=== PATIENT | male | born 1970 | race Two or more races ===

== ENCOUNTER 2025-07-01 06:12 | Emergency (ER) | payer MEDICAID, SELFPAY ==
[2025-07-01 06:20] VITALS: PULSE 68; O2SAT 100; BMI 22.4
[2025-07-01 06:21] VITALS: BP 195/119; PULSE 101; RESP 18; TEMP 36.8; O2SAT 93
--- NOTE | 2025-07-01 06:23 | XR_ITS ---
Examination: AP chest single view TECHNIQUE: AP portable supine chest single view Date and time: July 01, 2025, 0723 hours INDICATIONS: Hypoxia and respiratory failure today, postintubation, extensive cerebral hemorrhage on CT brain scan this morning FINDINGS: Normal heart size Mild elevation left hemidiaphragm. Right ventriculoperitoneal shunt tube Endotracheal tube tip 5.4 cm above Adam No aspiration pneumonia Mild prominence pulmonary vasculature IMPRESSION: Endotracheal tube tip 5.4 cm above adam No aspiration pneumonia
--- NOTE | 2025-07-01 06:23 | XR_ITS ---
Examination: CT brain head without contrast. 2-D sagittal coronal reconstructions Date and time of exam:July 01, 2025, 0632 hours INDICATIONS: Seizure today, history meningitis CTDI: vol (mGy):49.8 DLP: (mGycm):[place] 33 Technique: Multiple CT axial sections of the brain have been obtained, 5 mm slice thickness. Contrast has not been administered. 2-D sagittal, coronal reconstructions have been obtained Low dose protocols were performed. One or more of the following dose reduction techniques were used; automated exposure control, adjustment of the mA and/or KV according to patient size, use of iterative reconstruction technique. Findings: Extensive intraventricular hemorrhage with mild to moderate enlargement of ventricles, asymmetric, more pronounced enlargement left lateral ventricle with shift of the frontal horns to the right at least 5 mm 16 mm left basal ganglia hemorrhage Hemorrhage is also in the third ventricle aqueduct and fourth ventricle Generalized cerebral edema Right frontal ventriculostomy catheter tip at the level of the right lateral ventricle IMPRESSION: Extensive intraventricular ventricular hemorrhage with mild to moderate enlargement of ventricles asymmetric, more pronounced and larger left lateral ventricle with shift of the frontal horns to the right at least 5 mm 16 mm left basal ganglia hemorrhage Generalized cerebral edema No tonsillar herniation
--- NOTE | 2025-07-01 06:26 | PD.EDSEIZ ---
ED Seizures RME/HPI General Chief Complaint: Seizure Stated Complaint: seizure Time Seen by Provider: 07/01/25 06:13 Arrival date/time: 07/01/25 06:12 Mode of arrival: EMS Limitations: altered mental status RME / HPI RME / HPI Narrative: Patient is a 54-year-old male is in the emergency room brought in by EMS after having had a witnessed seizure lasting approximately 20 minutes prior to EMS arrival. Per EMS patient's family states that the patient was having a tonic-clonic seizure, has a history of meningitis diagnosed in October, no history of seizures. Also has a history of diabetes. On scene patient was initially shaking and then became postictal. No medications were provided on scene. Patient blood sugar was 200, blood pressure systolic was greater than 190. Patient confused, had urinary incontinence. Patient was afebrile 06:45h - provides additional history. 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 complaint: seizure Related Data Allergies Allergy/AdvReac Type Severity Reaction Status Date / Time No Known Allergies Allergy Unverified 07/01/25 06:19 Review of Systems Review of Systems ROS Unobtainable: unobtainable due to mental status Past Medical History Past Medical History CARDIAC: Negative Congestive Heart Failure RESPIRATORY: Negative Chronic Obstructive Pulmonary Disease (COPD) GENITOURINARY: Negative Renal Disease ENDOCRINE: Positive Diabetes Mellitus Type 2; Negative Diabetes Mellitus Type 1 Social History SMOKING STATUS: Unknown if ever smoked ED Exam General Limitations: Present altered mental status General appearance: Present in distress Head Head exam: Present atraumatic and other (Patient with medical record consultant at the right occiput) Eye Eye exam: Present other (Minimal conjunctival injection, patient spontaneously opening his eyes, pupils equal round and reactive to light approximately 3 mm, right eye is deviated to the right mildly) ENT ENT exam: Present mucous membranes moist Neck Neck exam: Present normal inspection and trachea midline Chest Chest inspection: Present symmetric chest wall rise; Absent rash Respiratory Respiratory exam: Present normal lung sounds bilaterally; Absent respiratory distress, wheezes, stridor or accessory muscle use Cardiovascular Cardiovascular exam: Present normal rhythm and tachycardia Abdominal Exam Abdominal exam: Present soft; Absent distention, tenderness, guarding or rebound Extremities Exam Extremities exam: Present normal inspection Back Exam Back exam: Present normal inspection Neurological Exam Neurological exam: Present alert and other (Confused, responding to noxious stimuli with sternal rub, tracks, no nystagmus, minimal movement of all 4 extremities) Skin Skin exam: Present warm and dry Course Quality Measures none Orders Category Date Time Status 24 HR Medical Restraints Q2HR Care 07/01/25 07:55 Active Bedside COVID-19 Antigen Test NOW Care 07/01/25 06:23 Active Bedside COVID-19 Antigen Test NOW Care 07/01/25 06:27 Active Bedside Influenza A&B Antigen Test NOW Care 07/01/25 06:23 Completed Bedside Influenza A&B Antigen Test NOW Care 07/01/25 06:27 Completed EKG (ED ONLY) *Do not use* NOW Care 07/01/25 07:06 Completed Emergency Titration Protocol Stat Care 07/01/25 08:07 Ordered Intubation NOW Care 07/01/25 07:35 Completed Intubation NOW Care 07/01/25 07:39 Completed Miscellaneous Nursing Order NOW Care 07/01/25 07:00 Active Miscellaneous Nursing Order NOW Care 07/01/25 07:21 Active Miscellaneous Nursing Order NOW Care 07/01/25 08:04 Active Referral - Sports Leadership Instructor Stat Cons 07/01/25 08:[address] head/brain wo con Stat Exams 07/01/25 06:23 Completed CXR [XR chest 1V post procedure] Stat Exams 07/01/25 07:41 Completed EKG (ED Only) Stat Exams 07/01/25 07:06 Draft XR chest 1V post procedure Stat Exams 07/01/25 06:23 Completed Acetaminophen Stat Lab 07/01/25 06:30 Completed Ammonia Stat Lab 07/01/25 06:30 Completed CBC Stat Lab 07/01/25 06:30 Completed CMP [Comprehensive Metabolic Panel] Stat Lab 07/01/25 06:30 Completed Drug Screen,Urine Stat Lab 07/01/25 07:11 Completed INR [Prothrombin Time with INR] Stat Lab 07/01/25 06:30 Completed Procalcitonin Stat Lab 07/01/25 06:30 Completed Salicylate Stat Lab 07/01/25 06:30 Completed Sputum Culture and Gram Stain Stat Lab 07/01/25 07:36 Ordered T4 (Thyroxine) Stat Lab 07/01/25 06:30 Completed Thyroid Stimulating Hormone Stat Lab 07/01/25 06:30 Completed Troponin I Stat Lab 07/01/25 06:30 Completed UA, C/S IF [Urinalysis, C/S if Indicated] Stat Lab 07/01/25 07:11 Received VBG [Venous Blood Gas] Stat Lab 07/01/25 06:30 Completed Etomidate Inj [Amidate Inj] Med 07/01/25 07:07 Discontinued 30 mg IVP X1 ONE Etomidate Inj [Amidate Inj] Med 07/01/25 07:00 Discontinued 40 mg .ROUTE .STK-MED ONE Labetalol IV [Trandate IV] Med 07/01/25 06:25 Discontinued 10 mg IVP X1 ONE Magnesium Sulfate 1 gm Ivpb [Magnesium Sulfate Ivpb] Med 07/01/25 07:09 Discontinued 1 gm in 100 ml IV X1 Magnesium Sulfate 1 gm Ivpb [Magnesium Sulfate Ivpb] Med 07/01/25 07:09 Discontinued 100 ml IV .STK-MED Mannitol Inj 20% IVPB 500 ml Med 07/01/25 07:45 Discontinued Pre-Mixed [Pre-mixed Bag] 1 bag IV NOW Nicardipine/Ns 20Mg Ivpb [Cardene Ivpb] Med 07/01/25 06:37 Active 20 mg in 200 ml IV 5 mg/hr Ondansetron Inj [Zofran Inj] Med 07/01/25 07:06 Discontinued 4 mg IVP X1 ONE Ondansetron Inj [Zofran Inj] Med 07/01/25 07:14 Discontinued 4 mg IVP X1 ONE POTASSIUM CHL 10 mEq IVPB [Kcl Ivpb] Med 07/01/25 07:41 Active 10 meq in 100 ml IV Q1H Potassium Chloride [K-Dur] Med 07/01/25 07:40 Discontinued 40 meq PO X1 ONE Propofol 1,000 mg Ivpb [Diprivan Ivpb] Med 07/01/25 07:18 Discontinued 1,000 mg in 100 ml IV .STK-MED Propofol 1,000 mg Ivpb [Diprivan Ivpb] Med 07/01/25 07:23 Active 1,000 mg in 100 ml IV 5 mcg/kg/min Rocuronium Inj [Zemuron Inj] Med 07/01/25 07:01 Discontinued 100 mg .ROUTE .STK-MED ONE Rocuronium Inj [Zemuron Inj] Med 07/01/25 07:05 Discontinued 50 mg IVP X1 ONE Sodium Chloride 0.9% 1000 ml [Ns] 1,000 ml Med 07/01/25 07:04 Discontinued IV 999 mls/hr levETIRAcetam INJ [Keppra Inj] Med 07/01/25 06:17 Discontinued 1,000 mg .ROUTE .STK-MED ONE levETIRAcetam INJ [Keppra Inj] Med 07/01/25 06:16 Discontinued 1,000 mg IVP X1 ONE Volume Ventilator Routine RT 07/01/25 07:35 Active Vital Signs Vital signs: Vital Signs Temperature 98.3 F 07/01/25 06:21 Pulse Rate 101 H 07/01/25 06:21 Respiratory Rate 18 07/01/25 06:21 Blood Pressure 195/119 H 07/01/25 06:21 Pulse Oximetry (%) 93 L 07/01/25 06:21 Oxygen Delivery Method Room Air 07/01/25 06:21 Pulse ox is 93% on room air which is adequate. PROCEDURES: Intubation Time out performed: Yes sedative: Etomidate Mg Given: 30 paralytic: Rocuronium Mg Given: 50 Laryngoscope: fiber optic video scope Assist Device Used: fiber optic device ET Tube Size: 7.5 ET Tube Uncuffed: No Tube Secured Depth (cm): 22 Tube Secured Location: lips Tube Placement Confirmation: visualized tube passing through cords, equal breath sounds bilaterally, no breath sounds over epigastrium and confirmation by capnometry Patient Tolerated Procedure: well and no complications Intubation Complications: none Seizure MDM Narrative MDM Narrative:: Patient is a 54-year-old male is in the emergency department after having had seizure-like activity at home. Vital signs and exam as listed. Patient was immediately placed in resuscitation room, IV access obtained. Patient is responding to noxious stimuli, is still confused appears postictal. Blood pressure systolic greater than 190 concern for hypertensive emergency. Ordered medication for blood pressure relief as well as further prophylaxis. Patient is afebrile no rashes, less likely meningitis at this time. Concern for intracranial hemorrhage, metabolic disturbance, viral syndrome urinary tract infection among others. Ordered CT and labs. Patient was stabilized and immediately taken to CT given concern for hemorrhage. CT brain shows intracranial hemorrhage within bilateral lateral ventricles third ventricle as well as fourth ventricle. No evidence of herniation of my read. Will place patient on a Cardene drip, and transfer for higher level of care for neurosurgery. 6:50a patient's partner arrived at bedside, Gale, states that the patient is not on any blood thinners or antiplatelet agents. Had a history of valley fever in 2022, complicated by meningitis in 2023, had a cholecystectomy earlier this year. 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 7a patient has intermittent episodes of shaking, concern the patient is having seizures. Will provide antiepileptic medication, and intubate for airway protection and for better management of seizures. Spoke with patient's partner Gale as well as his adult son Isma Peter Jr., both confirm that the patient is full code. Provide consent for intubation understand the patient is critically ill. [facility] recommended that we start the patient on mannitol given concern that he will likely herniate. Patient intubated without any difficulties, hyperventilated given intracranial hemorrhage. Sedated on propofol. Requested nurses to titrate propofol drip emergently given patient appears to be reacting to event, and some shaking. Patient was given a propofol bolus, resulting in appropriate sedation and no longer having any myoclonic activity. Patient with hypokalemia, pH normal, glucose 200. Will replete in the emergency department. Unable to place NG nor OG tube in the emergency department. Repleted IV. 7:45a troponin not elevated, EKG, heart rate 120, normal intervals, has ST depressions in lead to 3 aVF V1 V2 V3 V4 V5 V6 also has ST elevation in aVR. Not a STEMI. Discussed case with Dr. Baum given ST depression and elevations in aVR send the patient has left main disease. Patient not a candidate for anticoagulation at this point. Agrees with transfer for higher level of care for the brain bleed, will try to see the patient before he gets transferred. No other recommendations at this time. 8:26a patient is comfortable, no myoclonic activity, not overbreathing the vent, blood pressure is now at goal. EMS. Here to picking tech patient for transport. EMS team was thoroughly briefed on patient history and plan Patient data External records reviewed:: EMS form and None (No previous visits for review ) Clinical information provided by:: EMS Social determinants that could affect healthcare access:: none Patient has the following chronic illnesses:: Meningitis, diabetes How is presenting disease/condition affected by chronic disease/condition?: exacerbated by Evaluation data The following diagnostics were reviewed and interpreted by me:: lab results and radiology exam(s) Lab and/or radiology exams considered but not ordered:: None Interpretation Summary: Ordering Physician: Lara Charles MD Date of Service: 07/01/25 Procedure(s): CT head/brain wo con Accession Number(s): [id number] cc: Richie Simms MD; Lara Charles MD~ Examination: CT brain head without contrast. 2-D sagittal coronal reconstructions Date and time of exam:July 01, 2025, 0632 hours INDICATIONS: Seizure today, history meningitis CTDI: vol (mGy):49.8 DLP: (mGycm):[place] 33 Technique: Multiple CT axial sections of the brain have been obtained, 5 mm slice thickness. Contrast has not been administered. 2-D sagittal, coronal reconstructions have been obtained Low dose protocols were performed. One or more of the following dose reduction techniques were used; automated exposure control, adjustment of the mA and/or KV according to patient size, use of iterative reconstruction technique. Findings: Extensive intraventricular hemorrhage with mild to moderate enlargement of ventricles, asymmetric, more pronounced enlargement left lateral ventricle with shift of the frontal horns to the right at least 5 mm 16 mm left basal ganglia hemorrhage Hemorrhage is also in the third ventricle aqueduct and fourth ventricle Generalized cerebral edema Right frontal ventriculostomy catheter tip at the level of the right lateral ventricle IMPRESSION: Extensive intraventricular ventricular hemorrhage with mild to moderate enlargement of ventricles asymmetric, more pronounced and larger left lateral ventricle with shift of the frontal horns to the right at least 5 mm 16 mm left basal ganglia hemorrhage Generalized cerebral edema No tonsillar herniation Dictated By: Richie Simms MD Signed By: <Electronically signed by Richie Simms MD in OV> 07/01/25 0714 Medications / Prescriptions Medications or Prescriptions considered but not ordered:: None Medication administrations:: Medication Administration History Nicardipine/Sodium Chloride (Cardene Ivpb) 20 mg in 200 mls @ 50 mls/hr IV .Q4H PRN; Protocol PRN Reason: PER PROTOCOL Stop: 07/31/25 06:36 Last Titration: 07/01/25 08:05 Dose: 0 mg/hr, 0 mls/hr Documented By: Titration: 07/01/25 07:26 Dose: 7.5 mg/hr, 75 mls/hr Documented By: Titration: 07/01/25 07:16 Dose: 0 mg/hr, 0 mls/hr Documented By: Titration: 07/01/25 06:54 Dose: 7.5 mg/hr, 75 mls/hr Documented By: Admin: 07/01/25 06:47 Dose: 5 mg/hr, 50 mls/hr Documented By: TONIA Propofol (Diprivan Ivpb) 1,000 mg in 100 mls @ 2.064 mls/hr IV .Q24H PRN; Protocol PRN Reason: PER PROTOCOL Stop: 07/31/25 07:22 Last Titration: 07/01/25 08:09 Dose: 20 mcg/kg/min, 8.257 mls/hr Documented By: Titration: 07/01/25 08:03 Dose: 10 mcg/kg/min, 4.129 mls/hr Documented By: Admin: 07/01/25 07:34 Dose: 5 mcg/kg/min, 2.064 mls/hr Documented By: SINDHU Co-signed By: TRUNG Potassium Chloride (Kcl Ivpb) 10 meq in 100 mls @ 100 mls/hr IV Q1H DERRICK Stop: 07/01/25 09:40 Last Admin: 07/01/25 07:53 Dose: 100 mls/hr Documented By: TRUNG Discontinued Medications Etomidate (Etomidate Inj 2 Mg/Ml Vial 10 Ml) Confirm Administered Dose 40 mg .ROUTE .STK-MED ONE Stop: 07/01/25 07:01 Last Admin: 07/01/25 07:22 Dose: Not Given Documented By: SINDHU Non-Admin Reason: Duplicate Medication on eMAR Etomidate (Etomidate Inj 2 Mg/Ml Vial 10 Ml) 30 mg IVP X1 ONE Stop: 07/01/25 07:08 Last Admin: 07/01/25 07:19 Dose: 30 mg Documented By: SINDHU Sodium Chloride (Ns) 1,000 mls @ 999 mls/hr IV .Q1H1M ONE Stop: 07/01/25 08:04 Last Infusion: 07/01/25 08:25 Dose: Infused Documented By: Admin: 07/01/25 07:15 Dose: 999 mls/hr Documented By: SINDHU Magnesium Sulfate/Dextrose (Magnesium Sulfate Ivpb) 1 gm in 100 mls @ 100 mls/hr IV X1 ONE Stop: 07/01/25 08:08 Last Infusion: 07/01/25 08:24 Dose: Infused Documented By: Admin: 07/01/25 07:12 Dose: 100 mls/hr Documented By: SINDHU Magnesium Sulfate/Dextrose (Magnesium Sulfate Ivpb) Confirm Administered Dose 100 mls @ ud IV .STK-MED ONE Stop: 07/01/25 07:10 Last Admin: 07/01/25 07:18 Dose: Not Given Documented By: SINDHU Non-Admin Reason: Duplicate Medication on eMAR Propofol (Diprivan Ivpb) Confirm Administered Dose 1,000 mg in 100 mls @ ud IV .STK-MED ONE Stop: 07/01/25 07:19 Last Admin: 07/01/25 07:31 Dose: Not Given Documented By: TRUNG Non-Admin Reason: Duplicate Medication on eMAR Mannitol 500 ml/ IV (Miscellaneous Supplies) 500 mls @ 1,500 mls/hr IV NOW ONE Stop: 07/01/25 08:04 Last Infusion: 07/01/25 08:24 Dose: Infused Documented By: Admin: 07/01/25 07:43 Dose: 1,500 mls/hr Documented By: TRUNG Labetalol HCl (Labetalol Inj 5 Mg/Ml Vial 20 Ml) 10 mg IVP X1 ONE Stop: 07/01/25 06:26 Last Admin: 07/01/25 06:55 Dose: Not Given Documented By: TONIA Non-Admin Reason: Change of Condition Levetiracetam (Levetiracetam Inj 100 Mg/Ml Vial 5ml) 1,000 mg IVP X1 ONE Stop: 07/01/25 06:17 Last Admin: 07/01/25 06:43 Dose: 1,000 mg Documented By: TONIA Levetiracetam (Levetiracetam Inj 100 Mg/Ml Vial 5ml) Confirm Administered Dose 1,000 mg .ROUTE .STK-MED ONE Stop: 07/01/25 06:18 Last Admin: 07/01/25 07:22 Dose: Not Given Documented By: SINDHU Non-Admin Reason: Duplicate Medication on eMAR Ondansetron HCl (Ondansetron Inj 2 Mg/Ml Inj 2 Ml) 4 mg IVP X1 ONE; Protocol Stop: 07/01/25 07:07 Last Admin: 07/01/25 07:18 Dose: 4 mg Documented By: SINDHU Ondansetron HCl (Ondansetron Inj 2 Mg/Ml Inj 2 Ml) 4 mg IVP X1 ONE; Protocol Stop: 07/01/25 07:15 Last Admin: 07/01/25 07:22 Dose: Not Given Documented By: SINDHU Non-Admin Reason: Duplicate Medication on eMAR Potassium Chloride (Potassium Chloride 20 Meq Tabcr) 40 meq PO X1 ONE Stop: 07/01/25 07:41 Last Admin: 07/01/25 07:55 Dose: Not Given Documented By: TRUNG Non-Admin Reason: Other, see note Comments: PT INTUBATED & SEDATED; NO OG/NG TUBE ACCESS AT THIS TIME Rocuronium [place] (Rocuronium Inj 10 Mg/Ml Vial 10 Ml) Confirm Administered Dose 100 mg .ROUTE .STK-MED ONE Stop: 07/01/25 07:02 Last Admin: 07/01/25 07:20 Dose: Not Given Documented By: SINDHU Non-Admin Reason: Duplicate Medication on eMAR Rocuronium [place] (Rocuronium Inj 10 Mg/Ml Vial 10 Ml) 50 mg IVP X1 ONE Stop: 07/01/25 07:06 Last Admin: 07/01/25 07:19 Dose: 50 mg Documented By: SINDHU Co-signed By: TRUNG See above Consultations Consultation(s) initiated? (list below): Yes Consultation #1 (Physician, Specialty, Details): I spoke with Dr. Hope at [facility]. Discussed patients PMHx, HPI, ED course, exam findings, labs, and radiology results. Patient has been accepted for transfer. Time: 07:20 Consultation #2 (Physician, Specialty, Details): I spoke with emergency worker Dr. Baum. Discussed patients PMHx, HPI, ED course, exam findings, labs, and EKG results. Time: 07:48 Diagnosis Seizure Differential Diagnosis: epileptic seizure, status epilepticus and other (ICH) Most likely diagnosis given after review of the tests above:: Intracranial hemorrhage, hypertensive emergency, hypokalemia, coronary artery disease, seizure, status epilepticus, Admission Indicated Admission indicated?: not indicated Explain why admission is indicated or not indicated:: Txfer for neurosurgery Admission Request Was there a request for admission?: No Disposition Plan Disposition Plan: Transfer Critical Care Time Critical Care Time Critical Care Time: Yes Total Critical Care Time (min.): 60 Attestation: The high probability of sudden, clinically significant deterioration in the patient's condition required the highest level of my preparedness to intervene urgently. The services I provided to this patient were to treat and/or prevent clinically significant deterioration. Services included the following: chart data review, reviewing nursing notes and/or old charts, documentation time, web consultant collaboration regarding findings and treatment options, medication orders and management, direct patient care, vital sign assessments and ordering, interpreting and reviewing diagnostic studies and lab tests. Aggregate critical care time includes only time during which I was engaged in work directly related to the patient's care, as described above, whether at bedside or elsewhere in the Emergency Department. It did not include time spent performing other reported procedures or the services of residents, students, nurses or physician assistants. Discharge Plan Plan Patient Disposition: er Acute Care Fac Prescriptions/Referrals Referrals: Felicitas Noyola PA-C [Primary Care Provider] - In 1 week Problem List Clinical Impression: Intracranial hemorrhage, Status epilepticus, Acute hypokalemia, Diffuse ST segment depression Patient/Caregiver Discharge Instructions Print Language: [place] Island[place] Stand Alone Forms: Lakshmi Award Info., Patient Portal Info Letter
[2025-07-01] MEDS: levETIRAcetam INJ 100 MG/ML VIAL 5ML 1000 MG IVP (06:43)
[2025-07-01 06:47] VITALS: BP 178/124; PULSE 99
[2025-07-01] MEDS: NICARDIPINE/NS 20MG IVPB 20 MG/200 ML BAG 50 MG IV (06:47)
[2025-07-01 06:55] LABS: Base Excess, Venous 3 (-3-3); O2 Saturation, Venous 90 % (96-97); PCO2, Venous 53 mmHg (36-56); PO2, Venous 59 mmHg (15-58); pH, Venous 7.35 (7.33-7.66)
[2025-07-01 06:58] LABS: Basophils # (Auto) 0.2 Thou/mm3 (0.0-0.2); Basophils % (Auto) 1 % (0-2.5); Eosinophils # (Auto) 0.9 Thou/mm3 (0.0-0.5); Eosinophils % (Auto) 6 % (0-10); Hematocrit 41.5 % (41.0-53.0); Hemoglobin 14.8 g/dL (13.5-16.0); Immature Granulocytes Auto 0.06 Thou/mm3 (0.00-0.00); Lymphocytes # (Auto) 5.0 Thou/mm3 (1.0-4.8); Lymphocytes % (Auto) 35 % (10-50); Mean Corpuscular HGB Conc 35.7 g/dl (31.0-37.0); Mean Corpuscular Hemoglobin 30.7 pg (25.0-35.0); Mean Corpuscular Volume 86 fL (80-100); Monocytes # (Auto) 0.8 Thou/mm3 (0.0-0.8); Monocytes % (Auto) 6 % (0-12); Neutrophils # (Auto) 7.4 Thou/mm3 (1.8-7.7); Neutrophils % (Auto) 52 % (37-80); Nucleated Red Blood Cell # 0.00 Thou/mm3 (0.00-0.00); Nucleated Red Blood Cell % 0 /100 WBC (0); Platelet Count 246 Thou/mm3 (140-440); RDW Standard Deviation 40.6 fL (35.1-43.9); Red Blood Count 4.82 Miln/mm3 (4.50-5.90); White Blood Count 14.3 Thou/mm3 (3.8-10.6)
--- NOTE | 2025-07-01 07:06 | EKG_ITS ---
[facility] Test Date: 2025-07-01 Pat Name: TANA HOLLEY Department: Room: - Gender: Male Molding Process Technician: : 1970 Requested By: Lara Daniel Order Number: [id number] Reading MD: Lara Daniel Measurements Intervals [place] Rate: 120 P: 67 TX: 147 QRS: -25 QRSD: 94 T: 81 QT: 339 QTc: 479 Interpretive Statements SINUS TACHYCARDIA BORDERLINE LEFT AXIS DEVIATION [QRS AXIS < -20] INCOMPLETE RIGHT BUNDLE BRANCH BLOCK [90+ ms QRS DURATION, TERMINAL R IN V1/V2, 40+ ms S IN I/aVL/V4/V5/V6] NONSPECIFIC ST & T-WAVE ABNORMALITY ABNORMAL RHYTHM ECG No previous ECG available for comparison /store/S0/[id number]/[id number].pdf
[2025-07-01] MEDS: SODIUM CHLORIDE 0.9% 1000 ML 1,000 ML 999 ML IV (07:15)
[2025-07-01] MEDS: ONDANSETRON INJ 2 MG/ML INJ 2 ML 4 MG IVP (07:18)
[2025-07-01] MEDS: ROCURONIUM INJ 10 MG/ML VIAL 10 ML 50 MG IVP (07:19)
[2025-07-01] MEDS: ETOMIDATE INJ 2 MG/ML VIAL 10 ML 30 MG IVP (07:19)
[2025-07-01 07:25] LABS: Collection Type, Urine Catheter; Squamous Epithelial Cell,Urine 0 /hpf (0-5)
[2025-07-01 07:30] LABS: Acetaminophen < 2.0 mcg/mL (10.0-20.0); Alanine Aminotransferase 13 U/L (10-49); Albumin, Serum 4.5 gm/dL (3.5-5.0); Albumin/Globulin Ratio 1.4 (1.2-2.2); Alkaline Phosphatase 111 U/L (46-116); Ammonia < 10 uMol/L (11-32); Anion Gap 15 (7-16); Aspartate Amino Transferase 20 U/L (0-34); BUN/Creatinine Ratio 17 Ratio (12-20); Bilirubin,Total 0.3 mg/dL (0.3-1.2); Blood Urea Nitrogen 19 mg/dL (9-23); Calcium 10.0 mg/dL (8.3-10.6); Calcium (Corrected) 10.0 mg/dL (8.5-10.1); Carbon Dioxide 28.1 mMol/L (20.0-31.0); Chloride 98 mMol/L (98-107); Creatinine (Component) 1.1 mg/dL (0.6-1.3); Estimated Creatinine Clearance 74.7 mL/min (>60); Globulin 3.3 gm/dL (2.3-3.5); Glucose 273 mg/dL (74-106); INR 1.0 (0.9-1.3); Osmolality,Calculated 293 (275-295); Procalcitonin < 0.04 ng/ml (0.0-0.49); Prothrombin Time 10.6 Seconds (9.0-12.2); Salicylate < 3.0 mg/dL; Sodium 141 mMol/L (136-145); T4 (Thyroxine) 6.9 mcg/dL (4.5-10.9); Thyroid Stimulating Hormone 3.70 uIU/mL (0.55-4.78); Total Protein 7.8 gm/dL (5.7-8.2); Troponin I < 0.002 ng/mL (0.0-0.045); eGFR > 60 See Note
[2025-07-01 07:34] LABS: Potassium 2.7 mMol/L (3.4-5.1)
[2025-07-01] MEDS: PROPOFOL 1,000 MG IVPB 1,000 MG/100 ML VIAL 2.064 MG IV (07:34)
[2025-07-01 07:40] VITALS: BP 158/97; PULSE 121; RESP 22; O2SAT 100
--- NOTE | 2025-07-01 07:41 | XR_ITS ---
Examination: AP chest single view TECHNIQUE: AP portable supine chest single view Date and time: July 01, 2025, 0747 hours INDICATIONS: Post orogastric tube placement FINDINGS: Orogastric tube is coiled in the upper esophagus Endotracheal tube 5 cm above adam Normal heart size No aspiration pneumonia IMPRESSION: Recommend withdrawing the orogastric tube completely and reinserting
[2025-07-01] MEDS: MANNITOL 20% IV (07:43)
[2025-07-01] MEDS: PRE MIXED IV (07:43)
[2025-07-01] MEDS: POTASSIUM CHL 10 mEq IVPB 10 MEQ/100 ML BAG 100 MEQ IV (07:53)
[2025-07-01 07:58] LABS: Amphetamine/Methamp Scrn,U Negative (Negative); Barbiturate Screen,Urine Negative (Negative); Benzodiazepines Screen,Urine Negative (Negative); Benzoylecgonine Screen, Ur Negative (Negative); Fentanyl Screen,Urine Negative (Negative); Opiate Screen,Urine Negative (Negative); THC Screen,Urine Negative (Negative)
--- NOTE | 2025-07-01 08:13 | PC.NURSE ---
PROPOFOL MEDICATION GIVEN TO FLIGHT KANDACE LEAL.
--- NOTE | 2025-07-01 08:20 | PC.NURSE ---
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
[2025-07-01 08:22] VITALS: BP 144/95; PULSE 113; RESP 18; TEMP 37; O2SAT 100
[2025-07-01] MEDS: PROPOFOL 1,000 MG IVPB 1,000 MG/100 ML VIAL 20.643 MG IV (08:32)
--- NOTE | 2025-07-01 08:33 | PC.CC ---
0707: received call for transfer request for Neurosurgery for positive brain hemorrhage. Claudette declined d/t to no neuro ir services. [facility] accepted by Dr. Hope. Peer to peer between Dr. Hope and Dr. Charles completed. [employer] ETA to bedside 0815. Transfer packet with 1 CD and Reach packet created. Packets taken to ED, handed off to ED call center agent Alicia.
[2025-07-01 08:43] LABS: Bacteria,Urine Rare; Bilirubin,Urine Negative (Negative); Blood,Urine Negative (Negative); Clarity,Urine Clear (Clear/Hazy); Color,Urine Lt-Yellow (Lt Yel-Yel); Culture Indicated,Urine Yes; Glucose, Urine 2+ (Negative); Ketones,Urine Negative (Negative); Nitrite,Urine Negative (Negative); PH,Urine 7.0 (5.0-7.0); Protein,Urine 1+ (Neg - Trace); RBC,Urine 8 /hpf (0-3); Specific Gravity,Urine 1.009 (1.001-1.035); Urobilinogen,Urine Negative mg/dL (0.0-1.0); WBC,Urine 16 /hpf (0-5)
[2025-07-01 08:44] LABS: Leukocyte Esterase,Urine Positive (Negative)
--- NOTE | 2025-07-01 10:21 | PC.NURSE ---
SPOKE TO RICHARD JERONIMO FROM [facility] FOR SBAR REPORT.
== END 2025-07-01 08:54 | disposition short-term general hospital (02) ==
PROVIDERS: Emergency Provider Emergency Medicine; PCP Physician Assistant Medical
DX: I61.0 Nontraumatic intracerebral hemorrhage in hemisphere, subcortical (principal); G40.901 Epilepsy, unspecified, not intractable, with status epilepticus; E87.6 Hypokalemia; R94.31 Abnormal electrocardiogram [ECG] [EKG]; G93.6 Cerebral edema; Z98.2 Presence of cerebrospinal fluid drainage device; E11.9 Type 2 diabetes mellitus without complications
CPT/HCPCS: 51702; 31500; 36415; 70450; 80053; 80307; 80329; 81001; 82140; 82803; 84145; 84436; 84443; 84484; 85025; 85610; 87086; 87205; 87400; 87811; 93005; 94002; 96365; 96366; 96375; 99285; J1953; J2404; J2405; J2704; J3475; J3480; J3490; J7030; G0480

== ENCOUNTER 2025-08-04 15:22 | Inpatient (IN) | payer MEDICAID, SELFPAY ==
[2025-08-04] VITALS (72 sets, daily range): BP systolic 66–142; BP diastolic 43–106; PULSE 56–107; RESP 1–98; TEMP 37.3; O2SAT 86–100
--- NOTE | 2025-08-04 15:33 | EDNOTE_ITS ---
Altered Mental Status RME/HPI General Chief Complaint: Altered Mental Status Stated Complaint: AMS Time Seen by Provider: 08/04/25 15:38 Arrival date/time: 08/04/25 15:22 Limitations: altered mental status RME / HPI RME / HPI narrative: DR. BROWN MAIN ED EVALUATION: 54-year-old male with past medical history of recent stroke 3 weeks ago, meningitis, hypertension, and muscle wasting presents to the Emergency Department [facility] from [facility] for altered mental status. Per EMS, last well known was yesterday at 12 pm. On EMS arrival, patient was found altered with GCS 9, which compared to his baseline he is more altered per facility; due to this EMS decided to start bagging. Initial EMS vitals: BP 75/54, HR 89, O2 sat 95% on nonrebreather. Blood glucose was 114. Patient is a full code. No known allergies. No medications were given by EMS except IV fluids. Code Status: DNR Related Data Home Medications ?Medication ?Instructions ?Recorded ?Confirmed albuterol sulfate 2.5 mg/0.5 mL 2.5 mg inhalation Q6H PRN 08/05/25 08/05/25 solution for nebulization shortness of breath or wheez ing amitriptyline 10 mg tablet 10 mg PO HS 08/05/25 famotidine 20 mg tablet 20 mg PO DAILY 08/05/2507/09 fludrocortisone 0.1 mg tablet 0.1 mg PO DAILY 08/05/25 08/05/25 gabapentin 300 mg capsule 300 mg PO Q8H 08/05/2508/05 insulin lispro 100 unit/mL 1 sliding scale dose subcut 08/05/25 08/05/25 subcutaneous solution [id number] levetiracetam 500 mg tablet 500 mg PO Q12H 08/05/25 lisinopril 40 mg tablet 40 mg PO DAILY 08/05/2507/09 Previous Rx's ?Medication ?Instructions ?Recorded isavuconazonium sulfate 186 mg 372 mg (2 x 186 mg) PO QDAY 1 08/08/25 capsule (Cresemba) month #60 caps midodrine 10 mg tablet 10 mg PO Q8H PRN Systolic Bl ood 10/02/25 pressure <90 1 month #90 tabs melatonin 3 mg tablet 3 mg PO HS 1 month #30 tabs 08/09/25 mirtazapine 15 mg tablet 15 mg PO HS 1 month #30 tabs 08/09/25 Allergies Allergy/AdvReac Type Severity Reaction Status Date / Time No Known Allergies Allergy Unverified 07/01/25 06:19 Review of Systems Review of Systems Systems Reviewed: All systems reviewed, normal except as documented Past Medical History Past Medical History NEUROLOGIC: Positive Meningitis CARDIAC: Positive Hypertension ENDOCRINE: Positive Diabetes Mellitus Type 2 OTHER HISTORY: Positive Hospitalization Surgical History SURGICAL: Positive Brain Shunt (B/P SHUNT) Social History SMOKING STATUS: Unknown if ever smoked ED Exam General Limitations: Present altered mental status General appearance: Present other (unresponsive) Head Head exam: Present atraumatic Eye Eye exam: Present normal appearance, PERRL and EOMI ENT ENT exam: Present normal exam, normal oropharynx and mucous membranes moist Neck Neck exam: Present normal inspection and trachea midline Chest Chest inspection: Present normal inspection and symmetric chest wall rise Respiratory Respiratory exam: Present normal lung sounds bilaterally Cardiovascular Cardiovascular exam: Present regular rate, normal rhythm and normal heart sounds Abdominal Exam Abdominal exam: Present soft and normal bowel sounds Extremities Exam Extremities exam: Present normal inspection Back Exam Back exam: Present normal inspection Neurological Exam Neurological exam: Present other (unresponsive; minimal response to pain of the left upper extremity and no response at all to the right upper extremity or bilateral lower extremities) Skin Skin exam: Present warm, dry, intact and normal color Course Quality Measures none Orders Category Date Time Status Bedside Blood Glucose NOW Care 08/04/25 15:[address] Screening NOW Care 08/04/25 17:09 Completed Able Bodied Watchman Q4H START 00 Care 08/04/25 15:37 Completed Staples [Urinary Catheter] QS Care 08/04/25 15:34 Completed Insert IV NOW Care 08/04/25 15:37 Completed Strict Intake and Output Routine Care 08/04/25 15:37 Ordered Urinary Catheter QS Care 08/04/25 17:22 Completed Consult to Nephrology Stat Cons 08/04/25 19:[address] chest abdomen pelvis wo Stat Exams 08/04/25 19:[address] head/brain wo con Stat Exams 08/04/25 15:36 Completed XR chest 1V SEPSIS PROTOCOL Stat Exams 08/04/25 15:37 Completed Ammonia Stat Lab 08/04/25 16:34 Completed Blood Culture (Lab) Stat Lab 08/04/25 16:18 Completed CBC Stat Lab 08/04/25 15:29 Completed CMP [Comprehensive Metabolic Panel] Stat Lab 08/04/25 15:29 Completed Lactate (Lactic Acid) Stat Lab 08/04/25 15:29 Completed Lactic Acid, 3 HR Stat Lab 08/04/25 19:20 Completed Partial Thromboplastin Time Stat Lab 08/04/25 15:29 Completed Procalcitonin Stat Lab 08/04/25 15:29 Completed Prothrombin Time with INR Stat Lab 08/04/25 15:29 Completed Type and Screen Stat Lab 08/04/25 16:24 Completed Urinalysis Stat Lab 08/04/25 16:03 Completed Urine Culture Stat Lab 08/04/25 16:03 Completed VBG [Venous Blood Gas] Stat Lab 08/04/25 15:29 Completed Acyclovir Inj [Zovirax Inj] Med 08/04/25 21:30 Discontinued 1,[address] ONE Acyclovir Inj [Zovirax Inj] 625 mg Med 08/05/25 08:45 Discontinued Sodium Chloride 0.9% [Ns] 100 ml IV Q8HR Acyclovir Inj [Zovirax Inj] 700 mg Med 08/04/25 21:15 Discontinued Sodium Chloride 0.9% [Ns] 100 ml IV X1 Cefepime Inj [Maxipime Inj] 2 gm Med 08/04/25 08:30 Discontinued SODIUM CHLORIDE 0.9% (Popper) [Ns 0.9% (P)] 50 ml IV Q8HR Cefepime Inj [Maxipime Inj] 2 gm Med 08/05/25 06:00 Discontinued SODIUM CHLORIDE 0.9% (Popper) [Ns 0.9% (P)] 50 ml IV X1 Fluconazole/Ns 200 mg Ivpb [Diflucan/Ns Ivpb] Med 08/05/25 09:00 Discontinued 200 mg in 100 ml IV QDAY Fluconazole/Ns 200 mg Ivpb [Diflucan/Ns Ivpb] Med 08/04/25 20:30 Discontinued 200 mg in 100 ml IV X1 Norepinephrine/D5W 8mg/250ml [Levophed in D5W 8mg/250ml Med 08/04/25 15:33 Discontinued ] 8 mg in 250 ml IV 0.05 mcg/kg/min Norepinephrine/NS 16mg/250ml [Levophed in NS 16mg/250ml Med 08/04/25 15:32 Discontinued ] 16 mg in 250 ml IV 0.05 mcg/kg/min Ringers Lactated 1000 ml [Lactated Ringers] 1,000 ml Med 08/04/25 19:36 Discontinued IV 999 mls/hr Sodium Chloride 0.9% 1000 ml [Ns] 1,000 ml Med 08/04/25 18:48 Discontinued IV 999 mls/hr Vancomycin Inj 1,000 mg Med 08/04/25 21:00 Discontinued Sodium Chloride 0.9% 250 ml [Ns] 250 ml IV X1 Vancomycin Pharmacy to Dose Med 08/04/25 20:15 Discontinued 1 each IV QDAY PRN cefTRIAXone/D5w 1gm IV premix [Rocephin/D5w 1gm IV Med 08/04/25 18:00 Discontinued premix] 1 gm in 50 ml IV STAT levETIRAcetam INJ [Keppra Inj] Med 08/04/25 17:19 Discontinued 1,000 mg IVP X1 ONE EKG (RT) Stat RT 08/04/25 15:37 Draft Oxygen Delivery NOW RT 08/04/25 15:37 Completed Vital Signs Vital signs: Vital Signs Pulse Rate 89 08/04/25 15:29 Respiratory Rate 14 08/04/25 15:29 Blood Pressure 66/45 L 08/04/25 15:29 Pulse Oximetry (%) 100 08/04/25 15:29 Oxygen Delivery Method Room Air 08/04/25 15:29 Altered Mental Status MDM Narrative MDM Narrative:: Patient is a 54-year-old 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 Vital signs and exam as listed. Patient immediately placed in resuscitation room, IV access obtained. Patient spontaneously breathing at approximately 18 to 20/min, 100% room air, per EMS he was never hypoxic nor apneic however was unresponsive with systolic blood pressure in the low 70s. They started patient on fluids, provided supplemental oxygen and brought him to the emergency department. On my assessment, patient aphasic, not answering questions not following commands, not responding to pain in his right upper right lower or left lower extremity. Pupils 4 mm bilateral symmetric. Given patient's change in mentation concern that patient may have rebled. Per review of the records patient is not on any blood thinners. we reviewed patient's records that were sent over from a [facility] facility patient is DNR with selective treatment. I attempted call family however was unable to get through. We will continue with medical management, will get a stat head CT, we started the patient on Levophed. Pressure bagged a liter of fluids that was already started by EMS, ordered sepsis order set , will also provide patient with Keppra given his history of seizures. My interpretation: EKG performed at 1551 hours, sinus rhythm, rate 69, normal intervals, no ST elevation Per EMS last known well was 12 PM yesterday. Patient continued to be hypotensive, however is responding well to Levophed now has new MAP greater than [address] I updated patient that is now at bedside, she confirmed that the patient yesterday was speaking at his baseline up until approximately 12 PM when he became excessively sleepy and has not been arousable since then. She is concerned about possible medications that he is receiving at the facility. Patient is not on any blood thinners. Labs with evidence of hemoglobin 12.4, no leukocytosis, no left shift, platelets normal. VBG pH 7.43, pCO2 normal, pO2 greater than 100. Patient with hyponatremia sodium 151, chloride 112. Creatinine 3.2, previously normal. Elevated BUN. Lactic acid 2.5. Ammonia normal, procalcitonin not elevated. Patient has leukocytes +31 red blood cells 8 white blood cells no bacteria will treat empirically for urinary tract infection and send for culture. Consulted tool carrier Dr. Musa recommends that we provide the patient with 1/2 NS 75cc/hr. Discussed case with software systems engineer Dr. Donovan, given that patient continues to be on Levophed. Accepts patient for admission. Requests that instead we provide the patient with a liter of NS. care is now transitioned to the ICU team. Lanny Cornejo, am scribing for and in the presence of Dr. Brown. Patient data External records reviewed:: [facility] previous records and EMS form Clinical information provided by:: patient and EMS Social determinants that could affect healthcare access:: housing (Rehab home) Patient has the following chronic illnesses:: Past medical history of recent stroke 3 weeks ago, meningitis, hypertension, and muscle wasting. Code Status: DNR How is presenting disease/condition affected by chronic disease/condition?: exacerbated by Evaluation data The following diagnostics were reviewed and interpreted by me:: lab results, radiology exam(s) and EKG tracing(s) (My interpretation: EKG performed at 1551 hours, sinus rhythm, rate 69, normal intervals, no ST elevation) Lab and/or radiology exams considered but not ordered:: none Interpretation Summary: See MDM narrative above. RADIOLOGY Procedure(s): XR chest 1V SEPSIS PROTOCOL Accession Number(s): [id number] cc: Felicitas Noyola PA-C; Richie Simms MD; Lara Brown MD~ Examination: AP chest single view Technique one AP portable semiupright chest single view Date and time: July 27, 2025, 1553 hrs. Indications: Shortness of breath chest pain today Findings: Normal heart size No pneumonia or pulmonary edema Right chest ventricular. Shunt tube The osseous structures are intact Impression: No pneumonia or pulmonary edema Dictated By: Richie Simms MD Medications / Prescriptions Medications or Prescriptions considered but not ordered:: none Medication administrations:: Medication Administration History Discontinued Medications Acetaminophen (Acetaminophen 325 Mg Tablet) 650 mg PO Q6H PRN PRN Reason: Fever >101.5 Stop: 09/03/25 22:22 Acyclovir Sodium (Acyclovir Inj 500 Mg/10 Ml Vial) Confirm Administered Dose 1,000 mg IV .STK-MED ONE Stop: 08/04/25 21:31 Last Admin: 08/04/25 22:08 Dose: Not Given Documented By: SANTVikram Non-Admin Reason: Duplicate Medication on eMAR Dextrose (Dextrose 50%-Water Inj 50 Ml Syringe) 25 ml IV Q15MIN PRN PRN Reason: BG 50-70 responsive npo pt Stop: 09/03/25 22:30 Dextrose (Dextrose 50%-Water Inj 50 Ml Syringe) 50 ml IV Q15MIN PRN PRN Reason: BG <50 OR BG <70 & pt unresponsive Stop: 09/03/25 22:30 Diphenhydramine HCl (Diphenhydramine Inj 50 Mg/Ml Vial) 25 mg IM X1 ONE Stop: 08/05/25 23:52 Last Admin: 08/06/25 00:42 Dose: 25 mg Documented By: BRIE Diphenhydramine HCl (Diphenhydramine Inj 50 Mg/Ml Vial) 25 mg IVP X1 ONE Stop: 08/06/25 19:52 Last Admin: 08/06/25 20:06 Dose: 25 mg Documented By: BRIE Enoxaparin Sodium (Enoxaparin Sod Inj 40 Mg/0.4 Ml Syringe) 40 mg SC HS DERRICK Stop: 08/19/25 20:59 Last Admin: 08/08/25 20:08 Dose: 40 mg Documented By: Admin: 08/07/25 20:33 Dose: 40 mg Documented By: Admin: 08/06/25 20:11 Dose: 40 mg Documented By: Admin: 08/05/25 20:20 Dose: 40 mg Documented By: BRIE Glucagon (Glucagon Inj 1 Mg Vial) 1 mg IM Q15MIN PRN PRN Reason: BG <70, and no IV access Guaifenesin (Guaifenesin Syrup 200 Mg/10 Ml Udc) 100 mg PO X1 ONE; Protocol Stop: 08/07/25 04:30 Last Admin: 08/07/25 04:44 Dose: 100 mg Documented By: MIGUEL Norepinephrine Bitartrate (Levophed In Ns 16mg/250ml) 16 mg in 250 mls @ 3.315 mls/hr IV .Q24H PRN; Protocol PRN Reason: PER protocol Stop: 09/03/25 15:31 Norepinephrine/Dextrose (Levophed In D5w 8mg/250ml) 8 mg in 250 mls @ 6.63 mls/hr IV .Q24H PRN; Protocol PRN Reason: PER PROTOCOL Stop: 09/03/25 15:32 Last Titration: 08/05/25 02:45 Dose: 0 mcg/kg/min, 0 mls/hr Documented By: Titration: 08/05/25 02:30 Dose: 0.01 mcg/kg/min, 1.326 mls/hr Documented By: Titration: 08/05/25 02:15 Dose: 0.03 mcg/kg/min, 3.978 mls/hr Documented By: Titration: 08/05/25 02:00 Dose: 0.05 mcg/kg/min, 6.63 mls/hr Documented By: Titration: 08/05/25 01:30 Dose: 0.07 mcg/kg/min, 9.281 mls/hr Documented By: Titration: 08/05/25 01:15 Dose: 0.09 mcg/kg/min, 11.933 mls/hr Documented By: Titration: 08/05/25 01:00 Dose: 0.11 mcg/kg/min, 14.585 mls/hr Documented By: Titration: 08/05/25 00:02 Dose: 0.13 mcg/kg/min, 17.2 mls/hr Documented By: [email or web address] Titration: 08/04/25 23:30 Dose: 0.1 mcg/kg/min, 13.259 mls/hr Documented By: [email or web address] Titration: 08/04/25 18:45 Dose: 0.13 mcg/kg/min, 17.237 mls/hr Documented By: Titration: 08/04/25 18:00 Dose: 0.11 mcg/kg/min, 14.585 mls/hr Documented By: Titration: 08/04/25 17:00 Dose: 0.11 mcg/kg/min, 14.585 mls/hr Documented By: Titration: 08/04/25 16:10 Dose: 0.11 mcg/kg/min, 14.585 mls/hr Documented By: Titration: 08/04/25 15:55 Dose: 0.09 mcg/kg/min, 11.933 mls/hr Documented By: Titration: 08/04/25 15:50 Dose: 0.07 mcg/kg/min, 9.281 mls/hr Documented By: Admin: 08/04/25 15:39 Dose: 0.05 mcg/kg/min, 6.63 mls/hr Documented By: EF Ceftriaxone Sodium/Dextrose (Rocephin/D5w 1gm Iv Premix) 1 gm in 50 mls @ 100 mls/hr IV STAT STA Stop: 08/04/25 18:29 Last Admin: 08/04/25 18:24 Dose: 100 mls/hr Documented By: EF Sodium Chloride (Ns) 1,000 mls @ 999 mls/hr IV .Q1H1M ONE Stop: 08/04/25 19:48 Last Infusion: 08/04/25 20:20 Dose: Infused Documented By: Admin: 08/04/25 19:18 Dose: 999 mls/hr Documented By: BENITO Lactated Ringer's (Lactated Ringers) 1,000 mls @ 999 mls/hr IV .Q1H1M ONE Stop: 08/04/25 20:36 Last Infusion: 08/04/25 21:40 Dose: Infused Documented By: Admin: 08/04/25 20:37 Dose: 999 mls/hr Documented By: BENITO Cefepime HCl 2 gm/ Sodium (Chloride) 50 mls @ 100 mls/hr IV Q8HR DERRICK Stop: 08/11/25 08:29 Last Admin: 08/05/25 10:20 Dose: Not Given Documented By: Non-Admin Reason: Discontinued Admin: 08/05/25 10:20 Dose: Not Given Documented By: Non-Admin Reason: Discontinued Admin: 08/05/25 10:19 Dose: Not Given Documented By: Non-Admin Reason: Discontinued Admin: 08/05/25 10:18 Dose: Not Given Documented By: Non-Admin Reason: Discontinued Vancomycin HCl 1,000 mg/ (Sodium Chloride) 250 mls @ 150 mls/hr IV X1 ONE Stop: 08/04/25 22:39 Last Admin: 08/05/25 00:26 Dose: 150 mls/hr Documented By: BENITO Fluconazole (Diflucan/Ns Ivpb) 200 mg in 100 mls @ 100 mls/hr IV QDAY DERRICK Stop: 08/12/25 08:59 Last Admin: 08/05/25 10:21 Dose: 100 mls/hr Documented By: TIKI Fluconazole (Diflucan/Ns Ivpb) 200 mg in 100 mls @ 100 mls/hr IV X1 ONE Stop: 08/04/25 21:29 Last Infusion: 08/04/25 23:02 Dose: Infused Documented By: Admin: 08/04/25 21:59 Dose: 100 mls/hr Documented By: BENITO Cefepime HCl 2 gm/ Sodium (Chloride) 50 mls @ 100 mls/hr IV X1 ONE Stop: 08/05/25 06:29 Last Admin: 08/05/25 05:47 Dose: 100 mls/hr Documented By: NATE Acyclovir Sodium 625 mg/ (Sodium Chloride) 112.5 mls @ 112.5 mls/hr IV Q8HR DERRICK Stop: 08/12/25 08:44 Last Admin: 08/05/25 10:17 Dose: Not Given Documented By: Non-Admin Reason: Discontinued Acyclovir Sodium 700 mg/ (Sodium Chloride) 114 mls @ 99.878 mls/hr IV X1 ONE Stop: 08/04/25 22:23 Last Infusion: 08/05/25 00:15 Dose: Infused Documented By: Admin: 08/04/25 23:04 Dose: 99.878 mls/hr Documented By: BENITO Lactated Ringer's (Lactated Ringers) 1,000 mls @ 75 mls/hr IV .[id number] DERRICK Stop: 09/03/25 22:29 Last Admin: 08/05/25 02:30 Dose: 75 mls/hr Documented By: NATE Lactated Ringer's (Lactated Ringers) 1,000 mls @ 999 mls/hr IV .Q1H1M ONE Stop: 08/05/25 01:49 Last Admin: 08/05/25 01:44 Dose: 999 mls/hr Documented By: NATE Dextrose (D5w) 1,000 mls @ 50 mls/hr IV .Q20H DERRICK Stop: 09/04/25 06:44 Last Admin: 08/05/25 08:14 Dose: 50 mls/hr Documented By: TIKI Acyclovir Sodium 625 mg/ (Sodium Chloride) 112.5 mls @ 112.5 mls/hr IV Q8HR DERRICK Stop: 08/12/25 08:59 Acyclovir Sodium 625 mg/ (Sodium Chloride) 112.5 mls @ 112.5 mls/hr IV Q8HR DERRICK Stop: 08/12/25 08:59 Last Admin: 08/05/25 10:18 Dose: Not Given Documented By: MR Non-Admin Reason: Discontinued Vancomycin/Sodium Chloride (Vancomycin/Ns 750 Mg Ivpb) 750 mg in 150 mls @ 120 mls/hr IV BID@1000,2200 [facility] Stop: 08/12/25 09:59 Ceftriaxone Sodium/Dextrose (Rocephin/D5w 1gm Iv Premix) 1 gm in 50 mls @ 100 mls/hr IV QDAY DERRICK Stop: 08/10/25 09:56 Last Admin: 08/09/25 08:14 Dose: 100 mls/hr Documented By: Infusion: 08/08/25 09:53 Dose: Infused Documented By: Admin: 08/08/25 09:23 Dose: 100 mls/hr Documented By: Infusion: 08/07/25 08:59 Dose: Infused Documented By: Admin: 08/07/25 08:29 Dose: 100 mls/hr Documented By: Infusion: 08/06/25 10:02 Dose: Infused Documented By: Admin: 08/06/25 09:32 Dose: 100 mls/hr Documented By: MR(2) Infusion: 08/05/25 10:51 Dose: Infused Documented By: MR(2) Admin: 08/05/25 10:21 Dose: 100 mls/hr Documented By: TIKI Dextrose (D5w) 1,000 mls @ 50 mls/hr IV .Q20H ONE Stop: 08/06/25 07:16 Last Admin: 08/05/25 13:20 Dose: Not Given Documented By: TIKI Non-Admin Reason: previous bag running @ 50ml/hr Fluconazole (Diflucan/Ns Ivpb) 400 mg in 200 mls @ 50 mls/hr IV QDAY@1100 [facility] Stop: 08/13/25 10:59 Last Infusion: 08/07/25 14:13 Dose: 0 mls/hr Documented By: Admin: 08/07/25 10:43 Dose: 50 mls/hr Documented By: Infusion: 08/06/25 15:57 Dose: Infused Documented By: Admin: 08/06/25 11:57 Dose: 50 mls/hr Documented By: MR(2) Fluconazole (Diflucan/Ns Ivpb) 100 mls @ 100 mls/hr IV X1 ONE Stop: 08/05/25 19:44 Last Admin: 08/05/25 19:21 Dose: 100 mls/hr Documented By: BRIE Fluconazole (Diflucan/Ns Ivpb) 400 mg in 200 mls @ 100 mls/hr IV X1 ONE Stop: 08/05/25 18:44 Last Admin: 08/05/25 17:19 Dose: 100 mls/hr Documented By: TUCKER Fluconazole (Diflucan/Ns Ivpb) 400 mg in 200 mls @ 100 mls/hr IV QDAY DERRICK Stop: 08/13/25 08:59 Last Admin: 08/07/25 08:34 Dose: 100 mls/hr Documented By: Infusion: 08/06/25 11:51 Dose: Infused Documented By: Admin: 08/06/25 09:51 Dose: 100 mls/hr Documented By: (2) Magnesium Sulfate (Magnesium Sulfate Ivpb) 4 gm in 50 mls @ 12.5 mls/hr IV X1 ONE Stop: 08/06/25 11:53 Last Admin: 08/06/25 09:32 Dose: 12.5 mls/hr Documented By: (2) Insulin Human Lispro (Insulin Lispro (Admelog) 1 Unit/0.01 Ml Unit) 0 unit SC Q6H DERRICK; Protocol Stop: 09/03/25 22:44 Last Admin: 08/05/25 10:57 Dose: 1 unit Documented By: TIKI Co-signed By: Admin: 08/05/25 05:40 Dose: Not Given Documented By: NATE Non-Admin Reason: Other, see note Admin: 08/04/25 23:05 Dose: Not Given Documented By: BENITO Non-Admin Reason: Patient Refused Comments: refused Insulin Human Regular (Insulin Hum Regular 1 Unit/0.01 Ml (Per Unit)) 0 unit SC ACHS DERRICK; Protocol Stop: 09/04/25 16:59 Last Admin: 08/09/25 12:22 Dose: 2 unit Documented By: TUCKER Co-signed By: HAYDE Admin: 08/09/25 08:15 Dose: 2 unit Documented By: TUCKER Co-signed By: GILBERT Admin: 08/08/25 20:06 Dose: 2 unit Documented By: [email or web address] Co-signed By: BRIE Admin: 08/08/25 16:59 Dose: 2 unit Documented By: GEETA Co-signed By: matheus Admin: 08/08/25 11:29 Dose: 2 unit Documented By: GEETA Co-signed By: matheus Admin: 08/08/25 07:29 Dose: Not Given Documented By: GEETA Non-Admin Reason: Per Protocol Admin: 08/07/25 20:26 Dose: Not Given Documented By: MIGUEL Non-Admin Reason: Patient Refused Admin: 08/07/25 17:13 Dose: 2 unit Documented By: GEETA Co-signed By: ABHILASH Admin: 08/07/25 12:05 Dose: 2 unit Documented By: GEETA Co-signed By: SANDRINE Admin: 08/07/25 07:33 Dose: Not Given Documented By: GEETA Non-Admin Reason: Per Protocol Admin: 08/06/25 20:25 Dose: 3 unit Documented By: BRIE Co-signed By: MIGUEL Admin: 08/06/25 17:50 Dose: Not Given Documented By: MR(2) Non-Admin Reason: Per Protocol Admin: 08/06/25 11:57 Dose: 3 unit Documented By: MR(2) Co-signed By: ARRON Admin: 08/06/25 07:44 Dose: Not Given Documented By: MR(2) Non-Admin Reason: Per Protocol Admin: 08/05/25 20:18 Dose: Not Given Documented By: BRIE Non-Admin Reason: Per Protocol Admin: 08/05/25 17:32 Dose: 2 unit Documented By: TUCKER Co-signed By: CB Isavuconazonium Sulfate (Isavuconazonium Sulf 186 Mg Capsule (Non-Form)) 372 mg PO QDAY DERRICK Stop: 08/14/25 13:29 Last Admin: 08/09/25 08:13 Dose: 372 mg Documented By: Admin: 08/08/25 09:23 Dose: 372 mg Documented By: Admin: 08/07/25 14:04 Dose: 372 mg Documented By: GEETA Levetiracetam (Levetiracetam Inj 100 Mg/Ml Vial 5ml) 1,000 mg IVP X1 ONE; Protocol Stop: 08/04/25 17:20 Last Admin: 08/04/25 17:56 Dose: 1,000 mg Documented By: EF Levetiracetam (Levetiracetam Inj 100 Mg/Ml Vial 5ml) 500 mg IVP Q12HR DERRICK Stop: 09/04/25 08:59 Last Admin: 08/09/25 08:39 Dose: 500 mg Documented By: Admin: 08/08/25 20:10 Dose: 500 mg Documented By: Admin: 08/08/25 09:22 Dose: 500 mg Documented By: Admin: 08/07/25 20:33 Dose: 500 mg Documented By: Admin: 08/07/25 08:26 Dose: 500 mg Documented By: Admin: 08/06/25 20:10 Dose: 500 mg Documented By: Admin: 08/06/25 09:32 Dose: 500 mg Documented By: (2) Admin: 08/05/25 20:19 Dose: 500 mg Documented By: Admin: 08/05/25 08:14 Dose: 500 mg Documented By: TIKI Melatonin (Melatonin 3 Mg Tablet) 5 mg PO HS DERRICK Stop: 09/08/25 20:59 Mirtazapine (Mirtazapine 15 Mg Tablet) 15 mg PO HS DERRICK Stop: 09/08/25 20:59 Ondansetron HCl (Ondansetron Inj 2 Mg/Ml Inj 2 Ml) 4 mg IVP Q6H PRN; Protocol PRN Reason: NAUSEA OR VOMITING Stop: 09/03/25 22:22 Pantoprazole Sodium (Pantoprazole Inj 40 Mg Vial) 40 mg IVP QDAY DERRICK Stop: 09/04/25 08:59 Last Admin: 08/09/25 08:14 Dose: 40 mg Documented By: Admin: 08/08/25 09:19 Dose: 40 mg Documented By: Admin: 08/07/25 08:25 Dose: 40 mg Documented By: Admin: 08/06/25 09:33 Dose: 40 mg Documented By: (2) Admin: 08/05/25 08:14 Dose: 40 mg Documented By: TIKI Pharmacy Consult (Vancomycin Pharmacy To Dose 1 Each Each) 1 each IV QDAY PRN PRN Reason: CONSULT Stop: 09/03/25 20:14 Pharmacy Consult (Pharmacy Renal Dose Adjustment 1 Ea) 1 each XX PRN PRN PRN Reason: CONSULT Stop: 09/04/25 08:43 see above Consultations Consultation(s) initiated? (list below): Yes Consultation #1 (Physician, Specialty, Details): See MDM Diagnosis Differential diagnosis altered mental status: other (Sepsis (possibly from pneumonia or urinary source), acute stroke, and metabolic encephalopathy.) Most likely diagnosis given after review of the tests above:: Altered mental status, hypernatremia, shock, acute kidney injury, lactic acidosis urinary tract infection. Admission Indicated Admission indicated?: indicated Admission Request Was there a request for admission?: Yes Admission Attestation Admission request attestation: Discussed case with [] from Hospitalist service regarding admission. Discussed patients ED course, exam findings, labs, and radiology results. The Hospitalist [agrees,declines] to accept the patient for admission. Disposition Plan Disposition Plan: Admit Critical Care Time Critical Care Time Critical Care Time: Yes Total Critical Care Time (min.): 60 Attestation: The high probability of sudden, clinically significant deterioration in the patient?s condition required the highest level of my preparedness to intervene urgently. The services I provided to this patient were to treat and/or prevent clinically significant deterioration. Services included the following: chart data review, reviewing nursing notes and/or old charts, documentation time, beauty consultant collaboration regarding findings and treatment options, medication orders and management, direct patient care, vital sign assessments and ordering, interpreting and reviewing diagnostic studies and lab tests. Aggregate critical care time includes only time during which I was engaged in work directly related to the patient?s care, as described above, whether at bedside or elsewhere in the Emergency Department. It did not include time spent performing other reported procedures or the services of residents, students, nurses or physician assistants. Discharge Plan Plan Patient Disposition: Admit Acute Care w/in Hospital Problem List Clinical Impression: Altered mental status
--- NOTE | 2025-08-04 15:36 | XR_ITS ---
Examination: CT brain head without contrast. 2-D sagittal coronal reconstructions Date and time of exam:August 04, 2025, 1726 hrs. Indications: Altered mental status with weakness today, CT brain scan July 01, 2025 extensive intraventricular hemorrhage 16mm left basal ganglia hemorrhage CTDI: vol (mGy):48.4 DLP: (mGycm):1038 Technique: Multiple CT axial sections of the brain have been obtained, 5 mm slice thickness. Contrast has not been administered. 2-D sagittal, coronal reconstructions have been obtained Low dose protocols were performed. One or more of the following dose reduction techniques were used; automated exposure control, adjustment of the mA and/or KV according to patient size, use of iterative reconstruction technique. Findings: Hemorrhage in the ventricles and left basal ganglia resolved No current acute hemorrhage Low density areas are present in the left thalamus and left frontal lobe No mass effect The ventricles are less prominent on this study Impression: Significant improvement compared with July 01, 2025 Hemorrhage in the ventricles and left basal ganglia has resolved Ventricles are smaller in size
--- NOTE | 2025-08-04 15:37 | XR_ITS ---
Examination: AP chest single view Technique one AP portable semiupright chest single view Date and time: July 27, 2025, 1553 hrs. Indications: Shortness of breath chest pain today Findings: Normal heart size No pneumonia or pulmonary edema Right chest ventricular. Shunt tube The osseous structures are intact Impression: No pneumonia or pulmonary edema
--- NOTE | 2025-08-04 15:37 | EKG_ITS ---
[facility] Test Date: 2025-08-04 Pat Name: TANA HOLLEY Department: Room: - Gender: Male Pt Escort: : 1970 Requested By: Lara Daniel Order Number: [id number] Reading MD: Lara Daniel Measurements Intervals [place] Rate: 69 P: 28 CA: 120 QRS: 42 QRSD: 77 T: 74 QT: 367 QTc: 394 Interpretive Statements SINUS RHYTHM Compared to ECG 07/01/2025 07:40:00 Sinus tachycardia no longer present Incomplete right bundle-branch block no longer present T-wave abnormality no longer present /store/S0/[id number]/ecg/[id number].pdf
[2025-08-04] MEDS: Norepinephrine/D5W 8mg/250ml 8 MG/250 ML BAG 6.63 MG IV (15:39)
[2025-08-04 15:52] LABS: Base Excess, Venous 3 (-3-3); Lactate (Lactic Acid) 2.5 mMol/L (0.4-2.0); O2 Saturation, Venous 100 % (96-97); PCO2, Venous 41 mmHg (36-56); PO2, Venous 122 mmHg (15-58); pH, Venous 7.43 (7.33-7.66)
[2025-08-04 15:55] LABS: Basophils # (Auto) 0.1 Thou/mm3 (0.0-0.2); Basophils % (Auto) 1 % (0-2.5); Eosinophils # (Auto) 0.2 Thou/mm3 (0.0-0.5); Eosinophils % (Auto) 2 % (0-10); Hematocrit 39.0 % (41.0-53.0); Hemoglobin 12.4 g/dL (13.5-16.0); Immature Granulocytes Auto 0.12 Thou/mm3 (0.00-0.00); Lymphocytes # (Auto) 2.0 Thou/mm3 (1.0-4.8); Lymphocytes % (Auto) 21 % (10-50); Mean Corpuscular HGB Conc 31.8 g/dl (31.0-37.0); Mean Corpuscular Hemoglobin 29.8 pg (25.0-35.0); Mean Corpuscular Volume 94 fL (80-100); Monocytes # (Auto) 0.8 Thou/mm3 (0.0-0.8); Monocytes % (Auto) 9 % (0-12); Neutrophils # (Auto) 6.2 Thou/mm3 (1.8-7.7); Neutrophils % (Auto) 66 % (37-80); Nucleated Red Blood Cell # 0.00 Thou/mm3 (0.00-0.00); Nucleated Red Blood Cell % 0 /100 WBC (0); Platelet Count 281 Thou/mm3 (140-440); RDW Standard Deviation 50.4 fL (35.1-43.9); Red Blood Count 4.16 Miln/mm3 (4.50-5.90); White Blood Count 9.3 Thou/mm3 (3.8-10.6)
[2025-08-04 16:13] LABS: Collection Type, Urine Catheter
[2025-08-04 16:18] LABS: Alanine Aminotransferase 22 U/L (10-49); Albumin, Serum 3.6 gm/dL (3.5-5.0); Albumin/Globulin Ratio 1.2 (1.2-2.2); Alkaline Phosphatase 119 U/L (46-116); Anion Gap 10 (7-16); Aspartate Amino Transferase 11 U/L (0-34); BUN/Creatinine Ratio 24 Ratio (12-20); Bilirubin,Total 0.3 mg/dL (0.3-1.2); Blood Urea Nitrogen 76 mg/dL (9-23); Calcium 9.5 mg/dL (8.3-10.6); Calcium (Corrected) 9.8 mg/dL (8.5-10.1); Carbon Dioxide 29.4 mMol/L (20.0-31.0); Chloride 112 mMol/L (98-107); Creatinine (Component) 3.2 mg/dL (0.6-1.3); Globulin 3.0 gm/dL (2.3-3.5); Glucose 103 mg/dL (74-106); Osmolality,Calculated 322 (275-295); Potassium 4.8 mMol/L (3.4-5.1); Procalcitonin 0.11 ng/ml (0.0-0.49); Sodium 151 mMol/L (136-145); Total Protein 6.6 gm/dL (5.7-8.2); eGFR 22 See Note
[2025-08-04 16:24] LABS: Bilirubin,Urine Negative (Negative); Blood,Urine 1+ (Negative); Clarity,Urine Hazy (Clear/Hazy); Color,Urine Yellow (Lt Yel-Yel); Glucose, Urine Negative (Negative); Ketones,Urine Negative (Negative); Leukocyte Esterase,Urine Positive (Negative); Nitrite,Urine Negative (Negative); PH,Urine 6.0 (5.0-7.0); Protein,Urine 1+ (Neg - Trace); RBC,Urine 31 /hpf (0-3); Specific Gravity,Urine 1.023 (1.001-1.035); Sperm,Urine Present; Squamous Epithelial Cell,Urine 1 /hpf (0-5); Transitional Epi Cells,Urine 2 /hpf (0-5); Urobilinogen,Urine Negative mg/dL (0.0-1.0); WBC,Urine 8 /hpf (0-5)
[2025-08-04 16:28] LABS: INR 1.0 (0.9-1.3); Partial Thromboplastin Time 23.1 Seconds (22.0-36.0); Prothrombin Time 11.1 Seconds (9.0-12.2)
[2025-08-04 16:58] LABS: Ammonia < 10 uMol/L (11-32)
[2025-08-04] MEDS: levETIRAcetam INJ 100 MG/ML VIAL 5ML 1000 MG IVP (17:56)
[2025-08-04] MEDS: cefTRIAXone/D5w 1gm IV premix 1 GM/50 ML BAG IV (18:24)
[2025-08-04 18:46] LABS: Reflex Lactate? Y
[2025-08-04] MEDS: SODIUM CHLORIDE 0.9% 1000 ML 1,000 ML 999 ML IV (19:18)
[2025-08-04 19:26] LABS: Lactic Acid, 3 HR 2.6 mMol/L (0.4-2.0)
--- NOTE | 2025-08-04 19:59 | XR_ITS ---
Examination: CT chest, without intravenous contrast. CT abdomen, without intravenous contrast. CT pelvis, without intravenous contrast. 2-D sagittal and coronal reconstructions. 3-D reconstructions. Date and time of exam:August 04, 2025, 2023 hrs. Indications: Chest pain abdominal pain shortness of breath today CTDI vol (mgy) 6.33 DLP (MGycm)480 Technique: Multiple CT images, 3.0 mm slice thickness, obtained chest, abdomen, pelvis, with the high-resolution 64 slice scanner.. Sagittal and coronal 2-D reconstructions are obtained. 3-D reconstructions Low dose protocols were performed. One or more of the following dose reduction techniques were used; automated exposure control, adjustment of the mA and/or KV according to patient size, use of iterative reconstruction technique. Findings: No thoracic aortic aneurysm dilatation Pulmonary artery segments are not enlarged Moderate calcification left anterior descending coronary artery. Bilateral pneumonia most prominent in the left lower lobe Minimal left pleural disease No visualized liver or splenic lesion Absent gallbladder No pancreatic or adrenal mass No biliary tract dilatation Multiple bilateral renal calculi ranging in size from 2 to 6 mm Mild left hydronephrosis, 6 mm mid left ureteral calculus Right ventricular peritoneal shunt tube Aorta normal size Transverse prostate dimension 6 cm Urinary Staples catheter in the bladder, air in the urinary bladder Prominent osteopenia Impression: Bilateral diffuse pneumonia, most prominent in the left lower lobe Multiple bilateral renal calculi Mild left hydronephrosis, 6 mm mid left ureteral calculus
[2025-08-04] MEDS: RINGERS LACTATED 1000 ML 1,000 ML 999 ML IV (20:37)
[2025-08-04] MEDS: FLUCONAZOLE/NS 200 MG IVPB 200 MG/100 ML BAG 100 MG IV (21:59)
--- NOTE | 2025-08-04 22:18 | PC.NURSE ---
CONTACTED [facility]SF[facility] SENT PT PKT. MIGUEL RODRIGUEZ SPOKE WITH DR RICHARD.
--- NOTE | 2025-08-04 22:19 | PC.NURSE ---
2019 RECEIVED CALL FROM [facility] NURSE NO ICU BEDS AVAILABLE AND THAT SAW PT BEFORE IS NOT [employer] MAK[employer]. DR RICHARD MADE AWARE.
--- NOTE | 2025-08-04 22:36 | PD.RESHP ---
Documentation for date of: 08/04/25 [facility] History of Present Illness History of present illness: A 54-year-old male with a medical history significant for a stroke approximately 4 weeks ago, meningitis, hypertension, and muscle wasting, was brought to the emergency department by EMS from [facility] for altered mental status. According to EMS, the patient's last known baseline was yesterday at 12 PM. Upon arrival, the patient was found to be altered, with a GCS of 9. His baseline was described as talkative and oriented to person, place, and time , although he has been bedbound following his recent stroke. The patient?s last ED visit was on July 01, 2025, following a witnessed tonic-clonic seizure lasting approximately 20 minutes prior to EMS arrival. 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 During the prior ED presentation on July 01, 2025, the patient was found to be in hypertensive emergency , with a CT brain revealing an intracranial hemorrhage within the bilateral lateral ventricles, third ventricle, and fourth ventricle. He was started on a nicardipine drip, and [facility] was consulted, recommending the administration of mannitol due to concerns for brain herniation. The patient continued having tonic-clonic seizures and was intubated for airway protection and better management of his seizures. He was transferred to [facility], where a [employer] shunt was placed. At that time, the patient also showed ST depression in leads aVF, V1, V2, V3, V4, and V5. A discussion with the on-call compliance nurse concluded that the patient was too unstable for anticoagulation therapy, and the decision was made to transfer him to a higher level of care due to the brain bleed. Most of the history was obtained from chart review and sign-out. The patient?s is at the bedside; however, she is a poor historian and is a [place] speaker. The patient remains altered with a GCS of 7-8, so will require a review of records from [facility]. On presentation today, the patient was found to be severely hypotensive, with a blood pressure of 66/45, but was saturating 100% on room air. Labs revealed mild anemia (hemoglobin 12.4, hematocrit 39), with hyponatremia of 151, chloride of 112, and a calculated osmolality of 322. These findings are most consistent with dehydration, along with acute kidney injury likely of prerenal etiology in the setting of hypoperfusion (BUN 76, creatinine 3.2, eGFR 22). Lactic acid was elevated at 2.6, further indicating hypoperfusion. ALP was noted to be 119. Urinalysis was consistent with a UTI. A chest x-ray was negative for any signs of heart failure, pneumonia, or pulmonary edema, and the EKG showed sinus bradycardia. Head CT revealed significant improvement compared to the previous scan on July 01, 2025, with resolution of the hemorrhage in the ventricles and left basal ganglia. The ventricles are smaller in size with no mass effect, but low-density areas persist in the left thalamus and left frontal lobe. The patient was given 1 L normal saline and started on ceftriaxone. Given the hypotension, Levophed was initiated, and ICU contacted for admission. The case was discussed with the hospitalist and internal medicine teams, we expressed concern regarding the current presentation, particularly the bradycardia, hypotension, altered mental status, and potential elevated ICP. Additionally, there is concern for [employer] shunt malfunction or an infection related to the shunt. We contacted [facility] to discuss the case and the possibility of transferring the patient, but there were no ICU beds available at the time. Therefore, the decision was made to admit the patient to our ICU for further management. In-house teleneuro was consulted, and they recommended starting cefepime, vancomycin, acyclovir, and fluconazole to cover for possible meningitis, encephalitis, or shunt infection. The patient was admitted to the ICU for continued care. PMH as above Allergies NKDA Meds amitriptyline, Dulcolax suppository, fludrocortisone afterthought oral tablet 0.1 mg, gabapentin 300 mg every 8 hours, insulin sliding scale, izavuconazonium sulfate, Keppra 500 mg twice daily, lisinopril 40 mg metformin 500 mg, metoprolol tartrate 25 mg, midodrine 10 every 8 hours.(Find medication list and physical chart) Social: Resides at [facility], was at bedside, has 1 son. Review of Systems Review of Systems ROS Unobtainable: unobtainable due to mental status Exam Vital Signs Temp Pulse Resp BP Pulse Ox O2 Del Method 99.2 F 74 11 L 95/79 89 L Room Air 08/04/25 18:05 08/04/25 20:32 08/04/25 20:32 08/04/25 20:32 08/04/25 20:32 08/04/25 18:05 Narrative Exam GENERAL: thin male, appears severely ill, not following commands, grimace at pain stimuli HEENT: mucus membrane dry, shunt noted on right parietal bone, intact , no local irritation, edema, or any sign of local infection NECK: Supple, no lymphadenopathy, no carotid bruits. CARDIOVASCULAR: bradicardic, Normal S1/S2, No m/r/g. No pitting edema of bilateral LEs. RESPIRATORY: CTAB. No wheezing, rhonchi, crackles. GASTROINTESTINAL: Abdomen soft, non tender no palpable masses. Bowel sounds present in all 4 quadrants. venegas noted. MUSCULOSKELETAL:? No cyanosis or edema, no visible joint swelling. NEUROLOGICAL: GCS of 7-8. The patient is unable to follow commands or converse effectively. spontaneous movement noted in the lower extremities. Weakness noted on both sides. however unable to assess fullneuro exam due to mental status INTEGUMENTARY: No obvious rashes, no jaundice Results: Labs 08/05/25 07:09 08/05/25 19:45 Labs: Short CBC 08/04/25 Range/Units 15:29 WBC 9.3 (3.8-10.6) Thou/mm3 Hgb 12.4 L (13.5-16.0) g/dL Hct 39.0 L (41.0-53.0) % Plt Count 281 D (140-440) Thou/mm3 BMP 08/04/25 15:29 Sodium 151 H Potassium 4.8 Chloride 112 H Carbon Dioxide 29.4 BUN 76 H Creatinine 3.2 H Glucose 103 Calcium 9.5 Liver Function 08/04/25 Range/Units 15:29 Total Bilirubin 0.3 (0.3-1.2) mg/dL AST 11 (0-34) U/L ALT 22 (10-49) U/L Alkaline Phosphatase 119 H (46-116) U/L Albumin 3.6 (3.5-5.0) gm/dL Urine 08/04/25 Range/Units 16:03 Urine Color Yellow (Lt Yel-Yel) Urine Clarity Hazy (Clear/Hazy) Urine pH 6.0 (5.0-7.0) Ur Specific [place] 1.023 (1.001-1.035) Urine Protein 1+ A (Neg - Trace) Urine Glucose (UA) Negative (Negative) ABG Interpretation ABG results: 08/04/25 15:29 VBG pH 7.43 VBG pCO2 41 VBG pO2 122 H VBG Base Excess 3 Quality Measures Quality Measures VTE prophylaxis Medications Home Medications and Allergies Home Medications ?Medication ?Instructions ?Recorded ?Confirmed ?Type albuterol sulfate 2.5 mg/0.5 mL 2.5 mg inhalation Q6H PRN 08/05/25 08/05/25 History solution for nebulization shortness of breath or wheezing amitriptyline 10 mg tablet 10 mg PO HS 08/05/25 08/05/25 History famotidine 20 mg tablet 20 mg PO DAILY 08/05/25 08/05/25 History fluconazole 200 mg tablet 800 mg PO QID 08/05/25 08/05/25 History fludrocortisone 0.1 mg tablet 0.1 mg PO DAILY 08/05/25 08/05/25 History gabapentin 300 mg capsule 300 mg PO Q8H 08/05/25 08/05/25 History insulin lispro 100 unit/mL 1 sliding scale dose subcut 08/05/25 08/05/25 History subcutaneous solution USEASDIRECTD isavuconazonium sulfate 186 mg 186 mg PO QDAY 08/05/25 08/05/25 History capsule levetiracetam 500 mg tablet 500 mg PO Q12H 08/05/25 08/05/25 History lisinopril 40 mg tablet 40 mg PO DAILY 08/05/25 08/05/25 History metoprolol tartrate 37.5 mg tablet 25 mg PO Q12H 08/05/25 08/05/25 History midodrine 10 mg tablet 10 mg PO Q8H 08/05/25 08/05/25 History Allergies Allergy/AdvReac Type Severity Reaction Status Date / Time No Known Allergies Allergy Unverified 07/01/25 06:19 Visit Medications Acetaminophen (Acetaminophen 325 Mg Tablet) 650 mg PO Q6H PRN PRN Reason: Fever >101.5 Stop: 09/03/25 22:22 Dextrose (Dextrose 50%-Water Inj 50 Ml Syringe) 25 ml IV Q15MIN PRN PRN Reason: BG 50-70 responsive npo pt Stop: 09/03/25 22:30 Dextrose (Dextrose 50%-Water Inj 50 Ml Syringe) 50 ml IV Q15MIN PRN PRN Reason: BG <50 OR BG <70 & pt unresponsive Stop: 09/03/25 22:30 Glucagon (Glucagon Inj 1 Mg Vial) 1 mg IM Q15MIN PRN PRN Reason: BG <70, and no IV access Norepinephrine/Dextrose (Levophed In D5w 8mg/250ml) 8 mg in 250 mls @ 6.63 mls/hr IV .Q24H PRN; Protocol PRN Reason: PER PROTOCOL Stop: 09/03/25 15:32 Last Titration: 08/04/25 18:45 Dose: 0.13 mcg/kg/min, 17.237 mls/hr Cefepime HCl 2 gm/ Sodium (Chloride) 50 mls @ 100 mls/hr IV Q8HR [facility] Stop: 08/11/25 20:02 Vancomycin HCl 1,000 mg/ (Sodium Chloride) 250 mls @ 150 mls/hr IV X1 ONE Stop: 08/04/25 22:39 Fluconazole (Diflucan/Ns Ivpb) 200 mg in 100 mls @ 100 mls/hr IV QDAY DERRICK Stop: 08/11/25 20:06 Cefepime HCl 2 gm/ Sodium (Chloride) 50 mls @ 100 mls/hr IV X1 ONE Stop: 08/05/25 06:29 Acyclovir Sodium 707 mg/ (Sodium Chloride) 114.14 mls @ 100 mls/hr IV BID DERRICK Stop: 08/11/25 20:59 Lactated Ringer's (Lactated Ringers) 1,000 mls @ 75 mls/hr IV .[id number] [facility] Stop: 09/03/25 22:29 Insulin Human Lispro (Insulin Lispro (Admelog) 1 Unit/0.01 Ml Unit) 0 unit SC Q6H DERRICK; Protocol Stop: 09/03/25 22:44 Ondansetron HCl (Ondansetron Inj 2 Mg/Ml Inj 2 Ml) 4 mg IVP Q6H PRN; Protocol PRN Reason: NAUSEA OR VOMITING Stop: 09/03/25 22:22 Pantoprazole Sodium (Pantoprazole Inj 40 Mg Vial) 40 mg IVP QDAY [facility] Stop: 09/04/25 08:59 Pharmacy Consult (Vancomycin Pharmacy To Dose 1 Each Each) 1 each IV QDAY DERRICK Stop: 09/03/25 20:14 Discontinued Medications Norepinephrine Bitartrate (Levophed In Ns 16mg/250ml) 16 mg in 250 mls @ 3.315 mls/hr IV .Q24H PRN; Protocol PRN Reason: PER protocol Stop: 09/03/25 15:31 Ceftriaxone Sodium/Dextrose (Rocephin/D5w 1gm Iv Premix) 1 gm in 50 mls @ 100 mls/hr IV STAT STA Stop: 08/04/25 18:29 Last Admin: 08/04/25 18:24 Dose: 100 mls/hr Sodium Chloride (Ns) 1,000 mls @ 999 mls/hr IV .Q1H1M ONE Stop: 08/04/25 19:48 Last Infusion: 08/04/25 20:20 Dose: Infused Lactated Ringer's (Lactated Ringers) 1,000 mls @ 999 mls/hr IV .Q1H1M ONE Stop: 08/04/25 20:36 Last Infusion: 08/04/25 21:40 Dose: Infused Fluconazole (Diflucan/Ns Ivpb) 200 mg in 100 mls @ 100 mls/hr IV X1 ONE Stop: 08/04/25 21:29 Last Admin: 08/04/25 21:59 Dose: 100 mls/hr Acyclovir Sodium 700 mg/ (Sodium Chloride) 114 mls @ 99.878 mls/hr IV X1 ONE Stop: 08/04/25 22:23 Levetiracetam (Levetiracetam Inj 100 Mg/Ml Vial 5ml) 1,000 mg IVP X1 ONE; Protocol Stop: 08/04/25 17:20 Last Admin: 08/04/25 17:56 Dose: 1,000 mg Assessment & Plan Plan 54-year-old male with past medical history of hemorrhagic stroke status post [employer] shunt placement history of seizure and valley fever was admitted for shock requiring vasopressors. CHEMICAL OPERATIONS AND TRAINING # Acute encephalopathy likely multifactorial DDx: ICP, possible [employer] shunt malfunctioning/infection vs meningitis/encephalitis vs shock related altered mental status Plan: -Frequent neurocheck every 1-2 hours to assess for worsening GCS, focal neurological signs or signs of increased ICP -Patient need neurosurgery evaluation for possible [employer] shunt malfunctioning and management of elevated ICP, MRI of the brain if needed. Attempt was made to transfer patient to [facility] where the shunt was placed, however currently there is no ICU bed available at [facility]. -ICP monitoring, head of bed elevation at 30%, avoid rapid position changes, watch for signs of increased ICP such as vomiting, worsening consciousness -Seizure precaution, monitor closely for seizures, patient might need EEG if clinically indicated -Per neuro recs cover for meningitis/encephalitis with broad-spectrum antibiotics, antivirals and antifungals, pending cultures, consider CSF analysis -neuro consult, recs are appreciated CVS #Shock likely multifactorial DDx: also include ICP with poor autoregulation which likely contributing to hypotension and bradycardia which is a Leitchfield's triad bradycardia, hypertension, irregular respirations(which patient does not have at this time) Vs cardiogenic shock: Recent ST depression on EKG which likely indicating ischemia or ICP (although the patient was not a candidate for intervention at that time) vs septic shock, either from [employer] shunt infection or UTI( less likely) with underlying meningitis/encephalitis as potential source vs hypovolemic shock likely due to dehydration or poor oral intake exacerbating the shock state Also at facility patient was a on Midodrin and fludrocortisone(abrupt stopping this medication could be mimicking the shock presentation.) Plan: -Continue hemodynamic support with Levophed to maintain MAP above 65, close monitoring hemodynamics and frequent reassessment -Cardiac monitoring continue EKG, also there is no evidence of acute ischemia at this time, echo will be obtained tomorrow. -Fluid resuscitation, patient was given 1 NS and 1 LR, Cheetah monitor will be placed to obtain hemodynamic numbers as well as to see if patient is responding to fluids -Hold home metoprolol, consider gradually starting home midodrine and fludrocortisone -sepsis management with broad-spectrum antibiotics, acyclovir, fluconazole -follow-up with the cultures, consider adding vasopressin if levo alone is insufficient -Consider cardiology consult Pulmonary #BB PNA on CT chest , patient is saturating 100% on room air with no signs of respiratory distress, chest x-ray is negative Plan is to monitor RS, Prepare for intubation if GCS is less than 6 GI No active disease PPI for prophylaxis N.p.o. for now Renal #NITHIN likely prerenal due to hypoperfusion from shock labs revealed BUN of 76, creatinine is 3.2, eGFR 22 #Hyperosmolar hyperchloremic hypernatremia most likely in the setting of dehydration. Free water deficit with a goal of sodium 143 would be 2.4L #Lactic acidosis likely related to tissue hypoperfusion and shock, #6mm stone, lift hydronephrosis seen on CT Plan: -fluid resuscitation, -Monitor urine output -Trend lactic acid -Avoid rapid correction, goal is to decrease sodium by 8 in the next 24-hour -Electrolyte monitoring, replace as needed Endo History of IDDM Insulin sliding scale ID #Suspect meningitis/encephalitis #suspect infected [employer] shunt #UTI Most likely infection related to [employer] shunt vs UTI vs PNA Recent [employer] shunt placement, UA is consistent for UTI Plan -Empiric antibiotics cefepim, vanc, Aciclovir and fluconazole to cover possible all infections -Obtain CSF and blood culture -Obtain urine culture Hematology -Mild anemia -Monitor coagulation panel Disposition:ICU, might need a transfer to [facility] for [employer] shunt evaluation, currently no icu bed avalable DVT prophylaxis: SCDs , avoiding chemical due to resent hemorragic stroke and possible spinal tap for csf analysis and transfer for shunt replacement? GI prophylaxis: PPI Diet: NPO Lines: PIV CODE STATUS:Full code Patient care was discussed with attending physician Dr. Jad Torres MD PGY-3 I have carefully reviewed this document. Due to imperfections in the voice software, there could be grammatical errors including phonetic/typographic errors. This in no way compromises the medical care the patient is receiving Attending Provider Attestation/Addendum After examination of the patient and review of the clinical data I feel that this patient needs admission to the hospital for further treatment/evaluation. TOTAL CC TIME: 60 MIN TOTAL TIME: 60 Minutes of direct medical management and planning of care. I Liana Romo MD, attest that I was physically present for kerns portions of evaluation, and examined patient, labs and imagings and plan of care were discussed with IM residents team, and I agree with the findings and plans documented above.
[2025-08-04] MEDS: ACYCLOVIR INJ 700 MG in SODIUM CHLORIDE 0.9% 100 ML 99.878 MG IV (23:04)
[2025-08-04 23:22] LABS: Lactate (Lactic Acid) 2.0 mMol/L (0.4-2.0)
[2025-08-04 23:53] LABS: Sodium 151 mMol/L (136-145); Troponin I < 0.020 ng/mL (0.0-0.045)
[2025-08-05] VITALS (55 sets, daily range): BP systolic 78–129; BP diastolic 52–88; PULSE 72–161; RESP 1–99; TEMP 36.1–36.9; O2SAT 93–100; BMI 21.6
[2025-08-05] MEDS: Vancomycin Inj 1,000 MG in SODIUM CHLORIDE 0.9% 250 ML 250 ML 150 MG IV (00:26)
[2025-08-05] MEDS: RINGERS LACTATED 1000 ML 1,000 ML 999 ML IV (01:44)
[2025-08-05] MEDS: RINGERS LACTATED 1000 ML 1,000 ML 75 ML IV (02:30)
[2025-08-05 02:41] LABS: Sodium 152 mMol/L (136-145)
[2025-08-05] MEDS: CEFEPIME INJ 2 GM in SODIUM CHLORIDE 0.9% (Popper) 50 ML IV (05:47)
[2025-08-05 07:29] LABS: Basophils # (Auto) 0.0 Thou/mm3 (0.0-0.2); Basophils % (Auto) 0 % (0-2.5); Eosinophils # (Auto) 0.3 Thou/mm3 (0.0-0.5); Eosinophils % (Auto) 5 % (0-10); Hematocrit 35.2 % (41.0-53.0); Hemoglobin 11.2 g/dL (13.5-16.0); Immature Granulocytes Auto 0.06 Thou/mm3 (0.00-0.00); Lymphocytes # (Auto) 1.5 Thou/mm3 (1.0-4.8); Lymphocytes % (Auto) 22 % (10-50); Mean Corpuscular HGB Conc 31.8 g/dl (31.0-37.0); Mean Corpuscular Hemoglobin 29.7 pg (25.0-35.0); Mean Corpuscular Volume 93 fL (80-100); Monocytes # (Auto) 0.5 Thou/mm3 (0.0-0.8); Monocytes % (Auto) 8 % (0-12); Neutrophils # (Auto) 4.4 Thou/mm3 (1.8-7.7); Neutrophils % (Auto) 65 % (37-80); Nucleated Red Blood Cell # 0.00 Thou/mm3 (0.00-0.00); Nucleated Red Blood Cell % 0 /100 WBC (0); Platelet Count 216 Thou/mm3 (140-440); RDW Standard Deviation 47.7 fL (35.1-43.9); Red Blood Count 3.77 Miln/mm3 (4.50-5.90); White Blood Count 6.7 Thou/mm3 (3.8-10.6)
[2025-08-05 08:11] LABS: Anion Gap 8 (7-16); BUN/Creatinine Ratio 34 Ratio (12-20); Blood Urea Nitrogen 44 mg/dL (9-23); Calcium 9.0 mg/dL (8.3-10.6); Carbon Dioxide 29.2 mMol/L (20.0-31.0); Chloride 113 mMol/L (98-107); Creatinine (Component) 1.3 mg/dL (0.6-1.3); Estimated Creatinine Clearance 57.4 mL/min (>60); Glucose 152 mg/dL (74-106); Magnesium 2.0 mg/dL (1.6-2.6); Osmolality,Calculated 312 (275-295); Phosphorous 2.9 mg/dL (2.4-5.1); Potassium 3.9 mMol/L (3.4-5.1); Sodium 150 mMol/L (136-145); Vancomycin,Random 10.5 mcg/mL; eGFR > 60 See Note
[2025-08-05] MEDS: levETIRAcetam INJ 100 MG/ML VIAL 5ML 500 MG IVP ×2 (08:14→20:19)
[2025-08-05] MEDS: DEXTROSE 5%-WATER 1,000 ML 50 ML IV (08:14)
[2025-08-05 08:17] LABS: Misc Send Out* See Sep Rpt
[2025-08-05 08:45] LABS: INR 1.0 (0.9-1.3); Prothrombin Time 10.6 Seconds (9.0-12.2)
--- NOTE | 2025-08-05 10:13 | ESPR_ITS ---
Documentation for date of: 08/05/25 Subjective Subjective Interval history: A 54-year-old male with a medical history significant for a stroke approximately 4 weeks ago, meningitis, hypertension, and muscle wasting, was brought to the emergency department by EMS from [facility] for altered mental status. According to EMS, the patient's last known baseline was yesterday at 12 PM. Upon arrival, the patient was found to be altered, with a GCS of 9. His baseline was described as talkative and oriented to person, place, and time , although he has been bedbound following his recent stroke. The patient?s last ED visit was on July 01, 2025, following a witnessed tonic-clonic seizure lasting approximately 20 minutes prior to EMS arrival. 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 During the prior ED presentation on July 01, 2025, the patient was found to be in hypertensive emergency , with a CT brain revealing an intracranial hemorrhage within the bilateral lateral ventricles, third ventricle, and fourth ventricle. He was started on a nicardipine drip, and [facility] was consulted, recommending the administration of mannitol due to concerns for brain herniation. The patient continued having tonic-clonic seizures and was intubated for airway protection and better management of his seizures. He was transferred to [facility], where a SCRAPE GATHERER shunt was placed. At that time, the patient also showed ST depression in leads aVF, V1, V2, V3, V4, and V5. A discussion with the on-call county program technician concluded that the patient was too unstable for anticoagulation therapy, and the decision was made to transfer him to a higher level of care due to the brain bleed. Most of the history was obtained from chart review and sign-out. The patient?s is at the bedside; however, she is a poor historian and is a [place] speaker. The patient remains altered with a GCS of 7-8, so will require a review of records from [facility]. On presentation today, the patient was found to be severely hypotensive, with a blood pressure of 66/45, but was saturating 100% on room air. Labs revealed mild anemia (hemoglobin 12.4, hematocrit 39), with hyponatremia of 151, chloride of 112, and a calculated osmolality of 322. These findings are most consistent with dehydration, along with acute kidney injury likely of prerenal etiology in the setting of hypoperfusion (BUN 76, creatinine 3.2, eGFR 22). Lactic acid was elevated at 2.6, further indicating hypoperfusion. ALP was noted to be 119. Urinalysis was consistent with a UTI. A chest x-ray was negative for any signs of heart failure, pneumonia, or pulmonary edema, and the EKG showed sinus bradycardia. Head CT revealed significant improvement compared to the previous scan on July 01, 2025, with resolution of the hemorrhage in the ventricles and left basal ganglia. The ventricles are smaller in size with no mass effect, but low-density areas persist in the left thalamus and left frontal lobe. The patient was given 1 L normal saline and started on ceftriaxone. Given the hypotension, Levophed was initiated, and ICU contacted for admission. The case was discussed with the hospitalist and internal medicine teams, we expressed concern regarding the current presentation, particularly the bradycardia, hypotension, altered mental status, and potential elevated ICP. Additionally, there is concern for SCRAPE GATHERER shunt malfunction or an infection related to the shunt. We contacted [facility] to discuss the case and the possibility of transferring the patient, but there were no ICU beds available at the time. Therefore, the decision was made to admit the patient to our ICU for further management. In-house teleneuro was consulted, and they recommended starting cefepime, vancomycin, acyclovir, and fluconazole to cover for possible meningitis, encephalitis, or shunt infection. The patient was admitted to the ICU for continued care. PMH as above Allergies NKDA Meds amitriptyline, Dulcolax suppository, fludrocortisone afterthought oral tablet 0.1 mg, gabapentin 300 mg every 8 hours, insulin sliding scale, izavuconazonium sulfate, Keppra 500 mg twice daily, lisinopril 40 mg metformin 500 mg, metoprolol tartrate 25 mg, midodrine 10 every 8 hours.(Find medication list and physical chart) Social: Resides at [facility], was at bedside, has 1 son. 08/05/2025: Overnight norepinephrine infusion was stopped around midnight and patient started on treatment with D5W. This morning patient appears to be back to his baseline mentation although confused. Patient thought he was in [place]. Denies any headaches, vision changes, neck stiffness, nausea. Hb decreased to 11.2 from 12.4, NA downtrended to 150 from 152, K down trended to 3.9 from 4.8, BUN and CR downtrending to 44 and 1.3 from 76 and 3.2. We discontinued cefepime and vancomycin as meningitis unlikely at this time. Continued fluconazole for prophylaxis and ceftriaxone for UTI. Will continue on D5W for hypernatremia. At this point patient is clinically stable for downgrade to the floor. Exam Vital Signs Temp Pulse Resp BP Pulse Ox O2 Del Method O2 Flow Rate 97.6 F 85 19 102/75 99 Room Air 5 08/05/25 06:00 08/05/25 07:32 08/05/25 07:32 08/05/25 06:15 08/05/25 06:15 08/04/25 18:05 08/05/25 07:32 Narrative Exam Constitutional Alert, oriented x 1[Person] and comfortable. Appears thin, cachectic HEENT Vision grossly intact. Patent nares. Trachea midline Respiratory Chest normal on inspection and clear auscultation bilaterally Cardiovascular S1 and S2 audible, RRR. No murmurs carotid bruit. No gross JVD. Abdominal Soft and non tender to palpation in all quadrants. BS + Genitourinary No bladder tenderness, no flank pain. Normal to palpation Musculoskeletal Extremities tone within normal limits. No LE edema. Neurological CN II - XII grossly intact. Extremity motor and sensation grossly intact. SCRAPE GATHERER shunt noted on right scalp. Skin Warm, dry and intact. No apparent lesions. Psychiatric Patient has good affect, is cooperative Objective Labs 08/05/25 07:09 08/05/25 10:29 Labs: Laboratory Results - last 24 hr 08/04/25 08/04/25 08/04/25 15:29 16:03 16:24 WBC 9.3 RBC 4.16 L Hgb 12.4 L Hct 39.0 L MCV 94 MCH 29.8 MCHC 31.8 RDW Std Deviation 50.4 H Plt Count 281 D Neut % (Auto) 66 Lymph % (Auto) 21 [place] % (Auto) 9 Eos % (Auto) 2 Baso % (Auto) 1 Neut # (Auto) 6.2 Lymph # (Auto) 2.0 [place] # (Auto) 0.8 Eos # (Auto) 0.2 Baso # (Auto) 0.1 Immature Gran # (Auto) 0.12 H Absolute Nucleated RBC 0.00 Immature Gran % 1 H Nucleated RBC % 0 PT 11.1 INR 1.0 APTT 23.1 VBG pH 7.43 VBG pCO2 41 VBG pO2 122 H VBG O2 Sat (Rohith) 100 H VBG Base Excess 3 Sodium 151 H Potassium 4.8 Chloride 112 H Carbon Dioxide 29.4 Anion Gap 10 BUN 76 H Creatinine 3.2 H Estim Creat Clear Calc Not Performed. eGFR 22 L BUN/Creatinine Ratio [address] Glucose [address] Glu mg/dL Hemoglobin A1c Calculated Osmolality 322 H Lactic Acid 2.5 H Calcium 9.5 Corrected Calcium 9.8 Phosphorus Magnesium Total Bilirubin 0.3 AST 11 ALT 22 Alkaline Phosphatase 119 H Ammonia Troponin I Total Protein 6.6 Albumin 3.6 Globulin 3.0 Albumin/Globulin Ratio 1.2 Procalcitonin 0.11 Ur Collection Type Catheter Urine Color Yellow Urine Clarity Hazy Urine pH 6.0 Ur Specific [place] 1.023 Urine Protein 1+ A Urine Glucose (UA) Negative Urine Ketones Negative Urine Blood 1+ A Urine Nitrite Negative Urine Bilirubin Negative Urine Urobilinogen (Auto) Negative Ur Leukocyte Esterase Positive Urine RBC 31 H Urine WBC 8 H Ur Squamous Epith Cells 1 Ur Transition Epith Cell 2 Urine Bacteria None Urine Sperm Present A Random Vancomycin Blood Type O Positive Antibody Screen NEGATIVE Blood Bank Wristband ID Yes 08/04/25 08/04/25 08/04/25 16:34 19:20 23:17 WBC RBC Hgb Hct MCV MCH MCHC RDW Std Deviation Plt Count Neut % (Auto) Lymph % (Auto) [place] % (Auto) Eos % (Auto) Baso % (Auto) Neut # (Auto) Lymph # (Auto) [place] # (Auto) Eos # (Auto) Baso # (Auto) Immature Gran # (Auto) Absolute Nucleated RBC Immature Gran % Nucleated RBC % PT INR APTT VBG pH VBG pCO2 VBG pO2 VBG O2 Sat (Rohith) VBG Base Excess Sodium 151 H Potassium Chloride Carbon Dioxide Anion Gap BUN Creatinine Estim Creat Clear Calc eGFR BUN/Creatinine Ratio Glucose Estimated Ave Glu mg/dL Hemoglobin A1c Calculated Osmolality Lactic Acid 2.6 H 2.0 Calcium Corrected Calcium Phosphorus Magnesium Total Bilirubin AST ALT Alkaline Phosphatase Ammonia < 10 L Troponin I < 0.020 Total Protein Albumin Globulin Albumin/Globulin Ratio Procalcitonin Ur Collection Type Urine Color Urine Clarity Urine pH Ur Specific [place] Urine Protein Urine Glucose (UA) Urine Ketones Urine Blood Urine Nitrite Urine Bilirubin Urine Urobilinogen (Auto) Ur Leukocyte Esterase Urine RBC Urine WBC Ur Squamous Epith Cells Ur Transition Epith Cell Urine Bacteria Urine Sperm Random Vancomycin Blood Type Antibody Screen Blood Bank Wristband ID 08/05/25 08/05/25 02:20 07:09 WBC 6.7 RBC 3.77 L Hgb 11.2 L Hct 35.2 L MCV 93 MCH 29.7 MCHC 31.8 RDW Std Deviation 47.7 H Plt Count 216 D Neut % (Auto) 65 Lymph % (Auto) 22 [place] % (Auto) 8 Eos % (Auto) 5 Baso % (Auto) 0 Neut # (Auto) 4.4 Lymph # (Auto) 1.5 [place] # (Auto) 0.5 Eos # (Auto) 0.3 Baso # (Auto) 0.0 Immature Gran # (Auto) 0.06 H Absolute Nucleated RBC 0.00 Immature Gran % 1 H Nucleated RBC % 0 PT 10.6 INR 1.0 APTT VBG pH VBG pCO2 VBG pO2 VBG O2 Sat (Rohith) VBG Base Excess Sodium 152 H 150 H Potassium 3.9 D Chloride 113 H Carbon Dioxide 29.2 Anion Gap 8 BUN 44 H Creatinine 1.3 D Estim Creat Clear Calc 57.4 L eGFR > 60 BUN/Creatinine Ratio 34 H Glucose [address] Glu mg/dL Cancelled Hemoglobin A1c Cancelled Calculated Osmolality 312 H Lactic Acid Calcium 9.0 Corrected Calcium Phosphorus 2.9 Magnesium 2.0 Total Bilirubin AST ALT Alkaline Phosphatase Ammonia Troponin I Total Protein Albumin Globulin Albumin/Globulin Ratio Procalcitonin Ur Collection Type Urine Color Urine Clarity Urine pH Ur Specific [place] Urine Protein Urine Glucose (UA) Urine Ketones Urine Blood Urine Nitrite Urine Bilirubin Urine Urobilinogen (Auto) Ur Leukocyte Esterase Urine RBC Urine WBC Ur Squamous Epith Cells Ur Transition Epith Cell Urine Bacteria Urine Sperm Random Vancomycin 10.5 Blood Type Antibody Screen Blood Bank Wristband ID ABG Interpretation ABG results: 08/04/25 15:29 VBG pH 7.43 VBG pCO2 41 VBG pO2 122 H VBG Base Excess 3 Quality Measures Quality Measures none Assessment & Plan Assessment Current Active Medications: Generic Name Dose Route Start Last Admin Trade Name Freq PRN Reason Stop Dose Admin Acetaminophen 650 mg 08/04/25 22:23 Acetaminophen 325 Mg Tablet PO 09/03/25 22:22 Q6H PRN Fever >101.5 Dextrose 25 ml 08/04/25 22:31 Dextrose 50%-Water Inj 50 Ml Syringe IV 09/03/25 22:30 Q15MIN PRN BG 50-70 responsive npo pt Dextrose 50 ml 08/04/25 22:31 Dextrose 50%-Water Inj 50 Ml Syringe IV 09/03/25 22:30 Q15MIN PRN BG <50 OR BG <70 & pt unresponsive Glucagon 1 mg 08/04/25 22:31 Glucagon Inj 1 Mg Vial IM Q15MIN PRN BG <70, and no IV access Norepinephrine/Dextrose 8 mg in 250 mls @ 6.63 mls/hr 08/04/25 15:33 08/05/25 02:45 Levophed In D5w 8mg/250ml IV 09/03/25 15:32 0 mcg/kg/min .Q24H PRN 0 mls/hr PER PROTOCOL Titration Protocol 0.05 MCG/KG/MIN Fluconazole 200 mg in 100 mls @ 100 mls/hr 08/05/25 09:00 Diflucan/Ns Ivpb IV 08/12/25 08:59 QDAY DERRICK Dextrose 1,000 mls @ 50 mls/hr 08/05/25 06:45 08/05/25 08:14 D5w IV 09/04/25 06:44 50 mls/hr .Q20H DERRICK Administration Ceftriaxone Sodium/Dextrose 1 gm in 50 mls @ 100 mls/hr 08/05/25 09:57 Rocephin/D5w 1gm Iv Premix IV 08/12/25 09:56 QDAY DERRICK Insulin Human Lispro 0 unit 08/04/25 22:45 08/05/25 05:40 Insulin Lispro (Admelog) 1 Unit/0.01 Ml Unit SC 09/03/25 22:44 Not Given Q6H DERRICK Protocol Levetiracetam 500 mg 08/05/25 09:00 08/05/25 08:14 Levetiracetam Inj 100 Mg/Ml Vial 5ml IVP 09/04/25 08:59 500 mg Q12HR DERRICK Administration Ondansetron HCl 4 mg 08/04/25 22:23 Ondansetron Inj 2 Mg/Ml Inj 2 Ml IVP 09/03/25 22:22 Q6H PRN NAUSEA OR VOMITING Protocol Pantoprazole Sodium 40 mg 08/05/25 09:00 08/05/25 08:14 Pantoprazole Inj 40 Mg Vial IVP 09/04/25 08:59 40 mg QDAY DERRICK Administration Pharmacy Consult 1 each 08/04/25 20:15 Vancomycin Pharmacy To Dose 1 Each Each IV 09/03/25 20:14 QDAY PRN CONSULT Pharmacy Consult 1 each 08/05/25 08:44 Pharmacy Renal Dose Adjustment 1 Ea XX 09/04/25 08:43 PRN PRN CONSULT Plan 54-year-old male with past medical history of hemorrhagic stroke status post SCRAPE GATHERER shunt placement history of seizure and valley fever was admitted for shock requiring vasopressors. 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 There was a concern for meningitis due to patient's previous history of cocci meningitis in 2022. However patient denied any headaches and Kernig and Brudzinski sign were negative on exam. Also increased ICP unlikely as patient has a functional SCRAPE GATHERER shunt and no signs of cerebral edema, or fluid in ventricles was seen on CT brain. DDx: -Hypernatremia, stroke recrudescence, nonconvulsive status epilepticus, meningitis Dx: - CT brain was negative for hemorrhage or any other signs of increased ICP Rx: ?Continue fluconazole 200 mg IV daily for coccidiomycosis prophylaxis ? Started on ceftriaxone 1 g IV daily on [08/05? RRx: ?Neurology, Dr Altman consulted. Appreciate recommendations History of seizures Rx: Continue home medication Keppra 500 mg IV twice daily [facility] Shock, likely septic?resolved Patient presented hypotensive with a MAP of 52 initially. He received only a 2L IVF bolus in the ED and was started on Levophed. After an additional 2L IVF bolus Levophed was able to be discontinued around midnight. Most likely patient was under resuscitated initially Pulmonary Possible CAP Dx: CT chest abdomen pelvis showed bibasilar pneumonia Rx: ? See ID GI No active disease Renal NITHIN likely prerenal?resolved Hyperchloremic Hypernatremia 6mm left ureteral calculi, left hydronephrosis seen on CT Rx: ? Continue D5W at 75 cc/h for hypernatremia ? Outpatient follow-up for renal calculi Endo History of IDDM Insulin sliding scale ID Possible CAP UTI Rx: ? Continue ceftriaxone 1 g IV daily started on [08/05? ? Follow-up on urine cultures Hematology Normocytic anemia Dx: Hb 11.2. Baseline around 14 Rx: Monitor CBC, consider iron panel ICU Health maintenance: Dispo: Clinically stable for downgrade Diet: N.p.o. until passes swallow screen DVT ppx: Enoxaparin 40mg SC daily GI ppx: Protonix 40mg qD IV lines: 2 pIV Central line: No Arterial line: No Staples: Yes (started 08/05? Code status: FULL CODE Plan of care discussed with Attending Dr. Zion Black MD PGY 2 Disclaimer: This note was dictated by speech recognition. Minor errors in javascript software engineer may be present due to voice recognition software. Attending Provider Attestation/Addendum Patient seen and examined with resident team. In brief this is a 54-year-old male who was recently seen for an intracranial hemorrhage a few weeks ago and sent down to [facility]. He also has a history of a SCRAPE GATHERER shunt secondary to an episode of cocci meningitis and he had couple years ago. He presented to the ER yesterday for altered mentation. This morning he is awake and alert however oriented to self only he is not sure where he is nor of the year. He is conversant and able to enunciate well. His GCS is approximately 15. Lung sounds are clear heart rate is regular and rhythmic he is thin with evidence of some muscle wasting noted. Overnight he was admitted with hypernatremia and had been started on some IV fluids. He had acute kidney injury which is improved this morning. He was hypotensive on arrival and after 1 L of IV fluid started on Levophed reason for his admission to the ICU. He was given additional volume and has come off of the Levophed. He has been hemodynamically stable. CT of chest abdomen pelvis obtained yesterday showed bilateral diffuse pneumonia. He will be continued on antibiotics for pneumonia as well as fluconazole for his history of cocci meningitis. He is currently stable to continue care on telemetry Case discussed with ICU team Labs, imaging and records reviewed Approximately 38 minutes required for evaluation, exam, review, discussion and formulation of plan of care for this unfortunate gentleman
[2025-08-05] MEDS: FLUCONAZOLE/NS 200 MG IVPB 200 MG/100 ML BAG 100 MG IV (10:21)
[2025-08-05] MEDS: cefTRIAXone/D5w 1gm IV premix 1 GM/50 ML BAG IV (10:21)
[2025-08-05] MEDS: INSULIN LISPRO (AdmeLOG) 1 UNIT/0.01 ML UNIT SC (10:57)
[2025-08-05 11:03] LABS: Sodium 148 mMol/L (136-145)
--- NOTE | 2025-08-05 11:35 | PC.SS ---
SS conducted phone contact with patient's life partner, Glae Mukherjee to conduct initial assessment. SS unable to conduct assessment with patient, due to patient being confused. Gale Mukherjee reported that patient came from [facility] and has been there since 08/02/25. Prior to SNF placement patient had been admitted to [facility]. She reported that prior to admission patient was able to ambulate with the use of a cane. Patient currently not on 02. Patient currently requires assistance with the completion of ADL's. Patient's surrogate medical decision maker is Gale Mukherjee. Facility PCP is Dr. Morris. Patient has a international manager provider, partner unable to recall name. Pharmacy of choice [facility]. Patient is not established with Dialysis. Discharge plan is for the patient to transition to SNF. Partner does not want patient to return to [facility]. Preferred placement is [facility]. workforce planner informed patient's partner that patient will need to meet criteria for acute rehab placement in addition insurance will have to provide authorization for [facility] placement. If patient does not meet criteria for acute rehab placement partner acknowledged that SS will submit referral for SNF placement. SS will not submit referral to [facility]. No further intervention at this time. SS will be available to address any concerns. Next of kin: Life partner, Gale Mukherjee Discharge plan: SNF
[2025-08-05 14:43] LABS: Sodium 148 mMol/L (136-145)
--- NOTE | 2025-08-05 14:58 | ESPR_ITS ---
<Statement entered by Wesley Marinelli MD - 08/06/25 17:11> I have personally seen and examined the patient, agree with residents assessment and plan Patient plan of care was discussed with the attending physician, Dr. Giles Marinelli, PGY2 Documentation for date of: 08/05/25 Subjective Subjective Interval history: Overnight events: No acute events overnight. Patient was seen and examined at bedside. AM vitals and labs reviewed. Patient not appear to be in any acute distress at this time. Patient is able to follow some directions, but overall speech is very confused. The patient is aware of self, but is not aware of time, place, or situation. Patient said that he was pretty sure he was in [place] at the time. When asked what he last members before coming to the hospital, the patient was not able to appropriately respond. at bedside was able to provide more information. She states that the patient was at his baseline, which is very talkative and interactive, at his nursing facility when the patient suddenly became much less responsive around noon on Friday 08/03. The patient's tried to wake the patient up, but to no success. Afterwards, the patient was taken to [facility] ED, and the patient was noted to be a more alert in the ICU, but his speech seemed very confused. Patient noted to be shaking excessively, though he does note seem to be aware of his shaking. 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 Patient was admitted to the ICU initially for management of shock requiring vasopressors, and subsequently downgraded to medical floors on 08/05. The patient's last known well was Friday 08/03 just before 12 PM, and it was noted that the patient was interacting well at baseline, although bedbound after his ICH stroke. Afterwards, the patient became very somnolent and difficult to arouse. As a result, the patient was brought to [facility] ED on 08/04, where it was noted that the patient had a GCS of 9. In the ED, the patient was noted to have a systolic in the low 70s and not responding to questions or following commands. Due history of ICH, urgent CT head was obtained, which did not show any new hemorrhage in the brain. The patient was given 2 L of IV fluids and started on Levophed. Only abnormality noted on labs in ED were sodium 151, creatinine 3.2, and lactic acid 2.5. Nephrology was consulted, who recommended half-normal saline at 75 cc/h at that time for management of the patient's hypernatremia. Ceftriaxone was started for suspected UTI given urine leukocyte esterase positive with 8 WBC in urine. Given the patient's history being treated for his intracerebral hemorrhage and recent discharge from [facility], it was attempted to transfer the patient to the hospital, which was unsuccessful as the hospital did not have any open ICU beds. As a result, the patient was admitted to ICU at [facility]. Teleneurology was consulted, and they recommended starting the patient on cefepime, vancomycin, acyclovir, and fluconazole to cover for possible meningitis, encephalitis, and/or shunt infection. The norepinephrine infusion was quickly stopped as the patient was able to maintain a MAP above 65 without it, the patient was noted to be still confused. ICU team discontinued cefepime and vancomycin on 08/05 due to low suspicion for meningitis at that time. Due to patient's clinical stability, patient was downgraded to medical floors on 08/05. Continue D5W at 50 cc/h. Sodium check at 2000 tonight. Continue Keppra 500 mg every 12 hours. Continue seizure precautions. Increased fluconazole to 800 mg daily for management of cocci meningitis. Ordered bedside swallow evaluation and will wait for speech evaluation as the patient was noted to be at aspiration risk during his hospitalization in [place]. Pending further recommendations from neurology regarding patient's encephalopathy. Echocardiogram has been taken, pending read. Review of systems otherwise negative except for what is mentioned above. Exam Vital Signs Temp Pulse Resp BP Pulse Ox O2 Del Method O2 Flow Rate 97.1 F 88 18 113/73 99 Room Air 5 08/05/25 12:08/05/25 12:08/05/25 12:08/05/25 12:08/05/25 12:08/05/25 12:08/05/25 07:32 Narrative Exam Physical Exam: General: Alert, no acute distress. Shaking in all extremities noted. Skin: Warm, dry, intact. Head: Normocephalic, atraumatic. Eye: Normal conjunctiva, PERRL. Cardiovascular: Unable to appreciate due to shaking of nearby upper extremities. Respiratory: Unable to appreciate due to shaking of nearby upper extremities. Gastrointestinal: Soft, nontender, non-distended. No guarding or rebound tenderness. Extremities: No edema, no cyanosis, no clubbing. Neuro: No focal deficits observed. Conversant, moving all extremities. Unable to appropriately answer most questions, but can follow some simple commands. Psychiatric: Cooperative, appropriate affect. Objective Labs 08/06/25 06:22 08/06/25 06:22 Labs: Laboratory Results - last 24 hr 08/04/25 08/04/25 08/04/25 15:29 16:03 16:24 WBC 9.3 RBC 4.16 L Hgb 12.4 L Hct 39.0 L MCV 94 MCH 29.8 MCHC 31.8 RDW Std Deviation 50.4 H Plt Count 281 D Neut % (Auto) 66 Lymph % (Auto) 21 Bath % (Auto) 9 Eos % (Auto) 2 Baso % (Auto) 1 Neut # (Auto) 6.2 Lymph # (Auto) 2.0 Bath # (Auto) 0.8 Eos # (Auto) 0.2 Baso # (Auto) 0.1 Immature Gran # (Auto) 0.12 H Absolute Nucleated RBC 0.00 Immature Gran % 1 H Nucleated RBC % 0 PT 11.1 INR 1.0 APTT 23.1 VBG pH 7.43 VBG pCO2 41 VBG pO2 122 H VBG O2 Sat (Rohith) 100 H VBG Base Excess 3 Sodium 151 H Potassium 4.8 Chloride 112 H Carbon Dioxide 29.4 Anion Gap 10 BUN 76 H Creatinine 3.2 H Estim Creat Clear Calc Not Performed. eGFR 22 L BUN/Creatinine Ratio [address] Glucose [address] Glu mg/dL Hemoglobin A1c Calculated Osmolality 322 H Lactic Acid 2.5 H Calcium 9.5 Corrected Calcium 9.8 Phosphorus Magnesium Total Bilirubin 0.3 AST 11 ALT 22 Alkaline Phosphatase 119 H Ammonia Troponin I Total Protein 6.6 Albumin 3.6 Globulin 3.0 Albumin/Globulin Ratio 1.2 Procalcitonin 0.11 Ur Collection Type Catheter Urine Color Yellow Urine Clarity Hazy Urine pH 6.0 Ur Specific Henderson 1.023 Urine Protein 1+ A Urine Glucose (UA) Negative Urine Ketones Negative Urine Blood 1+ A Urine Nitrite Negative Urine Bilirubin Negative Urine Urobilinogen (Auto) Negative Ur Leukocyte Esterase Positive Urine RBC 31 H Urine WBC 8 H Ur Squamous Epith Cells 1 Ur Transition Epith Cell 2 Urine Bacteria None Urine Sperm Present A Random Vancomycin Blood Type O Positive Antibody Screen NEGATIVE Blood Bank Wristband ID Yes 08/04/25 08/04/25 08/04/25 16:34 19:20 23:17 WBC RBC Hgb Hct MCV MCH MCHC RDW Std Deviation Plt Count Neut % (Auto) Lymph % (Auto) Bath % (Auto) Eos % (Auto) Baso % (Auto) Neut # (Auto) Lymph # (Auto) Bath # (Auto) Eos # (Auto) Baso # (Auto) Immature Gran # (Auto) Absolute Nucleated RBC Immature Gran % Nucleated RBC % PT INR APTT VBG pH VBG pCO2 VBG pO2 VBG O2 Sat (Rohith) VBG Base Excess Sodium 151 H Potassium Chloride Carbon Dioxide Anion Gap BUN Creatinine Estim Creat Clear Calc eGFR BUN/Creatinine Ratio Glucose Estimated Ave Glu mg/dL Hemoglobin A1c Calculated Osmolality Lactic Acid 2.6 H 2.0 Calcium Corrected Calcium Phosphorus Magnesium Total Bilirubin AST ALT Alkaline Phosphatase Ammonia < 10 L Troponin I < 0.020 Total Protein Albumin Globulin Albumin/Globulin Ratio Procalcitonin Ur Collection Type Urine Color Urine Clarity Urine pH Ur Specific Henderson Urine Protein Urine Glucose (UA) Urine Ketones Urine Blood Urine Nitrite Urine Bilirubin Urine Urobilinogen (Auto) Ur Leukocyte Esterase Urine RBC Urine WBC Ur Squamous Epith Cells Ur Transition Epith Cell Urine Bacteria Urine Sperm Random Vancomycin Blood Type Antibody Screen Blood Bank Wristband ID 08/05/25 08/05/25 08/05/25 02:20 07:09 10:29 WBC 6.7 RBC 3.77 L Hgb 11.2 L Hct 35.2 L MCV 93 MCH 29.7 MCHC 31.8 RDW Std Deviation 47.7 H Plt Count 216 D Neut % (Auto) 65 Lymph % (Auto) 22 Bath % (Auto) 8 Eos % (Auto) 5 Baso % (Auto) 0 Neut # (Auto) 4.4 Lymph # (Auto) 1.5 Bath # (Auto) 0.5 Eos # (Auto) 0.3 Baso # (Auto) 0.0 Immature Gran # (Auto) 0.06 H Absolute Nucleated RBC 0.00 Immature Gran % 1 H Nucleated RBC % 0 PT 10.6 INR 1.0 APTT VBG pH VBG pCO2 VBG pO2 VBG O2 Sat (Rohith) VBG Base Excess Sodium 152 H 150 H 148 H Potassium 3.9 D Chloride 113 H Carbon Dioxide 29.2 Anion Gap 8 BUN 44 H Creatinine 1.3 D Estim Creat Clear Calc 57.4 L eGFR > 60 BUN/Creatinine Ratio 34 H Glucose [address] Glu mg/dL Cancelled Hemoglobin A1c Cancelled Calculated Osmolality 312 H Lactic Acid Calcium 9.0 Corrected Calcium Phosphorus 2.9 Magnesium 2.0 Total Bilirubin AST ALT Alkaline Phosphatase Ammonia Troponin I Total Protein Albumin Globulin Albumin/Globulin Ratio Procalcitonin Ur Collection Type Urine Color Urine Clarity Urine pH Ur Specific Henderson Urine Protein Urine Glucose (UA) Urine Ketones Urine Blood Urine Nitrite Urine Bilirubin Urine Urobilinogen (Auto) Ur Leukocyte Esterase Urine RBC Urine WBC Ur Squamous Epith Cells Ur Transition Epith Cell Urine Bacteria Urine Sperm Random Vancomycin 10.5 Blood Type Antibody Screen Blood Bank Wristband ID 08/05/25 14:06 WBC RBC Hgb Hct MCV MCH MCHC RDW Std Deviation Plt Count Neut % (Auto) Lymph % (Auto) Bath % (Auto) Eos % (Auto) Baso % (Auto) Neut # (Auto) Lymph # (Auto) Bath # (Auto) Eos # (Auto) Baso # (Auto) Immature Gran # (Auto) Absolute Nucleated RBC Immature Gran % Nucleated RBC % PT INR APTT VBG pH VBG pCO2 VBG pO2 VBG O2 Sat (Rohith) VBG Base Excess Sodium 148 H Potassium Chloride Carbon Dioxide Anion Gap BUN Creatinine Estim Creat Clear Calc eGFR BUN/Creatinine Ratio Glucose Estimated Ave Glu mg/dL Hemoglobin A1c Calculated Osmolality Lactic Acid Calcium Corrected Calcium Phosphorus Magnesium Total Bilirubin AST ALT Alkaline Phosphatase Ammonia Troponin I Total Protein Albumin Globulin Albumin/Globulin Ratio Procalcitonin Ur Collection Type Urine Color Urine Clarity Urine pH Ur Specific Henderson Urine Protein Urine Glucose (UA) Urine Ketones Urine Blood Urine Nitrite Urine Bilirubin Urine Urobilinogen (Auto) Ur Leukocyte Esterase Urine RBC Urine WBC Ur Squamous Epith Cells Ur Transition Epith Cell Urine Bacteria Urine Sperm Random Vancomycin Blood Type Antibody Screen Blood Bank Wristband ID ABG Interpretation ABG results: 08/04/25 15:29 VBG pH 7.43 VBG pCO2 41 VBG pO2 122 H VBG Base Excess 3 Quality Measures Quality Measures VTE prophylaxis Assessment & Plan Assessment Current Active Medications: Generic Name Dose Route Start Last Admin Trade Name Freangelita PRN Reason Stop Dose Admin Acetaminophen 650 mg 08/04/25 22:23 Acetaminophen 325 Mg Tablet PO 09/03/25 22:22 Q6H PRN Fever >101.5 Dextrose 25 ml 08/04/25 22:31 Dextrose 50%-Water Inj 50 Ml Syringe IV 09/03/25 22:30 Q15MIN PRN BG 50-70 responsive npo pt Dextrose 50 ml 08/04/25 22:31 Dextrose 50%-Water Inj 50 Ml Syringe IV 09/03/25 22:30 Q15MIN PRN BG <50 OR BG <70 & pt unresponsive Enoxaparin Sodium 40 mg 08/05/25 21:00 Enoxaparin Sod Inj 40 Mg/0.4 Ml Syringe SC 08/19/25 20:59 HS DERRICK Glucagon 1 mg 08/04/25 22:31 Glucagon Inj 1 Mg Vial IM Q15MIN PRN BG <70, and no IV access Fluconazole 200 mg in 100 mls @ 100 mls/hr 08/05/25 09:00 08/05/25 10:21 Diflucan/Ns Ivpb IV 08/12/25 08:59 100 mls/hr QDAY DERRICK Administration Ceftriaxone Sodium/Dextrose 1 gm in 50 mls @ 100 mls/hr 08/05/25 09:57 08/05/25 10:21 Rocephin/D5w 1gm Iv Premix IV 08/12/25 09:56 100 mls/hr QDAY DERRICK Administration Dextrose 1,000 mls @ 50 mls/hr 08/05/25 11:17 08/05/25 13:20 D5w IV 08/06/25 07:16 Not Given .Q20H ONE Insulin Human Regular 0 unit 08/05/25 17:00 Insulin Hum Regular 1 Unit/0.01 Ml (Per Unit) SC 09/04/25 16:59 ACHS DERRICK Protocol Levetiracetam 500 mg 08/05/25 09:00 08/05/25 08:14 Levetiracetam Inj 100 Mg/Ml Vial 5ml IVP 09/04/25 08:59 500 mg Q12HR DERRICK Administration Ondansetron HCl 4 mg 08/04/25 22:23 Ondansetron Inj 2 Mg/Ml Inj 2 Ml IVP 09/03/25 22:22 Q6H PRN NAUSEA OR VOMITING Protocol Pantoprazole Sodium 40 mg 08/05/25 09:00 08/05/25 08:14 Pantoprazole Inj 40 Mg Vial IVP 09/04/25 08:59 40 mg QDAY DERRICK Administration Pharmacy Consult 1 each 08/05/25 08:44 Pharmacy Renal Dose Adjustment 1 Ea XX 09/04/25 08:43 PRN PRN CONSULT Plan This patient is a 54-year-old male with a past medical history of hypertension, intracerebral hemorrhage (07/01/2025), seizures, and 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 Patient was admitted to the ICU initially for management of shock requiring vasopressors, and subsequently downgraded to medical floors on 08/05. #Cocci meningitis #Disseminated coccidiodes #Acute encephalopathy # History of SPIRAL BINDER shunt placement September 2024 Patient presented with altered mental status that started on 08/03. Patient was noted to be very lethargic and somnolent at that time. In ED, the patient was noted to be inappropriately responding to questions and could not follow directions. At the patient's baseline, he has no difficulties with communication and is quite talkative. On downgrade from ICU, the patient was noted to be able to follow some directions, but is still very difficult to understand and still is inappropriately responding to questions. Patient is noted to also have excessive shaking of his extremities on downgrade to medical floors. Likely secondary to cocci meningitis as the patient was diagnosed and had a SPIRAL BINDER shunt placed back in September 2024 and it was noted that the patient was not compliant with or failed fluconazole treatment at [facility]. DDx: Cocci meningitis, CVA, epilepsy, toxic metabolite resulting in encephalopathy Diagnostics: CT head 08/04 showed significant improvement compared to 07/01/2025, hemorrhage and ventricles and left basal ganglia have resolved, less suggestive of possible rebleed Per discharge packet from [facility], MRI 07/02/2025 noted basilar enhancement, likely due to cocci meningitis Prior Rx: Acyclovir and cefepime were given on 08/04 due to concerns of viral/bacterial meningitis, however was discontinued on 08/05 due to lower suspicion of this type of meningitis Plan: Will continue to monitor Neurology consulted, appreciate recommendations Fluconazole 800 mg daily for treatment of cocci meningitis #Hypernatremia, improving #NITHIN, likely prerenal and postrenal, resolving #Left hydronephrosis, mild, likely 2/2 #Bilateral renal calculi, 6 mm mid left ureteral calculus Patient noted to have sodium of 151 and creatinine of 3.2 on admission. This is likely secondary to poor oral intake as the patient was noted to have altered mental status that led to lethargy prior to admission. Additionally, the patient has been on aspiration precautions as recommended by [facility] on his discharge, so oral intake may have been decreased as a result. Additionally, patient was noted to have some abdominal pain, so CT chest/abdomen/pelvis was done on 08/04, which showed multiple bilateral renal calculi with a mild left never hydro cysts and a 6 mm mid left ureteral calculus, suggesting a possible postrenal component to his NITHIN as well. Plan: Nephrology consulted, appreciate recommendations Continue D5W at 50 cc/h Repeat sodium check at 2000 on 08/05 #Shock, resolved #Community-acquired pneumonia #Suspected UTI Patient presented with hypotension with systolic blood pressures in the 70s in the ED. Patient responded well to 2 L of IV fluid and a brief duration of Levophed. Since then, the patient has been maintaining a stable blood pressure. Patient's initial episode of shock was most likely secondary to his a community-acquired pneumonia as noted on the CT chest/abdomen/pelvis that was done on 08/04, which showed bilateral diffuse pneumonia that was most prominent in the left lower lobe. Possible element of UTI was also suspected given that his urinalysis was slightly suggestive of a UTI, however the patient does not complain of any significant symptoms associated with UTI. Plan: Continue to monitor, will possibly add midodrine if patient is unable to sustain blood pressure Ceftriaxone 1 g daily (08/04??) Blood cultures collected 08/04, pending Urine culture collected 08/04, pending #Aspiration risk Patient is noted to be an aspiration risk upon discharge from [facility] visit when he was admitted on 07/01. Patient was noted to have had an aspiration event on 07/16 at [facility], which resulted in left lung infiltration with leukocytosis and left shift. Given the patient's confusion, it is unclear if the patient can safely tolerate p.o. intake at time of ICU downgrade. Plan: Bedside nursing swallow ordered, pending Speech therapy referral ordered, recommended dysphagia 3 (chopped) diet #Normocytic anemia Patient noted to have a hemoglobin of 12.4, which is decreased from his baseline of 14.8 from his previous visit. Unclear of etiology, but it is possibly anemia of chronic disease versus iron deficiency anemia at time of ICU downgrade. Plan: Iron panel ordered, pending Continue to monitor, will replete if hemoglobin less than 7 per protocol #History of intracerebral hemorrhage, 07/01/2025 #Seizures Patient noted to have a history of intracerebral hemorrhage with presentation of seizures. The hemorrhage was noted to be intraventricular and a 16mm left basal ganglia hemorrhage as well. As result of the hemorrhage the patient was transferred to [facility] for neurosurgical care. Patient was discharged on Keppra as result of the hospitalization to manage his seizures. Patient did not tolerate Depakote due to its drowsy effects. Plan: Continue Keppra 500 mg every 12 hours daily Neurology consulted, appreciate recommendations #History of hypertension Patient has a history of hypertension, however patient did not appear to be hypertensive on admission. Patient seems to be having stable blood pressures after his initial hypotension was controlled. Plan: Continue to monitor, will consider antihypertensives if necessary If blood pressures remain stable throughout hospitalization, will discontinue home antihypertensives #Insulin-dependent type 2 diabetes mellitus, uncontrolled Patient noted to have a history of insulin-dependent diabetes. Patient uses insulin lispro sliding scale at home. Hemoglobin A1c was ordered, however likely due to uncontrolled diabetes, value could not be obtained. Plan: Continue sliding scale insulin Bedside glucose checks ACHS DVT Prophylaxis: Lovenox GI Prophylaxis: Protonix Bowel: N/A Diet: NPO, pending Speech Therapy evaluation Staples: N/A Lines: Peripheral IV Antibiotics: Ceftriaxone, Fluconazole Code Status: FULL Reason for Hospitalization: Shock Other Barriers to Discharge: AMS Patient plan of care was discussed with the senior resident Dr. Marinelli (PGY-2) and attending physician Dr. Giles Saha, PGY1 Attending Provider Attestation/Addendum I have discussed and was present for the essential components of the history, physical examination, diagnosis, and treatment plan with the resident. I agree with the patient's care as documented by the resident and amended herein by me. Kalia Skaggs DO. Although this document has been carefully reviewed, there may still be some phonetic and other typographical errors. These errors are purely grammatical due to imperfections in the software program and should not be construed in any way to compromise the substance of the patient's medical care during this visit.
[2025-08-05] MEDS: FLUCONAZOLE/NS 400 MG IVPB 400 MG/200 ML BAG 100 MG IV (17:19)
[2025-08-05] MEDS: INSULIN HUM REGULAR 1 UNIT/0.01 ML (PER UNIT) SC (17:32)
[2025-08-05] MEDS: FLUCONAZOLE/NS 200 MG IVPB 100 ML 100 MG IV (19:21)
[2025-08-05 20:19] LABS: Sodium 145 mMol/L (136-145)
[2025-08-05] MEDS: ENOXAPARIN SOD INJ 40 MG/0.4 ML SYRINGE SC (20:20)
--- NOTE | 2025-08-05 22:48 | ESPR_ITS ---
Documentation for date of: 08/05/25 Subjective Subjective Interval history: Patient was seen in [facility] today at the bedside with his . His mental status is significantly improved, close to baseline. He denies any headache or dizziness or weakness or paresthesias in the extremities. Patient is able to ambulate without much support. Exam - Neurology Vital Signs Temp Pulse Resp BP Pulse Ox O2 Del Method O2 Flow Rate 97.1 F 72 18 113/73 99 Room Air 5 08/05/25 12:00 08/05/25 22:45 08/05/25 22:45 08/05/25 12:00 08/05/25 12:00 08/05/25 12:00 08/05/25 07:32 Narrative Exam GENERAL APPEARANCE: Well hydrated, well-nourished in no acute distress. HEENT: Normocephalic, atraumatic, extraocular movements intact. Pupils: Equal reacting to light and accommodation NECK: Supple, no JVD or bruits. CARDIOVASULAR: Heart: S1, S2 heard, regular without S3-S4 or murmur no rubs or gallops. LUNGS/CHEST: Clear to auscultation bilaterally. No rails, rhonchi, or wheezing. Normal inspection. ABDOMEN: Soft, nontender, with normal bowel sounds. No pulsatile masses. No rebound, rigidity, or guarding. Normal inspection and palpation. EXTREMITIES: Normal inspection and palpation. No edema, clubbing or cyanosis. SKIN: Warm and dry without rashes. Normal inspection. MUSCULOSKELETAL: No cervical, thoracic, lumbar or midline bony tenderness. Normal inspection. NEURO: Alert, awake and oriented x3. Cranial nerves: II through XII grossly intact. Speech and language: Normal with no dysarthria or dysphasia. Motor system: Tone and bulk: Normal: Strength: 5 out of 5 in all 4 extremities; No pronator drift noted. Deep tendon reflexes: 2+ bilaterally symmetrical. Plantar reflex: Downgoing bilaterally. Sensory system: Intact to all modalities of sensation bilaterally. Coordination: Intact to [id number]-[id number] and cnec-gemw-rfyc test bilaterally. No ataxia, no dysmetria, or dysdiadochokinesia noted. No intention tremors noted. Gait: Not tested. No signs of meningeal irritation noted. PSYCHIATRIC: Normal mood and affect. Objective Labs 08/05/25 07:09 08/05/25 19:45 Labs: Laboratory Results - last 24 hr 08/04/25 08/05/25 08/05/25 23:17 02:20 07:09 WBC 6.7 RBC 3.77 L Hgb 11.2 L Hct 35.2 L MCV 93 MCH 29.7 MCHC 31.8 RDW Std Deviation 47.7 H Plt Count 216 D Neut % (Auto) 65 Lymph % (Auto) 22 [place] % (Auto) 8 Eos % (Auto) 5 Baso % (Auto) 0 Neut # (Auto) 4.4 Lymph # (Auto) 1.5 [place] # (Auto) 0.5 Eos # (Auto) 0.3 Baso # (Auto) 0.0 Immature Gran # (Auto) 0.06 H Absolute Nucleated RBC 0.00 Immature Gran % 1 H Nucleated RBC % 0 PT 10.6 INR 1.0 Sodium 151 H 152 H 150 H Potassium 3.9 D Chloride 113 H Carbon Dioxide 29.2 Anion Gap 8 BUN 44 H Creatinine 1.3 D Estim Creat Clear Calc 57.4 L eGFR > 60 BUN/Creatinine Ratio 34 H Glucose [address] Glu mg/dL Cancelled Hemoglobin A1c Cancelled Calculated Osmolality 312 H Lactic Acid 2.0 Calcium 9.0 Phosphorus 2.9 Magnesium 2.0 Troponin I < 0.020 Random Vancomycin 10.5 08/05/25 08/05/25 08/05/25 10:29 14:06 19:45 WBC RBC Hgb Hct MCV MCH MCHC RDW Std Deviation Plt Count Neut % (Auto) Lymph % (Auto) [place] % (Auto) Eos % (Auto) Baso % (Auto) Neut # (Auto) Lymph # (Auto) [place] # (Auto) Eos # (Auto) Baso # (Auto) Immature Gran # (Auto) Absolute Nucleated RBC Immature Gran % Nucleated RBC % PT INR Sodium 148 H 148 H 145 Potassium Chloride Carbon Dioxide Anion Gap BUN Creatinine Estim Creat Clear Calc eGFR BUN/Creatinine Ratio Glucose Estimated Ave Glu mg/dL Hemoglobin A1c Calculated Osmolality Lactic Acid Calcium Phosphorus Magnesium Troponin I Random Vancomycin ABG Interpretation ABG results: 08/04/25 15:29 VBG pH 7.43 VBG pCO2 41 VBG pO2 122 H VBG Base Excess 3 Assessment & Plan Assessment and plan (1) Altered mental status: Status: Acute Assessment and plan: Could have been related to metabolic encephalopathy with urinary tract infection Resolving, mental status is close to baseline Focal neurological deficit noted on exam No signs and symptoms of shunt malfunction clinically or radiographically Continue with the fluconazole 800 mg a day along with Keppra. Follow seizure precautions (2) Hypertension: Status: Chronic Assessment and plan: Hold off on antihypertensives (3) Type 2 diabetes mellitus: Status: Chronic Assessment and plan: Continue to check fingerstick glucose and follow sliding scale insulin per protocol
[2025-08-06 06:00] VITALS: BMI 19.8
[2025-08-06 06:36] LABS: Basophils # (Auto) 0.0 Thou/mm3 (0.0-0.2); Basophils % (Auto) 1 % (0-2.5); Eosinophils # (Auto) 0.3 Thou/mm3 (0.0-0.5); Eosinophils % (Auto) 4 % (0-10); Hematocrit 33.2 % (41.0-53.0); Hemoglobin 11.2 g/dL (13.5-16.0); Immature Granulocytes Auto 0.04 Thou/mm3 (0.00-0.00); Lymphocytes # (Auto) 1.3 Thou/mm3 (1.0-4.8); Lymphocytes % (Auto) 20 % (10-50); Mean Corpuscular HGB Conc 33.7 g/dl (31.0-37.0); Mean Corpuscular Hemoglobin 30.7 pg (25.0-35.0); Mean Corpuscular Volume 91 fL (80-100); Monocytes # (Auto) 0.5 Thou/mm3 (0.0-0.8); Monocytes % (Auto) 7 % (0-12); Neutrophils # (Auto) 4.4 Thou/mm3 (1.8-7.7); Neutrophils % (Auto) 68 % (37-80); Nucleated Red Blood Cell # 0.00 Thou/mm3 (0.00-0.00); Nucleated Red Blood Cell % 0 /100 WBC (0); Platelet Count 213 Thou/mm3 (140-440); RDW Standard Deviation 45.0 fL (35.1-43.9); Red Blood Count 3.65 Miln/mm3 (4.50-5.90); White Blood Count 6.5 Thou/mm3 (3.8-10.6)
[2025-08-06 06:53] LABS: Albumin, Serum 3.4 gm/dL (3.5-5.0); Anion Gap 8 (7-16); BUN/Creatinine Ratio 23 Ratio (12-20); Blood Urea Nitrogen 18 mg/dL (9-23); Calcium 9.1 mg/dL (8.3-10.6); Calcium (Corrected) 9.6 mg/dL (8.5-10.1); Carbon Dioxide 30.4 mMol/L (20.0-31.0); Chloride 107 mMol/L (98-107); Creatinine (Component) 0.8 mg/dL (0.6-1.3); Estimated Creatinine Clearance 85.9 mL/min (>60); Glucose 104 mg/dL (74-106); Magnesium 1.6 mg/dL (1.6-2.6); Osmolality,Calculated 290 (275-295); Phosphorous 2.7 mg/dL (2.4-5.1); Potassium 3.8 mMol/L (3.4-5.1); Sodium 145 mMol/L (136-145); eGFR > 60 See Note
[2025-08-06 06:56] LABS: Iron 63 mcg/dL (65-175); Percent Iron Saturation 29 % (20-55); Total Iron Binding Capacity 217 mcg/dL (250-425); Unsaturated Iron Binding 154 (225-295)
[2025-08-06 07:31] VITALS: PULSE 76; RESP 18; RESP 98
[2025-08-06] MEDS: Magnesium Sulfate 4 GM Ivpb 4 GM/50 ML BAG IV (09:32)
[2025-08-06] MEDS: cefTRIAXone/D5w 1gm IV premix 1 GM/50 ML BAG IV (09:32)
[2025-08-06] MEDS: levETIRAcetam INJ 100 MG/ML VIAL 5ML 500 MG IVP ×2 (09:32→20:10)
[2025-08-06] MEDS: FLUCONAZOLE/NS 400 MG IVPB 400 MG/200 ML BAG 100 MG IV (09:51)
--- NOTE | 2025-08-06 10:43 | PC.SS ---
Pt is from [facility]. SS spoke to Isis at [facility] pt will require new insurance authorization to return. SS met with who is requesting a different SNF. is requesting [facility]. is aware pt requires insurance authorization. is also aware if other SNF are unable to accept pt is able to return to [facility] or d/c home. states if [facility] does not accept then pt will return home upon dc. is aware pt will require care at home. SS has spoken to Isis from [facility] about 's concerns and she has done an onsite evaluation at bedside. Per Isis from [facility], is going to [facility] to acquire about moving pt to different room at [facility]. is agreeable for SS to send inquiry to the other local SNF.
--- NOTE | 2025-08-06 11:33 | ESPR_ITS ---
<Statement entered by Wesley Marinelli MD - 08/06/25 18:46> I have personally seen and examined the patient, agree with residents assessment and plan Patient plan of care was discussed with the attending physician, Dr. Giles Marinelli, PGY2 Documentation for date of: 08/06/25 Subjective Subjective Interval history: Overnight events: No acute events overnight. Patient was seen and examined at bedside. AM vitals and labs reviewed. Patient initially seemed very lethargic, and was not responding to sternal rub. Eventually woke up after additional help from nursing staff. Still seemed very confused and was not appropriately answering questions. Was following most commands however. It was noted that the patient was seen a few hours later, the patient had improvement in his mentation, was aware of self and location. Per at bedside, the patient seems to be having waxing and waning of his mental status, but overall does not seem to be quite back at his baseline yet. Per neurology, patient seemed to be returning close to baseline when evaluated in the evening yesterday. Neurology did not find any focal neurological deficits. 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 Sodium 145, iron panel suggestive of anemia of chronic disease. Urine culture negative, blood cultures negative after 24 hours. Continue Keppra 500 mg twice daily. Will change fluconazole to 800 mg to isavuconazonium 372 mg daily if possible with pharmacy. Neurology to continue to follow the patient. Review of systems otherwise negative except for what is mentioned above. Exam Vital Signs Temp Pulse Resp BP Pulse Ox O2 Del Method O2 Flow Rate 97.1 F 76 18 113/73 99 Room Air 5 08/05/25 12:00 08/06/25 07:31 08/06/25 07:31 08/05/25 12:00 08/05/25 12:00 08/05/25 12:08/05/25 07:32 Narrative Exam Physical Exam: General: Alert, no acute distress. Skin: Warm, dry, intact. Head: Normocephalic, atraumatic. BUILDING SERVICES ENGINEER shunt noted on right. Eye: Normal conjunctiva, PERRL. Cardiovascular: Regular rate and rhythm, no murmur, +S1/S2. Respiratory: Lungs are clear to auscultation, respirations unlabored, no crackles, no wheezing. Gastrointestinal: Soft, nontender, non-distended. No guarding or rebound tenderness. Extremities: No edema, no cyanosis, no clubbing. 2+ radial pulse bilaterally, 2+ pedal pulse bilaterally. Neuro: No focal deficits observed. Conversant, moving all extremities. No overt cerebellar signs/incoordination. Unable to appropriate answer some questions, can follow some simple commands. Objective Labs 08/07/25 05:00 08/07/25 05:00 Labs: Laboratory Results - last 24 hr 08/05/25 08/05/25 08/06/25 14:06 19:45 06:22 WBC 6.5 RBC 3.65 L Hgb 11.2 L Hct 33.2 L MCV 91 MCH 30.7 MCHC 33.7 RDW Std Deviation 45.0 H Plt Count 213 Neut % (Auto) 68 Lymph % (Auto) 20 [place] % (Auto) 7 Eos % (Auto) 4 Baso % (Auto) 1 Neut # (Auto) 4.4 Lymph # (Auto) 1.3 [place] # (Auto) 0.5 Eos # (Auto) 0.3 Baso # (Auto) 0.0 Immature Gran # (Auto) 0.04 H Absolute Nucleated RBC 0.00 Immature Gran % 1 H Nucleated RBC % 0 Sodium 148 H 145 145 Potassium 3.8 Chloride 107 Carbon Dioxide 30.4 Anion Gap 8 BUN 18 Creatinine 0.8 D Estim Creat Clear Calc 85.9 eGFR > 60 BUN/Creatinine Ratio 23 H Glucose 104 Calculated Osmolality 290 Calcium 9.1 Corrected Calcium 9.6 Phosphorus 2.7 Magnesium 1.6 Iron 63 L TIBC 217 L Iron Saturation 29 Unsat Iron Binding 154 L Albumin 3.4 L ABG Interpretation ABG results: 08/04/25 15:29 VBG pH 7.43 VBG pCO2 41 VBG pO2 122 H VBG Base Excess 3 Quality Measures Quality Measures VTE prophylaxis Assessment & Plan Assessment Current Active Medications: Generic Name Dose Route Start Last Admin Trade Name Freq PRN Reason Stop Dose Admin Acetaminophen 650 mg 08/04/25 22:23 Acetaminophen 325 Mg Tablet PO 09/03/25 22:22 Q6H PRN Fever >101.5 Dextrose 25 ml 08/04/25 22:31 Dextrose 50%-Water Inj 50 Ml Syringe IV 09/03/25 22:30 Q15MIN PRN BG 50-70 responsive npo pt Dextrose 50 ml 08/04/25 22:31 Dextrose 50%-Water Inj 50 Ml Syringe IV 09/03/25 22:30 Q15MIN PRN BG <50 OR BG <70 & pt unresponsive Enoxaparin Sodium 40 mg 08/05/25 21:00 08/05/25 20:20 Enoxaparin Sod Inj 40 Mg/0.4 Ml Syringe SC 08/19/25 20:59 40 mg HS DERRICK Administration Glucagon 1 mg 08/04/25 22:31 Glucagon Inj 1 Mg Vial IM Q15MIN PRN BG <70, and no IV access Ceftriaxone Sodium/Dextrose 1 gm in 50 mls @ 100 mls/hr 08/05/25 09:57 08/06/25 09:32 Rocephin/D5w 1gm Iv Premix IV 08/12/25 09:56 100 mls/hr QDAY DERRICK Administration Fluconazole 400 mg in 200 mls @ 50 mls/hr 08/06/25 11:00 Diflucan/Ns Ivpb IV 08/13/25 10:59 QDAY@1100 DERRICK Fluconazole 400 mg in 200 mls @ 100 mls/hr 08/06/25 09:00 08/06/25 09:51 Diflucan/Ns Ivpb IV 08/13/25 08:59 100 mls/hr QDAY DERRICK Administration Magnesium Sulfate 4 gm in 50 mls @ 12.5 mls/hr 08/06/25 07:54 08/06/25 09:32 Magnesium Sulfate Ivpb IV 08/06/25 11:53 12.5 mls/hr X1 ONE Administration Insulin Human Regular 0 unit 08/05/25 17:00 08/06/25 07:44 Insulin Hum Regular 1 Unit/0.01 Ml (Per Unit) SC 09/04/25 16:59 Not Given ACHS [facility] Protocol Levetiracetam 500 mg 08/05/25 09:00 08/06/25 09:32 Levetiracetam Inj 100 Mg/Ml Vial 5ml IVP 09/04/25 08:59 500 mg Q12HR DERRICK Administration Ondansetron HCl 4 mg 08/04/25 22:23 Ondansetron Inj 2 Mg/Ml Inj 2 Ml IVP 09/03/25 22:22 Q6H PRN NAUSEA OR VOMITING Protocol Pantoprazole Sodium 40 mg 08/05/25 09:00 08/06/25 09:33 Pantoprazole Inj 40 Mg Vial IVP 09/04/25 08:59 40 mg QDAY DERRICK Administration Pharmacy Consult 1 each 08/05/25 08:44 Pharmacy Renal Dose Adjustment 1 Ea XX 09/04/25 08:43 PRN PRN CONSULT Plan This patient is a 54-year-old male with a past medical history of hypertension, intracerebral hemorrhage (07/01/2025), seizures, and 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 Patient was admitted to the ICU initially for management of shock requiring vasopressors, and subsequently downgraded to medical floors on 08/05. #Acute encephalopathy #Cocci meningitis #Status post BUILDING SERVICES ENGINEER shunt September 2024 #Disseminated cocci Patient presented with altered mental status that started on 08/03. Patient was noted to be very lethargic and somnolent at that time. In ED, the patient was noted to be inappropriately responding to questions and could not follow directions. At the patient's baseline, he has no difficulties with communication and is quite talkative. On downgrade from ICU, the patient was noted to be able to follow some directions, but is still very difficult to understand and still is inappropriately responding to questions. Patient is noted to also have excessive shaking of his extremities on downgrade to medical floors. Likely secondary to cocci meningitis as the patient was diagnosed and had a BUILDING SERVICES ENGINEER shunt placed back in September 2024 and it was noted that the patient was not compliant with or failed fluconazole treatment at [facility]. DDx: Cocci meningitis, CVA, epilepsy, toxic metabolite resulting in encephalopathy Diagnostics: CT head 08/04 showed significant improvement compared to 07/01/2025, hemorrhage and ventricles and left basal ganglia have resolved, less suggestive of possible rebleed Per discharge packet from [facility], MRI 07/02/2025 noted basilar enhancement, likely due to cocci meningitis Prior Rx: Acyclovir and cefepime were given on 08/04 due to concerns of viral/bacterial meningitis, however was discontinued on 08/05 due to lower suspicion of this type of meningitis Plan: Will continue to monitor Neurology consulted, appreciate recommendations Fluconazole 800 mg daily for treatment of cocci meningitis, which was noted to have failed at managing his cocci meningitis per [facility], attempting to change to the ID recommended isavuconazonium 372 mg daily #Hypernatremia, improving #NITHIN, likely prerenal and postrenal, resolving #Left hydronephrosis, mild, likely 2/2 #Bilateral renal calculi, 6 mm mid left ureteral calculus Patient noted to have sodium of 151 and creatinine of 3.2 on admission. This is likely secondary to poor oral intake as the patient was noted to have altered mental status that led to lethargy prior to admission. Additionally, the patient has been on aspiration precautions as recommended by [facility] on his discharge, so oral intake may have been decreased as a result. Additionally, patient was noted to have some abdominal pain, so CT chest/abdomen/pelvis was done on 08/04, which showed multiple bilateral renal calculi with a mild left never hydro cysts and a 6 mm mid left ureteral calculus, suggesting a possible postrenal component to his NITHIN as well. Plan: Nephrology consulted, appreciate recommendations Continue to monitor #Shock, resolved #Community-acquired pneumonia #Suspected UTI, ruled out Patient presented with hypotension with systolic blood pressures in the 70s in the ED. Patient responded well to 2 L of IV fluid and a brief duration of Levophed. Since then, the patient has been maintaining a stable blood pressure. Patient's initial episode of shock was most likely secondary to his a community-acquired pneumonia as noted on the CT chest/abdomen/pelvis that was done on 08/04, which showed bilateral diffuse pneumonia that was most prominent in the left lower lobe. Possible element of UTI was also suspected given that his urinalysis was slightly suggestive of a UTI, however the patient does not complain of any significant symptoms associated with UTI. Diagnostics: Blood cultures collected 08/04, negative after 24 hours Urine culture collected 08/04, negative Plan: Continue to monitor, will possibly add midodrine if patient is unable to sustain blood pressure Ceftriaxone 1 g daily (08/04?08/10) #Aspiration risk Patient is noted to be an aspiration risk upon discharge from [facility] visit when he was admitted on 07/01. Patient was noted to have had an aspiration event on 07/16 at [facility], which resulted in left lung infiltration with leukocytosis and left shift. Given the patient's confusion, it is unclear if the patient can safely tolerate p.o. intake at time of ICU downgrade. Plan: Bedside nursing swallow ordered, patient passed Speech therapy referral ordered, recommended dysphagia 3 (chopped) diet #Normocytic anemia #Anemia of chronic disease Patient noted to have a hemoglobin of 12.4, which is decreased from his baseline of 14.8 from his previous visit. Unclear of etiology, but it is possibly anemia of chronic disease versus iron deficiency anemia at time of ICU downgrade. Plan: Iron panel ordered, suggests anemia of chronic disease Continue to monitor, will replete if hemoglobin less than 7 per protocol #History of intracerebral hemorrhage, 07/01/2025 #Seizures Patient noted to have a history of intracerebral hemorrhage with presentation of seizures. The hemorrhage was noted to be intraventricular and a 16mm left basal ganglia hemorrhage as well. As result of the hemorrhage the patient was transferred to [facility] for neurosurgical care. Patient was discharged on Keppra as result of the hospitalization to manage his seizures. Patient did not tolerate Depakote due to its drowsy effects. Plan: Continue Keppra 500 mg every 12 hours daily Neurology consulted, appreciate recommendations #History of hypertension Patient has a history of hypertension, however patient did not appear to be hypertensive on admission. Patient seems to be having stable blood pressures after his initial hypotension was controlled. Plan: Continue to monitor, will consider antihypertensives if necessary If blood pressures remain stable throughout hospitalization, will discontinue home antihypertensives #Insulin-dependent type 2 diabetes mellitus, uncontrolled Patient noted to have a history of insulin-dependent diabetes. Patient uses insulin lispro sliding scale at home. Hemoglobin A1c was ordered, however likely due to uncontrolled diabetes, value could not be obtained. Plan: Continue sliding scale insulin Bedside glucose checks ACHS DVT Prophylaxis: Lovenox GI Prophylaxis: Protonix Bowel: N/A Diet: NPO, pending Speech Therapy evaluation Staples: N/A Lines: Peripheral IV Antibiotics: Ceftriaxone, Fluconazole Code Status: FULL Reason for Hospitalization: Shock Other Barriers to Discharge: AMS Patient plan of care was discussed with the senior resident Dr. Marinelli (PGY-2) and attending physician Dr. Giles Saha, PGY1 Attending Provider Attestation/Addendum I have discussed and was present for the essential components of the history, physical examination, diagnosis, and treatment plan with the resident. I agree with the patient's care as documented by the resident and amended herein by me. Kalia Skaggs DO. Although this document has been carefully reviewed, there may still be some phonetic and other typographical errors. These errors are purely grammatical due to imperfections in the software program and should not be construed in any way to compromise the substance of the patient's medical care during this visit.
[2025-08-06] MEDS: FLUCONAZOLE/NS 400 MG IVPB 400 MG/200 ML BAG 50 MG IV (11:57)
[2025-08-06] MEDS: INSULIN HUM REGULAR 1 UNIT/0.01 ML (PER UNIT) SC ×2 (11:57→20:25)
[2025-08-06 13:05] VITALS: BMI 19.8
--- NOTE | 2025-08-06 13:41 | PC.SS ---
SS was informed by Isis from [facility] pt was a transfer from [facility] and was at their facility for 2 days before being hospitalized. Isis states pt requires PT for insurance authorization.
[2025-08-06 13:56] VITALS: BMI 12.0
--- NOTE | 2025-08-06 15:16 | PC.CC ---
Addendum entered and electronically signed by Jessica Tovar [facility] 08/09/25 13:32: Per Angel @ [facility], anticipate 3-5 days for the Rx to be processed at the correct pharmacy site due to insurance restrictions. Updated SS. Bel Addendum entered and electronically signed by Jessica Tovar [facility] 08/09/25 12:13: Informed by Isis [facility] that due to their billing structure they cannot provide Cresemba to patient via their pharmacy. She requests PharmD to facilitate obtaining Cresemba via specialty pharmacy. Per KATINA Staples, point of contact to confirm delivery is the following by day: - Anu (Tuesday) - Matilde (Tuesday) - Brock (Tuesday) Called in Cresemba #56 2 C PO QD under Dr. Grover to Raul MACIAS @ [facility]. Provided [facility] phone # and address and patient demographics/Rx billing information. Awaiting call back to confirm adjudication as they are currently having technical difficulties. Addendum entered and electronically signed by Jessica Tovar [facility] 08/08/25 14:41: S/W Alicia @ [facility], supplier for [facility]. She advised they are able to dispense Cresemba. Updated SS. Bel Addendum entered and electronically signed by Jessica Tovar [facility] 08/08/25 12:51: S/W Isis @ [facility] RE Cresemba. She stated Karma will follow-up with pharmacy; Isis to call back. Addendum entered and electronically signed by Jessica Tovar [facility] 08/08/25 10:33: No call back from Karma @ [facility]. Sent email to follow-up. Addendum entered and electronically signed by Jessica Tovar [facility] 08/07/25 12:09: LVM for Karma @ [facility] to confirm if their pharmacy is able to dispense Cresemba. Original Note: Request from Hospitalist Team B to assist with obtaining Cresemba (isavuconazonium) for inpatient administration and at SNF. Per Dr. Saha, patient was started on Cresemba at [facility] for cocci meningitis refractory to fluconazole but was not receiving it at SNF. S/W Dir of Pharmacy and Career Technical Education Instructor and med on order to arrive tomorrow morning. Advised Dr. Marinelli to enter acute care order. S/W SHANAE Brennan @ [facility]. She confirms patient arrived on 08/02 but never received med. Staff was advised by their pharmacy that PA is required. PharmD submitted and obtained approved prior authorization for 08/06/25-08/06/26. S/W ALYSSA Parada @ [facility] and requested she confirm with their pharmacy that they are able to dispense med or if they require PharmD to facilitate Rx via specialty pharmacy. Emailed copy of PA to [email or web address] her request. Awaiting response from ALYSSA. S/W Dr. Skaggs who anticipates patient to discharge tomorrow, likely back to [facility] and not acute rehab, but decision will be made by Dr. Grover who takes over case tomorrow. Verbal authorization given to PharmD by Dr. Skaggs to call in 30 day supply to specialty pharmacy under his name if required.
[2025-08-06 16:00] VITALS: BP 118/89; PULSE 73; RESP 18; TEMP 36.2; O2SAT 99
--- NOTE | 2025-08-06 16:05 | PC.SS ---
Addendum entered by Bel Craft 08/06/25 16:14: SS has also sent inquiry to local SNF. is requesting [facility]. SS spoke to Noemi from [facility] in [place] and they are not contracted with patient's health insurance. Original Note: SS met with and explained PT is recommending Acute Rehab. is agreeable for Acute Rehab if accepted. SS has sent inquiry to Acute Rehab using [facility]. SS has spoke to Ashley from [employer] phone# [phone] who explained if pt returns to [facility] they would have to review inquiry for insurance authorization. Ashley is aware PT is recommending Acute Rehab. Ashley requested for SS to send inquiry for review.
[2025-08-06 20:00] VITALS: BP 123/82; PULSE 76; RESP 20; TEMP 36.1; O2SAT 97
[2025-08-06] MEDS: ENOXAPARIN SOD INJ 40 MG/0.4 ML SYRINGE SC (20:11)
--- NOTE | 2025-08-06 23:47 | PD.NEUROPROG ---
Documentation for date of: 08/06/25 Subjective Subjective Interval history: Patient was seen in [facility] today at the bedside with his . His mental status is significantly improved, close to baseline. He denies any headache or dizziness or weakness or paresthesias in the extremities. Patient is able to ambulate without much support. Exam - Neurology Vital Signs Temp Pulse Resp BP Pulse Ox O2 Del Method O2 Flow Rate 96.9 F 76 20 123/82 97 Room Air 5 08/06/25 20:00 08/06/25 20:00 08/06/25 20:00 08/06/25 20:00 08/06/25 20:00 08/06/25 20:00 08/05/25 07:32 Narrative Exam GENERAL APPEARANCE: Well hydrated, well-nourished in no acute distress. HEENT: Normocephalic, atraumatic, extraocular movements intact. Pupils: Equal reacting to light and accommodation NECK: Supple, no JVD or bruits. CARDIOVASULAR: Heart: S1, S2 heard, regular without S3-S4 or murmur no rubs or gallops. LUNGS/CHEST: Clear to auscultation bilaterally. No rails, rhonchi, or wheezing. Normal inspection. ABDOMEN: Soft, nontender, with normal bowel sounds. No pulsatile masses. No rebound, rigidity, or guarding. Normal inspection and palpation. EXTREMITIES: Normal inspection and palpation. No edema, clubbing or cyanosis. SKIN: Warm and dry without rashes. Normal inspection. MUSCULOSKELETAL: No cervical, thoracic, lumbar or midline bony tenderness. Normal inspection. NEURO: Alert, awake and oriented x3. Cranial nerves: II through XII grossly intact. Speech and language: Normal with no dysarthria or dysphasia. Motor system: Tone and bulk: Normal: Strength: 5 out of 5 in all 4 extremities; No pronator drift noted. Deep tendon reflexes: 2+ bilaterally symmetrical. Plantar reflex: Downgoing bilaterally. Sensory system: Intact to all modalities of sensation bilaterally. Coordination: Intact to bfteir-ukgn-sntcw and keyl-ktte-faaw test bilaterally. No ataxia, no dysmetria, or dysdiadochokinesia noted. No intention tremors noted. Gait: Not tested. No signs of meningeal irritation noted. PSYCHIATRIC: Normal mood and affect. Objective Labs 08/06/25 06:22 08/06/25 06:22 Labs: Laboratory Results - last 24 hr 08/06/25 06:22 WBC 6.5 RBC 3.65 L Hgb 11.2 L Hct 33.2 L MCV 91 MCH 30.7 MCHC 33.7 RDW Std Deviation 45.0 H Plt Count 213 Neut % (Auto) 68 Lymph % (Auto) 20 [place] % (Auto) 7 Eos % (Auto) 4 Baso % (Auto) 1 Neut # (Auto) 4.4 Lymph # (Auto) 1.3 [place] # (Auto) 0.5 Eos # (Auto) 0.3 Baso # (Auto) 0.0 Immature Gran # (Auto) 0.04 H Absolute Nucleated RBC 0.00 Immature Gran % 1 H Nucleated RBC % 0 Sodium 145 Potassium 3.8 Chloride 107 Carbon Dioxide 30.4 Anion Gap 8 BUN 18 Creatinine 0.8 D Estim Creat Clear Calc 85.9 eGFR > 60 BUN/Creatinine Ratio 23 H Glucose 104 Calculated Osmolality 290 Calcium 9.1 Corrected Calcium 9.6 Phosphorus 2.7 Magnesium 1.6 Iron 63 L TIBC 217 L Iron Saturation 29 Unsat Iron Binding 154 L Albumin 3.4 L ABG Interpretation ABG results: 08/04/25 15:29 VBG pH 7.43 VBG pCO2 41 VBG pO2 122 H VBG Base Excess 3 Assessment & Plan Assessment and plan (1) Altered mental status: Status: Acute Assessment and plan: Could have been related to metabolic encephalopathy with urinary tract infection Resolving, mental status is close to baseline Focal neurological deficit noted on exam No signs and symptoms of shunt malfunction clinically or radiographically Continue with the fluconazole 800 mg a day along with Keppra. Follow seizure precautions Patient is neurologically stable. (2) Hypertension: Status: Chronic Assessment and plan: Hold off on antihypertensives (3) Type 2 diabetes mellitus: Status: Chronic Assessment and plan: Continue to check fingerstick glucose and follow sliding scale insulin per protocol
[2025-08-07] VITALS (8 sets, daily range): BP systolic 121–149; BP diastolic 86–94; PULSE 69–78; RESP 16–99; TEMP 35.9–36.4; O2SAT 97–99
[2025-08-07] MEDS: guaiFENesin SYRUP 200 MG/10 ML UDC 100 MG PO (04:44)
[2025-08-07 05:37] LABS: Basophils # (Auto) 0.0 Thou/mm3 (0.0-0.2); Basophils % (Auto) 1 % (0-2.5); Eosinophils # (Auto) 0.2 Thou/mm3 (0.0-0.5); Eosinophils % (Auto) 4 % (0-10); Hematocrit 32.9 % (41.0-53.0); Hemoglobin 11.0 g/dL (13.5-16.0); Immature Granulocytes Auto 0.03 Thou/mm3 (0.00-0.00); Lymphocytes # (Auto) 1.8 Thou/mm3 (1.0-4.8); Lymphocytes % (Auto) 28 % (10-50); Mean Corpuscular HGB Conc 33.4 g/dl (31.0-37.0); Mean Corpuscular Hemoglobin 30.1 pg (25.0-35.0); Mean Corpuscular Volume 90 fL (80-100); Monocytes # (Auto) 0.5 Thou/mm3 (0.0-0.8); Monocytes % (Auto) 8 % (0-12); Neutrophils # (Auto) 3.8 Thou/mm3 (1.8-7.7); Neutrophils % (Auto) 60 % (37-80); Nucleated Red Blood Cell # 0.00 Thou/mm3 (0.00-0.00); Nucleated Red Blood Cell % 0 /100 WBC (0); Platelet Count 243 Thou/mm3 (140-440); RDW Standard Deviation 44.4 fL (35.1-43.9); Red Blood Count 3.66 Miln/mm3 (4.50-5.90); White Blood Count 6.4 Thou/mm3 (3.8-10.6)
[2025-08-07 05:57] LABS: Albumin, Serum 3.4 gm/dL (3.5-5.0); Anion Gap 8 (7-16); BUN/Creatinine Ratio 15 Ratio (12-20); Blood Urea Nitrogen 12 mg/dL (9-23); Calcium 8.9 mg/dL (8.3-10.6); Calcium (Corrected) 9.4 mg/dL (8.5-10.1); Carbon Dioxide 27.8 mMol/L (20.0-31.0); Chloride 106 mMol/L (98-107); Creatinine (Component) 0.8 mg/dL (0.6-1.3); Estimated Creatinine Clearance 85.9 mL/min (>60); Glucose 105 mg/dL (74-106); Magnesium 2.0 mg/dL (1.6-2.6); Osmolality,Calculated 282 (275-295); Phosphorous 3.0 mg/dL (2.4-5.1); Potassium 3.8 mMol/L (3.4-5.1); Sodium 142 mMol/L (136-145); eGFR > 60 See Note
[2025-08-07] MEDS: levETIRAcetam INJ 100 MG/ML VIAL 5ML 500 MG IVP ×2 (08:26→20:33)
[2025-08-07] MEDS: cefTRIAXone/D5w 1gm IV premix 1 GM/50 ML BAG IV (08:29)
[2025-08-07] MEDS: FLUCONAZOLE/NS 400 MG IVPB 400 MG/200 ML BAG 100 MG IV (08:34)
[2025-08-07 09:03] LABS: Cardiac Risk Estimate 4.0 RATIO (4.0-6.7); Cholesterol 198 mg/dL (132-200); HDL Cholesterol 50 mg/dL (40-60); LDL Cholesterol,Calculated 114 mg/dL (0-130); Triglycerides 171 mg/dL (30-150)
[2025-08-07] MEDS: FLUCONAZOLE/NS 400 MG IVPB 400 MG/200 ML BAG 50 MG IV (10:43)
--- NOTE | 2025-08-07 11:19 | PC.SS ---
SS followed up: Pt has declined from [facility] from [facility]. SS spoke to Cassandra from [facility], phone# [phone] who explained they are reviewing inquiry and physician also has to review inquiry. Pt has also been declined from [facility], [facility], and [facility]. is aware. has done an onsite at [facility]. states if pt is not accepted at [facility] then she is requesting pt to return to [facility]. Pt is on IV antibiotic.
[2025-08-07] MEDS: INSULIN HUM REGULAR 1 UNIT/0.01 ML (PER UNIT) SC ×2 (12:05→17:13)
--- NOTE | 2025-08-07 13:53 | ESPR_ITS ---
<Statement entered by Ashok Grover MD - 08/16/25 08:16> I reviewed above note and agree with findings and plans. I have also personally examined the patient with medicine team and went over assessment and plan with medical team including sports intern and resident physician. <Statement entered by Danish Castro MD - 08/07/25 15:24> Patient seen and assessed in hospital bed, alert oriented x 2 to person and date but not to purpose or location. Patient able to answer questions appropriately and denies having any concerning symptoms other than feeling tired. Patient's antifungal medication changed to high; as well as requested by infectious disease consultation from [facility]. Patient continues to be treated with IV ceftriaxone for underlying community-acquired pneumonia and possible urinary tract infection; blood cultures show no growth at this point. Patient's echo is also pending, will continue monitoring for any acute changes. Expect discharge within the next 24 to 48 hours [facility] jail facility or acute rehab. I have personally seen and examined the patient. I agree with the resident's assessment and plan as documented below. Danish Castro DO PGY-2 Internal Medicine - [facility] Documentation for date of: 08/07/25 Subjective Subjective Interval history: Patient seen at bedside. No acute overnight events. According to patient's patient's symptoms are a lot better, mentation improved since admission but not yet at baseline. Patient able to follow limited commands. Patient's noticed increased cough yesterday but not productive. No complaints of nausea, vomiting, pain, chest pain, shortness of breath. Exam Vital Signs Temp Pulse Resp BP Pulse Ox O2 Del Method O2 Flow Rate 96.6 F L 69 18 126/86 H 99 Room Air 5 08/07/25 12:00 08/07/25 12:00 08/07/25 12:00 08/07/25 12:00 08/07/25 12:00 08/07/25 12:00 08/05/25 07:32 Narrative Exam GEN: Alert and oriented x 2, no acute distress HEENT: Normocephalic, atraumatic. UX ENGINEER shunt noted on right. Normal conjunctiva, PERRL. CVS: RRR. S1+S2. No M/R/G. RESP: GAEB. No WOB. No crackles or wheezing. GI: Soft, nontender, non-distended. No guarding or rebound tenderness. Extremities: No edema, no cyanosis, no clubbing. 2+ radial pulse bilaterally, 2+ pedal pulse bilaterally. NEURO: No focal deficits observed. Conversant, moving all extremities. No overt cerebellar signs/incoordination. Unable to appropriate answer some questions, can follow some simple commands. SKIN: Warm, dry, intact. Objective Labs 08/07/25 05:00 08/07/25 05:00 Labs: Laboratory Results - last 24 hr 08/07/25 05:00 WBC 6.4 RBC 3.66 L Hgb 11.0 L Hct 32.9 L MCV 90 MCH 30.1 MCHC 33.4 RDW Std Deviation 44.4 H Plt Count 243 D Neut % (Auto) 60 Lymph % (Auto) 28 [place] % (Auto) 8 Eos % (Auto) 4 Baso % (Auto) 1 Neut # (Auto) 3.8 Lymph # (Auto) 1.8 [place] # (Auto) 0.5 Eos # (Auto) 0.2 Baso # (Auto) 0.0 Immature Gran # (Auto) 0.03 H Absolute Nucleated RBC 0.00 Immature Gran % 1 H Nucleated RBC % 0 Sodium 142 Potassium 3.8 Chloride 106 Carbon Dioxide 27.8 Anion Gap 8 BUN 12 Creatinine 0.8 Estim Creat Clear Calc 85.9 eGFR > 60 BUN/Creatinine Ratio 15 Glucose 105 Calculated Osmolality 282 Calcium 8.9 Corrected Calcium 9.4 Phosphorus 3.0 Magnesium 2.0 Albumin 3.4 L Triglycerides 171 H Cholesterol 198 LDL Cholesterol, Calc 114 HDL Cholesterol 50 Cholesterol/HDL Ratio 4.0 ABG Interpretation ABG results: 08/04/25 15:29 VBG pH 7.43 VBG pCO2 41 VBG pO2 122 H VBG Base Excess 3 Quality Measures Quality Measures VTE prophylaxis Assessment & Plan Assessment Current Active Medications: Generic Name Dose Route Start Last Admin Trade Name Freq PRN Reason Stop Dose Admin Acetaminophen 650 mg 08/04/25 22:23 Acetaminophen 325 Mg Tablet PO 09/03/25 22:22 Q6H PRN Fever >101.5 Dextrose 25 ml 08/04/25 22:31 Dextrose 50%-Water Inj 50 Ml Syringe IV 09/03/25 22:30 Q15MIN PRN BG 50-70 responsive npo pt Dextrose 50 ml 08/04/25 22:31 Dextrose 50%-Water Inj 50 Ml Syringe IV 09/03/25 22:30 Q15MIN PRN BG <50 OR BG <70 & pt unresponsive Enoxaparin Sodium 40 mg 08/05/25 21:00 08/06/25 20:11 Enoxaparin Sod Inj 40 Mg/0.4 Ml Syringe SC 08/19/25 20:59 40 mg HS DERRICK Administration Glucagon 1 mg 08/04/25 22:31 Glucagon Inj 1 Mg Vial IM Q15MIN PRN BG <70, and no IV access Ceftriaxone Sodium/Dextrose 1 gm in 50 mls @ 100 mls/hr 08/05/25 09:57 08/07/25 08:29 Rocephin/D5w 1gm Iv Premix IV 08/10/25 09:56 100 mls/hr QDAY DERRICK Administration Insulin Human Regular 0 unit 08/05/25 17:00 08/07/25 12:05 Insulin Hum Regular 1 Unit/0.01 Ml (Per Unit) SC 09/04/25 16:59 2 unit ACHS DERRICK Administration Protocol Isavuconazonium Sulfate 372 mg 08/07/25 13:30 Isavuconazonium Sulf 186 Mg Capsule (Non-Form) PO 08/14/25 13:29 QDAY DERRICK Levetiracetam 500 mg 08/05/25 09:00 08/07/25 08:26 Levetiracetam Inj 100 Mg/Ml Vial 5ml IVP 09/04/25 08:59 500 mg Q12HR DERRCIK Administration Ondansetron HCl 4 mg 08/04/25 22:23 Ondansetron Inj 2 Mg/Ml Inj 2 Ml IVP 09/03/25 22:22 Q6H PRN NAUSEA OR VOMITING Protocol Pantoprazole Sodium 40 mg 08/05/25 09:00 08/07/25 08:25 Pantoprazole Inj 40 Mg Vial IVP 09/04/25 08:59 40 mg QDAY DERRICK Administration Pharmacy Consult 1 each 08/05/25 08:44 Pharmacy Renal Dose Adjustment 1 Ea XX 09/04/25 08:43 PRN PRN CONSULT Plan Assessment: 54-year-old male with a PHx of HTN, intracerebral hemorrhage (07/01/2025), seizures, and 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 Patient was admitted to the ICU initially for management of hypovolemic shock requiring vasopressors, and subsequently downgraded to medical floors on 08/05. #Acute encephalopathy 2/2 to CAP #Cocci meningitis #Status post UX ENGINEER shunt September 2024 #Disseminated cocci Patient presented with altered mental status beginning on 08/03, characterized by lethargy and somnolence. In ED, the patient's condition was marked by inappropriate responses to questions and an inability to follow directions, a significant change from their baseline of being talkative with no communication difficulties. While in the hospital, the patient's status improved slightly, showing an ability to follow some directions on downgrade from the ICU, but he remain difficult to understand and continue to respond inappropriately. The patient has a history of Coccidioidal meningitis, for which they had a UX ENGINEER shunt placed in September 2024. A contributing factor may be noncompliance with or failure of fluconazole treatment prior to this admission. Diagnostics and Treatment - CT Head (08/04): Showed significant improvement compared to a prior scan (07/01/2025), with resolution of hemorrhage and ventricles and the left basal ganglia area. - MRI (07/02/2025): The discharge packet from [facility] noted basilar enhancement, which was likely due to the Coccidioidal meningitis. - Prior Treatment: Acyclovir and cefepime were initiated on 08/04 for concern of viral/bacterial meningitis but were discontinued on 08/05 due to lower suspicion. Plan: - Will continue to monitor - Cont'd abx for CAP - Neurology consulted, appreciate recommendations - Patient switched to isavuconazonium (Cresemba) 372 mg daily from Fluconazole 800 mg daily for treatment of cocci meningitis. Switched as Fluconazole failed at managing his cocci meningitis per [facility]. #Community-acquired pneumonia #Suspected UTI, ruled out CT chest/abdomen/pelvis done on 08/04 showed bilateral diffuse pneumonia that was most prominent in the left lower lobe. Possible element of UTI was also suspected as urinalysis was slightly suggestive of a UTI, however no symptoms of UTI Diagnostics: Blood cultures collected 08/04, negative after 48 hours Urine culture collected 08/04, negative Plan: - Continue to monitor, will possibly add midodrine if patient is unable to sustain blood pressure - Ceftriaxone 1 g daily (08/04?08/10) 7 day course #Aspiration risk Patient is noted to be an aspiration risk upon discharge from [facility] visit when he was admitted on 07/01. Patient was noted to have had an aspiration event on 07/16 at [facility], which resulted in left lung infiltration with leukocytosis and left shift. Given the patient's confusion, it is unclear if the patient can safely tolerate p.o. intake at time of ICU downgrade. Plan: Bedside nursing swallow ordered, patient passed Speech therapy referral ordered, recommended dysphagia 3 (chopped) diet #Normocytic anemia #Anemia of chronic disease Patient noted to have a hemoglobin of 12.4, which is decreased from his baseline of 14.8 from his previous visit. Unclear of etiology, but it is possibly anemia of chronic disease versus iron deficiency anemia at time of ICU downgrade. Plan: Iron panel ordered, suggests anemia of chronic disease Continue to monitor, will replete if hemoglobin less than 7 per protocol #History of intracerebral hemorrhage, 07/01/2025 #Seizures Patient noted to have a history of intracerebral hemorrhage with presentation of seizures. The hemorrhage was noted to be intraventricular and a 16mm left basal ganglia hemorrhage as well. As result of the hemorrhage the patient was transferred to [facility] for neurosurgical care. Patient was discharged on Keppra as result of the hospitalization to manage his seizures. Patient did not tolerate Depakote due to its drowsy effects. Plan: Continue Keppra 500 mg every 12 hours daily Neurology consulted, appreciate recommendations #History of hypertension Patient has a history of hypertension, however patient did not appear to be hypertensive on admission. Patient seems to be having stable blood pressures after his initial hypotension was controlled. Plan: Continue to monitor, will consider antihypertensives if necessary If blood pressures remain stable throughout hospitalization, will discontinue home antihypertensives #Insulin-dependent type 2 diabetes mellitus, uncontrolled Patient noted to have a history of insulin-dependent diabetes. Patient uses insulin lispro sliding scale at home. Hemoglobin A1c was ordered, however likely due to uncontrolled diabetes, value could not be obtained. Plan: Continue sliding scale insulin Bedside glucose checks ACHS DVT Prophylaxis: Lovenox GI Prophylaxis: Protonix Bowel: N/A Diet: NPO, pending Speech Therapy evaluation Staples: N/A Lines: Peripheral IV Antibiotics: Ceftriaxone, Fluconazole Case discussed with my attending Dr. Grover, and senior resident, Dr. Gloria Escobar MD PGY-1
[2025-08-07] MEDS: [UNRECOGNIZED DRUG - REMARK] 372 MG PO (14:04)
--- NOTE | 2025-08-07 14:37 | ESPR_ITS ---
Documentation for date of: 08/07/25 Subjective Subjective Interval history: Patient examined at bedside. was also present was able to provide information. stated that he is doing somewhat better this morning but still confused from his baseline. Normally patient is able to communicate without issues. Patient is oriented to self only. Vitals this morning are stable, labs unremarkable. Blood cultures are negative at 48 hours, urine culture negative. He was unable to follow commands today. Plan to continue Keppra 500 twice daily with Isavuconazonium for disseminated cocci meningitis. Exam Vital Signs Temp Pulse Resp BP Pulse Ox O2 Del Method O2 Flow Rate 96.6 F L 69 18 126/86 H 99 Room Air 5 08/07/25 12:00 08/07/25 12:00 08/07/25 12:00 08/07/25 12:00 08/07/25 12:00 08/07/25 12:00 08/05/25 07:32 Narrative Exam General:middle age male, frail appearing. No acute distress HEENT: NCAT, No JVD noted. Mucosa moist. Pupils are equal and reactive to light bilaterally, shunt noticeable on left scalp Cardiovascular: Normal S1 and S2. Regular rate and rhythm. Respiratory: Lungs are clear to auscultation bilaterally. No wheezing or crackles heard. Abdomen: Soft, nontender, not distended, normal bowel sounds. Markedly thin habitus, rib cage easily appreciable on exam. Skin: Warm to touch, dry, no rashes noted Musculoskeletal: No gross injuries. Able to move all 4 extremities on passive movement. No pitting edema Neuro: Alert and oriented to self only. Cranial nerves appear grossly intact. Speech and language: Normal with no dysarthria or dysphasia. No tremors. Psych: Normal affect and mood Objective Labs 08/08/25 04:05 08/08/25 04:05 Labs: Laboratory Results - last 24 hr 08/07/25 05:00 WBC 6.4 RBC 3.66 L Hgb 11.0 L Hct 32.9 L MCV 90 MCH 30.1 MCHC 33.4 RDW Std Deviation 44.4 H Plt Count 243 D Neut % (Auto) 60 Lymph % (Auto) 28 [place] % (Auto) 8 Eos % (Auto) 4 Baso % (Auto) 1 Neut # (Auto) 3.8 Lymph # (Auto) 1.8 [place] # (Auto) 0.5 Eos # (Auto) 0.2 Baso # (Auto) 0.0 Immature Gran # (Auto) 0.03 H Absolute Nucleated RBC 0.00 Immature Gran % 1 H Nucleated RBC % 0 Sodium 142 Potassium 3.8 Chloride 106 Carbon Dioxide 27.8 Anion Gap 8 BUN 12 Creatinine 0.8 Estim Creat Clear Calc 85.9 eGFR > 60 BUN/Creatinine Ratio 15 Glucose 105 Calculated Osmolality 282 Calcium 8.9 Corrected Calcium 9.4 Phosphorus 3.0 Magnesium 2.0 Albumin 3.4 L Triglycerides 171 H Cholesterol 198 LDL Cholesterol, Calc 114 HDL Cholesterol 50 Cholesterol/HDL Ratio 4.0 ABG Interpretation ABG results: 08/04/25 15:29 VBG pH 7.43 VBG pCO2 41 VBG pO2 122 H VBG Base Excess 3 Quality Measures Quality Measures VTE prophylaxis Assessment & Plan Assessment Current Active Medications: Generic Name Dose Route Start Last Admin Trade Name Freq PRN Reason Stop Dose Admin Acetaminophen 650 mg 08/04/25 22:23 Acetaminophen 325 Mg Tablet PO 09/03/25 22:22 Q6H PRN Fever >101.5 Dextrose 25 ml 08/04/25 22:31 Dextrose 50%-Water Inj 50 Ml Syringe IV 09/03/25 22:30 Q15MIN PRN BG 50-70 responsive npo pt Dextrose 50 ml 08/04/25 22:31 Dextrose 50%-Water Inj 50 Ml Syringe IV 09/03/25 22:30 Q15MIN PRN BG <50 OR BG <70 & pt unresponsive Enoxaparin Sodium 40 mg 08/05/25 21:00 08/06/25 20:11 Enoxaparin Sod Inj 40 Mg/0.4 Ml Syringe SC 08/19/25 20:59 40 mg HS DERRICK Administration Glucagon 1 mg 08/04/25 22:31 Glucagon Inj 1 Mg Vial IM Q15MIN PRN BG <70, and no IV access Ceftriaxone Sodium/Dextrose 1 gm in 50 mls @ 100 mls/hr 08/05/25 09:57 08/07/25 08:29 Rocephin/D5w 1gm Iv Premix IV 08/10/25 09:56 100 mls/hr QDAY DERRICK Administration Insulin Human Regular 0 unit 08/05/25 17:00 08/07/25 12:05 Insulin Hum Regular 1 Unit/0.01 Ml (Per Unit) SC 09/04/25 16:59 2 unit ACHS DERRICK Administration Protocol Isavuconazonium Sulfate 372 mg 08/07/25 13:30 08/07/25 14:04 Isavuconazonium Sulf 186 Mg Capsule (Non-Form) PO 08/14/25 13:29 372 mg QDAY DERRICK Administration Levetiracetam 500 mg 08/05/25 09:00 08/07/25 08:26 Levetiracetam Inj 100 Mg/Ml Vial 5ml IVP 09/04/25 08:59 500 mg Q12HR DERRICK Administration Ondansetron HCl 4 mg 08/04/25 22:23 Ondansetron Inj 2 Mg/Ml Inj 2 Ml IVP 09/03/25 22:22 Q6H PRN NAUSEA OR VOMITING Protocol Pantoprazole Sodium 40 mg 08/05/25 09:00 08/07/25 08:25 Pantoprazole Inj 40 Mg Vial IVP 09/04/25 08:59 40 mg QDAY DERRICK Administration Pharmacy Consult 1 each 08/05/25 08:44 Pharmacy Renal Dose Adjustment 1 Ea XX 09/04/25 08:43 PRN PRN CONSULT Plan Assessment: 54-year-old male with a PHx of HTN, intracerebral hemorrhage (07/01/2025), seizures, and 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 Patient was admitted to the ICU initially for management of shock requiring vasopressors, and subsequently downgraded to medical floors on 08/05. #Acute encephalopathy 2/2 to CAP #Hx of cocci meningitis #Status post ASSOCIATE PROFESSOR OF SOCIOLOGY shunt September 2024 #Disseminated cocci #History of intracerebral hemorrhage, 07/01/2025 #Seizures Patient presented with altered mental status beginning on 08/03, characterized by lethargy and somnolence. In ED, the patient's condition was marked by inappropriate responses to questions and an inability to follow directions, a significant change from their baseline of being talkative with no communication difficulties. While in the hospital, the patient's status improved slightly, showing an ability to follow some directions on downgrade from the ICU, but he remain difficult to understand and continue to respond inappropriately. The patient has a history of Coccidioidal meningitis, for which they had a ASSOCIATE PROFESSOR OF SOCIOLOGY shunt placed in September 2024. A contributing factor may be noncompliance with or failure of fluconazole treatment prior to this admission. Diagnostics and Treatment - CT Head (08/04): Showed significant improvement compared to a prior scan (07/01/2025), with resolution of hemorrhage and ventricles and the left basal ganglia area. - MRI (07/02/2025): The discharge packet from [facility] noted basilar enhancement, which was likely due to the Coccidioidal meningitis. - Prior Treatment: Acyclovir and cefepime were initiated on 08/04 for concern of viral/bacterial meningitis but were discontinued on 08/05 due to lower suspicion. Plan: - Will continue to monitor -IV ceftriaxone 1 g daily -IV Keppra 500 mg twice daily - Patient switched to isavuconazonium (Cresemba) 372 mg daily from Fluconazole 800 mg daily for treatment of cocci meningitis. Switched as Fluconazole failed at managing his cocci meningitis per [facility]. #Insulin-dependent type 2 diabetes mellitus, uncontrolled Patient uses insulin lispro sliding scale at home. Glucose was 103 on admission. No hemoglobin A1c on file. Plan: Continue sliding scale insulin Bedside glucose checks ACHS #Community-acquired pneumonia #Suspected UTI, ruled out #Aspiration risk #Normocytic anemia #Anemia of chronic disease #History of hypertension Primary care team to manage above conditions and ongoing care needs. The patient's management plan was discussed with my attending physician Dr. Altman. Ama Reddy, PGY-2 Attending Provider Attestation/Addendum I personally have been and examined the patient at bedside and I agree with resident findings, assessment and plan of care. Patient with valley fever encephalitis with hydrocephalus status post ASSOCIATE PROFESSOR OF SOCIOLOGY shunt placement, compliant on Diflucan presented with altered mental status and hypotension. Patient continues to confused and significantly changed from baseline according to the family. We consider doing MRI brain and the CSF analysis if the mental status does not improve.
[2025-08-07] MEDS: ENOXAPARIN SOD INJ 40 MG/0.4 ML SYRINGE SC (20:33)
[2025-08-08] VITALS (7 sets, daily range): BP systolic 109–131; BP diastolic 80–93; PULSE 68–92; RESP 15–98; TEMP 35.7–36.5; O2SAT 97–100
[2025-08-08 05:54] LABS: Albumin, Serum 3.5 gm/dL (3.5-5.0); Anion Gap 10 (7-16); BUN/Creatinine Ratio 13 Ratio (12-20); Blood Urea Nitrogen 10 mg/dL (9-23); Calcium 8.6 mg/dL (8.3-10.6); Calcium (Corrected) 9.0 mg/dL (8.5-10.1); Carbon Dioxide 27.0 mMol/L (20.0-31.0); Chloride 105 mMol/L (98-107); Creatinine (Component) 0.8 mg/dL (0.6-1.3); Estimated Creatinine Clearance 85.9 mL/min (>60); Glucose 121 mg/dL (74-106); Osmolality,Calculated 283 (275-295); Phosphorous 2.9 mg/dL (2.4-5.1); Potassium 3.8 mMol/L (3.4-5.1); Sodium 142 mMol/L (136-145); eGFR > 60 See Note
[2025-08-08 06:23] LABS: Basophils # (Auto) 0.1 Thou/mm3 (0.0-0.2); Basophils % (Auto) 1 % (0-2.5); Eosinophils # (Auto) 0.2 Thou/mm3 (0.0-0.5); Eosinophils % (Auto) 3 % (0-10); Hematocrit 33.9 % (41.0-53.0); Hemoglobin 11.4 g/dL (13.5-16.0); Immature Granulocytes Auto 0.06 Thou/mm3 (0.00-0.00); Lymphocytes # (Auto) 1.7 Thou/mm3 (1.0-4.8); Lymphocytes % (Auto) 26 % (10-50); Mean Corpuscular HGB Conc 33.6 g/dl (31.0-37.0); Mean Corpuscular Hemoglobin 30.1 pg (25.0-35.0); Mean Corpuscular Volume 89 fL (80-100); Monocytes # (Auto) 0.5 Thou/mm3 (0.0-0.8); Monocytes % (Auto) 8 % (0-12); Neutrophils # (Auto) 3.9 Thou/mm3 (1.8-7.7); Neutrophils % (Auto) 61 % (37-80); Nucleated Red Blood Cell # 0.00 Thou/mm3 (0.00-0.00); Nucleated Red Blood Cell % 0 /100 WBC (0); Platelet Count 268 Thou/mm3 (140-440); RDW Standard Deviation 44.8 fL (35.1-43.9); Red Blood Count 3.79 Miln/mm3 (4.50-5.90); White Blood Count 6.4 Thou/mm3 (3.8-10.6)
[2025-08-08] MEDS: levETIRAcetam INJ 100 MG/ML VIAL 5ML 500 MG IVP ×2 (09:22→20:10)
[2025-08-08] MEDS: cefTRIAXone/D5w 1gm IV premix 1 GM/50 ML BAG IV (09:23)
[2025-08-08] MEDS: [UNRECOGNIZED DRUG - REMARK] 372 MG PO (09:23)
[2025-08-08] MEDS: INSULIN HUM REGULAR 1 UNIT/0.01 ML (PER UNIT) SC ×3 (11:29→20:06)
--- NOTE | 2025-08-08 12:55 | PC.SS ---
Pt has been declined from [facility], [facility], and [facility]. SS has informed and her choice is for pt to return to [facility]. SS has sent updated inquiry to Isis at [facility] and she will start insurance authorization.
--- NOTE | 2025-08-08 13:24 | ESPR_ITS ---
<Statement entered by Ashok Grover MD - 08/16/25 08:17> I reviewed above note and agree with findings and plans. I have also personally examined the patient with medicine team and went over assessment and plan with medical team including sourcing internship and resident physician. <Statement entered by Danish Castro MD - 08/08/25 16:04> Patient seen and assessed in hospital bed in stable condition without any active complaints; or, denies have any concerning symptoms. Patient acute encephalopathy is largely resolved and as per family bedside he is back to his baseline. Pending final echo read. Patient will be discharged within the next 24 hours to acute care facility upon approval from insurance authorization. Will continue monitoring the patient for any acute changes I have personally seen and examined the patient. I agree with the resident's assessment and plan as documented below. Danish Castro DO PGY-2 Internal Medicine - GME Documentation for date of: 08/08/25 Subjective Subjective Interval history: Patient seen at bedside. No acute overnight events. According to patient's patient's symptoms are a lot better, mentation improved since admission appears to be at baseline. Patient able to follow commands. No complaints of nausea, vomiting, pain, chest pain, shortness of breath. Exam Vital Signs Temp Pulse Resp BP Pulse Ox O2 Del Method O2 Flow Rate 97.2 F 92 15 116/82 98 Room Air 5 08/08/25 11:34 08/08/25 11:34 08/08/25 11:34 08/08/25 11:34 08/08/25 11:34 08/08/25 11:34 08/05/25 07:32 Narrative Exam GEN: Alert and oriented x 2, no acute distress HEENT: Normocephalic, atraumatic. [employer] shunt noted on right. Normal conjunctiva, PERRL. CVS: RRR. S1+S2. No M/R/G. RESP: GAEB. No WOB. No crackles or wheezing. GI: Soft, nontender, non-distended. No guarding or rebound tenderness. Extremities: No edema, no cyanosis, no clubbing. 2+ radial pulse bilaterally, 2+ pedal pulse bilaterally. NEURO: No focal deficits observed. Conversant, moving all extremities. No overt cerebellar signs/incoordination. Unable to appropriate answer some questions, can follow some simple commands. SKIN: Warm, dry, intact. Objective Labs 08/08/25 04:05 08/08/25 04:05 Labs: Laboratory Results - last 24 hr 08/08/25 04:05 WBC 6.4 RBC 3.79 L Hgb 11.4 L Hct 33.9 L MCV 89 MCH 30.1 MCHC 33.6 RDW Std Deviation 44.8 H Plt Count 268 Neut % (Auto) 61 Lymph % (Auto) 26 [place] % (Auto) 8 Eos % (Auto) 3 Baso % (Auto) 1 Neut # (Auto) 3.9 Lymph # (Auto) 1.7 [place] # (Auto) 0.5 Eos # (Auto) 0.2 Baso # (Auto) 0.1 Immature Gran # (Auto) 0.06 H Absolute Nucleated RBC 0.00 Immature Gran % 1 H Nucleated RBC % 0 Sodium 142 Potassium 3.8 Chloride 105 Carbon Dioxide 27.0 Anion Gap 10 BUN 10 Creatinine 0.8 Estim Creat Clear Calc 85.9 eGFR > 60 BUN/Creatinine Ratio 13 Glucose 121 H Calculated Osmolality 283 Calcium 8.6 Corrected Calcium 9.0 Phosphorus 2.9 Albumin 3.5 ABG Interpretation ABG results: 08/04/25 15:29 VBG pH 7.43 VBG pCO2 41 VBG pO2 122 H VBG Base Excess 3 Quality Measures Quality Measures VTE prophylaxis Assessment & Plan Assessment Current Active Medications: Generic Name Dose Route Start Last Admin Trade Name Bhupinderq PRN Reason Stop Dose Admin Acetaminophen 650 mg 08/04/25 22:23 Acetaminophen 325 Mg Tablet PO 09/03/25 22:22 Q6H PRN Fever >101.5 Dextrose 25 ml 08/04/25 22:31 Dextrose 50%-Water Inj 50 Ml Syringe IV 09/03/25 22:30 Q15MIN PRN BG 50-70 responsive npo pt Dextrose 50 ml 08/04/25 22:31 Dextrose 50%-Water Inj 50 Ml Syringe IV 09/03/25 22:30 Q15MIN PRN BG <50 OR BG <70 & pt unresponsive Enoxaparin Sodium 40 mg 08/05/25 21:00 08/07/25 20:33 Enoxaparin Sod Inj 40 Mg/0.4 Ml Syringe SC 08/19/25 20:59 40 mg HS DERRICK Administration Glucagon 1 mg 08/04/25 22:31 Glucagon Inj 1 Mg Vial IM Q15MIN PRN BG <70, and no IV access Ceftriaxone Sodium/Dextrose 1 gm in 50 mls @ 100 mls/hr 08/05/25 09:57 08/08/25 09:23 Rocephin/D5w 1gm Iv Premix IV 08/10/25 09:56 100 mls/hr QDAY DERRICK Administration Insulin Human Regular 0 unit 08/05/25 17:00 08/08/25 11:29 Insulin Hum Regular 1 Unit/0.01 Ml (Per Unit) SC 09/04/25 16:59 2 unit ACHS DERRICK Administration Protocol Isavuconazonium Sulfate 372 mg 08/07/25 13:30 08/08/25 09:23 Isavuconazonium Sulf 186 Mg Capsule (Non-Form) PO 08/14/25 13:29 372 mg QDAY DERRICK Administration Levetiracetam 500 mg 08/05/25 09:00 08/08/25 09:22 Levetiracetam Inj 100 Mg/Ml Vial 5ml IVP 09/04/25 08:59 500 mg Q12HR DERRICK Administration Ondansetron HCl 4 mg 08/04/25 22:23 Ondansetron Inj 2 Mg/Ml Inj 2 Ml IVP 09/03/25 22:22 Q6H PRN NAUSEA OR VOMITING Protocol Pantoprazole Sodium 40 mg 08/05/25 09:00 08/08/25 09:19 Pantoprazole Inj 40 Mg Vial IVP 09/04/25 08:59 40 mg QDAY DERRICK Administration Pharmacy Consult 1 each 08/05/25 08:44 Pharmacy Renal Dose Adjustment 1 Ea XX 09/04/25 08:43 PRN PRN CONSULT Plan Assessment: 54-year-old male with a PHx of HTN, intracerebral hemorrhage (07/01/2025) S/P [employer] shunt, seizures, and 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 Patient was admitted to the ICU initially for management of hypovolemic shock requiring vasopressors, and subsequently downgraded to medical floors on 08/05 for management of ongoing issues. #Acute encephalopathy 2/2 to CAP, resolved Patient presented initially with altered mental status beginning on 08/03, characterized by lethargy and somnolence. Now, per at baseline following abx for CAP. 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 A contributing factor may be noncompliance with or failure of fluconazole treatment prior to this admission. Plan - Patient switched to isavuconazonium (Cresemba) 372 mg daily from Fluconazole 800 mg daily for treatment of cocci meningitis. Switched as Fluconazole failed at managing his cocci meningitis per [facility]. #Community-acquired pneumonia #Suspected UTI, ruled out CT chest/abdomen/pelvis done on 08/04 showed bilateral diffuse pneumonia that was most prominent in the left lower lobe. Possible element of UTI was also suspected as urinalysis was slightly suggestive of a UTI, however no symptoms of UTI Diagnostics: Blood cultures collected 08/04, negative after 48 hours Urine culture collected 08/04, negative Plan: - Continue to monitor, will possibly add midodrine if patient is unable to sustain blood pressure - Ceftriaxone 1 g daily (08/04?08/10) 7 day course #Aspiration risk Patient is noted to be an aspiration risk upon discharge from [facility] visit when he was admitted on 07/01. Patient was noted to have had an aspiration event on 07/16 at [facility], which resulted in left lung infiltration with leukocytosis and left shift. Given the patient's confusion, it is unclear if the patient can safely tolerate p.o. intake at time of ICU downgrade. Plan: Bedside nursing swallow ordered, patient passed Speech therapy referral ordered, recommended dysphagia 3 (chopped) diet #Normocytic anemia #Anemia of chronic disease Patient noted to have a hemoglobin of 12.4, which is decreased from his baseline of 14.8 from his previous visit. Unclear of etiology, but it is possibly anemia of chronic disease versus iron deficiency anemia at time of ICU downgrade. Plan: Iron panel ordered, suggests anemia of chronic disease Continue to monitor, will replete if hemoglobin less than 7 per protocol #History of intracerebral hemorrhage, 07/01/2025 #BRICK [employer] shunt placed as a result #Seizures Patient noted to have a history of intracerebral hemorrhage with presentation of seizures. The hemorrhage was noted to be intraventricular and a 16mm left basal ganglia hemorrhage as well. As result of the hemorrhage the patient was transferred to [facility] for neurosurgical care. Patient was discharged on Keppra as result of the hospitalization to manage his seizures. Patient did not tolerate Depakote due to its drowsy effects. Plan: Continue Keppra 500 mg every 12 hours daily Neurology consulted, appreciate recommendations #History of hypertension Patient has a history of hypertension, however patient did not appear to be hypertensive on admission. Patient seems to be having stable blood pressures after his initial hypotension was controlled. Plan: Continue to monitor, will consider antihypertensives if necessary If blood pressures remain stable throughout hospitalization, will discontinue home antihypertensives #Insulin-dependent type 2 diabetes mellitus, uncontrolled Patient noted to have a history of insulin-dependent diabetes. Patient uses insulin lispro sliding scale at home. Hemoglobin A1c was ordered, however likely due to uncontrolled diabetes, value could not be obtained. Plan: Continue sliding scale insulin Bedside glucose checks [facility] Maintence: DVT Prophylaxis: Lovenox GI Prophylaxis: Protonix Bowel: N/A Code: FULL Case discussed with my attending Dr. Grover, and senior resident, Dr. Gloria Escobar MD PGY-1
--- NOTE | 2025-08-08 13:48 | PC.SS ---
SS has also faxed inquiry for SNF placement to patient's health insurance, [employer].
[2025-08-08] MEDS: ENOXAPARIN SOD INJ 40 MG/0.4 ML SYRINGE SC (20:08)
--- NOTE | 2025-08-08 23:43 | ESPR_ITS ---
Documentation for date of: 08/08/25 Subjective Subjective Interval history: Patient examined at bedside. and grandaughter were present. Patient remains confused and not at his baseline per the family. He needs constant reorientation and reminder about certain facts. Does not remember his own name at times. He was unable to follow commands today. Plan to continue Keppra 500 twice daily with Isavuconazonium for disseminated cocci meningitis. Start patient on 15 mg Remeron qHS and 5mg melatonin HS prn. Exam Vital Signs Temp Pulse Resp BP Pulse Ox O2 Del Method O2 Flow Rate 96.8 F 75 18 124/90 H 99 Room Air 5 08/08/25 20:00 08/08/25 20:00 08/08/25 20:00 08/08/25 20:00 08/08/25 20:00 08/08/25 20:00 08/05/25 07:32 Narrative Exam General:middle age male, frail appearing. No acute distress HEENT: NCAT, No JVD noted. Mucosa moist. Pupils are equal and reactive to light bilaterally, shunt noticeable on left scalp Cardiovascular: Normal S1 and S2. Regular rate and rhythm. Respiratory: Lungs are clear to auscultation bilaterally. No wheezing or crackles heard. Abdomen: Soft, nontender, not distended, normal bowel sounds. Markedly thin habitus, rib cage easily appreciable on exam. Skin: Warm to touch, dry, no rashes noted Musculoskeletal: No gross injuries. Able to move all 4 extremities on passive movement. No pitting edema Neuro: Alert and oriented to self only. Cranial nerves appear grossly intact. Speech and language: Normal with no dysarthria or dysphasia. No tremors. Psych: Normal affect and mood Objective Labs 08/08/25 04:05 08/08/25 04:05 Labs: Laboratory Results - last 24 hr 08/08/25 04:05 WBC 6.4 RBC 3.79 L Hgb 11.4 L Hct 33.9 L MCV 89 MCH 30.1 MCHC 33.6 RDW Std Deviation 44.8 H Plt Count 268 Neut % (Auto) 61 Lymph % (Auto) 26 [place] % (Auto) 8 Eos % (Auto) 3 Baso % (Auto) 1 Neut # (Auto) 3.9 Lymph # (Auto) 1.7 [place] # (Auto) 0.5 Eos # (Auto) 0.2 Baso # (Auto) 0.1 Immature Gran # (Auto) 0.06 H Absolute Nucleated RBC 0.00 Immature Gran % 1 H Nucleated RBC % 0 Sodium 142 Potassium 3.8 Chloride 105 Carbon Dioxide 27.0 Anion Gap 10 BUN 10 Creatinine 0.8 Estim Creat Clear Calc 85.9 eGFR > 60 BUN/Creatinine Ratio 13 Glucose 121 H Calculated Osmolality 283 Calcium 8.6 Corrected Calcium 9.0 Phosphorus 2.9 Albumin 3.5 ABG Interpretation ABG results: 08/04/25 15:29 VBG pH 7.43 VBG pCO2 41 VBG pO2 122 H VBG Base Excess 3 Quality Measures Quality Measures VTE prophylaxis Assessment & Plan Assessment Current Active Medications: Generic Name Dose Route Start Last Admin Trade Name Freq PRN Reason Stop Dose Admin Acetaminophen 650 mg 08/04/25 22:23 Acetaminophen 325 Mg Tablet PO 09/03/25 22:22 Q6H PRN Fever >101.5 Dextrose 25 ml 08/04/25 22:31 Dextrose 50%-Water Inj 50 Ml Syringe IV 09/03/25 22:30 Q15MIN PRN BG 50-70 responsive npo pt Dextrose 50 ml 08/04/25 22:31 Dextrose 50%-Water Inj 50 Ml Syringe IV 09/03/25 22:30 Q15MIN PRN BG <50 OR BG <70 & pt unresponsive Enoxaparin Sodium 40 mg 08/05/25 21:00 08/08/25 20:08 Enoxaparin Sod Inj 40 Mg/0.4 Ml Syringe SC 08/19/25 20:59 40 mg HS DERRICK Administration Glucagon 1 mg 08/04/25 22:31 Glucagon Inj 1 Mg Vial IM Q15MIN PRN BG <70, and no IV access Ceftriaxone Sodium/Dextrose 1 gm in 50 mls @ 100 mls/hr 08/05/25 09:57 08/08/25 09:23 Rocephin/D5w 1gm Iv Premix IV 08/10/25 09:56 100 mls/hr QDAY DERRICK Administration Insulin Human Regular 0 unit 08/05/25 17:00 08/08/25 20:06 Insulin Hum Regular 1 Unit/0.01 Ml (Per Unit) SC 09/04/25 16:59 2 unit ACHS DERRICK Administration Protocol Isavuconazonium Sulfate 372 mg 08/07/25 13:30 08/08/25 09:23 Isavuconazonium Sulf 186 Mg Capsule (Non-Form) PO 08/14/25 13:29 372 mg QDAY DERRICK Administration Levetiracetam 500 mg 08/05/25 09:00 08/08/25 20:10 Levetiracetam Inj 100 Mg/Ml Vial 5ml IVP 09/04/25 08:59 500 mg Q12HR DERRICK Administration Ondansetron HCl 4 mg 08/04/25 22:23 Ondansetron Inj 2 Mg/Ml Inj 2 Ml IVP 09/03/25 22:22 Q6H PRN NAUSEA OR VOMITING Protocol Pantoprazole Sodium 40 mg 08/05/25 09:00 08/08/25 09:19 Pantoprazole Inj 40 Mg Vial IVP 09/04/25 08:59 40 mg QDAY DERRICK Administration Pharmacy Consult 1 each 08/05/25 08:44 Pharmacy Renal Dose Adjustment 1 Ea XX 09/04/25 08:43 PRN PRN CONSULT Plan Assessment: 54-year-old male with a PHx of HTN, intracerebral hemorrhage (07/01/2025), seizures, and 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 Patient was admitted to the ICU initially for management of shock requiring vasopressors, and subsequently downgraded to medical floors on 08/05. #Acute encephalopathy 2/2 to CAP #Hx of cocci meningitis #Status post SPORTS BETTING MANAGER shunt September 2024 #Disseminated cocci #History of intracerebral hemorrhage, 07/01/2025 #Seizures Patient presented with altered mental status beginning on 08/03, characterized by lethargy and somnolence. In ED, the patient's condition was marked by inappropriate responses to questions and an inability to follow directions, a significant change from their baseline of being talkative with no communication difficulties. While in the hospital, the patient's status improved slightly, showing an ability to follow some directions on downgrade from the ICU, but he remain difficult to understand and continue to respond inappropriately. The patient has a history of Coccidioidal meningitis, for which they had a SPORTS BETTING MANAGER shunt placed in September 2024. A contributing factor may be noncompliance with or failure of fluconazole treatment prior to this admission. Diagnostics and Treatment - CT Head (08/04): Showed significant improvement compared to a prior scan (07/01/2025), with resolution of hemorrhage and ventricles and the left basal ganglia area. - MRI (07/02/2025): The discharge packet from [facility] noted basilar enhancement, which was likely due to the Coccidioidal meningitis. - Prior Treatment: Acyclovir and cefepime were initiated on 08/04 for concern of viral/bacterial meningitis but were discontinued on 08/05 due to lower suspicion. Plan: - Will continue to monitor -IV ceftriaxone 1 g daily -IV Keppra 500 mg twice daily - Patient switched to isavuconazonium (Cresemba) 372 mg daily from Fluconazole 800 mg daily for treatment of cocci meningitis. Switched as Fluconazole failed at managing his cocci meningitis per [facility]. -Start patient on 15 mg Remeron qHS and 5mg melatonin HS prn. #Insulin-dependent type 2 diabetes mellitus, uncontrolled Patient uses insulin lispro sliding scale at home. Glucose was 103 on admission. No hemoglobin A1c on file. Plan: Continue sliding scale insulin Bedside glucose checks ACHS #Community-acquired pneumonia #Suspected UTI, ruled out #Aspiration risk #Normocytic anemia #Anemia of chronic disease #History of hypertension Primary care team to manage above conditions and ongoing care needs. The patient's management plan was discussed with my attending physician Dr. Altman. Ama Reddy, PGY-2 Attending Provider Attestation/Addendum I personally have seen and examined the patient at the bedside and I agreed with the resident's findings, assessment and plan of care. Patient's persistent confusion and mental status changes, significant, daytime hypersomnolence and insomnia noted. Will try mirtazapine 15 mg at bedtime and melatonin as needed to help with sleep. Consider doing MRI brain with and without contrast and lumbar puncture tomorrow to evaluate further. Continue with antifungal agent: Isavuconazonium.
[2025-08-09] VITALS: BP 116/87; PULSE 69; RESP 18; TEMP 36.1; O2SAT 98
[2025-08-09 04:00] VITALS: BP 136/92; PULSE 72; RESP 18; TEMP 36.3; O2SAT 97
[2025-08-09 08:00] VITALS: BP 135/97; PULSE 72; RESP 14; TEMP 36.1; O2SAT 99
[2025-08-09] MEDS: [UNRECOGNIZED DRUG - REMARK] 372 MG PO (08:13)
[2025-08-09] MEDS: cefTRIAXone/D5w 1gm IV premix 1 GM/50 ML BAG IV (08:14)
[2025-08-09] MEDS: INSULIN HUM REGULAR 1 UNIT/0.01 ML (PER UNIT) SC ×2 (08:15→12:22)
[2025-08-09] MEDS: levETIRAcetam INJ 100 MG/ML VIAL 5ML 500 MG IVP (08:39)
--- NOTE | 2025-08-09 09:10 | PC.SS ---
Follow up note: SS has left message for Isis at [facility] regarding insurance authorization. Insurance authorization is still pending.
--- NOTE | 2025-08-09 10:23 | CHAP ---
Patient expressed gratitude for visit and prayer.
[2025-08-09 12:00] VITALS: BP 99/63; PULSE 81; RESP 18; TEMP 36.1; O2SAT 98
--- NOTE | 2025-08-09 12:00 | PC.SS ---
SS has setup gurney transportation with Ort[facility] from [facility] for gurney transportation for 1pm to [facility].? Ref# [id number].? SS has requested [facility].? Per [facility] dental detail representative, [facility] is not a guaranteed transport company.? Estimated time is 3-4 hours.? SS has sent patient?s facesheet and ambulance form to [facility] using [employer].? SS has spoken to at [facility] and she has been contacted by [facility] and transportation is set for 1:30pm to [facility]. Isis from [facility] is aware. is aware. June is aware. Bedside nurse is aware.
[2025-08-09 12:04] VITALS: BMI 11.0
--- NOTE | 2025-08-09 13:23 | ESDS_ITS ---
<Statement entered by Ashok Grover MD - 08/16/25 08:18> I reviewed above note and agree with findings and plans. I have also personally examined the patient with medicine team and went over assessment and plan with medical team including internal recruiter and resident physician. Planned Discharge Date 08/09/25 DS: Providers Provider Date of admission: 08/04/25 22:23 Primary care physician: Felicitas Noyola PA-C Admitting Provider: Liana Romo MD Attending Provider on Admission: Ashok Grover MD Consults: 08/04/25 19:07 Consult to Nephrology Stat Comment: Consulting Provider: Sancho Musa 08/04/25 22:29 Consult to Neurology / Tele-Neurology Stat Comment: Consulting Provider: Zeb Altman 08/05/25 14:44 Referral Speech Therapy Routine Comment: 08/06/25 09:16 Referral Physical Therapy Routine Comment: Physician Instructions: 08/07/25 08:06 Referral Registered Dietitian Routine Comment: Attending Provider on DC: Ashok Grover MD Discharging Provider: Ashok Grover MD DS: Diagnosis Problem List Completed Was Problem List Reviewed/Reconciled?: Yes Hospital Course Hospital Course Hospital course: 54-year-old male with a PHx of HTN, intracerebral hemorrhage (07/01/25) 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 Patient was admitted to the ICU initially for management of hypovolemic shock requiring vasopressors, and subsequently downgraded to medical floors on 08/05/25. ED course: Patient was found to be severely hypotensive (BP 66/45) with normal oxygen saturation but clear signs of shock and hypoperfusion, indicated by the significant hypotension and an elevated lactate level of 2.6. Blood work showed severe dehydration with hypernatremia (151), hyperchloremia (112), and a high calculated osmolality (322), alongside evidence of an accompanying NITHIN that is highly suggestive of a prerenal etiology due to hypoperfusion (BUN 76, Creatinine 3.2, eGFR 22). Mild anemia (Hgb 12.4, Hct 39), a slightly elevated ALP 119. Admitted to ICU for management of hypovolemic shock. Hospital course: Patient required brief norepinephrine infusion for hypovolemic shock due to dehydration in the ICU and then was downgraded to the medical floor. Patient history of disseminated cocci dx back in Sep 2024 . A contributing factor may be noncompliance with or failure of fluconazole treatment prior to this admission. Patient was switched to isavuconazonium (Cresemba) 372 mg daily from Fluconazole 800 mg daily for treatment of cocci meningitis. Switched as Fluconazole failed at managing his cocci meningitis per [facility]. Patient was treated with IV ceftriaxone for 6 days for underlying community-acquired pneumonia which was seen in Chest CT 08/04. Patient's acute encephalopahty improved upon tx of pneumonia. At time of discharge patient is returning to baseline mentation. 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 Please take Melatonin 3mg and mirtazapine 15 mg tablet at night before bed time for sleep disorder Take midodrine 10mg by mouth every 8 hours if systolic blood pressure is less than 90 Stop taking fluconazole and metoprolol tartrate Continue all other home medications as prescribed Please follow-up with your Primary Care Provider within 1 week of discharge or follow-up at the [facility] [address] [place] [address] Ask your Primary Care Provider to follow-up with ECHO results If your symptoms worsen or if you develop new chest pain, shortness of breath, dizziness or loss of consciousness - please come back to the ED immediately. Admission diagnoses: #Acute encephalopathy 2/2 community acquired pneumonia #Disseminated cocci #Hypernatremia, resolved #NITHIN, prerenal #Left hydronephrosis, mild, likely 2/2 #Bilateral renal calculi, 6 mm mid left ureteral calculus #Hypovolemic shock, resolved #Community-acquired pneumonia #Suspected UTI, ruled out #Aspiration risk #Normocytic anemia #Anemia of chronic disease #History of intracerebral hemorrhage #History of Seizures #History of hypertension #Insulin-dependent type 2 diabetes mellitus Case discussed with my attending Dr. Reilly Escobar MD PGY-1 Status at Discharge Overall status at discharge: patient is progressing back to baseline Time Spent with Patient Time attestation: Total time spent providing and/or coordinating discharge services: Time spent: Greater than 30 minutes Exam Vital Signs Temp Pulse Resp BP Pulse Ox O2 Del Method O2 Flow Rate 97.0 F 81 18 99/63 98 Room Air 5 08/09/25 12:00 08/09/25 12:00 08/09/25 12:00 08/09/25 12:00 08/09/25 12:00 08/09/25 12:00 08/05/25 07:32 Narrative Exam GEN: Alert and oriented x 2, no acute distress HEENT: Normocephalic, atraumatic. INSURANCE AND FINANCIAL SERVICES AGENT shunt noted on right. Normal conjunctiva, PERRL. CVS: RRR. S1+S2. No M/R/G. RESP: GAEB. No WOB. No crackles or wheezing. GI: Soft, nontender, non-distended. No guarding or rebound tenderness. Extremities: No edema, no cyanosis, no clubbing. 2+ radial pulse bilaterally, 2+ pedal pulse bilaterally. NEURO: No focal deficits observed. Conversant, moving all extremities. No overt cerebellar signs/incoordination. Unable to appropriate answer some questions, can follow some simple commands. SKIN: Warm, dry, intact. 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 [place] [address] Ask your Primary Care Provider to follow-up with ECHO results If your symptoms worsen or if you develop new chest pain, shortness of breath, dizziness or loss of consciousness - please come back to the ED immediately. Prescriptions/Referrals Prescriptions/Med Rec: New Cresemba 186 mg Capsule 372 mg PO QDAY 30 Days Qty: 60 0RF melatonin 3 mg Tablet 3 mg PO HS 30 Days Qty: 30 0RF mirtazapine 15 mg Tablet 15 mg PO HS 30 Days Qty: 30 0RF Continued famotidine 20 mg tablet 20 mg PO DAILY levetiracetam 500 mg tablet 500 mg PO Q12H Patient Comments: TAKE 1 TABLET BY MOUTH TWICE A DAY amitriptyline 10 mg tablet 10 mg PO HS Patient Comments: TAKE 1 TABLET BY MOUTH EVERYDAY AT BEDTIME gabapentin 300 mg capsule 300 mg PO Q8H lisinopril 40 mg tablet 40 mg PO DAILY Patient Comments: TAKE 1 TABLET BY MOUTH EVERY DAY albuterol sulfate 2.5 mg/0.5 mL solution for nebulization 2.5 mg inhalation Q6H PRN (Reason: shortness of breath or wheezing) insulin lispro 100 unit/mL solution 1 sliding scale dose subcut USEASDIRECTD fludrocortisone 0.1 mg tablet 0.1 mg PO DAILY Patient Comments: TAKE 1 TABLET BY MOUTH EVERY DAY Changed midodrine 10 mg tablet 10 mg PO Q8H PRN (Reason: Systolic Blood pressure <90) 30 Days Qty: 90 0RF Patient Comments: TAKE 1 TABLET BY MOUTH THREE TIMES A DAY Discontinued fluconazole 200 mg tablet 800 mg PO QID Patient Comments: TAKE 4 TABLET BY MOUTH ONCE A DAY FOR 30 DAYS TOTAL 800 MG A DAY Rx Instructions: not on pt's med list metoprolol tartrate 37.5 mg tablet 25 mg PO Q12H isavuconazonium sulfate 186 mg capsule 186 mg PO QDAY Referrals: Felicitas Noyola PA-C [Primary Care Provider] Patient/Caregiver Discharge Instructions Education Materials: Controlling High Blood Pressure, Blood Pressure Check Steps, Understanding Coccidioidomycosis Print Language: Kittitian Stand Alone Forms: Lakshmi Award Info., Patient Portal Info Letter Discharge Order Discharge Orders: Discharge (Routine); Ordered 08/09/25 Ordered By: Danish Castro Quality Discharge Quality Measures VTE prophylaxis
== END 2025-08-09 13:29 | disposition skilled nursing facility (03) | DRG 58 ==
LOC: SERX 20:01 → SERHOLD 22:44 → S2SX 08-05 00:42 → S3NX 08-05 14:04
PROVIDERS: Emergency Medicine; Student in an Organized Health Care Education/Training Program; Admitting Provider Student in an Organized Health Care Education/Training Program; Emergency Provider Emergency Medicine; PCP Physician Assistant Medical; Visit Provider Internal Medicine
DX: T85.01XA Breakdown (mechanical) of ventricular intracranial (communicating) shunt, initial encounter (principal); Z86.73 Personal history of transient ischemic attack (TIA), and cerebral infarction without residual deficits; I10 Essential (primary) hypertension; M62.50 Muscle wasting and atrophy, not elsewhere classified, unspecified site; E87.1 Hypo-osmolality and hyponatremia; E86.0 Dehydration; N17.9 Acute kidney failure, unspecified; N13.6 Pyonephrosis; Z98.2 Presence of cerebrospinal fluid drainage device; R57.9 Shock, unspecified; R56.9 Unspecified convulsions; J18.9 Pneumonia, unspecified organism; Z79.4 Long term (current) use of insulin; E11.9 Type 2 diabetes mellitus without complications; G02 Meningitis in other infectious and parasitic diseases classified elsewhere; G93.41 Metabolic encephalopathy; D63.8 Anemia in other chronic diseases classified elsewhere; E11.65 Type 2 diabetes mellitus with hyperglycemia; E87.0 Hyperosmolality and hypernatremia; E87.8 Other disorders of electrolyte and fluid balance, not elsewhere classified; G47.10 Hypersomnia, unspecified; Z66 Do not resuscitate; Z74.01 Bed confinement status; Z79.52 Long term (current) use of systemic steroids; Z79.84 Long term (current) use of oral hypoglycemic drugs; Z79.899 Other long term (current) drug therapy; G47.00 Insomnia, unspecified; N20.2 Calculus of kidney with calculus of ureter; R57.1 Hypovolemic shock; R47.01 Aphasia; B38.0 Acute pulmonary coccidioidomycosis; G93.40 Encephalopathy, unspecified
CPT/HCPCS: 36415; 70450; 71045; 71250; 74176; 80048; 80053; 80061; 80069; 80202; 81001; 82140; 82803; 83036; 83540; 83550; 83605; 83735; 84100; 84145; 84295; 84484; 85025; 85610; 85730; 86850; 86900; 86901; 87040; 87081; 87086; 87811; 92610; 93005; 93306; 96365; 96366; 96375; 96376; 97162; 99284; A4649; J0133; J0692; J0696; J1200; J1450; J1650; J1815; J1953; J2470; J3373; J3475; J3490; J7030; J7050; J7070; J7120; J8499; A9270

== ENCOUNTER 2025-08-28 21:37 | Inpatient (IN) | payer MEDICAID, SELFPAY ==
[2025-08-28 21:41] VITALS: BMI 25.8
[2025-08-28 21:42] VITALS: BP 105/75; PULSE 108; RESP 19; TEMP 37.3; O2SAT 95
--- NOTE | 2025-08-28 21:43 | PD.EDFALL ---
ED Fall Injury RME/HPI General Chief Complaint: Fall Stated Complaint: FALL Time Seen by Provider: 08/28/25 21:43 Arrival date/time: 08/28/25 21:37 RME / HPI RME / HPI Narrative: Dr. 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 Per EMS, patient was getting up out of bed to go outside when he slipped and fell, landing on his right hip. Patient did hit the back of his head, but denies any LOC. Patient endorses having right hip pain. Denies any other extremity pain, headache, neck pain, chest pain, abdominal pain, shortness of breath, or any other associated symptoms. Patient is not on blood thinners. NKA. Related Data Home Medications ?Medication ?Instructions ?Recorded ?Confirmed albuterol sulfate 2.5 mg/0.5 mL 2.5 mg inhalation Q6H PRN 08/05/25 08/05/25 solution for nebulization shortness of breath or wheezing amitriptyline 10 mg tablet 10 mg PO HS 08/05/25 08/05/25 famotidine 20 mg tablet 20 mg PO DAILY 08/05/25 08/05/25 fludrocortisone 0.1 mg tablet 0.1 mg PO DAILY 08/05/25 08/05/25 gabapentin 300 mg capsule 300 mg PO Q8H 08/05/25 08/05/25 insulin lispro 100 unit/mL 1 sliding scale dose subcut 08/05/25 08/05/25 subcutaneous solution USEASDIRECTD levetiracetam 500 mg tablet 500 mg PO Q12H 08/05/25 08/05/25 lisinopril 40 mg tablet 40 mg PO DAILY 08/05/25 08/05/25 Previous Rx's ?Medication ?Instructions ?Recorded isavuconazonium sulfate 186 mg 372 mg (2 x 186 mg) PO QDAY 1 08/08/25 capsule (Cresemba) month #60 caps midodrine 10 mg tablet 10 mg PO Q8H PRN Systolic Blood 08/08/25 pressure <90 1 month #90 tabs melatonin 3 mg tablet 3 mg PO HS 1 month #30 tabs 08/09/25 mirtazapine 15 mg tablet 15 mg PO HS 1 month #30 tabs 08/09/25 Allergies Allergy/AdvReac Type Severity Reaction Status Date / Time No Known Allergies Allergy Verified 08/28/25 21:55 Review of Systems Review of Systems Systems Reviewed: All systems reviewed, normal except as documented ED Exam Narrative Physical exam: Generally patient is alert and in no obvious distress, head is normocephalic atraumatic with the right sided ventriculoperitoneal shunt to be in place, heart regular rate and rhythm, lungs clear to auscultation equal bilaterally, abdomen soft bowel sounds present nondistended nontender extremity showed no external rotation but very mild tenderness to palpation over the right hip no shortening. Right lower extremity is neurovascularly intact. Neurologic exam shows the patient to have a Superior Coma Scale of 14 which is normal for the patient. No focal deficits of the being somewhat unwilling to move the right leg at the hip due to pain. Course Quality Measures none Orders Category Date Time Status CT hip RT wo con Stat Exams 08/28/25 23:07 Stop Req XR femur RT 2V Stat Exams 08/28/25 23:07 Taken XR hip RT w pelvis 2-3V Stat Exams 08/28/25 21:44 Completed CBC Stat Lab 08/28/25 23:18 Received CMP [Comprehensive Metabolic Panel] Stat Lab 08/28/25 23:18 Received PT [Prothrombin Time with INR] Stat Lab 08/28/25 23:18 Received Vital Signs Vital signs: Vital Signs Temperature 99.1 F 08/28/25 21:42 Pulse Rate 108 H 08/28/25 21:42 Respiratory Rate 19 08/28/25 21:42 Blood Pressure 105/75 08/28/25 21:42 Pulse Oximetry (%) 95 08/28/25 21:42 Oxygen Delivery Method Room Air 08/28/25 21:42 Fall MDM Narrative MDM Narrative:: Scribe Attestation: 08/28/25 Anca Judd am scribing for and in the presence of Dr. Mayfield. Blood work was ordered once it was realized that the patient had a right sided femoral neck fracture. Patient is not requiring pain medication at this time. I currently have a call out to orthopedic surgeon on-call Dr. Walton. Patient will require admission to the hospital for further treatment and evaluation for his right femoral neck fracture. Patient does have a history of metabolic encephalopathy and cocci meningitis which is the reason why the patient has a right sided ventriculoperitoneal shunt. 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) How is presenting disease/condition affected by chronic disease/condition?: uneffected by Evaluation data The following diagnostics were reviewed and interpreted by me:: radiology exam(s) Lab and/or radiology exams considered but not ordered:: none Interpretation Summary: [facility] Report Signed Patient: TANA HOLLEY Record#: [id number] Birthdate: 1970 Age/Sex: 54 / M Location: [facility] Attending Dr: Ordering Physician: Leonard Mayfield DO Date of Service: 08/28/25 Procedure(s): XR hip RT w pelvis 2-3V Accession Number(s): [id number] cc: Sandra Morris MD; Richie Simms MD; Leonard Mayfield DO~ Examination: Right hip AP, lateral, AP pelvis 3 views Technique: Hip AP lateral, AP pelvis, 3 views Exam date and time: August 28 5:10 p.m INDICATIONS: Patient fell today with injury to the right hip, right hip pain FINDINGS: Severe osteopenia Suspicious for right femoral neck fracture Bones the pelvis left hip intact IMPRESSION: Recommend CT scan right hip pelvis to exclude right femoral neck fracture. Dictated By: Richie Simms MD Signed By: <Electronically signed by Richie Simms MD in > 08/28/25 2543 Medications / Prescriptions Medications or Prescriptions considered but not ordered:: none Medication administrations:: see above, if any Consultations Consultation(s) initiated? (list below): Yes Diagnosis Fall Differential Diagnosis: other (See MDM ) Most likely diagnosis given after review of the tests above:: see clinical impression below Admission Indicated Admission indicated?: indicated Admission Request Was there a request for admission?: Yes Admission Attestation Admission request attestation: Discussed case with [] from Hospitalist service regarding admission. Discussed patients ED course, exam findings, labs, and radiology results. The Hospitalist [agrees,declines] to accept the patient for admission. Disposition Plan Disposition Plan: Admit Discharge Plan Plan Patient Disposition: Admit Acute Care w/in Hospital Prescriptions/Referrals Prescriptions/Med Rec: No Action famotidine 20 mg tablet 20 mg PO DAILY levetiracetam 500 mg tablet 500 mg PO Q12H Patient Comments: TAKE 1 TABLET BY MOUTH TWICE A DAY amitriptyline 10 mg tablet 10 mg PO HS Patient Comments: TAKE 1 TABLET BY MOUTH EVERYDAY AT BEDTIME gabapentin 300 mg capsule 300 mg PO Q8H lisinopril 40 mg tablet 40 mg PO DAILY Patient Comments: TAKE 1 TABLET BY MOUTH EVERY DAY albuterol sulfate 2.5 mg/0.5 mL solution for nebulization 2.5 mg inhalation Q6H PRN (Reason: shortness of breath or wheezing) insulin lispro 100 unit/mL solution 1 sliding scale dose subcut USEASDIRECTD fludrocortisone 0.1 mg tablet 0.1 mg PO DAILY Patient Comments: TAKE 1 TABLET BY MOUTH EVERY DAY Cresemba 186 mg Capsule 372 mg PO QDAY 30 Days Qty: 60 0RF midodrine 10 mg tablet 10 mg PO Q8H PRN (Reason: Systolic Blood pressure <90) 30 Days Qty: 90 0RF Patient Comments: TAKE 1 TABLET BY MOUTH THREE TIMES A DAY melatonin 3 mg Tablet 3 mg PO HS 30 Days Qty: 30 0RF mirtazapine 15 mg Tablet 15 mg PO HS 30 Days Qty: 30 0RF Referrals: Sandra Morris MD [Primary Care Provider] - In 1 week Problem List Clinical Impression: Closed fracture of neck of right femur Patient/Caregiver Discharge Instructions Print Language: Surinamese Stand Alone Forms: Lakshmi Award Info., Patient Portal Info Letter
[2025-08-28 21:55] VITALS: PULSE 105; RESP 18; O2SAT 95; BMI 19.3
[2025-08-28 23:02] VITALS: BP 115/79; PULSE 103; RESP 17; TEMP 36.4; O2SAT 98
--- NOTE | 2025-08-28 23:07 | XR_ITS ---
EXAMINATION: Right femur 2 views TECHNIQUE: AP lateral right femur 2 views Date and time: August 28, 2025, 11:28 p.m. INDICATIONS: Patient fell today with injury to the right hip, right hip and femur pain. FINDINGS: Acute fracture, comminuted right femoral neck Shaft of the femur are intact IMPRESSION: Acute fracture right femoral neck
[2025-08-28 23:44] LABS: Basophils # (Auto) 0.1 Thou/mm3 (0.0-0.2); Basophils % (Auto) 1 % (0-2.5); Eosinophils # (Auto) 0.2 Thou/mm3 (0.0-0.5); Eosinophils % (Auto) 3 % (0-10); Hematocrit 35.8 % (41.0-53.0); Hemoglobin 11.8 g/dL (13.5-16.0); Immature Granulocytes Auto 0.11 Thou/mm3 (0.00-0.00); Lymphocytes # (Auto) 1.7 Thou/mm3 (1.0-4.8); Lymphocytes % (Auto) 20 % (10-50); Mean Corpuscular HGB Conc 33.0 g/dl (31.0-37.0); Mean Corpuscular Hemoglobin 29.6 pg (25.0-35.0); Mean Corpuscular Volume 90 fL (80-100); Monocytes # (Auto) 0.6 Thou/mm3 (0.0-0.8); Monocytes % (Auto) 8 % (0-12); Neutrophils # (Auto) 5.5 Thou/mm3 (1.8-7.7); Neutrophils % (Auto) 67 % (37-80); Nucleated Red Blood Cell # 0.00 Thou/mm3 (0.00-0.00); Nucleated Red Blood Cell % 0 /100 WBC (0); Platelet Count 212 Thou/mm3 (140-440); RDW Standard Deviation 46.2 fL (35.1-43.9); Red Blood Count 3.98 Miln/mm3 (4.50-5.90); White Blood Count 8.3 Thou/mm3 (3.8-10.6)
[2025-08-29] VITALS (8 sets, daily range): BP systolic 113–129; BP diastolic 75–96; PULSE 96–115; RESP 17–95; TEMP 36.7–37.1; O2SAT 95–98; BMI 19.3
[2025-08-29 00:01] LABS: Alanine Aminotransferase 15 U/L (10-49); Albumin, Serum 4.2 gm/dL (3.5-5.0); Albumin/Globulin Ratio 1.6 (1.2-2.2); Alkaline Phosphatase 105 U/L (46-116); Anion Gap 10 (7-16); Aspartate Amino Transferase 13 U/L (0-34); BUN/Creatinine Ratio 27 Ratio (12-20); Bilirubin,Total 0.2 mg/dL (0.3-1.2); Blood Urea Nitrogen 27 mg/dL (9-23); Calcium 9.1 mg/dL (8.3-10.6); Calcium (Corrected) 9.1 mg/dL (8.5-10.1); Carbon Dioxide 30.5 mMol/L (20.0-31.0); Chloride 103 mMol/L (98-107); Creatinine (Component) 1.0 mg/dL (0.6-1.3); Estimated Creatinine Clearance 65.0 mL/min (>60); Globulin 2.7 gm/dL (2.3-3.5); Glucose 140 mg/dL (74-106); INR 0.9 (0.9-1.3); Osmolality,Calculated 292 (275-295); Potassium 4.4 mMol/L (3.4-5.1); Prothrombin Time 10.1 Seconds (9.0-12.2); Sodium 143 mMol/L (136-145); Total Protein 6.9 gm/dL (5.7-8.2); eGFR > 60 See Note
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
--- NOTE | 2025-08-29 04:20 | XR_ITS ---
Examination: CT brain head without contrast. 2-D sagittal coronal reconstructions Date and time of exam: August 29, 2025, 6:10 a.m., comparison 08/04/2025 INDICATIONS: Ground-level fall today with injury to the head, head pain CTDI: vol (mGy): 50 DLP: (mGycm): 998 Technique: Multiple CT axial sections of the brain have been obtained, 5 mm slice thickness. Contrast has not been administered. 2-D sagittal, coronal reconstructions have been obtained Low dose protocols were performed. One or more of the following dose reduction techniques were used; automated exposure control, adjustment of the mA and/or KV according to patient size, use of iterative reconstruction technique. Findings: No significant ventricular enlargement. Intra-axial or extra-axial hemorrhage density is not seen. No mass effect or midline shift Basal cisterns are not remarkable. Fourth ventricle is midline. Ventriculostomy shunt tube projects in stable position in the right frontal horn Impression: No interval acute hemorrhage, mass effect or midline shift
--- NOTE | 2025-08-29 05:01 | PRELIM_ITS ---
CT scan of the right hip without intravenous contrast (axial sections with sagittal and coronal reformats). August 29, 2025 at 0406 hours Clinical History: Hip pain. Comparison: No prior study is available for comparison. Findings: There is an acute displaced subcapital fracture of the neck of the right femur. No evidence of dislocation. The hip joint spaces are mildly decreased. Small acetabular marginal osteophytes are noted. The acetabulum and femoral head are unremarkable. The periarticular soft tissues are within normal limits. Degenerative changes are identified in the spine and sacroiliac joints. The prostate is enlarged with its median lobe projecting within the bladder lumen. A moderate amount of fecal material is present in the colon. The distal abdominal aorta and its branches demonstrate atheromatous calcification without evidence of aneurysm. Impression: 1. Acute displaced subcapital fracture of the right femoral neck. No evidence of dislocation. 2. Mild osteoarthritis of both hip joints. 3. Other findings as described above. Report Electronically Signed By: Vi Loza 08/29/2025 5:00:33 AM [EST]
--- NOTE | 2025-08-29 06:00 | EVENTNT_ITS ---
Documentation for date of: 08/29/25 Event Note Event Note: Mr. 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 Patient accompanied by at bedside, as patient is confused at baseline and is a poor historian. Patient?s activity is confined to PT sessions at SNF. Patient stood up quickly from his wheelchair and fell over, hitting both his right hip and head on the ground. Patient remembers feeling dizzy when he stood up but does not recall anything else about the event. Physical exam findings significant for AOx1 (chronic), cachectic, TTP right hip, no hematoma. Decreased sensation to light touch and pinprick on RLE (no previous mention of this on neuro exam). Decreased movement of RLE compared to LLE. Given the unwitnessed fall with head strike and new neuro exam findings, will wait for further imaging and will sign out to day team. Plan discussed with Dr. Ferrer and Dr. Demetrius Logan MD PGY1
--- NOTE | 2025-08-29 08:10 | PC.NURSE ---
Pt. here to room 17, from [facility] for a fall, pt. 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 and to spouse. Pt. denies any pain at this time.
--- NOTE | 2025-08-29 08:44 | PC.NURSE ---
Called Dr. Veliz, pt. is NPO, Dr. Veliz states it's ok to give the pt.'s scheduled medications.
[2025-08-29] MEDS: RINGERS LACTATED 1000 ML 1,000 ML 75 ML IV (08:55)
--- NOTE | 2025-08-29 10:38 | PC.NURSE ---
Brief changed partial linen change done, spouse is bedside, pt. tolerated well.
[2025-08-29] MEDS: MORPHINE SULF INJ 4 MG/ML VIAL 1 MG IVP (12:45)
[2025-08-29] MEDS: FLUDROCORTISONE ACETATE 0.1 MG TABLET PO (12:45)
[2025-08-29] MEDS: GABAPENTIN 300 MG CAPSULE PO ×2 (12:45→22:05)
--- NOTE | 2025-08-29 13:25 | PD.RESPRO ---
Documentation for date of: 08/29/25 Exam Vital Signs Temp Pulse Resp BP Pulse Ox O2 Del Method FiO2 98.3 F 104 H 17 128/94 H 98 Room Air 98 08/29/25 10:39 08/29/25 10:39 08/29/25 10:39 08/29/25 10:39 08/29/25 10:39 08/29/25 10:39 08/29/25 08:10 Objective Labs 08/28/25 23:18 08/28/25 23:18 Labs: Laboratory Results - last 24 hr 08/28/25 23:18 WBC 8.3 RBC 3.98 L Hgb 11.8 L Hct 35.8 L MCV 90 MCH 29.6 MCHC 33.0 RDW Std Deviation 46.2 H Plt Count 212 D Neut % (Auto) 67 Lymph % (Auto) 20 Kinney % (Auto) 8 Eos % (Auto) 3 Baso % (Auto) 1 Neut # (Auto) 5.5 Lymph # (Auto) 1.7 Kinney # (Auto) 0.6 Eos # (Auto) 0.2 Baso # (Auto) 0.1 Immature Gran # (Auto) 0.11 H Absolute Nucleated RBC 0.00 Immature Gran % 1 H Nucleated RBC % 0 PT 10.1 INR 0.9 Sodium 143 Potassium 4.4 Chloride 103 Carbon Dioxide 30.5 Anion Gap 10 BUN 27 H Creatinine 1.0 Estim Creat Clear Calc 65.0 eGFR > 60 BUN/Creatinine Ratio 27 H Glucose 140 H Calculated Osmolality 292 Calcium 9.1 Corrected Calcium 9.1 Total Bilirubin 0.2 L AST 13 ALT 15 Alkaline Phosphatase 105 Total Protein 6.9 Albumin 4.2 Globulin 2.7 Albumin/Globulin Ratio 1.6 Quality Measures Quality Measures none Assessment & Plan Assessment Current Active Medications: Generic Name Dose Route Start Last Admin Trade Name Freq PRN Reason Stop Dose Admin Acetaminophen 650 mg 08/29/25 08:07 Acetaminophen 325 Mg Tablet PO 09/28/25 08:06 Q6H PRN Fever >100.4 Acetaminophen 650 mg 08/29/25 08:07 Acetaminophen 325 Mg Tablet PO 09/28/25 08:06 Q6H PRN PAIN SCALE 1-3 (mild Hydrocodone Bitart/Acetaminophen 1 tab 08/29/25 08:07 Hydrocodone/Apap 5/325 Tablet PO 09/03/25 08:06 Q4HR PRN PAIN SCALE 4-6 (Moderate Dextrose 50 ml 08/29/25 09:25 Dextrose 50%-Water Inj 50 Ml Syringe IV 09/28/25 09:24 Q15MIN PRN BG <50 OR BG <70 & pt unresponsive Dextrose 25 ml 08/29/25 09:25 Dextrose 50%-Water Inj 50 Ml Syringe IV 09/28/25 09:24 Q15MIN PRN BG 50-70 responsive npo pt Fludrocortisone Acetate 0.1 mg 08/29/25 09:25 08/29/25 12:45 Fludrocortisone Acetate 0.1 Mg Tablet PO 09/28/25 09:24 0.1 mg DAILY DERRICK Administration Gabapentin 300 mg 08/29/25 09:30 08/29/25 12:45 Gabapentin 300 Mg Capsule PO 09/28/25 09:29 300 mg Q8HR DERRICK Administration Glucagon 1 mg 08/29/25 09:25 Glucagon Inj 1 Mg Vial IM Q15MIN PRN BG <70, and no IV access Heparin Sodium (Porcine) 5,000 unit 08/29/25 14:00 Heparin Sod Inj 5000 Unit/Ml Vial SC 09/12/25 13:59 Q8HR DERRICK Lactated Ringer's 1,000 mls @ 75 mls/hr 08/29/25 08:30 08/29/25 08:55 Lactated Ringers IV 08/29/25 21:49 75 mls/hr .[id number] DERRICK Administration Insulin Human Lispro 0 unit 08/29/25 12:00 08/29/25 12:16 Insulin Lispro (Admelog) 1 Unit/0.01 Ml Unit SC 09/28/25 11:59 Not Given Q6HR [facility] Protocol Levetiracetam 500 mg 08/29/25 09:30 08/29/25 09:50 Levetiracetam 250 Mg Tablet PO 09/28/25 09:29 Not Given Q12HR [facility] Melatonin 3 mg 08/29/25 21:00 Melatonin 3 Mg Tablet PO 09/28/25 20:59 HS [facility] Midodrine 10 mg 08/29/25 09:24 Midodrine 5 Mg Tablet PO 09/28/25 09:29 TID PRN SBP < 90 Mirtazapine 15 mg 08/29/25 21:00 Mirtazapine 15 Mg Tablet PO 09/28/25 20:59 HS [facility] Morphine Sulfate 1 mg 08/29/25 12:12 08/29/25 12:45 Morphine Sulf Inj 4 Mg/Ml Vial IVP 09/03/25 12:11 1 mg Q6HR PRN Administration PAIN SCALE 7-10 (Severe Ondansetron HCl 4 mg 08/29/25 08:07 Ondansetron Inj 2 Mg/Ml Inj 2 Ml IVP 09/28/25 08:06 Q6H PRN NAUSEA OR VOMITING Protocol
--- NOTE | 2025-08-29 14:10 | ESHP_ITS ---
<Statement entered by Paul Hicks MD - 08/29/25 15:36> I have reviewed the note and agree with the resident's assessment & plan with exceptions as below. I have personally reviewed labs, imaging, home meds/prior records, examined the patient, formulated and discussed management plan with my attending. 54-year-old male with past medical history of hypertension, intracerebral hemorrhage s/p CHEESE WEIGHER shunt (Jun 2025), seizures, disseminated cocci meningitis (Sep 2024), and T2DM was admitted to the hospital on 08/29/2025 due to to acute right hip fracture s/p ground-level fall. Patient at baseline is around AO x 1 and when asked as he stated that he tried to walk and fell. Spoke with patient's nursing facility who stated that the patient had been working with physical therapy for about 1 week prior to his fall today and that normally he needs assistance with a North lift x 2 to move around by nursing staff, but with physical therapy has been working with 2 physical therapist and has been able to walk around 70 feet with assistance he has also done some low weight lifting with his lower extremity and overall they have seen improvement in the patient's mobility and strength. At this time orthopedic surgeon has contacted the family for possible surgical intervention, but still undecided if patient will undergo surgical intervention given the family says still not decided if they will proceed with surgery at this time. Indicates that patient does proceed with surgery will place patient n.p.o. after midnight. #Acute right femoral neck fracture #Ground-level fall Orthopedic surgery on board, possible surgical intervention once family decides if they would like to proceed with surgical intervention. Patient has been working with physical therapy admission facility had has been more active and has shown improvement in physical mobility. DVT prophylaxis held tonight in the setting of possible surgical intervention Paul Hicks PGY2 Disclaimer: Even though this this note was dictated by speech recognition and even though it was carefully revised there may still be minor errors in administrator pesticide due to voice recognition software. Documentation for date of: 08/29/25 HPI History of Present Illness Chief complaint: Unwitnessed fall History of present illness: Patient is a 54-year-old male with past medical history of hemorrhagic CVA, HTN, seizures, T2DM, disseminated coccidiomycosis presenting from SNF on 08/28/2025 for unwitnessed fall. Patient's stated that he was at the facility and in a wheelchair (his normal state of mobility since his hemorrhagic stroke) and attempted to stand up and then fell; the fall was not witnessed, and she was called around 2130 by facility on 08/28/2025. On exam patient is ANO x 1 (knows name; said he was in [place]; does not know the date) which is his normal baseline and endorses right hip pain. ED course: Physical exam findings significant for AOx1 (chronic), right hip tender to palpation, no hematoma. Decreased sensation to light touch and pinprick on RLE (no previous mention of this on neuro exam). Decreased movement of RLE compared to LLE. CT hip showed acute displaced subcapital fracture of the right hip; CT head showed no acute hemorrhage, mass effect or midline shift. Orthopedic surgery was consulted, and patient was admitted for new neurological findings and right hip fracture in the setting of unwitnessed fall. PMH: Hemorrhagic CVA, HTN seizures, T2DM, disseminated coccidiomycosis PSH: CHEESE WEIGHER shunt Allergies: NKDA Social: Denies smoking and drug use; endorses social drinking before CVA Review of Systems Review of Systems Narrative Review of Systems: General: Denies fevers or chills HEENT: Denies congestion or sore throat Heart: Denies chest pain or palpitations Lungs: Denies shortness of breath or cough Abdomen: Denies diarrhea, nausea or vomiting, constipation, BRBPR, melena Genitourinary: Denies frequency, urgency, dysuria, hematuria Musculoskeletal: endorses right hip pain, denies muscular pain Neurology: Denies numbness, tingling ROS otherwise negative except what is mentioned above. Exam Vital Signs Temp Pulse Resp BP Pulse Ox O2 Del Method FiO2 98.3 F 104 H 17 128/94 H 98 Room Air 98 08/29/25 10:39 08/29/25 10:39 08/29/25 10:39 08/29/25 10:39 08/29/25 10:39 08/29/25 10:39 08/29/25 08:10 Narrative Exam General: A/O x1 (baseline since CVA), no acute distress, well-nourished, well- developed Eyes: PERRL, EOMI. Anicteric, vision grossly intact. Ears: No ear pain, no ear discharge, Hearing grossly intact. Nose: No nasal discharge. Mouth/Throat: Moist mucous membranes, no redness, no lesions. Neck: Neck supple, non-tender, no cervical lymphadenopathy. Lungs: Clear RAQUEL to auscultation and percussion, No accessory muscle use. Cardio: Normal S1/S2, regular rhythm, no murmurs, no JVD or carotid bruits. Abdomen: Soft, non-tender, no palpable masses, peristalsis present, no guarding or rebound. Extremities: Symmetrical, no significant deformities, no peripheral edema , R hip tenderness, peripheral pulses present. Skin: No rashes, no lesions, warm to touch. Neuro: Reduced sensation of RLE, reduced sensation bilaterally on face, motor of lower limbs could not be assessed as patient refused to lift legs Psych: appropriate mood and effect. Results: Labs 08/28/25 23:18 08/28/25 23:18 Labs: Short CBC 08/28/25 Range/Units 23:18 WBC 8.3 (3.8-10.6) Thou/mm3 Hgb 11.8 L (13.5-16.0) g/dL Hct 35.8 L (41.0-53.0) % Plt Count 212 D (140-440) Thou/mm3 BMP 08/28/25 23:18 Sodium 143 Potassium 4.4 Chloride 103 Carbon Dioxide 30.5 BUN 27 H Creatinine 1.0 Glucose 140 H Calcium 9.1 Liver Function 08/28/25 Range/Units 23:18 Total Bilirubin 0.2 L (0.3-1.2) mg/dL AST 13 (0-34) U/L ALT 15 (10-49) U/L Alkaline Phosphatase 105 (46-116) U/L Albumin 4.2 (3.5-5.0) gm/dL Quality Measures Quality Measures none Medications Home Medications and Allergies Home Medications ?Medication ?Instructions ?Recorded ?Confirmed ?Type albuterol sulfate 2.5 mg/0.5 mL 2.5 mg inhalation Q6H PRN 08/05/25 08/29/25 History solution for nebulization shortness of breath or wheez ing amitriptyline 10 mg tablet 10 mg PO HS 08/05/25 History famotidine 20 mg tablet 20 mg PO DAILY 08/05/2508/08 History fludrocortisone 0.1 mg tablet 0.1 mg PO DAILY 08/05/25 08/05/25 History gabapentin 300 mg capsule 300 mg PO Q8H 08/05/2508/29 History insulin lispro 100 unit/mL 1 sliding scale dose subcut 08/05/25 08/29/25 History subcutaneous solution USEASDIRECTD levetiracetam 500 mg tablet 500 mg PO Q12H 08/05/25 History lisinopril 40 mg tablet 40 mg PO DAILY 08/05/2508/08 History Allergies Allergy/AdvReac Type Severity Reaction Status Date / Time No Known Allergies Allergy Verified 08/28/25 21:55 Visit Medications Acetaminophen (Acetaminophen 325 Mg Tablet) 650 mg PO Q6H PRN PRN Reason: Fever >100.4 Stop: 09/28/25 08:06 Acetaminophen (Acetaminophen 325 Mg Tablet) 650 mg PO Q6H PRN PRN Reason: PAIN SCALE 1-3 (mild Stop: 09/28/25 08:06 Hydrocodone Bitart/Acetaminophen (Hydrocodone/Apap 5/325 Tablet) 1 tab PO Q4HR PRN PRN Reason: PAIN SCALE 4-6 (Moderate Stop: 09/03/25 08:06 Dextrose (Dextrose 50%-Water Inj 50 Ml Syringe) 50 ml IV Q15MIN PRN PRN Reason: BG <50 OR BG <70 & pt unresponsive Stop: 09/28/25 09:24 Dextrose (Dextrose 50%-Water Inj 50 Ml Syringe) 25 ml IV Q15MIN PRN PRN Reason: BG 50-70 responsive npo pt Stop: 09/28/25 09:24 Fludrocortisone Acetate (Fludrocortisone Acetate 0.1 Mg Tablet) 0.1 mg PO DAILY DERRICK Stop: 09/28/25 09:24 Last Admin: 08/29/25 12:45 Dose: 0.1 mg Gabapentin (Gabapentin 300 Mg Capsule) 300 mg PO Q8HR DERRICK Stop: 09/28/25 09:29 Last Admin: 08/29/25 13:32 Dose: Not Given Glucagon (Glucagon Inj 1 Mg Vial) 1 mg IM Q15MIN PRN PRN Reason: BG <70, and no IV access Heparin Sodium (Porcine) (Heparin Sod Inj 5000 Unit/Ml Vial) 5,000 unit SC Q8HR DERRICK Stop: 09/12/25 13:59 Lactated Ringer's (Lactated Ringers) 1,000 mls @ 75 mls/hr IV .[id number] [facility] Stop: 08/29/25 21:49 Last Admin: 08/29/25 08:55 Dose: 75 mls/hr Insulin Human Lispro (Insulin Lispro (Admelog) 1 Unit/0.01 Ml Unit) 0 unit SC Q6HR DERRICK; Protocol Stop: 09/28/25 11:59 Last Admin: 08/29/25 12:16 Dose: Not Given Levetiracetam (Levetiracetam 250 Mg Tablet) 500 mg PO Q12HR [facility] Stop: 09/28/25 09:29 Last Admin: 08/29/25 09:50 Dose: Not Given Melatonin (Melatonin 3 Mg Tablet) 3 mg PO HS [facility] Stop: 09/28/25 20:59 Midodrine (Midodrine 5 Mg Tablet) 10 mg PO TID PRN PRN Reason: SBP < 90 Stop: 09/28/25 09:29 Mirtazapine (Mirtazapine 15 Mg Tablet) 15 mg PO HS [facility] Stop: 09/28/25 20:59 Morphine Sulfate (Morphine Sulf Inj 4 Mg/Ml Vial) 1 mg IVP Q6HR PRN PRN Reason: PAIN SCALE 7-10 (Severe Stop: 09/03/25 12:11 Last Admin: 08/29/25 12:45 Dose: 1 mg Ondansetron HCl (Ondansetron Inj 2 Mg/Ml Inj 2 Ml) 4 mg IVP Q6H PRN; Protocol PRN Reason: NAUSEA OR VOMITING Stop: 09/28/25 08:06 Discontinued Medications Influenza Virus Vaccine Quadrival (Influenza Virus Quadrivalent 0.5 Ml Syringe) 0.5 ml IMi .ONCE ONE Stop: 08/29/25 13:03 Levetiracetam (Levetiracetam 250 Mg Tablet) 500 mg PO Q12HR [facility] Stop: 09/28/25 08:29 Last Admin: 08/29/25 08:52 Dose: 500 mg Assessment & Plan Plan Patient is a 54-year-old male with past medical history of hemorrhagic CVA, HTN, seizures, T2DM, disseminated coccidiomycosis presenting from [facility] on 08/28/2025 for unwitnessed fall. Patient was admitted for new neurological findings and right hip fracture in the setting of unwitnessed fall on 08/29/25. #Unwitnessed fall with new-onset neurological symptoms #R hip fracture #Hx of hemorrhagic CVA Patient had unwitnessed fall yesterday at SNF, with history of hemorraghic CVA (07/01). CT head negative, CT hip positive for R hip fracture. Patient endorses RLE loss of sensation and loss of sensation on both sides of face. After patient's SNF was spoken with, we learned that he was working with PT for 1 week; has had improvement per staff. He can walk 70 feet with 2 people assisting, lifting 2 pound weights. Uses [employer] lift x2 for transfer. Plan: Orthopedic surgery consulted, they are willing to perform surgery due to patient's significant comorbidities and lack of mobility in right lower extremity; they are unsure of functional benefit; nevertheless, they are willing to put patient on OR board for surgery tomorrow #Seizure disorder #T2DM #Disseminated coccidiomycosis #HTN patient is on levetriacetam, cresemba at home. Plan: Restart home keppra and cresemba Insulin sliding scale Monitor BP Disposition: Med-Surg DVT prophylaxis: SCDs GI prophylaxis: Diet: Carb consistent low, with n.p.o. after midnight Lines: PIV CODE STATUS: Full code This case was discussed with my attending physician, Dr. Cuello, and senior resident, Dr. Veliz. Kody Gautam MD-PhD, PGY1 Attending Provider Attestation/Addendum I have seen and examined the patient. I was physically present for the [place] portions of the services provided including history, physical exam, diagnosis, treatment plans and orders. I agree with assessment and plan of care as documented by residents. After examination of the patient and review of the clinical data I feel that this patient needs admission to the hospital for further treatment/evaluation. Patient is a 54 years old male with past medical history of hypertension, intracerebral hemorrhage status post CHEESE WEIGHER shunt, seizure disorder, disseminated cocci meningitis, type 2 diabetes mellitus who presented to the ED with complaint of ground-level fall. In the ED, he was found to have acute displaced subcapital fracture of right hip on CT hip. Orthopedic surgery was contacted by ED, recommended admission for evaluation of possible surgical intervention. We will admit the patient for better management of right hip fracture secondary to ground-level fall. Patient is oriented x 1 at baseline, normally needs assistance with a North lift, has been working with physical therapy and has been able to walk around 70 feet with assistance and has been showing improvement in his mobility and strength. Patient has been seen by orthopedic surgery, discussion has been made with the family regarding surgical intervention, family is currently undecided if they want to proceed with the surgery. We will keep patient n.p.o. after midnight, hold his anticoagulation, and await family's decision regarding surgery. Analgesic regimen on board for pain control, we will continue his home medication for seizure disorder, hypertension, disseminated cocci and started him on insulin regimen for diabetes. Even though this this note was carefully revised there may still be minor errors in administrator pesticide due to voice recognition software. Gayle Cuello MD
[2025-08-29] MEDS: HEPARIN SOD INJ 5000 UNIT/ML VIAL SC (14:22)
--- NOTE | 2025-08-29 14:25 | PD.ORTHCON ---
HPI Consult details Reason for consultation narrative: Right hip pain History of present illness: Patient is a 54-year-old male with right hip pain after a fall. He was at a [facility] for the last 2 months after a hemorrhagic stroke and recurrent coccidial meningitis. He has been bedbound for over 2 months. He suffered severe hemiparesis from the stroke and has significant weakness on the right side and has been able to walk or even stand for transfers. He has diminished sensation on the right side as well according to him. I talked with both him and his today at bedside. Past Medical History Past Medical History Comments PMH COMMENT: Coccidial meningitis disseminated with multiple recurrences as well as a hemorrhagic stroke and hemiparesis Meds Home Medications and Allergies Home Medications ?Medication ?Instructions ?Recorded ?Confirmed ?Type albuterol sulfate 2.5 mg/0.5 mL 2.5 mg inhalation Q6H PRN 08/05/25 08/29/25 History solution for nebulization shortness of breath or wheezing amitriptyline 10 mg tablet 10 mg PO HS 08/05/25 08/29/25 History famotidine 20 mg tablet 20 mg PO DAILY 08/05/25 08/29/25 History gabapentin 300 mg capsule 300 mg PO Q8H 08/05/25 08/29/25 History insulin lispro 100 unit/mL 1 sliding scale dose subcut 08/05/25 08/29/25 History subcutaneous solution USEASDIRECTD levetiracetam 500 mg tablet 500 mg PO Q12H 08/05/25 08/29/25 History lisinopril 40 mg tablet 40 mg PO DAILY 08/05/25 08/29/25 History Allergies Allergy/AdvReac Type Severity Reaction Status Date / Time No Known Allergies Allergy Verified 08/28/25 21:55 Exam Vital Signs Temp Pulse Resp BP Pulse Ox O2 Del Method FiO2 98.3 F 104 H 17 128/94 H 98 Room Air 98 08/29/25 10:39 08/29/25 10:39 08/29/25 10:39 08/29/25 10:39 08/29/25 10:39 08/29/25 10:39 08/29/25 08:10 Additional findings Additional findings: Patient is in no acute distress and is cooperative with the examination today. Patient has a normal mood and affect. He is alert and oriented x 2 Breathing is nonlabored. In no respiratory distress. Bilateral extremities were evaluated and demonstrates diminished sensation on the right side. He actually has 0 out of 5 EHL, plantarflexion, dorsiflexion of the right ankle. Motor exam is difficult proximally including the iliopsoas given the fracture. He has pain with logroll. He has diminished sensation in his thigh and right knee but he can feel pinprick. Left lower examination demonstrates no pain with logroll. He has preserved internal rotation and has full sensation and has 5 out of 5 strength in iliopsoas, quad, hamstrings, EHL, FHL, plantar foot for flexion, and dorsiflexion X-rays of the right hip demonstrates a displaced femoral neck fracture. This can be very clearly seen on the axial of the CT where there is significant displacement. This can also be seen on the crosstable lateral Results - Ortho Labs 08/30/25 04:41 08/30/25 04:41 Labs: Short CBC 08/28/25 Range/Units 23:18 WBC 8.3 (3.8-10.6) Thou/mm3 Hgb 11.8 L (13.5-16.0) g/dL Hct 35.8 L (41.0-53.0) % Plt Count 212 D (140-440) Thou/mm3 BMP 08/28/25 23:18 Sodium 143 Potassium 4.4 Chloride 103 Carbon Dioxide 30.5 BUN 27 H Creatinine 1.0 Glucose 140 H Calcium 9.1 Liver Function 08/28/25 Range/Units 23:18 Total Bilirubin 0.2 L (0.3-1.2) mg/dL AST 13 (0-34) U/L ALT 15 (10-49) U/L Alkaline Phosphatase 105 (46-116) U/L Albumin 4.2 (3.5-5.0) gm/dL Assessment & Plan Problem List (1) Closed fracture of neck of right femur: Status: Acute Assessment and plan: Patient is a 54-year-old male with disseminated coccidiomycosis as well as recurrent meningitis and an hemorrhagic stroke with significant hemiparesis on the right side including a EXERCISE MANAGER shunt. He has been nonambulatory for over 2 months and had a fall in a [facility] recently. It is unknown whether he can get surgery as he has significant limitation that has been bedbound before the fall yesterday. I discussed with the patient that there are 2 options. I would recommend either a hemiarthroplasty or nonoperative treatment. I do think that either option is reasonable as he has been bedbound and it is unpredictable whether he is going to have improved function due to the hemorrhagic stroke and significant hemiparesis from the prior injury and the recurrent coccidiomycosis makes me wonder what his further prognosis will be. I discussed both with his son and his and him the different options. I discussed that he is at high risk for medical complications and that his recovery will be extremely unpredictable given his hemorrhagic stroke and neurological issues. He has been bedbound for 2 months and I am not certain whether he will improve functionally from this especially since that he has 0 out of 5 ankle motion. I discussed the risks including infection, dislocation, nonunion, avascular necrosis, damage to nerves and vessels both nonoperative and operative treatments. The family is still undecided and would like to consider whether it is worth it. The primary care team has found out that the patient continues to improve in the shelter home and we thus recommended a hip hemiarthroplasty as able option. We discussed that his recovery will be quite unpredictable given the prior stroke and neurologic issues In addition, I discussed the surgery with his ex- Gale who lives with her son Isma in [place]. The son is post to sign for him but I do think the patient is relatively alert and oriented today and both of them are agreeable to surgery. I would recommend that both sign off on the surgery. We can consider a rn case manager hospice involved if that is still unclear but every family member I have talked to wants to proceed with surgery at this time
[2025-08-29] MEDS: MIRTAZAPINE 15 MG TABLET PO (20:04)
[2025-08-29] MEDS: MELATONIN 3 MG TABLET PO (20:05)
[2025-08-30] VITALS (19 sets, daily range): BP systolic 126–176; BP diastolic 90–110; PULSE 89–115; RESP 13–96; TEMP 35.8–37.1; O2SAT 92–100
--- NOTE | 2025-08-30 05:28 | EKG_ITS ---
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
[2025-08-30] MEDS: GABAPENTIN 300 MG CAPSULE PO ×2 (05:31→21:43)
[2025-08-30 06:17] LABS: Basophils # (Auto) 0.1 Thou/mm3 (0.0-0.2); Basophils % (Auto) 1 % (0-2.5); Eosinophils # (Auto) 0.2 Thou/mm3 (0.0-0.5); Eosinophils % (Auto) 2 % (0-10); Hematocrit 37.1 % (41.0-53.0); Hemoglobin 12.4 g/dL (13.5-16.0); Immature Granulocytes Auto 0.05 Thou/mm3 (0.00-0.00); Lymphocytes # (Auto) 1.4 Thou/mm3 (1.0-4.8); Lymphocytes % (Auto) 15 % (10-50); Mean Corpuscular HGB Conc 33.4 g/dl (31.0-37.0); Mean Corpuscular Hemoglobin 30.0 pg (25.0-35.0); Mean Corpuscular Volume 90 fL (80-100); Monocytes # (Auto) 0.8 Thou/mm3 (0.0-0.8); Monocytes % (Auto) 8 % (0-12); Neutrophils # (Auto) 6.6 Thou/mm3 (1.8-7.7); Neutrophils % (Auto) 73 % (37-80); Nucleated Red Blood Cell # 0.00 Thou/mm3 (0.00-0.00); Nucleated Red Blood Cell % 0 /100 WBC (0); Platelet Count 180 Thou/mm3 (140-440); RDW Standard Deviation 45.3 fL (35.1-43.9); Red Blood Count 4.13 Miln/mm3 (4.50-5.90); White Blood Count 9.0 Thou/mm3 (3.8-10.6)
[2025-08-30 06:35] LABS: Alanine Aminotransferase 13 U/L (10-49); Albumin, Serum 4.5 gm/dL (3.5-5.0); Albumin/Globulin Ratio 1.4 (1.2-2.2); Alkaline Phosphatase 85 U/L (46-116); Anion Gap 10 (7-16); Aspartate Amino Transferase 13 U/L (0-34); BUN/Creatinine Ratio 15 Ratio (12-20); Bilirubin,Total 0.6 mg/dL (0.3-1.2); Blood Urea Nitrogen 15 mg/dL (9-23); Calcium 9.7 mg/dL (8.3-10.6); Calcium (Corrected) 9.7 mg/dL (8.5-10.1); Carbon Dioxide 28.2 mMol/L (20.0-31.0); Chloride 102 mMol/L (98-107); Creatinine (Component) 1.0 mg/dL (0.6-1.3); Estimated Creatinine Clearance 65.0 mL/min (>60); Globulin 3.3 gm/dL (2.3-3.5); Glucose 149 mg/dL (74-106); Magnesium 2.0 mg/dL (1.6-2.6); Osmolality,Calculated 283 (275-295); Phosphorous 4.8 mg/dL (2.4-5.1); Potassium 4.7 mMol/L (3.4-5.1); Sodium 140 mMol/L (136-145); Total Protein 7.8 gm/dL (5.7-8.2); eGFR > 60 See Note
--- NOTE | 2025-08-30 06:42 | PC.NURSE ---
survey cad technician Alysia called this nurse regarding patient's campus monitor on sinus tach 140's-120's. Assess patient in the room , denies any chest pain, palpitation, pain, SOB, only feels nervous. MD (Dr. Mario) was notified. came in to see and examine the patient. New orders were given.
[2025-08-30 06:45] LABS: Glucose Estimated Average 131 mg/dL (80-131); Hemoglobin A1C 6.2 % Hgb (4.8-6.0)
[2025-08-30] MEDS: FLUDROCORTISONE ACETATE 0.1 MG TABLET PO (09:38)
--- NOTE | 2025-08-30 12:04 | PC.SS ---
Patient is altered. SS received call from floor nurse that patient was admitted for right hip fracture due to a fall at his SNF facility. Patient is to have surgery today. Floor nurse inquired about consents. SS spoke to Isis @ [facility] where patient resides on who has been signing consents. Isis states since patient has been at their facility since July of this year, the , Gale, has been the point of contact and alt medical decision maker. Isis states that prior to their faciity patient was at [facility] and Gale had signed consents as well. SS contacted Gale to inquire as to who has been signing for patient at facility. Gale confirmed she has been signing. Gale states her relationship to patient is she is his girlfriend and they are not but have been together for the last 30 years. Gale states she spoke to patient's son, this morning and he is fine with her making medical decisions as long as he is involved. No POA or healthcare advance directive on file. Notes from prior admission dated, 08/05/2025 have been documented that the alt medical decision maker is Gale Mukherjee. Gale was listed as the life partner. SS updated patient's floor nurse. SS clarified patient's fall at facility. Isis @ [facility] states they already reported to [facility] and [facility] and Larry on the at 12:34a.m.
--- NOTE | 2025-08-30 13:23 | ESPR_ITS ---
Documentation for date of: 08/30/25 Senior resident attestation: Patient evaluated and examined at the bedside, plan of care discussed with rest of the team including my attending physician, except as noted. 54-year-old male with past medical history of hypertension, intracerebral hemorrhage s/p MAINTENANCE FITTER shunt (Jun 2025), seizures, disseminated cocci meningitis (Sep 2024), and T2DM was admitted to the hospital on 08/29/2025 due to to acute right hip fracture s/p ground-level fall. Patient at baseline is around AO x 1 and when asked as he stated that he tried to walk and fell. Spoke with patient's nursing facility who stated that the patient had been working with physical therapy for about 1 week prior to his fall today and that normally he needs assistance with a North lift x 2 to move around by nursing staff, but with physical therapy has been working with 2 physical therapist and has been able to walk around 70 feet with assistance he has also done some low weight lifting with his lower extremity and overall they have seen improvement in the patient's mobility and strength. #Right femoral neck fracture s/p hip repair #Ground-level fall Orthopedic surgery on board, possible surgical intervention once family decides if they would like to proceed with surgical intervention. DVT prophylaxis aspirin BID to be started tomorrow. Quresh PGY3 Subjective Subjective Interval history: Patient was seen and examined at bedside; no acute events overnight. After receiving report from facility regarding patient's improvement in mobility post CVA, orthopedic surgery more amenable to surgery; they spoke with family members, and obtained consent for surgery which will be happening today. Exam Vital Signs Temp Pulse Resp BP Pulse Ox O2 Del Method FiO2 96.5 F L 96 16 126/90 H 93 L Room Air 98 08/30/25 11:35 08/30/25 11:35 08/30/25 11:35 08/30/25 11:35 08/30/25 11:35 08/30/25 11:35 08/29/25 08:10 Narrative Exam General: A/O x1 (baseline since CVA), no acute distress, well-nourished, well- developed Eyes: PERRL, EOMI. Anicteric, vision grossly intact. Ears: No ear pain, no ear discharge, Hearing grossly intact. Nose: No nasal discharge. Mouth/Throat: Moist mucous membranes, no redness, no lesions. Neck: Neck supple, non-tender, no cervical lymphadenopathy. Lungs: Clear RAQUEL to auscultation and percussion, No accessory muscle use. Cardio: Normal S1/S2, regular rhythm, no murmurs, no JVD or carotid bruits. Abdomen: Soft, non-tender, no palpable masses, peristalsis present, no guarding or rebound. Extremities: Symmetrical, no significant deformities, no peripheral edema , R hip tenderness, peripheral pulses present. Skin: No rashes, no lesions, warm to touch. Neuro: Reduced sensation of RLE, patient can wiggle toes on right lower extremity. Psych: appropriate mood and effect. Objective Labs 08/31/25 04:54 08/31/25 04:54 Labs: Laboratory Results - last 24 hr 08/30/25 04:41 WBC 9.0 RBC 4.13 L Hgb 12.4 L Hct 37.1 L MCV 90 MCH 30.0 MCHC 33.4 RDW Std Deviation 45.3 H Plt Count 180 D Neut % (Auto) 73 Lymph % (Auto) 15 Grainger % (Auto) 8 Eos % (Auto) 2 Baso % (Auto) 1 Neut # (Auto) 6.6 Lymph # (Auto) 1.4 Grainger # (Auto) 0.8 Eos # (Auto) 0.2 Baso # (Auto) 0.1 Immature Gran # (Auto) 0.05 H Absolute Nucleated RBC 0.00 Immature Gran % 1 H Nucleated RBC % 0 Sodium 140 Potassium 4.7 Chloride 102 Carbon Dioxide 28.2 Anion Gap 10 BUN 15 Creatinine 1.0 Estim Creat Clear Calc 65.0 eGFR > 60 BUN/Creatinine Ratio [address] Glu mg/dL 131 Hemoglobin A1c 6.2 H Calculated Osmolality 283 Calcium 9.7 Corrected Calcium 9.7 Phosphorus 4.8 Magnesium 2.0 Total Bilirubin 0.6 AST 13 ALT 13 Alkaline Phosphatase 85 D Total Protein 7.8 Albumin 4.5 Globulin 3.3 Albumin/Globulin Ratio 1.4 Quality Measures Quality Measures none Assessment & Plan Assessment Current Active Medications: Generic Name Dose Route Start Last Admin Trade Name Freq PRN Reason Stop Dose Admin Acetaminophen 650 mg 08/29/25 08:07 Acetaminophen 325 Mg Tablet PO 09/28/25 08:06 Q6H PRN Fever >100.4 Acetaminophen 650 mg 08/29/25 08:07 Acetaminophen 325 Mg Tablet PO 09/28/25 08:06 Q6H PRN PAIN SCALE 1-3 (mild Hydrocodone Bitart/Acetaminophen 1 tab 08/29/25 08:07 Hydrocodone/Apap 5/325 Tablet PO 09/03/25 08:06 Q4HR PRN PAIN SCALE 4-6 (Moderate Cresemba 186 Mg 0 ea 08/29/25 18:30 08/30/25 09:39 Capsule PO 09/28/25 18:29 2 capsule QDAY DERRICK Administration Dextrose 50 ml 08/29/25 09:25 Dextrose 50%-Water Inj 50 Ml Syringe IV 09/28/25 09:24 Q15MIN PRN BG <50 OR BG <70 & pt unresponsive Dextrose 25 ml 08/29/25 09:25 Dextrose 50%-Water Inj 50 Ml Syringe IV 09/28/25 09:24 Q15MIN PRN BG 50-70 responsive npo pt Fludrocortisone Acetate 0.1 mg 08/29/25 09:25 08/30/25 09:38 Fludrocortisone Acetate 0.1 Mg Tablet PO 09/28/25 09:24 0.1 mg DAILY DERRICK Administration Gabapentin 300 mg 08/29/25 09:30 08/30/25 05:31 Gabapentin 300 Mg Capsule PO 09/28/25 09:29 300 mg Q8HR DERRICK Administration Glucagon 1 mg 08/29/25 09:25 Glucagon Inj 1 Mg Vial IM Q15MIN PRN BG <70, and no IV access Heparin Sodium (Porcine) 5,000 unit 08/29/25 14:00 08/29/25 14:22 Heparin Sod Inj 5000 Unit/Ml Vial SC 09/12/25 13:59 5,000 unit On Hold: 08/29/25 15:02 Q8HR DERRICK Administration Insulin Human Lispro 0 unit 08/29/25 12:00 08/30/25 11:47 Insulin Lispro (Admelog) 1 Unit/0.01 Ml Unit SC 09/28/25 11:59 Not Given Q6HR DERRICK Protocol Levetiracetam 500 mg 08/29/25 09:30 08/30/25 09:38 Levetiracetam 250 Mg Tablet PO 09/28/25 09:29 500 mg Q12HR DERRICK Administration Melatonin 3 mg 08/29/25 21:00 08/29/25 20:05 Melatonin 3 Mg Tablet PO 09/28/25 20:59 3 mg HS DERRICK Administration Midodrine 10 mg 08/29/25 09:24 Midodrine 5 Mg Tablet PO 09/28/25 09:29 TID PRN SBP < 90 Mirtazapine 15 mg 08/29/25 21:00 08/29/25 20:04 Mirtazapine 15 Mg Tablet PO 09/28/25 20:59 15 mg HS DERRICK Administration Morphine Sulfate 1 mg 08/29/25 12:12 08/29/25 12:45 Morphine Sulf Inj 4 Mg/Ml Vial IVP 09/03/25 12:11 1 mg Q6HR PRN Administration PAIN SCALE 7-10 (Severe Ondansetron HCl 4 mg 08/29/25 08:07 Ondansetron Inj 2 Mg/Ml Inj 2 Ml IVP 09/28/25 08:06 Q6H PRN NAUSEA OR VOMITING Protocol Plan Patient is a 54-year-old male with past medical history of hemorrhagic CVA, HTN, seizures, T2DM, disseminated coccidiomycosis presenting from SNF on 08/28/2025 for unwitnessed fall. Patient was admitted for new neurological findings and right hip fracture in the setting of unwitnessed fall on 08/29/25. #Unwitnessed fall with new-onset neurological symptoms #R hip fracture #Hx of hemorrhagic CVA Patient had unwitnessed fall yesterday at SNF, with history of hemorraghic CVA (07/01). CT head negative, CT hip positive for R hip fracture. Patient endorses RLE loss of sensation and loss of sensation on both sides of face. After patient's SNF was spoken with, we learned that he was working with PT for 1 week; has had improvement per staff. He can walk 70 feet with 2 people assisting, lifting 2 pound weights. Uses north lift x2 for transfer. Plan: Orthopedic surgery consulted, they are willing to do surgery, they have received consent from patient's family, and he is on the OR board for today. #Seizure disorder #T2DM #Disseminated coccidiomycosis #HTN patient is on levetriacetam, cresemba at home. Plan: Restart home keppra and cresemba Insulin sliding scale Monitor BP Disposition: Med-Surg DVT prophylaxis: SCDs GI prophylaxis: Diet: N.p.o. Lines: PIV CODE STATUS: Full code This case was discussed with my attending physician, Dr. Maurer, and senior resident, Dr. Mora. Kody Gautam MD-PhD, PGY1 Attending Provider Attestation/Addendum I, Holly Maurer, DO, attest that I was physically present for the kerns portions of the service and evaluated the patient with the resident and I reviewed and discussed the case with the resident and agree with the resident's findings and plans of care as documented above Patient seen and eval this a.m. is at bedside. Patient had just been seen by orthopedic surgeon and family has signed consent to proceed with surgery this afternoon. Patient is to undergo repair of right hip fracture. Patient denies any pain. He denies any chest pain, abdominal pain, nausea, fevers or chills
--- NOTE | 2025-08-30 19:00 | PC.NURSE ---
Report received, pt currently in surgery.
--- NOTE | 2025-08-30 19:40 | PD.SUROPNT ---
Date of Procedure 08/30/25 Pre Op Diagnosis right femoral neck fracture Post Op Diagnosis right femoral neck fracture Procedure right hip hemiarthroplasty Findings femoral neck fracture displaced Procedure Description Indications: The patient is a 54y.o. year-old with a right femoral neck fracture after a ground-level fall. He previously had meningitis from disseminated coccidiomycosis and a hemorrhagic stroke and has significant medical comorbidities and was bedbound for the last 2 months. After considering the patient's condition and the impact of their hip injury on the patient's quality of life and risks of nonoperative treatment, total hip replacement was offered as a reasonable option. Prior to the surgery I discussed the nature of the hip replacement surgery including alternatives to surgery and the purpose of, and indications for proceeding with surgery. I discussed that this surgery is a shared decision between the patient and the surgeon. Risks and benefits and alternatives of the procedure have been explained to the patient and their family. Anesthesia complications and risks include but are not limited to stroke, heart attack, and . The surgical risks include but are not limited to infection, instability/dislocation, bleeding, nerve and blood vessel injury, deep vein thrombosis, pulmonary embolus, stiffness, pain, scar, need for reoperation, leg length discrepancy, thigh numbness, weakness, and mechanical failure of the implant including loosening, metal complications, metal allergy, wear or breakage. I discussed the expected recovery from surgery and the importance of compliance with all our pre and post-operative recommendations in order to maximize the recovery. The patient/family understands the risks of loss of life, loss of limb and, loss of function and wishes to proceed. They understand they are at increased risk for infection given their history of smoking. A signed and witnessed consent was obtained and placed in the chart. We also discussed that she is at risk for wound complications because of her blood thinner history. She was bridged on heparin drip as her INR went down to 1.2. Patient Positioning: The patient was placed in the lateral decubitus position on a standard table using a pegboard. An axillary role was placed. All extremities were padded to ensure adequate protection. A venegas catheter was aseptically inserted. Time Out: A timeout was performed prior to the procedure which verified the correct patient, positioning, operation to be performed, operative site, antibiotics, allergies, imaging, and any other concerns. All parties were in agreement. Procedure in detail: The operative site was cleaned and draped in the usual sterile fashion. A final timeout was performed with all parties in agreement. A modified anterolateral approach to the hip was utilized. A 16cm skin incision was made centered over the greater trochanter in line with the femur. This was taken down through skin and subcutaneous tissue using a 10 blade. Bleeding was controlled using electrocautery. The fascia was identified and split in line with the femur. The charnley retractor was then placed. The abductor insertion was identified and a split made in the anterior 1/3 of the tendon proximally. Retractors were placed and the gluteus minimus was visualized. A capsulotomy was made down to the femoral neck anterior to the minimus. A split was then made in the anterior 1/3 of the vastus lateralis. A retractor was then placed anterior to the femoral shaft, the tendon was tagged with #1 ethibond sutures and a U-shaped split was made in the anterior 1/3 of the abductor tendon being careful to leave enough tendon to re-attach. The hip was then gently externally rotated as the anterior tissues were taken down with the tendon and capsule as one sleeve. A femoral neck fracture was visualized. The hip was gently dislocated. Retractors were placed around the femoral neck and the femoral neck osteotomy was then made to freshen up the cut. The femoral head was then removed. We then turned our attention to the femur. The leg was brought into external rotation and the femur was exposed. A canal finder was used followed by a box osteotomy and the femur was broached sequentially. The trial stem was then left in and the hip was trialed using various neck offsets and head sizes until the appropriate size was found based on leg length, stability. Once we were satisfied with the construct a cross-table AP pelvis radiograph was obtained to confirm appropriate positioning and sizing. The hip was then dislocated and the trials were then removed and the final stem impacted into placed. The hip was then again trialed and the appropriate head size identified. The dennis taper was then cleaned and dried and the final head impact into place and tested. The acetabulum was irrigated and confirmed to be free of debris. The hip was then reduced and taken through range of motion. The hip was stable in abduction and external rotation, adduction and external rotation, flexion past 90 degrees and internal rotation past 20 degrees. It did not sublux throughout range of motion and no impingement was detected. Leg lengths were appropriately restored based on preoperative leg lengths and intraoperative testing. . The hip was then copiously irrigated with dilute betadine followed by normal saline. The hip was then injected with the cocktail per protocol The hip was the closed in layers. The abductor tendon was closed with #1 ethibond. The fascia was closed with 0 Vicryl followed by an 0 V-lock. . The deep layer was closed with 0-Vicryl and the subcutaneous layer by a 2-0 Vicryl. The subdermal layer was closed with a 3-0 monocryl. The skin was then cleaned and dried and steri-strips placed followed by a sterile dressing. The drapes were then taken down and the patient was placed supine. Leg lengths were confirmed to be appropriate and the patient's lower extremities were warm and well perfused with brisk capillary refill and palpable pulses. The patient was then awoken, transferred to the [facility] and taken to the PACU in stable condition. They tolerated the procedure well. The patient's family/caregiviers were made aware of their condition. Postoperative plan Activity: WBAT, no hip precautions , no active hip abduction DVT Prophylaxis: aspirin 81mg BID Antibiotics: Standard postoperative antibiotics x 24 hours Implants: [place] 49 bipolar head, 7 high actis Anesthesia GETA Implants Implants comments: sadia Pathology / specimen None Pathology comment: none Estimated Blood Loss 150 Condition Stable Disposition same day Surgeon Kade Walton MD Surgical Staff Operation Date: 08/30/25 15:45 Case Staff Anesthesiologist: Dickson Mendez RNgeneral production laborer: Prashanth Stanton
--- NOTE | 2025-08-30 19:59 | XR_ITS ---
EXAMINATION: AP pelvis single view TECHNIQUE: AP portable supine pelvis single view Date and time: August 30, 2025, 2015 hours INDICATIONS: Postop hemiarthroplasty FINDINGS: Right hip hemiarthroplasty. Satisfactory alignment Left hip bones of the pelvis intact IMPRESSION: Right hip hemiarthroplasty with satisfactory alignment
--- NOTE | 2025-08-30 20:08 | SUR.PHASEI ---
2008: Pt. wakes to name then drifts back to sleep, vitals stable, breathing unlabored, no signs of distress, dressing to right hip CDI, no active bleed noted, bilateral dorsalis pedis pulses strong and regular, cap refill to bilateral feet less than 3 seconds, report received from MD Mendez and Angel JERONIMO.
--- NOTE | 2025-08-30 20:55 | SUR.PHASEI ---
2054: Pt. awake and alert, no complaint of pain or nausea, dressing to right hip CDI, no active bleed noted, bilateral dorsalis pedis pulses strong and regular, cap refill to bilateral feet less than 3 seconds, pt. able to move bilateral legsgave report to Candida JERONIMO prior to transfer to room 375. Family made aware of transfer to room.
--- NOTE | 2025-08-30 20:59 | PC.NURSE ---
Pt back from surgery, dressing to right hip in place, repositioned for comfort.
[2025-08-30] MEDS: MELATONIN 3 MG TABLET PO (21:43)
[2025-08-30] MEDS: MIRTAZAPINE 15 MG TABLET PO (21:43)
[2025-08-30] MEDS: ceFAZolin/D5W 2 GM IV 2 GM/100 ML BAG IV (23:01)
[2025-08-30] MEDS: MORPHINE SULF INJ 4 MG/ML VIAL 1 MG IVP (23:01)
[2025-08-31] VITALS (10 sets, daily range): BP systolic 120–139; BP diastolic 87–99; PULSE 102–129; RESP 17–22; TEMP 36.1–37.1; O2SAT 95–98; BMI 12.0
--- NOTE | 2025-08-31 02:30 | PC.NURSE ---
e d tech called pt heart rate increased 130-135, into room pt is fidgeting in the bed, pt states that he is not in any pain or discomfort, vital signs taken , HR 134 blood pressue 134/101 respirations 22 sats 95% RA, temp 98.[address] Adhikari and Dr. Arceo at bedside, order in place for 500ml LR bolus and monitor.
[2025-08-31] MEDS: RINGERS LACTATED 1000 ML 500 ML 999 ML IV (02:44)
[2025-08-31] MEDS: GABAPENTIN 300 MG CAPSULE PO ×3 (05:42→21:01)
[2025-08-31 05:58] LABS: Basophils # (Auto) 0.0 Thou/mm3 (0.0-0.2); Basophils % (Auto) 0 % (0-2.5); Eosinophils # (Auto) 0.0 Thou/mm3 (0.0-0.5); Eosinophils % (Auto) 0 % (0-10); Hematocrit 33.7 % (41.0-53.0); Hemoglobin 11.3 g/dL (13.5-16.0); Immature Granulocytes Auto 0.08 Thou/mm3 (0.00-0.00); Lymphocytes # (Auto) 0.7 Thou/mm3 (1.0-4.8); Lymphocytes % (Auto) 6 % (10-50); Mean Corpuscular HGB Conc 33.5 g/dl (31.0-37.0); Mean Corpuscular Hemoglobin 29.6 pg (25.0-35.0); Mean Corpuscular Volume 88 fL (80-100); Monocytes # (Auto) 0.8 Thou/mm3 (0.0-0.8); Monocytes % (Auto) 7 % (0-12); Neutrophils # (Auto) 9.6 Thou/mm3 (1.8-7.7); Neutrophils % (Auto) 86 % (37-80); Nucleated Red Blood Cell # 0.00 Thou/mm3 (0.00-0.00); Nucleated Red Blood Cell % 0 /100 WBC (0); Platelet Count 184 Thou/mm3 (140-440); RDW Standard Deviation 43.9 fL (35.1-43.9); Red Blood Count 3.82 Miln/mm3 (4.50-5.90); White Blood Count 11.3 Thou/mm3 (3.8-10.6)
[2025-08-31 06:32] LABS: Alanine Aminotransferase 10 U/L (10-49); Albumin, Serum 4.3 gm/dL (3.5-5.0); Albumin/Globulin Ratio 1.5 (1.2-2.2); Alkaline Phosphatase 73 U/L (46-116); Anion Gap 11 (7-16); Aspartate Amino Transferase 15 U/L (0-34); BUN/Creatinine Ratio 20 Ratio (12-20); Bilirubin,Total 0.4 mg/dL (0.3-1.2); Blood Urea Nitrogen 20 mg/dL (9-23); Calcium 9.2 mg/dL (8.3-10.6); Calcium (Corrected) 9.2 mg/dL (8.5-10.1); Carbon Dioxide 26.6 mMol/L (20.0-31.0); Chloride 101 mMol/L (98-107); Creatinine (Component) 1.0 mg/dL (0.6-1.3); Estimated Creatinine Clearance 65.0 mL/min (>60); Globulin 2.9 gm/dL (2.3-3.5); Glucose 268 mg/dL (74-106); Magnesium 1.7 mg/dL (1.6-2.6); Osmolality,Calculated 289 (275-295); Phosphorous 3.7 mg/dL (2.4-5.1); Potassium 5.1 mMol/L (3.4-5.1); Sodium 139 mMol/L (136-145); Total Protein 7.2 gm/dL (5.7-8.2); eGFR > 60 See Note
[2025-08-31] MEDS: INSULIN LISPRO (AdmeLOG) 1 UNIT/0.01 ML UNIT SC ×3 (07:40→21:09)
[2025-08-31] MEDS: MUPIROCIN OINT 2% 15 GM TUBE TOP ×3 (08:53→21:31)
[2025-08-31] MEDS: FLUDROCORTISONE ACETATE 0.1 MG TABLET PO (08:54)
[2025-08-31] MEDS: HYDROcodone/APAP 5/325 TABLET 1 TAB PO ×2 (08:54→14:48)
[2025-08-31] MEDS: FAMOTIDINE 20 MG TABLET PO (08:55)
--- NOTE | 2025-08-31 09:29 | PD.RESPRO ---
Documentation for date of: 08/31/25 Subjective Subjective Interval history: Patient was seen and examined at bedside; there were no acute overnight events. Patient had hip replacement surgery on 08/30/2025; he has some hip pain post surgery. Exam Vital Signs Temp Pulse Resp BP Pulse Ox O2 Del Method O2 Flow Rate 98.7 F 111 H 22 H 138/98 H 97 Nasal Cannula 2 08/31/25 07:43 08/31/25 08:53 08/31/25 07:43 08/31/25 08:53 08/31/25 07:43 08/31/25 07:43 08/31/25 07:43 FiO2 98 08/29/25 08:10 Narrative Exam General: A/O x1 (baseline since CVA), no acute distress, well-nourished, well-developed Eyes: PERRL, EOMI. Anicteric, vision grossly intact. Ears: No ear pain, no ear discharge, Hearing grossly intact. Nose: No nasal discharge. Mouth/Throat: Moist mucous membranes, no redness, no lesions. Neck: Neck supple, non-tender, no cervical lymphadenopathy. Lungs: Clear RAQUEL to auscultation and percussion, No accessory muscle use. Cardio: Normal S1/S2, regular rhythm, no murmurs, no JVD or carotid bruits. Abdomen: Soft, non-tender, no palpable masses, peristalsis present, no guarding or rebound. Extremities: Symmetrical, no significant deformities, no peripheral edema , R hip tenderness, peripheral pulses present. Skin: No rashes, no lesions, warm to touch. Neuro: Reduced sensation of RLE, patient can wiggle toes on right lower extremity. Psych: appropriate mood and effect. Objective Labs 08/31/25 04:54 08/31/25 04:54 Labs: Laboratory Results - last 24 hr 08/31/25 04:54 WBC 11.3 H RBC 3.82 L Hgb 11.3 L Hct 33.7 L MCV 88 MCH 29.6 MCHC 33.5 RDW Std Deviation 43.9 Plt Count 184 Neut % (Auto) 86 H Lymph % (Auto) 6 L [place] % (Auto) 7 Eos % (Auto) 0 Baso % (Auto) 0 Neut # (Auto) 9.6 H Lymph # (Auto) 0.7 L [place] # (Auto) 0.8 Eos # (Auto) 0.0 Baso # (Auto) 0.0 Immature Gran # (Auto) 0.08 H Absolute Nucleated RBC 0.00 Immature Gran % 1 H Nucleated RBC % 0 Sodium 139 Potassium 5.1 Chloride 101 Carbon Dioxide 26.6 Anion Gap 11 BUN 20 Creatinine 1.0 Estim Creat Clear Calc 65.0 eGFR > 60 BUN/Creatinine Ratio 20 Glucose 268 H D Calculated Osmolality 289 Calcium 9.2 Corrected Calcium 9.2 Phosphorus 3.7 Magnesium 1.7 Total Bilirubin 0.4 AST 15 ALT 10 Alkaline Phosphatase 73 Total Protein 7.2 Albumin 4.3 Globulin 2.9 Albumin/Globulin Ratio 1.5 Quality Measures Quality Measures none Assessment & Plan Assessment Current Active Medications: Generic Name Dose Route Start Last Admin Trade Name Freq PRN Reason Stop Dose Admin Acetaminophen 650 mg 08/29/25 08:07 Acetaminophen 325 Mg Tablet PO 09/28/25 08:06 Q6H PRN Fever >100.4 Acetaminophen 650 mg 08/29/25 08:07 Acetaminophen 325 Mg Tablet PO 09/28/25 08:06 Q6H PRN PAIN SCALE 1-3 (mild Hydrocodone Bitart/Acetaminophen 1 tab 08/29/25 08:07 08/31/25 08:54 Hydrocodone/Apap 5/325 Tablet PO 09/03/25 08:06 1 tab Q4HR PRN Administration PAIN SCALE 4-6 (Moderate Cresemba 186 Mg 0 ea 08/29/25 18:30 08/31/25 08:55 Capsule PO 09/28/25 18:29 2 capsule QDAY DERRICK Administration Dextrose 50 ml 08/29/25 09:25 Dextrose 50%-Water Inj 50 Ml Syringe IV 09/28/25 09:24 Q15MIN PRN BG <50 OR BG <70 & pt unresponsive Dextrose 25 ml 08/29/25 09:25 Dextrose 50%-Water Inj 50 Ml Syringe IV 09/28/25 09:24 Q15MIN PRN BG 50-70 responsive npo pt Famotidine 20 mg 08/31/25 09:00 08/31/25 08:55 Famotidine 20 Mg Tablet PO 09/30/25 08:59 20 mg DAILY DERRICK Administration Fludrocortisone Acetate 0.1 mg 08/29/25 09:25 08/31/25 08:54 Fludrocortisone Acetate 0.1 Mg Tablet PO 09/28/25 09:24 0.1 mg DAILY DERRICK Administration Gabapentin 300 mg 08/29/25 09:30 08/31/25 05:42 Gabapentin 300 Mg Capsule PO 09/28/25 09:29 300 mg Q8HR DERRICK Administration Glucagon 1 mg 08/29/25 09:25 Glucagon Inj 1 Mg Vial IM Q15MIN PRN BG <70, and no IV access Insulin Human Lispro 0 unit 08/31/25 07:30 08/31/25 07:40 Insulin Lispro (Admelog) 1 Unit/0.01 Ml Unit SC 09/30/25 07:29 2 unit ACHS DERRICK Administration Protocol Levetiracetam 500 mg 08/29/25 09:30 08/31/25 08:54 Levetiracetam 250 Mg Tablet PO 09/28/25 09:29 500 mg Q12HR DERRICK Administration Lisinopril 40 mg 08/31/25 09:00 08/31/25 08:53 Lisinopril 20 Mg Tablet PO 09/30/25 08:59 40 mg DAILY DERRICK Administration Melatonin 3 mg 08/29/25 21:00 08/30/25 21:43 Melatonin 3 Mg Tablet PO 09/28/25 20:59 3 mg HS DERRICK Administration Midodrine 10 mg 08/29/25 09:24 Midodrine 5 Mg Tablet PO 09/28/25 09:29 TID PRN SBP < 90 Mirtazapine 15 mg 08/29/25 21:00 08/30/25 21:43 Mirtazapine 15 Mg Tablet PO 09/28/25 20:59 15 mg HS DERRICK Administration Morphine Sulfate 1 mg 08/29/25 12:12 08/30/25 23:01 Morphine Sulf Inj 4 Mg/Ml Vial IVP 09/03/25 12:11 1 mg Q6HR PRN Administration PAIN SCALE 7-10 (Severe Mupirocin 0 gm 08/31/25 08:15 08/31/25 08:53 Mupirocin Oint 2% 15 Gm Tube TOP 09/07/25 08:14 1 applicatio TID DERRICK Administration Non-Formulary Medication 10 mg 08/30/25 21:24 Amitriptyline PO 09/29/25 21:23 HS DERRICK Ondansetron HCl 4 mg 08/29/25 08:07 Ondansetron Inj 2 Mg/Ml Inj 2 Ml IVP 09/28/25 08:06 Q6H PRN NAUSEA OR VOMITING Protocol Plan Patient is a 54-year-old male with past medical history of hemorrhagic CVA, HTN, seizures, T2DM, disseminated coccidiomycosis presenting from SNF on 08/[facility]/2025 for unwitnessed fall. Patient was admitted for new neurological findings and right hip fracture in the setting of unwitnessed fall on 08/29/25. #Right hip replacement surgery on 08/30/2025, postoperative day 1 #Unwitnessed fall with new-onset neurological symptoms #R hip fracture #Hx of hemorrhagic CVA Patient had unwitnessed fall at SNF, with history of hemorraghic CVA (07/01). CT head negative, CT hip positive for R hip fracture. Patient endorses RLE loss of sensation and loss of sensation on both sides of face. After patient's SNF was spoken with, we learned that he was working with PT for 1 week; has had improvement per staff. He can walk 70 feet with 2 people assisting, lifting 2 pound weights. Uses [employer] lift x2 for transfer. Plan: Orthopedic surgery performed right hip replacement on 08/30/2025 Will continue to monitor patient postoperatively for complications Orthopedic surgery is on board #Seizure disorder #T2DM #Disseminated coccidiomycosis #HTN patient is on levetriacetam, cresemba at home. Plan: Restart home keppra and cresemba Insulin sliding scale Monitor BP Disposition: Med-Surg DVT prophylaxis: SCDs GI prophylaxis: Diet: Carb consistent Lines: PIV CODE STATUS: Full code This case was discussed with my attending physician, Dr. Maurer, and senior resident, Dr. Mora. Kody Gautam MD-PhD, PGY1 Attending Provider Attestation/Addendum I, Holly Maurer, DO, attest that I was physically present for the [place] portions of the service and evaluated the patient with the resident and I reviewed and discussed the case with the resident and agree with the resident's findings and plans of care as documented above Patient seen and evaluated this AM. He is s/p right hip arthroplasty due to displaced right femoral neck fracture, POD1. Patient states he has some mild pain at incision site. Dressing clean,dry and intact. Patient has been noted to be tachycardic since 8pm yesterday, suspect due to pain. However, patient mental status at baseline is A&Ox2. Speech is quite tangential. Suspect that patient is unable to communicate his pain appropriately. Will start DVT ppx with aspirin 81mg PO BID this evening. PT ordered. states that she would like for patient to be discharged to a new SNF, discussed with SW. Anticipate DC within next 24h if patient condition remains stable/ improved.
[2025-08-31] MEDS: MIRTAZAPINE 15 MG TABLET PO (21:00)
[2025-08-31] MEDS: MELATONIN 3 MG TABLET PO (21:01)
[2025-08-31] MEDS: ASPIRIN EC 81 MG TABEC PO (21:02)
--- NOTE | 2025-08-31 22:10 | PC.NURSE ---
called Dr. Logan regarding patient has not had a bowel movement since 08/27/25, patient is passing gas and bowels are active. Per doctor will add PRN medication.
[2025-08-31] MEDS: SENNA/DOCUSATE SOD 1 TAB TABLET PO (23:33)
[2025-09-01] VITALS (10 sets, daily range): BP systolic 102–137; BP diastolic 72–98; PULSE 111–127; RESP 14–22; TEMP 36.3–37.1; O2SAT 94–99
--- NOTE | 2025-09-01 01:55 | PC.NURSE ---
called Dr. Lopez regarding patient's heart rate sustaining in the 130s, patient was using urinal a few minutes ago and is fidgety and shaking but is patient's baseline, patient states he is not in pain does not want pain medication. Per doctor to give patient some time to settle down and in 10 minutes to call back if patient's HR still elevated.
[2025-09-01] MEDS: MORPHINE SULF INJ 4 MG/ML VIAL 1 MG IVP (03:03)
[2025-09-01] MEDS: GABAPENTIN 300 MG CAPSULE PO (05:39)
[2025-09-01] MEDS: HYDROcodone/APAP 5/325 TABLET 1 TAB PO ×2 (05:39→22:37)
[2025-09-01] MEDS: MUPIROCIN OINT 2% 15 GM TUBE TOP (05:39)
[2025-09-01 06:25] LABS: Basophils # (Auto) 0.1 Thou/mm3 (0.0-0.2); Basophils % (Auto) 1 % (0-2.5); Eosinophils # (Auto) 0.2 Thou/mm3 (0.0-0.5); Eosinophils % (Auto) 1 % (0-10); Hematocrit 33.6 % (41.0-53.0); Hemoglobin 11.2 g/dL (13.5-16.0); Immature Granulocytes Auto 0.09 Thou/mm3 (0.00-0.00); Lymphocytes # (Auto) 1.4 Thou/mm3 (1.0-4.8); Lymphocytes % (Auto) 12 % (10-50); Mean Corpuscular HGB Conc 33.3 g/dl (31.0-37.0); Mean Corpuscular Hemoglobin 30.0 pg (25.0-35.0); Mean Corpuscular Volume 90 fL (80-100); Monocytes # (Auto) 1.5 Thou/mm3 (0.0-0.8); Monocytes % (Auto) 12 % (0-12); Neutrophils # (Auto) 9.2 Thou/mm3 (1.8-7.7); Neutrophils % (Auto) 74 % (37-80); Nucleated Red Blood Cell # 0.00 Thou/mm3 (0.00-0.00); Nucleated Red Blood Cell % 0 /100 WBC (0); Platelet Count 183 Thou/mm3 (140-440); RDW Standard Deviation 45.1 fL (35.1-43.9); Red Blood Count 3.73 Miln/mm3 (4.50-5.90); White Blood Count 12.4 Thou/mm3 (3.8-10.6)
[2025-09-01 07:00] LABS: Alanine Aminotransferase < 7 U/L (10-49); Albumin, Serum 4.2 gm/dL (3.5-5.0); Albumin/Globulin Ratio 1.4 (1.2-2.2); Alkaline Phosphatase 76 U/L (46-116); Anion Gap 9 (7-16); Aspartate Amino Transferase 14 U/L (0-34); BUN/Creatinine Ratio 15 Ratio (12-20); Bilirubin,Total 0.5 mg/dL (0.3-1.2); Blood Urea Nitrogen 15 mg/dL (9-23); Calcium 9.1 mg/dL (8.3-10.6); Calcium (Corrected) 9.1 mg/dL (8.5-10.1); Carbon Dioxide 28.8 mMol/L (20.0-31.0); Chloride 99 mMol/L (98-107); Creatinine (Component) 1.0 mg/dL (0.6-1.3); Estimated Creatinine Clearance 65.0 mL/min (>60); Globulin 3.0 gm/dL (2.3-3.5); Glucose 220 mg/dL (74-106); Magnesium 2.0 mg/dL (1.6-2.6); Osmolality,Calculated 281 (275-295); Phosphorous 3.1 mg/dL (2.4-5.1); Potassium 4.5 mMol/L (3.4-5.1); Sodium 137 mMol/L (136-145); Total Protein 7.2 gm/dL (5.7-8.2); eGFR > 60 See Note
[2025-09-01] MEDS: INSULIN LISPRO (AdmeLOG) 1 UNIT/0.01 ML UNIT SC ×3 (07:25→20:46)
[2025-09-01] MEDS: RINGERS LACTATED 1000 ML 1,000 ML 125 ML IV (08:11)
--- NOTE | 2025-09-01 08:21 | XR_ITS ---
Examination: CT brain head without contrast. 2-D sagittal coronal reconstructions Date and time of exam: September 01, 2025, 0842 hours, comparison August 29, 2025 INDICATIONS: Altered mental status beginning at 7:30 a.m. this morning CTDI: vol (mGy): 50.1 DLP: (mGycm): 1008 Technique: Multiple CT axial sections of the brain have been obtained, 5 mm slice thickness. Contrast has not been administered. 2-D sagittal, coronal reconstructions have been obtained Low dose protocols were performed. One or more of the following dose reduction techniques were used; automated exposure control, adjustment of the mA and/or KV according to patient size, use of iterative reconstruction technique. Findings: No significant ventricular enlargement. Shunt tube tip frontal horns Intra-axial or extra-axial hemorrhage density is not seen. No mass effect or midline shift Basal cisterns are not remarkable. Fourth ventricle is midline. Cranial vault intact. Impression: Negative for acute hemorrhage, mass effect or midline shift Advise clinical correlation and follow-up accordingly
[2025-09-01] MEDS: MIDAZOLAM INJ 1 MG/ML VIAL 2 ML IVP (08:26)
[2025-09-01 08:50] LABS: Lactate (Lactic Acid) 1.3 mMol/L (0.4-2.0)
[2025-09-01 08:51] LABS: Base Excess, Venous 4 (-3-3); O2 Saturation, Venous 43 % (96-97); PCO2, Venous 53 mmHg (36-56); PO2, Venous 27 mmHg (15-58); pH, Venous 7.36 (7.33-7.66)
--- NOTE | 2025-09-01 09:31 | ESCONSULT_ITS ---
Tele Neuro Consultation Consultation Date 09/01/25 Most Recent Vital Signs Last Vital Signs Temp 98.2 F 09/01/25 07:43 Pulse 116 H 09/01/25 08:13 Resp 16 09/01/25 07:43 BP 108/72 09/01/25 08:13 Pulse Ox 96 09/01/25 07:43 O2 Del Method Room Air 09/01/25 07:43 O2 Flow Rate 2 08/31/25 16:00 FiO2 98 08/29/25 08:10 Laboratory-Coagulation Panel PT 10.1 Seconds (9.0-12.2) 08/28/25 23:18 INR 0.9 (0.9-1.3) 08/28/25 23:18 Consultation Narrative [facility] TeleNeurology Consult Services Stat Consult Patient Name:???Isma Ward Date of :???1970 Identification Number:??? Date of Service:???09/01/2025 08:57:25 Diagnosis:?G93.41 - Encephalopathy Metabolic Impression 54 year old male with chronic deficits from prior ICH now with acute encephalopathy in the setting of increasing leukocytosis and tachycardia. Recent encephalopathy due to infection last hospitalization. Suspect similar toxi- metabolic etiology. Recommend spot check EEG for completeness as well. Recommendations: Our recommendations are outlined below. Diagnostic Studies : Routine EEG Toxi-metabolic/infectious work up per primary team Medications : Continue Keppra Nursing Recommendations : Delirium precautions: Blinds open during the day, closed at night, frequent reorientation, minimize nighttime interruptions When possible avoid benzodiazepines, opioid pain medications, and anticholinergic medications DVT Prophylaxis : Choice of Primary Team Disposition : Neurology will follow Metrics: Dispatch Time: 09/01/2025 08:57:25 Callback Response Time: 09/01/2025 08:58:04 ED Physician not notified of diagnostic impression and management plan because inpatient, d/w RN CT HEAD: I personally reviewed all the CT images that were available to me and it showed:?stable findings, no acute abnormalities compared to most recent study, pending official radiology report. Labsreviewed, note increasing leukocytosis. Chief Complaint: encephalopathy History of Present Illness:Patient is a 54 year old Male. The patient is admitted with baseline deficits from recent intracerebral hemorrhage and right hip fracture after a fall trying to ambulate. Today his noted that he was awake all night long and is now lethargic and somnolent. No overt seizure activity or jad lateralizing deficits. ? Past Medical History: ?Hypertension ?Diabetes Mellitus ?Stroke ?Seizures Other PMH:? ICH, s/p ORTHOPEDIC PHYSICIAN shunt 06/2025 ?Meningitis 09/2024 ? Past Hospitalization:??Encephalopathy due to infection 07/2025 Medications: No Anticoagulant use? Antiplatelet use:?Yes?asa Reviewed EMR for current medications Other Medications Pertinent To Assessment Include: keppra ?mirtazepine ?gabapentin Allergies:? Reviewed Social History: Unable To Obtain Due To Patient Status :?Patient Cannot Communicate Relevant Social History Family History: There is no family history of premature cerebrovascular disease pertinent to this consultation ROS :?ROS Cannot Be Obtained Because:? Patient Is Confused Past Surgical History: There Is No Surgical History Contributory To Today?s Visit ? Examination: BP(108/72),?Pulse(116),?Blood Glucose(192) Neuro Exam: General:?obtunded, rousable to tactile/noxious no regard or track, no obvious hemineglect Speech:?no verbalization Language:?not following commands Face:?Symmetric: Extraocular Movements:?no gaze deviation noted no noted nystagmus Motor Exam:?an occasional myoclonic jerk withdraws x 4; right hip post surgical Sensation:?withdraws all four limbs Coordination:?unable to participate in cerebellar testing This consult was conducted in real time using interactive audio and video te chnology. Patient was informed of the technology being used for this visit and agreed to proceed. Patient located in hospital and provider located at home/office setting. Patient is being evaluated for possible acute neurologic impairment and high probability of imminent or life - threatening deterioration.I spent total of 35 minutes providing care to this patient, including time for face to face visit via telemedicine, review of medical records, imaging studies and discussion of findings with providers, the patient and / or family. Dr Shawn Fang [facility] For Inpatient follow-up with [facility] physician please call [facility] at . As we are not an outpatient service for any post hospital discharge needs please contact the hospital for assistance. If you have any questions for the [facility] physicians or need to reconsult for clinical or diagnostic changes please contact us via [facility] at . Non-radiologist review of imaging performed to assist with emergent clinical decision-making. Remote physician workstations do not possess the same resolution, calibration, or diagnostic capabilities as hospital-based radiology reading stations, and formal radiologist read is necessary. Signature :Adina Fang
--- NOTE | 2025-09-01 09:53 | RESP.EEG ---
Dr Maurer notified off being short staffed andd EEG not being completed during day shift 09/01. will be completed by NOC
[2025-09-01] MEDS: FAMOTIDINE INJ 10 MG/ML VIAL 2 ML 20 MG IVP (09:57)
[2025-09-01] MEDS: levETIRAcetam INJ 100 MG/ML VIAL 5ML 1000 MG IVP ×2 (09:57→20:34)
--- NOTE | 2025-09-01 10:16 | XR_ITS ---
EXAMINATION: AP chest single view TECHNIQUE: AP portable semiupright chest single view Date and time: September 01, 2025, 10:22 a.m., comparison 08/04/2025 INDICATIONS: Seizure today FINDINGS: Normal heart size. No aspiration pneumonia. Right ventricular peritoneal shunt tube. Prominent osteopenia IMPRESSION: Negative for aspiration pneumonia
[2025-09-01] MEDS: DOXYCYCLINE INJ 100 MG in SODIUM CHLORIDE 0.9% (POP) 100 ML IV ×2 (11:40→20:42)
[2025-09-01] MEDS: cefTRIAXone/D5w 1gm IV premix 1 GM/50 ML BAG IV (11:42)
[2025-09-01] MEDS: RINGERS LACTATED 1000 ML 1,000 ML 75 ML IV (11:50)
[2025-09-01] MEDS: RINGERS LACTATED 1000 ML 500 ML 999 ML IV (11:51)
[2025-09-01] MEDS: FLUDROCORTISONE ACETATE 0.1 MG TABLET PO (12:03)
--- NOTE | 2025-09-01 12:15 | PC.NURSE ---
Patient returned from surgery at this time. Patient denies pain. Dressing clean, dry and intact. Temperature 99.3.
--- NOTE | 2025-09-01 14:31 | EVENTNT_ITS ---
<Statement entered by Paul Hicks MD - 09/01/25 14:59> I have reviewed the note and agree with the resident's assessment & plan with exceptions as below. I have personally reviewed labs, imaging, home meds/prior records, examined the patient, formulated and discussed management plan with my attending Paul Hicks PGY2 Disclaimer: Even though this this note was dictated by speech recognition and even though it was carefully revised there may still be minor errors in hall tender due to voice recognition software. Documentation for date of: 09/01/25 Event Note Event Note: At 8:14 AM, rapid response was called due to a change in patient mentation. Previously, patient had been at baseline which is ANO x 1 but cooperative; however he was unresponsive when nursing staff attempted to give him morning medications, and was shaking not only from his arms (which he does at baseline) but also his left leg. In addition patient's eyes appear to be rolled back into his head, and he would only respond to painful stimuli and or sternal rub. Vital signs before the rapid response were notable for tachycardia at 116; patient's stated that when he had had his previous seizures, they had looked like this. Bedside blood glucose taken during event was 190; EKG showed sinus rhythm. Patient received 1mg Versed and was taken to CT for imaging. CT head showed no acute hemorrhage, mass effect, midline shift. in CT, patient began to become more alert, with eyes not rolled back and moving limbs spontaneously. patient was subsequently upgraded to telemetry and teleneuro was consulted. This case was discussed with my attending physician, Dr. Maurer, and senior resident, Dr. Veliz. Kody Gautam MD-PhD, PGY1
--- NOTE | 2025-09-01 15:04 | ESPR_ITS ---
<Statement entered by Paul Hicks MD - 09/01/25 16:19> I have reviewed the note and agree with the resident's assessment & plan with exceptions as below. I have personally reviewed labs, imaging, home meds/prior records, examined the patient, formulated and discussed management plan with my attending Patient was seen and examined at bedside this morning. No acute overnight events. This morning patient had a rapid response called due to change in mental status. Patient was having seizure-like activity with eyes rotated and was having tremors of both upper and lower extremities. This time patient got Versed 1 mg x 1 which helped with the tremors, but patient's eyes still were rolled back and head CT was ordered at this time. Head CT was unremarkable and show neurology was also consulted given the change in mentation. Patient was still protecting her guarded therefore this patient to not intubate was made at this time. 10 neurology recommended that metabolic etiology workup for infectious disease. Given that patient did not have surgical intervention 2 days ago most likely decrease patient's threshold due to stress. Patient's WBC also uptrending, likely reactive, but given the change in clinical status we will start patient on doxycycline and ceftriaxone for now. Ordered blood cultures and urine cultures. Patient back to baseline before noon time. Increased Keppra to 1000 mg every 12 and consulted in-house neurology for tomorrow. Will continue current antibiotics for now until cultures come back. Paul Hicks PGY2 Disclaimer: Even though this this note was dictated by speech recognition and even though it was carefully revised there may still be minor errors in pond worker due to voice recognition software. Documentation for date of: 09/01/25 Subjective Subjective Interval history: Patient seen and examined at bedside; no acute events overnight. At 8:14 AM, rapid response was called for acute change in patient level of consciousness as stated in event note. Patient was upgraded to telemetry. Exam below reflects patient post-event around 3pm. Exam Vital Signs Temp Pulse Resp BP Pulse Ox O2 Del Method O2 Flow Rate 98.8 F 121 H 14 120/85 H 99 Nasal Cannula 2 09/01/25 12:08 09/01/25 12:08 09/01/25 12:08 09/01/25 12:08 09/01/25 12:08 09/01/25 12:08 09/01/25 12:08 FiO2 98 08/29/25 08:10 Narrative Exam General: A/O x1 (baseline since CVA), no acute distress, well-nourished, well- developed Eyes: PERRL, EOMI. Anicteric, vision grossly intact. Ears: No ear pain, no ear discharge, Hearing grossly intact. Nose: No nasal discharge. Mouth/Throat: Moist mucous membranes, no redness, no lesions. Neck: Neck supple, non-tender, no cervical lymphadenopathy. Lungs: Clear RAQUEL to auscultation and percussion, No accessory muscle use. Cardio: Normal S1/S2, regular rhythm, no murmurs, no JVD or carotid bruits. Abdomen: Soft, non-tender, no palpable masses, peristalsis present, no guarding or rebound. Extremities: Symmetrical, no significant deformities, no peripheral edema , R hip tenderness, peripheral pulses present. Skin: No rashes, no lesions, warm to touch. Neuro: Reduced sensation of RLE, patient can wiggle toes on right lower extremity. Psych: appropriate mood and effect. Objective Labs 09/01/25 05:04 09/01/25 05:04 Labs: Laboratory Results - last 24 hr 09/01/25 09/01/25 05:04 08:45 WBC 12.4 H RBC 3.73 L Hgb 11.2 L Hct 33.6 L MCV 90 MCH 30.0 MCHC 33.3 RDW Std Deviation 45.1 H Plt Count 183 Neut % (Auto) 74 Lymph % (Auto) 12 [place] % (Auto) 12 Eos % (Auto) 1 Baso % (Auto) 1 Neut # (Auto) 9.2 H Lymph # (Auto) 1.4 [place] # (Auto) 1.5 H Eos # (Auto) 0.2 Baso # (Auto) 0.1 Immature Gran # (Auto) 0.09 H Absolute Nucleated RBC 0.00 Immature Gran % 1 H Nucleated RBC % 0 VBG pH 7.36 VBG pCO2 53 VBG pO2 27 VBG O2 Sat (Rohith) 43 L VBG Base Excess 4 H Sodium 137 Potassium 4.5 D Chloride 99 Carbon Dioxide 28.8 Anion Gap 9 BUN 15 Creatinine 1.0 Estim Creat Clear Calc 65.0 eGFR > 60 BUN/Creatinine Ratio 15 Glucose 220 H Calculated Osmolality 281 Lactic Acid 1.3 Calcium 9.1 Corrected Calcium 9.1 Phosphorus 3.1 Magnesium 2.0 Total Bilirubin 0.5 AST 14 ALT < 7 L Alkaline Phosphatase 76 Total Protein 7.2 Albumin 4.2 Globulin 3.0 Albumin/Globulin Ratio 1.4 ABG Interpretation ABG results: 09/01/25 08:45 VBG pH 7.36 VBG pCO2 53 VBG pO2 27 VBG Base Excess 4 H Quality Measures Quality Measures none Assessment & Plan Assessment Current Active Medications: Generic Name Dose Route Start Last Admin Trade Name Freq PRN Reason Stop Dose Admin Acetaminophen 650 mg 08/29/25 08:07 Acetaminophen 325 Mg Tablet PO 09/28/25 08:06 On Hold: 09/01/25 09:12 Q6H PRN Fever >100.4 Acetaminophen 650 mg 08/29/25 08:07 Acetaminophen 325 Mg Tablet PO 09/28/25 08:06 On Hold: 09/01/25 09:12 Q6H PRN PAIN SCALE 1-3 (mild Hydrocodone Bitart/Acetaminophen 1 tab 08/29/25 08:07 09/01/25 05:39 Hydrocodone/Apap 5/325 Tablet PO 09/03/25 08:06 1 tab Q4HR PRN Administration PAIN SCALE 4-6 (Moderate Cresemba 186 Mg 0 ea 08/29/25 18:30 09/01/25 08:13 Capsule PO 09/28/25 18:29 Not Given On Hold: 09/01/25 09:09 QDAY DERRICK Amitriptylin Tab 10 0 ea 08/31/25 21:00 08/31/25 21:03 Mg PO 09/30/25 20:59 1 tablet On Hold: 09/01/25 09:04 HS DERRICK Administration Dextrose 50 ml 08/29/25 09:25 Dextrose 50%-Water Inj 50 Ml Syringe IV 09/28/25 09:24 Q15MIN PRN BG <50 OR BG <70 & pt unresponsive Dextrose 25 ml 08/29/25 09:25 Dextrose 50%-Water Inj 50 Ml Syringe IV 09/28/25 09:24 Q15MIN PRN BG 50-70 responsive npo pt Famotidine 20 mg 09/01/25 09:15 09/01/25 09:57 Famotidine Inj 10 Mg/Ml Vial 2 Ml IVP 10/01/25 09:14 20 mg QDAY DERRICK Administration Fludrocortisone Acetate 0.1 mg 08/29/25 09:25 09/01/25 12:03 Fludrocortisone Acetate 0.1 Mg Tablet PO 09/28/25 09:24 0.1 mg DAILY DERRICK Administration Gabapentin 300 mg 08/29/25 09:30 09/01/25 05:39 Gabapentin 300 Mg Capsule PO 09/28/25 09:29 300 mg On Hold: 09/01/25 09:13 Q8HR DERRICK Administration Glucagon 1 mg 08/29/25 09:25 Glucagon Inj 1 Mg Vial IM Q15MIN PRN BG <70, and no IV access Ceftriaxone Sodium/Dextrose 1 gm in 50 mls @ 100 mls/hr 09/01/25 10:15 09/01/25 11:42 Rocephin/D5w 1gm Iv Premix IV 09/08/25 10:14 100 mls/hr QDAY DERRICK Administration Doxycycline Hyclate 100 mg/ 100 mls @ 100 mls/hr 09/01/25 10:30 09/01/25 11:40 Sodium Chloride IV 09/08/25 10:29 100 mls/hr BID DERRICK Administration Lactated Ringer's 1,000 mls @ 75 mls/hr 09/01/25 10:34 09/01/25 11:50 Lactated Ringers IV 09/01/25 21:04 75 mls/hr .[id number] ONE Administration Insulin Human Lispro 0 unit 08/31/25 07:30 09/01/25 11:24 Insulin Lispro (Admelog) 1 Unit/0.01 Ml Unit SC 09/30/25 07:29 Not Given ACHS DERRICK Protocol Levetiracetam 1,000 mg 09/01/25 09:45 09/01/25 09:57 Levetiracetam Inj 100 Mg/Ml Vial 5ml IVP 10/01/25 09:44 1,000 mg Q12HR DERRICK Administration Protocol Melatonin 3 mg 08/29/25 21:00 08/31/25 21:01 Melatonin 3 Mg Tablet PO 09/28/25 20:59 3 mg On Hold: 09/01/25 09:12 HS DERRICK Administration Midodrine 10 mg 08/29/25 09:24 Midodrine 5 Mg Tablet PO 09/28/25 09:29 On Hold: 09/01/25 09:12 TID PRN SBP < 90 Mirtazapine 15 mg 08/29/25 21:00 08/31/25 21:00 Mirtazapine 15 Mg Tablet PO 09/28/25 20:59 15 mg On Hold: 09/01/25 09:13 HS DERRICK Administration Morphine Sulfate 1 mg 08/31/25 10:41 09/01/25 03:03 Morphine Sulf Inj 4 Mg/Ml Vial IVP 09/03/25 12:11 1 mg Q4HR PRN Administration PAIN SCALE 7-10 (Severe Ondansetron HCl 4 mg 08/29/25 08:07 Ondansetron Inj 2 Mg/Ml Inj 2 Ml IVP 09/28/25 08:06 Q6H PRN NAUSEA OR VOMITING Protocol Sennosides 1 tab 09/01/25 09:00 Senna/Docusate Sod 1 Tab Tablet PO 10/01/25 08:59 On Hold: 09/01/25 09:12 QDAY PRN CONSTIPATION Protocol Plan Patient is a 54-year-old male with past medical history of hemorrhagic CVA, HTN, seizures, T2DM, disseminated coccidiomycosis presenting from SNF on [facility]/2025 for unwitnessed fall. Patient was admitted for new neurological findings and right hip fracture in the setting of unwitnessed fall on 08/29/25. #Right hip replacement surgery on 08/30/2025, postoperative day 2 #Unwitnessed fall with new-onset neurological symptoms #R hip fracture #Hx of hemorrhagic CVA Patient had unwitnessed fall at SNF, with history of hemorraghic CVA (07/01). CT head negative, CT hip positive for R hip fracture. Patient endorses RLE loss of sensation and loss of sensation on both sides of face. After patient's SNF was spoken with, we learned that he was working with PT for 1 week; has had improvement per staff. He can walk 70 feet with 2 people assisting, lifting 2 pound weights. Uses alfred lift x2 for transfer. Plan: Orthopedic surgery performed right hip replacement on 08/30/2025 Will continue to monitor patient postoperatively for complications Orthopedic surgery is on board #Seizure disorder #Altered mentation Patient is on keppra at home. Patient had rapid response due to altered mentation on 09/01/2025 in the AM (see event note). CT head during event showed no mass, hemorrhage, or midline shift; glucose was 190 during event. Chest x- ray postevent negative for aspiration pneumonia. Plan: Patient given 1 mg of Versed during rapid 1 L LR bolus given Doxycycline 100 twice daily started Protonix switched to famotidine 20 IV Keppra increased to 1000 every 12 hours All other p.o. medications either held or switched to IV EEG obtained Tele-neuro consulted- recommended infectious vs metabolic cause for altered mentation Inhouse neuro consulted for tomorrow #T2DM #Disseminated coccidiomycosis #HTN patient is on cresemba at home. Plan: Hold home cresemba in context of rapid response this morning Insulin sliding scale Monitor BP Disposition: Med-Surg DVT prophylaxis: SCDs GI prophylaxis: Diet: Carb consistent Lines: PIV CODE STATUS: Full code This case was discussed with my attending physician, Dr. Maurer, and senior resident, Dr. Veliz. Kody Gautam MD-PhD, PGY1 Attending Provider Attestation/Addendum I, Holly Maurer DO, attest that I was physically present for the [place] portions of the service and evaluated the patient with the resident and I reviewed and discussed the case with the resident and agree with the resident's findings and plans of care as documented above Patient seen and evaluated this AM. Patient had a rapid response this morning during which patient was witnessed to have a generalized tonic-clonic seizure, which resolved with versed. Patient had received DVT ppx in the AM, but discontinued due to recent intracranial hemorrhage in June. CT head was done and did not show any intracranial findings. Tele-neurology consulted and suspect metabolic causes for triggering seizure. Keppra was increased from 500mg BID to 1000mg BID. Medications were switched from PO to IV. Patient was postictal at time of my evaluation and respond to tactile and verbal stimuli, but too somnolent to follow commands. Patient's pupils were equal and reactive to light. Patient does have b/l UE tremors when awake, which would be more noticeable when patient is waking up. Patient was re-evaluated at around 3:30pm. Patient's family was now at bedside and stated that patient remains somnolent, but back at baseline. states that she was able to feed the patient lunch. Will continue with current management and f/u with neurology recommendations.
--- NOTE | 2025-09-01 23:14 | PD.NEUROPROG ---
Documentation for date of: 09/01/25 Subjective Subjective Interval history: Patient was seen in [facility] today at the bedside. Reportedly had rapid response alert, witnessed seizure-like activity with loss of consciousness. Was increased to 1000 mg twice a day as per neurologist recommendation. Exam - Neurology Vital Signs Temp Pulse Resp BP Pulse Ox O2 Del Method O2 Flow Rate 98.6 F 124 H 18 119/88 H 96 Nasal Cannula 2 09/01/25 20:00 09/01/25 20:00 09/01/25 20:00 09/01/25 20:00 09/01/25 20:00 09/01/25 20:00 09/01/25 20:00 FiO2 98 08/29/25 08:10 Narrative Exam GENERAL APPEARANCE: Well hydrated, well-nourished in no acute distress. HEENT: Normocephalic, atraumatic, extraocular movements intact. Pupils: Equal reacting to light and accommodation NECK: Supple, no JVD or bruits. CARDIOVASULAR: Heart: S1, S2 heard, regular without S3-S4 or murmur no rubs or gallops. LUNGS/CHEST: Clear to auscultation bilaterally. No rails, rhonchi, or wheezing. Normal inspection. ABDOMEN: Soft, nontender, with normal bowel sounds. No pulsatile masses. No rebound, rigidity, or guarding. Normal inspection and palpation. EXTREMITIES: Normal inspection and palpation. No edema, clubbing or cyanosis. SKIN: Warm and dry without rashes. Normal inspection. MUSCULOSKELETAL: No cervical, thoracic, lumbar or midline bony tenderness. Normal inspection. NEURO: Alert, awake and oriented x3. Cranial nerves: II through XII grossly intact. Speech and language: Normal with no dysarthria or dysphasia. Motor system: Tone and bulk: Normal: Strength: 5 out of 5 in all 4 extremities; No pronator drift noted. Deep tendon reflexes: 2+ bilaterally symmetrical. Plantar reflex: Downgoing bilaterally. Sensory system: Intact to all modalities of sensation bilaterally. Coordination: Intact to [id number] and rjra-ypgo-rbro test bilaterally. No ataxia, no dysmetria, or dysdiadochokinesia noted. No intention tremors noted. Gait: Not tested. No signs of meningeal irritation noted. PSYCHIATRIC: Normal mood and affect. Objective Labs 09/01/25 05:04 09/01/25 05:04 Labs: Laboratory Results - last 24 hr 09/01/25 09/01/25 05:04 08:45 WBC 12.4 H RBC 3.73 L Hgb 11.2 L Hct 33.6 L MCV 90 MCH 30.0 MCHC 33.3 RDW Std Deviation 45.1 H Plt Count 183 Neut % (Auto) 74 Lymph % (Auto) 12 [place] % (Auto) 12 Eos % (Auto) 1 Baso % (Auto) 1 Neut # (Auto) 9.2 H Lymph # (Auto) 1.4 [place] # (Auto) 1.5 H Eos # (Auto) 0.2 Baso # (Auto) 0.1 Immature Gran # (Auto) 0.09 H Absolute Nucleated RBC 0.00 Immature Gran % 1 H Nucleated RBC % 0 VBG pH 7.36 VBG pCO2 53 VBG pO2 27 VBG O2 Sat (Rohith) 43 L VBG Base Excess 4 H Sodium 137 Potassium 4.5 D Chloride 99 Carbon Dioxide 28.8 Anion Gap 9 BUN 15 Creatinine 1.0 Estim Creat Clear Calc 65.0 eGFR > 60 BUN/Creatinine Ratio 15 Glucose 220 H Calculated Osmolality 281 Lactic Acid 1.3 Calcium 9.1 Corrected Calcium 9.1 Phosphorus 3.1 Magnesium 2.0 Total Bilirubin 0.5 AST 14 ALT < 7 L Alkaline Phosphatase 76 Total Protein 7.2 Albumin 4.2 Globulin 3.0 Albumin/Globulin Ratio 1.4 ABG Interpretation ABG results: 09/01/25 08:45 VBG pH 7.36 VBG pCO2 53 VBG pO2 27 VBG Base Excess 4 H Assessment & Plan Assessment and plan (1) Altered mental status: Status: Acute Assessment and plan: Could have been related to metabolic encephalopathy Resolving, mental status is close to baseline No Focal neurological deficit noted on exam No signs and symptoms of shunt malfunction clinically or radiographically Continue with fluconazole 800 mg a day along with Keppra. Follow seizure precautions Patient is neurologically stable. (2) Closed fracture of neck of right femur: Status: Chronic (3) Hypertension: Status: Chronic Assessment and plan: Continue with the lisinopril (4) Type 2 diabetes mellitus: Status: Chronic Assessment and plan: Continue to check fingerstick glucose and follow sliding scale insulin per protocol (5) New onset seizure: Status: Acute Assessment and plan: Continue to follow seizure precautions, continue with Keppra. Follow-up with EEG
[2025-09-02] VITALS (8 sets, daily range): BP systolic 115–138; BP diastolic 76–94; PULSE 94–127; RESP 16–20; TEMP 36.3–37; O2SAT 94–97; BMI 12.0; BMI 19.3
--- NOTE | 2025-09-02 01:50 | RESP.EEG ---
EEG has been completed and is read for MD interpretation
[2025-09-02 09:27] LABS: Basophils # (Auto) 0.1 Thou/mm3 (0.0-0.2); Basophils % (Auto) 1 % (0-2.5); Eosinophils # (Auto) 0.2 Thou/mm3 (0.0-0.5); Eosinophils % (Auto) 2 % (0-10); Hematocrit 29.9 % (41.0-53.0); Hemoglobin 9.9 g/dL (13.5-16.0); Immature Granulocytes Auto 0.08 Thou/mm3 (0.00-0.00); Lymphocytes # (Auto) 0.9 Thou/mm3 (1.0-4.8); Lymphocytes % (Auto) 9 % (10-50); Mean Corpuscular HGB Conc 33.1 g/dl (31.0-37.0); Mean Corpuscular Hemoglobin 29.7 pg (25.0-35.0); Mean Corpuscular Volume 90 fL (80-100); Monocytes # (Auto) 1.0 Thou/mm3 (0.0-0.8); Monocytes % (Auto) 10 % (0-12); Neutrophils # (Auto) 8.1 Thou/mm3 (1.8-7.7); Neutrophils % (Auto) 78 % (37-80); Nucleated Red Blood Cell # 0.00 Thou/mm3 (0.00-0.00); Nucleated Red Blood Cell % 0 /100 WBC (0); Platelet Count 179 Thou/mm3 (140-440); RDW Standard Deviation 44.2 fL (35.1-43.9); Red Blood Count 3.33 Miln/mm3 (4.50-5.90); White Blood Count 10.4 Thou/mm3 (3.8-10.6)
[2025-09-02 09:51] LABS: Alanine Aminotransferase < 7 U/L (10-49); Albumin, Serum 3.9 gm/dL (3.5-5.0); Albumin/Globulin Ratio 1.4 (1.2-2.2); Alkaline Phosphatase 72 U/L (46-116); Anion Gap 8 (7-16); Aspartate Amino Transferase 12 U/L (0-34); BUN/Creatinine Ratio 17 Ratio (12-20); Bilirubin,Total 0.6 mg/dL (0.3-1.2); Blood Urea Nitrogen 12 mg/dL (9-23); Calcium 9.0 mg/dL (8.3-10.6); Calcium (Corrected) 9.1 mg/dL (8.5-10.1); Carbon Dioxide 29.9 mMol/L (20.0-31.0); Chloride 101 mMol/L (98-107); Creatinine (Component) 0.7 mg/dL (0.6-1.3); Estimated Creatinine Clearance 92.9 mL/min (>60); Globulin 2.8 gm/dL (2.3-3.5); Glucose 168 mg/dL (74-106); Osmolality,Calculated 281 (275-295); Potassium 4.0 mMol/L (3.4-5.1); Sodium 139 mMol/L (136-145); Total Protein 6.7 gm/dL (5.7-8.2); eGFR > 60 See Note
[2025-09-02] MEDS: FLUDROCORTISONE ACETATE 0.1 MG TABLET PO (10:08)
[2025-09-02] MEDS: FAMOTIDINE INJ 10 MG/ML VIAL 2 ML 20 MG IVP (10:08)
[2025-09-02] MEDS: DOXYCYCLINE INJ 100 MG in SODIUM CHLORIDE 0.9% (POP) 100 ML IV ×2 (10:09→20:56)
[2025-09-02] MEDS: levETIRAcetam INJ 100 MG/ML VIAL 5ML 1000 MG IVP (10:09)
[2025-09-02] MEDS: cefTRIAXone/D5w 1gm IV premix 1 GM/50 ML BAG IV (10:10)
--- NOTE | 2025-09-02 11:34 | ESPR_ITS ---
<Statement entered by Paul Hicks MD - 09/02/25 17:31> I have reviewed the note and agree with the resident's assessment & plan with exceptions as below. I have personally reviewed labs, imaging, home meds/prior records, examined the patient, formulated and discussed management plan with my attending Patient was seen and at bedside this morning. No acute overnight events. Patient is back to baseline as per patient's at bedside. He has not been having very good sleep throughout the hospital stay. Restarted patient's melatonin at bedtime. Otherwise expect possible discharge in the next 24 to 48 hours. Switch patient's medications to p.o. No further seizure activity. Paul Hicks PGY2 Disclaimer: Even though this this note was dictated by speech recognition and even though it was carefully revised there may still be minor errors in cement block maker due to voice recognition software. Documentation for date of: 09/02/25 Subjective Subjective Interval history: Seen and examined at bedside; no acute events overnight. Patient ANO x 1, back to baseline. No visible drainage from incision; says he has not getting much sleep. Exam Vital Signs Temp Pulse Resp BP Pulse Ox O2 Del Method O2 Flow Rate 97.5 F 112 H 19 119/84 96 Room Air 2 09/02/25 07:45 09/02/25 07:45 09/02/25 07:45 09/02/25 07:45 09/02/25 07:45 09/02/25 07:45 09/01/25 16:00 FiO2 98 08/29/25 08:10 Narrative Exam General: A/O x1 (baseline since CVA), no acute distress, well-nourished, well- developed Eyes: PERRL, EOMI. Anicteric, vision grossly intact. Ears: No ear pain, no ear discharge, Hearing grossly intact. Nose: No nasal discharge. Mouth/Throat: Moist mucous membranes, no redness, no lesions. Neck: Neck supple, non-tender, no cervical lymphadenopathy. Lungs: Clear RAQUEL to auscultation and percussion, No accessory muscle use. Cardio: Normal S1/S2, regular rhythm, no murmurs, no JVD or carotid bruits. Abdomen: Soft, non-tender, no palpable masses, peristalsis present, no guarding or rebound. Extremities: Symmetrical, no significant deformities, no peripheral edema , R hip tenderness without drainage at incision site, peripheral pulses present. Skin: No rashes, no lesions, warm to touch. Neuro: Reduced sensation of RLE, patient can wiggle toes on right lower extremity. Psych: appropriate mood and effect. Objective Labs 09/03/25 05:30 09/03/25 05:30 Labs: Laboratory Results - last 24 hr 09/02/25 08:47 WBC 10.4 RBC 3.33 L Hgb 9.9 L Hct 29.9 L MCV 90 MCH 29.7 MCHC 33.1 RDW Std Deviation 44.2 H Plt Count 179 Neut % (Auto) 78 Lymph % (Auto) 9 L [place] % (Auto) 10 Eos % (Auto) 2 Baso % (Auto) 1 Neut # (Auto) 8.1 H Lymph # (Auto) 0.9 L [place] # (Auto) 1.0 H Eos # (Auto) 0.2 Baso # (Auto) 0.1 Immature Gran # (Auto) 0.08 H Absolute Nucleated RBC 0.00 Immature Gran % 1 H Nucleated RBC % 0 Sodium 139 Potassium 4.0 D Chloride 101 Carbon Dioxide 29.9 Anion Gap 8 BUN 12 Creatinine 0.7 Estim Creat Clear Calc 92.9 eGFR > 60 BUN/Creatinine Ratio 17 Glucose 168 H D Calculated Osmolality 281 Calcium 9.0 Corrected Calcium 9.1 Total Bilirubin 0.6 AST 12 ALT < 7 L Alkaline Phosphatase 72 Total Protein 6.7 Albumin 3.9 Globulin 2.8 Albumin/Globulin Ratio 1.4 ABG Interpretation ABG results: 09/01/25 08:45 VBG pH 7.36 VBG pCO2 53 VBG pO2 27 VBG Base Excess 4 H Quality Measures Quality Measures none Assessment & Plan Assessment Current Active Medications: Generic Name Dose Route Start Last Admin Trade Name Freq PRN Reason Stop Dose Admin Acetaminophen 650 mg 08/29/25 08:07 Acetaminophen 325 Mg Tablet PO 09/28/25 08:06 Q6H PRN Fever >100.4 Acetaminophen 650 mg 08/29/25 08:07 Acetaminophen 325 Mg Tablet PO 09/28/25 08:06 Q6H PRN PAIN SCALE 1-3 (mild Hydrocodone Bitart/Acetaminophen 1 tab 08/29/25 08:07 09/01/25 22:37 Hydrocodone/Apap 5/325 Tablet PO 09/03/25 08:06 1 tab Q4HR PRN Administration PAIN SCALE 4-6 (Moderate Cresemba 186 Mg 0 ea 08/29/25 18:30 09/01/25 08:13 Capsule PO 09/28/25 18:29 Not Given QDAY DERRICK Amitriptylin Tab 10 0 ea 08/31/25 21:00 08/31/25 21:03 Mg PO 09/30/25 20:59 1 tablet HS DERRICK Administration Dextrose 50 ml 08/29/25 09:25 Dextrose 50%-Water Inj 50 Ml Syringe IV 09/28/25 09:24 Q15MIN PRN BG <50 OR BG <70 & pt unresponsive Dextrose 25 ml 08/29/25 09:25 Dextrose 50%-Water Inj 50 Ml Syringe IV 09/28/25 09:24 Q15MIN PRN BG 50-70 responsive npo pt Famotidine 20 mg 09/01/25 09:15 09/02/25 10:08 Famotidine Inj 10 Mg/Ml Vial 2 Ml IVP 10/01/25 09:14 20 mg QDAY DERRICK Administration Fludrocortisone Acetate 0.1 mg 08/29/25 09:25 09/02/25 10:08 Fludrocortisone Acetate 0.1 Mg Tablet PO 09/28/25 09:24 0.1 mg DAILY DERRICK Administration Gabapentin 300 mg 08/29/25 09:30 09/01/25 05:39 Gabapentin 300 Mg Capsule PO 09/28/25 09:29 300 mg Q8HR DERRICK Administration Glucagon 1 mg 08/29/25 09:25 Glucagon Inj 1 Mg Vial IM Q15MIN PRN BG <70, and no IV access Ceftriaxone Sodium/Dextrose 1 gm in 50 mls @ 100 mls/hr 09/01/25 10:15 09/02/25 10:10 Rocephin/D5w 1gm Iv Premix IV 09/08/25 10:14 100 mls/hr QDAY DERRICK Administration Doxycycline Hyclate 100 mg/ 100 mls @ 100 mls/hr 09/01/25 10:30 09/02/25 10:09 Sodium Chloride IV 09/08/25 10:29 100 mls/hr BID DERRICK Administration Insulin Human Lispro 0 unit 08/31/25 07:30 09/02/25 08:00 Insulin Lispro (Admelog) 1 Unit/0.01 Ml Unit SC 09/30/25 07:29 Not Given ACHS DERRICK Protocol Levetiracetam 100 mg 09/02/25 21:00 Levetiracetam 250 Mg Tablet PO 10/02/25 20:59 BID DERRICK Melatonin 3 mg 08/29/25 21:00 08/31/25 21:01 Melatonin 3 Mg Tablet PO 09/28/25 20:59 3 mg HS DERRICK Administration Midodrine 10 mg 08/29/25 09:24 Midodrine 5 Mg Tablet PO 09/28/25 09:29 On Hold: 09/01/25 09:12 TID PRN SBP < 90 Mirtazapine 15 mg 08/29/25 21:00 08/31/25 21:00 Mirtazapine 15 Mg Tablet PO 09/28/25 20:59 15 mg HS DERRICK Administration Morphine Sulfate 1 mg 08/31/25 10:41 09/01/25 03:03 Morphine Sulf Inj 4 Mg/Ml Vial IVP 09/03/25 12:11 1 mg Q4HR PRN Administration PAIN SCALE 7-10 (Severe Ondansetron HCl 4 mg 08/29/25 08:07 Ondansetron Inj 2 Mg/Ml Inj 2 Ml IVP 09/28/25 08:06 Q6H PRN NAUSEA OR VOMITING Protocol Sennosides 1 tab 09/01/25 09:00 Senna/Docusate Sod 1 Tab Tablet PO 10/01/25 08:59 QDAY PRN CONSTIPATION Protocol Plan Patient is a 54-year-old male with past medical history of hemorrhagic CVA, HTN, seizures, T2DM, disseminated coccidiomycosis presenting from [facility] on 08/28/2025 for unwitnessed fall. Patient was admitted for new neurological findings and right hip fracture in the setting of unwitnessed fall on 08/29/25. #Right hip replacement surgery on 08/30/2025, postoperative day 2 #Unwitnessed fall with new-onset neurological symptoms #R hip fracture #Hx of hemorrhagic CVA Patient had unwitnessed fall at [facility], with history of hemorraghic CVA (07/01). CT head negative, CT hip positive for R hip fracture. Patient endorses RLE loss of sensation and loss of sensation on both sides of face. After patient's SNF was spoken with, we learned that he was working with PT for 1 week; has had improvement per staff. He can walk 70 feet with 2 people assisting, lifting 2 pound weights. Uses alfred lift x2 for transfer. Plan: Orthopedic surgery performed right hip replacement on 08/30/2025 Will continue to monitor patient postoperatively for complications Orthopedic surgery is on board #Seizure disorder #Altered mentation #Insomnia Patient is on keppra at home. Patient had rapid response due to altered mentation on 09/01/2025 in the AM (see event note). CT head during event showed no mass, hemorrhage, or midline shift; glucose was 190 during event. Chest x- ray postevent negative for aspiration pneumonia. EEG taken on 09/02/2025 shows diffuse slowing suggestive of diffuse encephalopathy of metabolic, degenerative, or vascular origin. No epileptiform discharges noted. Plan: Patient given 1 mg of Versed during rapid, 1 L LR bolus given after rapid Ceftriaxone 1 g daily and doxycycline 100 twice daily started Protonix switched to famotidine 20 IV Tele-neuro consulted- recommended infectious vs metabolic cause for altered mentation Keppra 1000 every 12 hours po Inhouse neuro consulted, thank you for recommendations?continue Keppra at 1000 mg twice daily Melatonin 3 started #T2DM #Disseminated coccidiomycosis #HTN patient is on cresemba at home. Plan: Cresemba restarted Insulin sliding scale Monitor BP Disposition: Med-Surg DVT prophylaxis: SCDs GI prophylaxis: Famotidine 20 daily Diet: Carb consistent Lines: PIV CODE STATUS: Full code This case was discussed with my attending physician, Dr. Maurer, and senior resident, Dr. Veliz. Kody Gautam MD-PhD, PGY1 Attending Provider Attestation/Addendum Holly Cornejo, DO, attest that I was physically present for the [place] portions of the service and evaluated the patient with the resident and I reviewed and discussed the case with the resident and agree with the resident's findings and plans of care as documented above Patient seen and evaluated this AM. No acute events overnight. Patient is back at baseline. Pending neurology recommendations regarding DVT ppx in the setting of recent intracranial hemorrhage. Also pending final urine/ blood cultures. Anticipate discharge within the next 24h if patient condition remains stable. Dressing over right hip appears clean, dry and intact.
[2025-09-02] MEDS: INSULIN LISPRO (AdmeLOG) 1 UNIT/0.01 ML UNIT SC ×2 (12:15→17:09)
--- NOTE | 2025-09-02 12:20 | PC.SS ---
follow up note: SS spoke to sales and service change leader to verify if she wants patient returning to facility or a different one. Manager Physical requested a different facility. SS submitted inquiry through [employer].
[2025-09-02] MEDS: GABAPENTIN 300 MG CAPSULE PO (15:52)
--- NOTE | 2025-09-02 16:26 | PD.RESPRO ---
Documentation for date of: 09/02/25 Subjective Subjective Interval history: Patient examined at bedside. Vitals are stable, WBC 10.4, Hb 9.9, glucose 168. Post op day 3. Patient is awake and alert but not oriented. When questioned about his name he states it doesn't matter. Patient believes he is home and not in the hospital. at bedside believes that he is doing worse. Able to follow simple commands. After seizure-like activity, patient was started on Keppra 1000 mg twice daily. Since starting Keppra, patient has not had episode again. EEG was negative for seizures. Currently on SCDs for DVT prophylaxis post surgery. Per ortho, patient should be on aspirin 81 BID for 30 days for DVT prophylaxis. However there is concern for rebleeding as patient is high risk for falls. During hospitalization, okay to continue asa [address] head every other day. Or if noticeable change in baseline mentation. Exam Vital Signs Temp Pulse Resp BP Pulse Ox O2 Del Method O2 Flow Rate 97.4 F 107 H 20 117/82 94 L Room Air 2 09/02/25 15:52 09/02/25 15:52 09/02/25 15:52 09/02/25 15:52 09/02/25 15:52 09/02/25 15:52 09/01/25 16:00 FiO2 98 08/29/25 08:10 Narrative Exam General: Thin appearing male, No acute distress, cooperative HEENT: NCAT, No JVD noted. Mucosa moist. Pupils are equal and reactive to light bilaterally Cardiovascular: Normal S1 and S2. Regular rate and rhythm. Respiratory: Lungs are clear to auscultation bilaterally. No wheezing or crackles heard. Abdomen: Soft, nontender, not distended, normal bowel sounds. Skin: Warm to touch, dry, no rashes noted Musculoskeletal: No gross injuries. Unable to significantly move right leg. No pitting edema Neuro: awake, Alert but not oriented. Does not move right LE, does no follow commands. Objective Labs 09/04/25 04:35 09/04/25 04:35 Labs: Laboratory Results - last 24 hr 09/02/25 08:47 WBC 10.4 RBC 3.33 L Hgb 9.9 L Hct 29.9 L MCV 90 MCH 29.7 MCHC 33.1 RDW Std Deviation 44.2 H Plt Count 179 Neut % (Auto) 78 Lymph % (Auto) 9 L [place] % (Auto) 10 Eos % (Auto) 2 Baso % (Auto) 1 Neut # (Auto) 8.1 H Lymph # (Auto) 0.9 L [place] # (Auto) 1.0 H Eos # (Auto) 0.2 Baso # (Auto) 0.1 Immature Gran # (Auto) 0.08 H Absolute Nucleated RBC 0.00 Immature Gran % 1 H Nucleated RBC % 0 Sodium 139 Potassium 4.0 D Chloride 101 Carbon Dioxide 29.9 Anion Gap 8 BUN 12 Creatinine 0.7 Estim Creat Clear Calc 92.9 eGFR > 60 BUN/Creatinine Ratio 17 Glucose 168 H D Calculated Osmolality 281 Calcium 9.0 Corrected Calcium 9.1 Total Bilirubin 0.6 AST 12 ALT < 7 L Alkaline Phosphatase 72 Total Protein 6.7 Albumin 3.9 Globulin 2.8 Albumin/Globulin Ratio 1.4 ABG Interpretation ABG results: 09/01/25 08:45 VBG pH 7.36 VBG pCO2 53 VBG pO2 27 VBG Base Excess 4 H Quality Measures Quality Measures none Assessment & Plan Assessment Current Active Medications: Generic Name Dose Route Start Last Admin Trade Name Freq PRN Reason Stop Dose Admin Acetaminophen 650 mg 08/29/25 08:07 Acetaminophen 325 Mg Tablet PO 09/28/25 08:06 Q6H PRN Fever >100.4 Acetaminophen 650 mg 08/29/25 08:07 Acetaminophen 325 Mg Tablet PO 09/28/25 08:06 Q6H PRN PAIN SCALE 1-3 (mild Hydrocodone Bitart/Acetaminophen 1 tab 08/29/25 08:07 09/01/25 22:37 Hydrocodone/Apap 5/325 Tablet PO 09/03/25 08:06 1 tab Q4HR PRN Administration PAIN SCALE 4-6 (Moderate Cresemba 186 Mg 0 ea 08/29/25 18:30 09/01/25 08:13 Capsule PO 09/28/25 18:29 Not Given QDAY DERRICK Amitriptylin Tab 10 0 ea 08/31/25 21:00 08/31/25 21:03 Mg PO 09/30/25 20:59 1 tablet HS DERRICK Administration Dextrose 50 ml 08/29/25 09:25 Dextrose 50%-Water Inj 50 Ml Syringe IV 09/28/25 09:24 Q15MIN PRN BG <50 OR BG <70 & pt unresponsive Dextrose 25 ml 08/29/25 09:25 Dextrose 50%-Water Inj 50 Ml Syringe IV 09/28/25 09:24 Q15MIN PRN BG 50-70 responsive npo pt Famotidine 20 mg 09/01/25 09:15 09/02/25 10:08 Famotidine Inj 10 Mg/Ml Vial 2 Ml IVP 10/01/25 09:14 20 mg QDAY DERRICK Administration Fludrocortisone Acetate 0.1 mg 08/29/25 09:25 09/02/25 10:08 Fludrocortisone Acetate 0.1 Mg Tablet PO 09/28/25 09:24 0.1 mg DAILY DERRICK Administration Gabapentin 300 mg 08/29/25 09:30 09/02/25 15:52 Gabapentin 300 Mg Capsule PO 09/28/25 09:29 300 mg Q8HR DERRICK Administration Glucagon 1 mg 08/29/25 09:25 Glucagon Inj 1 Mg Vial IM Q15MIN PRN BG <70, and no IV access Ceftriaxone Sodium/Dextrose 1 gm in 50 mls @ 100 mls/hr 09/01/25 10:15 09/02/25 10:10 Rocephin/D5w 1gm Iv Premix IV 09/08/25 10:14 100 mls/hr QDAY DERRICK Administration Doxycycline Hyclate 100 mg/ 100 mls @ 100 mls/hr 09/01/25 10:30 09/02/25 10:09 Sodium Chloride IV 09/08/25 10:29 100 mls/hr BID DERRICK Administration Insulin Human Lispro 0 unit 08/31/25 07:30 09/02/25 12:15 Insulin Lispro (Admelog) 1 Unit/0.01 Ml Unit SC 09/30/25 07:29 1 unit ACHS DERRICK Administration Protocol Levetiracetam 1,000 mg 09/02/25 21:00 Levetiracetam 250 Mg Tablet PO 10/02/25 20:59 BID DERRICK Melatonin 3 mg 08/29/25 21:00 08/31/25 21:01 Melatonin 3 Mg Tablet PO 09/28/25 20:59 3 mg HS DERRICK Administration Midodrine 10 mg 08/29/25 09:24 Midodrine 5 Mg Tablet PO 09/28/25 09:29 On Hold: 09/01/25 09:12 TID PRN SBP < 90 Mirtazapine 15 mg 08/29/25 21:00 08/31/25 21:00 Mirtazapine 15 Mg Tablet PO 09/28/25 20:59 15 mg HS DERRICK Administration Morphine Sulfate 1 mg 08/31/25 10:41 09/01/25 03:03 Morphine Sulf Inj 4 Mg/Ml Vial IVP 09/03/25 12:11 1 mg Q4HR PRN Administration PAIN SCALE 7-10 (Severe Ondansetron HCl 4 mg 08/29/25 08:07 Ondansetron Inj 2 Mg/Ml Inj 2 Ml IVP 09/28/25 08:06 Q6H PRN NAUSEA OR VOMITING Protocol Sennosides 1 tab 09/01/25 09:00 Senna/Docusate Sod 1 Tab Tablet PO 10/01/25 08:59 QDAY PRN CONSTIPATION Protocol Plan Patient is a 54-year-old male with past medical history of hemorrhagic CVA, HTN, seizures, T2DM, disseminated coccidiomycosis presenting from SNF on [facility] for unwitnessed fall. Patient was admitted for new neurological findings and right hip fracture in the setting of unwitnessed fall on 08/29/25. #Altered mental status #Hx of hemorrhagic CVA #Seizure disorder Neurology consulted after noticeable change in baseline mentation during hospitalization. Rapid response was called on 09/01 after noticed to have seizure-like activity. Patient was given 1 mg of Versed which aborted. Family at bedside stated that he was more lethargic and confused than his baseline. Teleneuro was consulted who recommended to complete EEG and treat for toxic versus metabolic encephalopathy. Noted that he takes keppra at home. CT head from 09/01 was negative for any hemorrhage or mass effect. EEG showed waveform consistent with encephalopathy but negative for any seizures. - Continue Keppra 1000 mg twice daily #Right hip replacement surgery on 08/30/2025, postoperative day 2 #Unwitnessed fall with new-onset neurological symptoms #R hip fracture Patient had unwitnessed fall at SNF, with history of hemorraghic CVA (07/01). CT head negative, CT hip positive for R hip fracture. Patient endorses RLE loss of sensation and loss of sensation on both sides of face. After patient's SNF was spoken with, we learned that he was working with PT for 1 week; has had improvement per staff. He can walk 70 feet with 2 people assisting, lifting 2 pound weights. Uses alfred lift x2 for transfer. -Orthopedic surgery performed right hip replacement on 08/30/2025 -Orthopedic surgery is on board -okay to continue asa [address] head every other day. Or if noticeable change in baseline mentation. #T2DM #Disseminated coccidiomycosis #HTN Primary care team to manage above conditions and ongoing care needs. The patient's management plan was discussed with my attending physician Dr. Altman. Ama Reddy, PGY-2 Attending Provider Attestation/Addendum I personally have seen and examined the patient at the bedside and I agreed with the resident's findings, assessment and plan of care. CT head from 09/01 was negative for any hemorrhage or mass effect. EEG showed waveform consistent with encephalopathy but negative for any seizures. - Continue Keppra 1000 mg twice daily. As he had spontaneous intracerebral hemorrhage with the ventricular extension and hydrocephalus with previous admission, even though his repeat CT head is not showing any acute bleed, continue only 81 mg of aspirin once a day for DVT prophylaxis status post hip fracture surgery with close monitoring for any bleeding. Consider doing CT head periodically or if there is any change in mental status or neuroexam
[2025-09-03] VITALS (9 sets, daily range): BP systolic 107–143; BP diastolic 80–90; PULSE 93–107; RESP 15–19; TEMP 36.2–36.8; O2SAT 97–99; BMI 12.0
[2025-09-03] MEDS: SENNA/DOCUSATE SOD 1 TAB TABLET PO (05:36)
[2025-09-03 05:45] LABS: Basophils # (Auto) 0.1 Thou/mm3 (0.0-0.2); Basophils % (Auto) 1 % (0-2.5); Eosinophils # (Auto) 0.3 Thou/mm3 (0.0-0.5); Eosinophils % (Auto) 3 % (0-10); Hematocrit 32.4 % (41.0-53.0); Hemoglobin 10.5 g/dL (13.5-16.0); Immature Granulocytes Auto 0.05 Thou/mm3 (0.00-0.00); Lymphocytes # (Auto) 1.2 Thou/mm3 (1.0-4.8); Lymphocytes % (Auto) 13 % (10-50); Mean Corpuscular HGB Conc 32.4 g/dl (31.0-37.0); Mean Corpuscular Hemoglobin 28.9 pg (25.0-35.0); Mean Corpuscular Volume 89 fL (80-100); Monocytes # (Auto) 1.0 Thou/mm3 (0.0-0.8); Monocytes % (Auto) 11 % (0-12); Neutrophils # (Auto) 6.6 Thou/mm3 (1.8-7.7); Neutrophils % (Auto) 72 % (37-80); Nucleated Red Blood Cell # 0.00 Thou/mm3 (0.00-0.00); Nucleated Red Blood Cell % 0 /100 WBC (0); Platelet Count 215 Thou/mm3 (140-440); RDW Standard Deviation 43.8 fL (35.1-43.9); Red Blood Count 3.63 Miln/mm3 (4.50-5.90); White Blood Count 9.1 Thou/mm3 (3.8-10.6)
[2025-09-03 06:27] LABS: Alanine Aminotransferase < 7 U/L (10-49); Albumin, Serum 4.3 gm/dL (3.5-5.0); Albumin/Globulin Ratio 1.5 (1.2-2.2); Alkaline Phosphatase 69 U/L (46-116); Anion Gap 12 (7-16); Aspartate Amino Transferase 15 U/L (0-34); BUN/Creatinine Ratio 17 Ratio (12-20); Bilirubin,Total 0.5 mg/dL (0.3-1.2); Blood Urea Nitrogen 12 mg/dL (9-23); Calcium 9.1 mg/dL (8.3-10.6); Calcium (Corrected) 9.1 mg/dL (8.5-10.1); Carbon Dioxide 26.9 mMol/L (20.0-31.0); Chloride 102 mMol/L (98-107); Creatinine (Component) 0.7 mg/dL (0.6-1.3); Estimated Creatinine Clearance 92.9 mL/min (>60); Globulin 2.8 gm/dL (2.3-3.5); Glucose 132 mg/dL (74-106); Magnesium 1.7 mg/dL (1.6-2.6); Osmolality,Calculated 282 (275-295); Phosphorous 3.9 mg/dL (2.4-5.1); Potassium 3.9 mMol/L (3.4-5.1); Sodium 141 mMol/L (136-145); Total Protein 7.1 gm/dL (5.7-8.2); eGFR > 60 See Note
[2025-09-03] MEDS: cefTRIAXone/D5w 1gm IV premix 1 GM/50 ML BAG IV (08:38)
[2025-09-03] MEDS: FAMOTIDINE INJ 10 MG/ML VIAL 2 ML 20 MG IVP (08:38)
[2025-09-03] MEDS: FLUDROCORTISONE ACETATE 0.1 MG TABLET PO (08:39)
[2025-09-03] MEDS: DOXYCYCLINE INJ 100 MG in SODIUM CHLORIDE 0.9% (POP) 100 ML IV (09:42)
[2025-09-03] MEDS: Magnesium Sulfate 2 GM Ivpb 2 GM/50 ML BAG IV (11:03)
[2025-09-03] MEDS: INSULIN LISPRO (AdmeLOG) 1 UNIT/0.01 ML UNIT SC ×3 (12:15→20:27)
--- NOTE | 2025-09-03 13:07 | PC.NURSE ---
Dr. Maurer aware pt. did not have BM since 08/29/25. Dr. Maurer states I will order Miralax.
--- NOTE | 2025-09-03 13:11 | PC.SS ---
Addendum entered by Candida Dorantes 09/03/25 14:22: Patient still pending b.m. Nursing states he has not had a b.m. for 7 days now. Updated facility. Patient is also pending auth. SS informed admissions team of patient's medication, Cresmba. Patient has a one month supply and the facility can re-order through same pharmacy. Updated Demi [facility] Original Note: Follow up note: Patient's prefers [facility]. SS presented accepted facilities. SS confirmed with Demi @ [facility] that they will accept patient. They will start working on authorization. Patient ready for d/c.
[2025-09-03] MEDS: GABAPENTIN 300 MG CAPSULE PO (14:15)
[2025-09-03] MEDS: POLYETHYLENE GLYCOL 17 GM PACKET PO (14:16)
--- NOTE | 2025-09-03 16:42 | ESPR_ITS ---
Documentation for date of: 09/03/25 Subjective Subjective Interval history: Patient was seen and examined at bedside this morning. No acute overnight events. Patient still pending authorization for [facility]. At this time patient is stable enough to be discharged after authorization is back. Lab borja patient's hemoglobin is stable and no spike in WBCs and urine culture still pending. Will continue with Rocephin for now, but discontinued patient's doxycycline. Also spoke with orthopedic surgeon for possibly restarting aspirin 81 mg daily as fairly recent ICH, stated he was okay with one daily therefore will start. Otherwise no other issues at this time. Exam Vital Signs Temp Pulse Resp BP Pulse Ox O2 Del Method O2 Flow Rate 97.2 F 96 18 143/90 H 98 Room Air 2 09/03/25 15:41 09/03/25 16:00 09/03/25 15:41 09/03/25 15:41 09/03/25 15:41 09/03/25 15:41 09/01/25 16:00 FiO2 98 08/29/25 08:10 Narrative Exam General: A/O x2, no acute distress, thin Eyes: PERRL, EOMI. Anicteric, vision grossly intact. Ears: No ear pain, no ear discharge, Hearing grossly intact. Nose: No nasal discharge. Mouth/Throat: Moist mucous membranes, no redness, no lesions. Neck: Neck supple, non-tender, no cervical lymphadenopathy. Lungs: Clear RAQUEL to auscultation and percussion, No accessory muscle use. Cardio: Normal S1/S2, regular rhythm, no murmurs, no JVD or carotid bruits. Abdomen: Soft, non-tender, no palpable masses, peristalsis present, no guarding or rebound. Extremities: Symmetrical, no significant deformities, no peripheral edema , R hip without drainage at incision site, peripheral pulses present, RAQUEL UE tremors. Skin: No rashes, no lesions, warm to touch. Neuro: Able to move all extremities, but RLE decreased do to pain. UE tremors, following commands Psych: appropriate mood and effect. Objective Labs 09/04/25 04:35 09/04/25 04:35 Labs: Laboratory Results - last 24 hr 09/03/25 05:30 WBC 9.1 RBC 3.63 L Hgb 10.5 L Hct 32.4 L MCV 89 MCH 28.9 MCHC 32.4 RDW Std Deviation 43.8 Plt Count 215 D Neut % (Auto) 72 Lymph % (Auto) 13 [place] % (Auto) 11 Eos % (Auto) 3 Baso % (Auto) 1 Neut # (Auto) 6.6 Lymph # (Auto) 1.2 [place] # (Auto) 1.0 H Eos # (Auto) 0.3 Baso # (Auto) 0.1 Immature Gran # (Auto) 0.05 H Absolute Nucleated RBC 0.00 Immature Gran % 1 H Nucleated RBC % 0 Sodium 141 Potassium 3.9 Chloride 102 Carbon Dioxide 26.9 Anion Gap 12 BUN 12 Creatinine 0.7 Estim Creat Clear Calc 92.9 eGFR > 60 BUN/Creatinine Ratio 17 Glucose 132 H Calculated Osmolality 282 Calcium 9.1 Corrected Calcium 9.1 Phosphorus 3.9 Magnesium 1.7 Total Bilirubin 0.5 AST 15 ALT < 7 L Alkaline Phosphatase 69 Total Protein 7.1 Albumin 4.3 Globulin 2.8 Albumin/Globulin Ratio 1.5 ABG Interpretation ABG results: 09/01/25 08:45 VBG pH 7.36 VBG pCO2 53 VBG pO2 27 VBG Base Excess 4 H Quality Measures Quality Measures none Assessment & Plan Assessment Current Active Medications: Generic Name Dose Route Start Last Admin Trade Name Freq PRN Reason Stop Dose Admin Acetaminophen 650 mg 08/29/25 08:07 Acetaminophen 325 Mg Tablet PO 09/28/25 08:06 Q6H PRN Fever >100.4 Acetaminophen 650 mg 08/29/25 08:07 Acetaminophen 325 Mg Tablet PO 09/28/25 08:06 Q6H PRN PAIN SCALE 1-3 (mild Cresemba 186 Mg 0 ea 08/29/25 18:30 09/03/25 10:27 Capsule PO 09/28/25 18:29 2 capsule QDAY DERRICK Administration Amitriptylin Tab 10 0 ea 08/31/25 21:00 09/02/25 21:24 Mg PO 09/30/25 20:59 Not Given HS DERRICK Dextrose 50 ml 08/29/25 09:25 Dextrose 50%-Water Inj 50 Ml Syringe IV 09/28/25 09:24 Q15MIN PRN BG <50 OR BG <70 & pt unresponsive Dextrose 25 ml 08/29/25 09:25 Dextrose 50%-Water Inj 50 Ml Syringe IV 09/28/25 09:24 Q15MIN PRN BG 50-70 responsive npo pt Famotidine 20 mg 09/01/25 09:15 09/03/25 08:38 Famotidine Inj 10 Mg/Ml Vial 2 Ml IVP 10/01/25 09:14 20 mg QDAY DERRICK Administration Fludrocortisone Acetate 0.1 mg 08/29/25 09:25 09/03/25 08:39 Fludrocortisone Acetate 0.1 Mg Tablet PO 09/28/25 09:24 0.1 mg DAILY DERRICK Administration Gabapentin 300 mg 08/29/25 09:30 09/03/25 14:15 Gabapentin 300 Mg Capsule PO 09/28/25 09:29 300 mg Q8HR DERRICK Administration Glucagon 1 mg 08/29/25 09:25 Glucagon Inj 1 Mg Vial IM Q15MIN PRN BG <70, and no IV access Ceftriaxone Sodium/Dextrose 1 gm in 50 mls @ 100 mls/hr 09/01/25 10:15 09/03/25 08:38 Rocephin/D5w 1gm Iv Premix IV 09/08/25 10:14 100 mls/hr QDAY DERRICK Administration Insulin Human Lispro 0 unit 08/31/25 07:30 09/03/25 12:15 Insulin Lispro (Admelog) 1 Unit/0.01 Ml Unit SC 09/30/25 07:29 3 unit ACHS DERRICK Administration Protocol Levetiracetam 1,000 mg 09/02/25 21:00 09/03/25 08:39 Levetiracetam 250 Mg Tablet PO 10/02/25 20:59 1,000 mg BID DERRICK Administration Melatonin 3 mg 08/29/25 21:00 09/02/25 21:24 Melatonin 3 Mg Tablet PO 09/28/25 20:59 Not Given HS DERRICK Midodrine 10 mg 08/29/25 09:24 Midodrine 5 Mg Tablet PO 09/28/25 09:29 On Hold: 09/01/25 09:12 TID PRN SBP < 90 Mirtazapine 15 mg 08/29/25 21:00 09/02/25 21:24 Mirtazapine 15 Mg Tablet PO 09/28/25 20:59 Not Given HS DERRICK Ondansetron HCl 4 mg 08/29/25 08:07 Ondansetron Inj 2 Mg/Ml Inj 2 Ml IVP 09/28/25 08:06 Q6H PRN NAUSEA OR VOMITING Protocol Sennosides 1 tab 09/01/25 09:00 09/03/25 05:36 Senna/Docusate Sod 1 Tab Tablet PO 10/01/25 08:59 1 tab QDAY PRN Administration CONSTIPATION Protocol Plan 54-year-old male with past medical history of hemorrhagic CVA, HTN, seizures, T2DM, disseminated coccidiomycosis presenting from SNF on 08/[facility]/2025 for unwitnessed fall. Patient was admitted for new neurological findings and right hip fracture in the setting of unwitnessed fall on 08/29/25. #Right hip replacement surgery on 08/30/2025 #Unwitnessed fall with new-onset neurological symptoms #R hip fracture #Hx of hemorrhagic CVA Patient had unwitnessed fall at SNF, with history of hemorraghic CVA (07/01). CT head negative, CT hip positive for R hip fracture. Patient endorses RLE loss of sensation and loss of sensation on both sides of face. After patient's SNF was spoken with, we learned that he was working with PT for 1 week; has had improvement per staff. He can walk 70 feet with 2 people assisting, lifting 2 pound weights. Uses alfred lift x2 for transfer. Plan: Aspirin 81mg and SCDs for DVT prophylaxis as failry recent ICH and high risk of bleeding. Orthopedic surgery performed right hip replacement on 08/30/2025 Will continue to monitor patient postoperatively for complications Orthopedic surgery is on board #Seizure disorder #Altered mentation #Insomnia Patient is on keppra at home. Patient had rapid response due to altered mentation on 09/01/2025 in the AM (see event note). CT head during event showed no mass, hemorrhage, or midline shift; glucose was 190 during event. Chest x- ray postevent negative for aspiration pneumonia. EEG taken on 09/02/2025 shows diffuse slowing suggestive of diffuse encephalopathy of metabolic, degenerative, or vascular origin. No epileptiform discharges noted. Plan: Ceftriaxone 1 g daily Protonix switched to famotidine 20 IV Tele-neuro consulted- recommended infectious vs metabolic cause for altered mentation Keppra 1000 every 12 hours po F/U Urine culture Inhouse neuro consulted, thank you for recommendations?continue Keppra at 1000 mg twice daily Melatonin 3 started #T2DM #Disseminated coccidiomycosis #HTN patient is on cresemba at home. Plan: Cresemba continue Insulin sliding scale Monitor BP Disposition: Med-Surg DVT prophylaxis: SCDs GI prophylaxis: Famotidine 20 daily Diet: Carb consistent Lines: PIV CODE STATUS: Full code Case disclosed with Attending Dr. Erasto Hicks PGY2 Disclaimer: Even though this this note was dictated by speech recognition and even though it was carefully revised there may still be minor errors in machine farmworker due to voice recognition software. Attending Provider Attestation/Addendum I, Holly Maurer DO, attest that I was physically present for the [place] portions of the service and evaluated the patient with the resident and I reviewed and discussed the case with the resident and agree with the resident's findings and plans of care as documented above Patient seen and evaluated this AM. He states he is feeling well. No acute events overnight. Patient is stable for discharge to SNF. Pending insurance authorization at this time. OK to start aspirin 81 mg PO daily for DVT ppx per neuro and ortho as there is concern for bleeding with ASA 81mg po BID.
--- NOTE | 2025-09-03 16:42 | PD.RESPRO ---
Documentation for date of: 09/03/25 Subjective Subjective Interval history: Patient examined at bedside. Vitals are stable, glucose this morning 132. Orientation is improved since yesterday. States his name, recognizes at bedside. Denies any pain, still limited movement in RLE. Plan to continue aspirin 81mg daily for 30 days as DVT prophylaxis. Okay to decrease keppra 500 BID as no seizure activity evidenced on EEG. Exam Vital Signs Temp Pulse Resp BP Pulse Ox O2 Del Method O2 Flow Rate 97.2 F 96 18 143/90 H 98 Room Air 2 09/03/25 15:41 09/03/25 16:00 09/03/25 15:41 09/03/25 15:41 09/03/25 15:41 09/03/25 15:41 09/01/25 16:00 FiO2 98 08/29/25 08:10 Narrative Exam General: Thin appearing male, No acute distress, cooperative HEENT: NCAT, No JVD noted. Mucosa moist. Pupils are equal and reactive to light bilaterally Cardiovascular: Normal S1 and S2. Regular rate and rhythm. Respiratory: Lungs are clear to auscultation bilaterally. No wheezing or crackles heard. Abdomen: Soft, nontender, not distended, normal bowel sounds. Skin: Warm to touch, dry, no rashes noted Musculoskeletal: No gross injuries. Unable to significantly move right leg. No pitting edema Neuro: awake, Alert but not oriented. Does not move right LE, does no follow commands. Objective Labs 09/04/25 04:35 09/04/25 04:35 Labs: Laboratory Results - last 24 hr 09/03/25 05:30 WBC 9.1 RBC 3.63 L Hgb 10.5 L Hct 32.4 L MCV 89 MCH 28.9 MCHC 32.4 RDW Std Deviation 43.8 Plt Count 215 D Neut % (Auto) 72 Lymph % (Auto) 13 [place] % (Auto) 11 Eos % (Auto) 3 Baso % (Auto) 1 Neut # (Auto) 6.6 Lymph # (Auto) 1.2 [place] # (Auto) 1.0 H Eos # (Auto) 0.3 Baso # (Auto) 0.1 Immature Gran # (Auto) 0.05 H Absolute Nucleated RBC 0.00 Immature Gran % 1 H Nucleated RBC % 0 Sodium 141 Potassium 3.9 Chloride 102 Carbon Dioxide 26.9 Anion Gap 12 BUN 12 Creatinine 0.7 Estim Creat Clear Calc 92.9 eGFR > 60 BUN/Creatinine Ratio 17 Glucose 132 H Calculated Osmolality 282 Calcium 9.1 Corrected Calcium 9.1 Phosphorus 3.9 Magnesium 1.7 Total Bilirubin 0.5 AST 15 ALT < 7 L Alkaline Phosphatase 69 Total Protein 7.1 Albumin 4.3 Globulin 2.8 Albumin/Globulin Ratio 1.5 ABG Interpretation ABG results: 09/01/25 08:45 VBG pH 7.36 VBG pCO2 53 VBG pO2 27 VBG Base Excess 4 H Quality Measures Quality Measures none Assessment & Plan Assessment Current Active Medications: Generic Name Dose Route Start Last Admin Trade Name Freq PRN Reason Stop Dose Admin Acetaminophen 650 mg 08/29/25 08:07 Acetaminophen 325 Mg Tablet PO 09/28/25 08:06 Q6H PRN Fever >100.4 Acetaminophen 650 mg 08/29/25 08:07 Acetaminophen 325 Mg Tablet PO 09/28/25 08:06 Q6H PRN PAIN SCALE 1-3 (mild Cresemba 186 Mg 0 ea 08/29/25 18:30 09/03/25 10:27 Capsule PO 09/28/25 18:29 2 capsule QDAY DERRICK Administration Amitriptylin Tab 10 0 ea 08/31/25 21:00 09/02/25 21:24 Mg PO 09/30/25 20:59 Not Given HS DERRICK Dextrose 50 ml 08/29/25 09:25 Dextrose 50%-Water Inj 50 Ml Syringe IV 09/28/25 09:24 Q15MIN PRN BG <50 OR BG <70 & pt unresponsive Dextrose 25 ml 08/29/25 09:25 Dextrose 50%-Water Inj 50 Ml Syringe IV 09/28/25 09:24 Q15MIN PRN BG 50-70 responsive npo pt Famotidine 20 mg 09/01/25 09:15 09/03/25 08:38 Famotidine Inj 10 Mg/Ml Vial 2 Ml IVP 10/01/25 09:14 20 mg QDAY DERRICK Administration Fludrocortisone Acetate 0.1 mg 08/29/25 09:25 09/03/25 08:39 Fludrocortisone Acetate 0.1 Mg Tablet PO 09/28/25 09:24 0.1 mg DAILY DERRICK Administration Gabapentin 300 mg 08/29/25 09:30 09/03/25 14:15 Gabapentin 300 Mg Capsule PO 09/28/25 09:29 300 mg Q8HR DERRICK Administration Glucagon 1 mg 08/29/25 09:25 Glucagon Inj 1 Mg Vial IM Q15MIN PRN BG <70, and no IV access Ceftriaxone Sodium/Dextrose 1 gm in 50 mls @ 100 mls/hr 09/01/25 10:15 09/03/25 08:38 Rocephin/D5w 1gm Iv Premix IV 09/08/25 10:14 100 mls/hr QDAY DERRICK Administration Insulin Human Lispro 0 unit 08/31/25 07:30 09/03/25 12:15 Insulin Lispro (Admelog) 1 Unit/0.01 Ml Unit SC 09/30/25 07:29 3 unit ACHS DERRICK Administration Protocol Levetiracetam 1,000 mg 09/02/25 21:00 09/03/25 08:39 Levetiracetam 250 Mg Tablet PO 10/02/25 20:59 1,000 mg BID DERRICK Administration Melatonin 3 mg 08/29/25 21:00 09/02/25 21:24 Melatonin 3 Mg Tablet PO 09/28/25 20:59 Not Given HS DERRICK Midodrine 10 mg 08/29/25 09:24 Midodrine 5 Mg Tablet PO 09/28/25 09:29 On Hold: 09/01/25 09:12 TID PRN SBP < 90 Mirtazapine 15 mg 08/29/25 21:00 09/02/25 21:24 Mirtazapine 15 Mg Tablet PO 09/28/25 20:59 Not Given HS DERRICK Ondansetron HCl 4 mg 08/29/25 08:07 Ondansetron Inj 2 Mg/Ml Inj 2 Ml IVP 09/28/25 08:06 Q6H PRN NAUSEA OR VOMITING Protocol Sennosides 1 tab 09/01/25 09:00 09/03/25 05:36 Senna/Docusate Sod 1 Tab Tablet PO 10/01/25 08:59 1 tab QDAY PRN Administration CONSTIPATION Protocol Plan Patient is a 54-year-old male with past medical history of hemorrhagic CVA, HTN, seizures, T2DM, disseminated coccidiomycosis presenting from [facility] on 08/28/2025 for unwitnessed fall. Patient was admitted for new neurological findings and right hip fracture in the setting of unwitnessed fall on 08/29/25. #Altered mental status #Hx of hemorrhagic CVA #Seizure disorder Neurology consulted after noticeable change in baseline mentation during hospitalization. Rapid response was called on 09/01 after noticed to have seizure-like activity. Patient was given 1 mg of Versed which aborted. Family at bedside stated that he was more lethargic and confused than his baseline. Teleneuro was consulted who recommended to complete EEG and treat for toxic versus metabolic encephalopathy. Noted that he takes keppra at home. CT head from 09/01 was negative for any hemorrhage or mass effect. EEG showed waveform consistent with encephalopathy but negative for any seizures. - okay to decrease keppra to 500 mg twice daily #Right hip replacement surgery on 08/30/2025, postoperative day 2 #Unwitnessed fall with new-onset neurological symptoms #R hip fracture Patient had unwitnessed fall at SNF, with history of hemorraghic CVA (07/01). CT head negative, CT hip positive for R hip fracture. Patient endorses RLE loss of sensation and loss of sensation on both sides of face. After patient's SNF was spoken with, we learned that he was working with PT for 1 week; has had improvement per staff. He can walk 70 feet with 2 people assisting, lifting 2 pound weights. Uses alfred lift x2 for transfer. -Orthopedic surgery performed right hip replacement on 08/30/2025 -Orthopedic surgery is on board -okay to continue asa 81 mg daily for 30 days #T2DM #Disseminated coccidiomycosis #HTN Primary care team to manage above conditions and ongoing care needs. The patient's management plan was discussed with my attending physician Dr. Altman. Ama Reddy, PGY-2 Attending Provider Attestation/Addendum I personally have seen and examined the patient bedside and agree with resident findings, assessment and plan of care. Patient is neurologically stable for discharge on aspirin 81 mg a day for DVT prevention with close monitoring for any bleeding or change in status.
[2025-09-03] MEDS: MIRTAZAPINE 15 MG TABLET PO (20:24)
[2025-09-03] MEDS: MELATONIN 3 MG TABLET PO (20:24)
[2025-09-04] VITALS (7 sets, daily range): BP systolic 101–140; BP diastolic 68–96; PULSE 82–104; RESP 15–17; TEMP 36.4–36.6; O2SAT 97–99
[2025-09-04 05:41] LABS: Basophils # (Auto) 0.1 Thou/mm3 (0.0-0.2); Basophils % (Auto) 1 % (0-2.5); Eosinophils # (Auto) 0.3 Thou/mm3 (0.0-0.5); Eosinophils % (Auto) 4 % (0-10); Hematocrit 30.2 % (41.0-53.0); Hemoglobin 10.2 g/dL (13.5-16.0); Immature Granulocytes Auto 0.05 Thou/mm3 (0.00-0.00); Lymphocytes # (Auto) 1.5 Thou/mm3 (1.0-4.8); Lymphocytes % (Auto) 18 % (10-50); Mean Corpuscular HGB Conc 33.8 g/dl (31.0-37.0); Mean Corpuscular Hemoglobin 30.0 pg (25.0-35.0); Mean Corpuscular Volume 89 fL (80-100); Monocytes # (Auto) 0.9 Thou/mm3 (0.0-0.8); Monocytes % (Auto) 10 % (0-12); Neutrophils # (Auto) 5.6 Thou/mm3 (1.8-7.7); Neutrophils % (Auto) 66 % (37-80); Nucleated Red Blood Cell # 0.00 Thou/mm3 (0.00-0.00); Nucleated Red Blood Cell % 0 /100 WBC (0); Platelet Count 246 Thou/mm3 (140-440); RDW Standard Deviation 43.4 fL (35.1-43.9); Red Blood Count 3.40 Miln/mm3 (4.50-5.90); White Blood Count 8.5 Thou/mm3 (3.8-10.6)
[2025-09-04 06:34] LABS: Alanine Aminotransferase < 7 U/L (10-49); Albumin, Serum 3.8 gm/dL (3.5-5.0); Albumin/Globulin Ratio 1.3 (1.2-2.2); Alkaline Phosphatase 70 U/L (46-116); Anion Gap 11 (7-16); Aspartate Amino Transferase 10 U/L (0-34); BUN/Creatinine Ratio 16 Ratio (12-20); Bilirubin,Total 0.4 mg/dL (0.3-1.2); Blood Urea Nitrogen 13 mg/dL (9-23); Calcium 9.0 mg/dL (8.3-10.6); Calcium (Corrected) 9.2 mg/dL (8.5-10.1); Carbon Dioxide 29.0 mMol/L (20.0-31.0); Chloride 103 mMol/L (98-107); Creatinine (Component) 0.8 mg/dL (0.6-1.3); Estimated Creatinine Clearance 81.3 mL/min (>60); Globulin 2.9 gm/dL (2.3-3.5); Glucose 178 mg/dL (74-106); Magnesium 1.9 mg/dL (1.6-2.6); Osmolality,Calculated 289 (275-295); Phosphorous 3.8 mg/dL (2.4-5.1); Potassium 3.9 mMol/L (3.4-5.1); Sodium 143 mMol/L (136-145); Total Protein 6.7 gm/dL (5.7-8.2); eGFR > 60 See Note
[2025-09-04] MEDS: INSULIN LISPRO (AdmeLOG) 1 UNIT/0.01 ML UNIT SC ×4 (07:40→21:32)
[2025-09-04] MEDS: FLUDROCORTISONE ACETATE 0.1 MG TABLET PO (08:45)
[2025-09-04] MEDS: POLYETHYLENE GLYCOL 17 GM PACKET PO (08:45)
[2025-09-04] MEDS: ASPIRIN EC 81 MG TABEC PO (08:45)
[2025-09-04] MEDS: FAMOTIDINE INJ 10 MG/ML VIAL 2 ML 20 MG IVP (08:46)
[2025-09-04] MEDS: SENNA/DOCUSATE SOD 1 TAB TABLET PO (08:46)
[2025-09-04] MEDS: cefTRIAXone/D5w 1gm IV premix 1 GM/50 ML BAG IV (08:46)
--- NOTE | 2025-09-04 13:37 | ESPR_ITS ---
<Statement entered by Paul Hicks MD - 09/04/25 13:40> I have reviewed the note and agree with the resident's assessment & plan with exceptions as below. I have personally reviewed labs, imaging, home meds/prior records, examined the patient, formulated and discussed management plan with my attending Patient was seen and examined at bedside this morning. No acute overnight events. Patient still pending insurance Auth for shelter facility at this time. Patient is back at baseline as. Patient's at bedside. Will decrease keppra to 500mg BID as per neuro and continue with other current management. Paul Hicks PGY2 Disclaimer: Even though this this note was dictated by speech recognition and even though it was carefully revised there may still be minor errors in actuary due to voice recognition software. Documentation for date of: 09/04/25 Subjective Subjective Interval history: Patient was seen and examined at bedside; no acute events overnight. Exam Vital Signs Temp Pulse Resp BP Pulse Ox O2 Del Method O2 Flow Rate 97.5 F 92 15 113/76 97 Room Air 2 09/04/25 11:39 09/04/25 12:00 09/04/25 11:39 09/04/25 11:39 09/04/25 11:39 09/04/25 11:39 09/01/25 16:00 FiO2 98 08/29/25 08:10 Narrative Exam General: A/O x1, no acute distress, thin Eyes: PERRL, EOMI. Anicteric, vision grossly intact. Ears: No ear pain, no ear discharge, Hearing grossly intact. Nose: No nasal discharge. Mouth/Throat: Moist mucous membranes, no redness, no lesions. Neck: Neck supple, non-tender, no cervical lymphadenopathy. Lungs: Clear RAQUEL to auscultation and percussion, No accessory muscle use. Cardio: Normal S1/S2, regular rhythm, no murmurs, no JVD or carotid bruits. Abdomen: Soft, non-tender, no palpable masses, peristalsis present, no guarding or rebound. Extremities: Symmetrical, no significant deformities, no peripheral edema , R hip without drainage at incision site, peripheral pulses present, RAQUEL UE tremors. Skin: No rashes, no lesions, warm to touch. Neuro: Able to move all extremities, but RLE decreased due to pain. UE tremors, following commands Psych: appropriate mood and effect. Objective Labs 09/04/25 04:35 09/04/25 04:35 Labs: Laboratory Results - last 24 hr 09/04/25 04:35 WBC 8.5 RBC 3.40 L Hgb 10.2 L Hct 30.2 L MCV 89 MCH 30.0 MCHC 33.8 RDW Std Deviation 43.4 Plt Count 246 D Neut % (Auto) 66 Lymph % (Auto) 18 [place] % (Auto) 10 Eos % (Auto) 4 Baso % (Auto) 1 Neut # (Auto) 5.6 Lymph # (Auto) 1.5 [place] # (Auto) 0.9 H Eos # (Auto) 0.3 Baso # (Auto) 0.1 Immature Gran # (Auto) 0.05 H Absolute Nucleated RBC 0.00 Immature Gran % 1 H Nucleated RBC % 0 Sodium 143 Potassium 3.9 Chloride 103 Carbon Dioxide 29.0 Anion Gap 11 BUN 13 Creatinine 0.8 Estim Creat Clear Calc 81.3 eGFR > 60 BUN/Creatinine Ratio 16 Glucose 178 H Calculated Osmolality 289 Calcium 9.0 Corrected Calcium 9.2 Phosphorus 3.8 Magnesium 1.9 Total Bilirubin 0.4 AST 10 ALT < 7 L Alkaline Phosphatase 70 Total Protein 6.7 Albumin 3.8 D Globulin 2.9 Albumin/Globulin Ratio 1.3 ABG Interpretation ABG results: 09/01/25 08:45 VBG pH 7.36 VBG pCO2 53 VBG pO2 27 VBG Base Excess 4 H Quality Measures Quality Measures none Assessment & Plan Assessment Current Active Medications: Generic Name Dose Route Start Last Admin Trade Name Bhupinderq PRN Reason Stop Dose Admin Acetaminophen 650 mg 08/29/25 08:07 Acetaminophen 325 Mg Tablet PO 09/28/25 08:06 Q6H PRN Fever >100.4 Acetaminophen 650 mg 08/29/25 08:07 Acetaminophen 325 Mg Tablet PO 09/28/25 08:06 Q6H PRN PAIN SCALE 1-3 (mild Aspirin 81 mg 09/04/25 09:00 09/04/25 08:45 Aspirin Ec 81 Mg Tabec PO 10/04/25 08:59 81 mg QDAY DERRICK Administration Cresemba 186 Mg 0 ea 08/29/25 18:30 09/04/25 09:00 Capsule PO 09/28/25 18:29 2 capsule QDAY DERRCIK Administration Amitriptylin Tab 10 0 ea 08/31/25 21:00 09/03/25 20:24 Mg PO 09/30/25 20:59 1 tablet HS DERRICK Administration Dextrose 50 ml 08/29/25 09:25 Dextrose 50%-Water Inj 50 Ml Syringe IV 09/28/25 09:24 Q15MIN PRN BG <50 OR BG <70 & pt unresponsive Dextrose 25 ml 08/29/25 09:25 Dextrose 50%-Water Inj 50 Ml Syringe IV 09/28/25 09:24 Q15MIN PRN BG 50-70 responsive npo pt Famotidine 20 mg 09/01/25 09:15 09/04/25 08:46 Famotidine Inj 10 Mg/Ml Vial 2 Ml IVP 10/01/25 09:14 20 mg QDAY DERRICK Administration Fludrocortisone Acetate 0.1 mg 08/29/25 09:25 09/04/25 08:45 Fludrocortisone Acetate 0.1 Mg Tablet PO 09/28/25 09:24 0.1 mg DAILY DERRICK Administration Gabapentin 300 mg 08/29/25 09:30 09/04/25 05:19 Gabapentin 300 Mg Capsule PO 09/28/25 09:29 Not Given Q8HR DERRICK Glucagon 1 mg 08/29/25 09:25 Glucagon Inj 1 Mg Vial IM Q15MIN PRN BG <70, and no IV access Ceftriaxone Sodium/Dextrose 1 gm in 50 mls @ 100 mls/hr 09/01/25 10:15 09/04/25 08:46 Rocephin/D5w 1gm Iv Premix IV 09/08/25 10:14 100 mls/hr QDAY DERRICK Administration Insulin Human Lispro 0 unit 08/31/25 07:30 09/04/25 12:04 Insulin Lispro (Admelog) 1 Unit/0.01 Ml Unit SC 09/30/25 07:29 3 unit ACHS DERRICK Administration Protocol Levetiracetam 500 mg 09/04/25 09:00 09/04/25 08:45 Levetiracetam 250 Mg Tablet PO 10/04/25 08:59 500 mg BID DERRICK Administration Melatonin 3 mg 08/29/25 21:00 09/03/25 20:24 Melatonin 3 Mg Tablet PO 09/28/25 20:59 3 mg HS DERRICK Administration Midodrine 10 mg 08/29/25 09:24 Midodrine 5 Mg Tablet PO 09/28/25 09:29 On Hold: 09/01/25 09:12 TID PRN SBP < 90 Mirtazapine 15 mg 08/29/25 21:00 09/03/25 20:24 Mirtazapine 15 Mg Tablet PO 09/28/25 20:59 15 mg HS DERRICK Administration Ondansetron HCl 4 mg 08/29/25 08:07 Ondansetron Inj 2 Mg/Ml Inj 2 Ml IVP 09/28/25 08:06 Q6H PRN NAUSEA OR VOMITING Protocol Polyethylene Glycol 17 gm 09/04/25 09:00 09/04/25 08:45 Polyethylene Glycol 17 Gm Packet PO 10/04/25 08:59 17 gm QDAY DERRICK Administration Sennosides 1 tab 09/04/25 09:00 09/04/25 08:46 Senna/Docusate Sod 1 Tab Tablet PO 10/04/25 08:59 1 tab QDAY DERRICK Administration Protocol Plan 54-year-old male with past medical history of hemorrhagic CVA, HTN, seizures, T2DM, disseminated coccidiomycosis presenting from SNF on 08/[facility]/2025 for unwitnessed fall. Patient was admitted for new neurological findings and right hip fracture in the setting of unwitnessed fall on 08/29/25. #Right hip replacement surgery on 08/30/2025 #Unwitnessed fall with new-onset neurological symptoms #R hip fracture #Hx of hemorrhagic CVA Patient had unwitnessed fall at SNF, with history of hemorraghic CVA (07/01). CT head negative, CT hip positive for R hip fracture. Patient endorses RLE loss of sensation and loss of sensation on both sides of face. After patient's SNF was spoken with, we learned that he was working with PT for 1 week; has had improvement per staff. He can walk 70 feet with 2 people assisting, lifting 2 pound weights. Uses alfred lift x2 for transfer. Plan: Aspirin 81mg and SCDs for DVT prophylaxis as fairly recent ICH and high risk of bleeding. Orthopedic surgery performed right hip replacement on 08/30/2025 Will continue to monitor patient postoperatively for complications Orthopedic surgery is on board Awaiting insurance authorization for SNF placement #Seizure disorder #Altered mentation #Insomnia Patient is on keppra at home. Patient had rapid response due to altered mentation on 09/01/2025 in the AM (see event note). CT head during event showed no mass, hemorrhage, or midline shift; glucose was 190 during event. Chest x- ray postevent negative for aspiration pneumonia. EEG taken on 09/02/2025 shows diffuse slowing suggestive of diffuse encephalopathy of metabolic, degenerative, or vascular origin. No epileptiform discharges noted. Plan: Ceftriaxone 1 g daily Protonix switched to famotidine 20 IV Tele-neuro consulted- recommended infectious vs metabolic cause for altered mentation F/U Urine culture Inhouse neuro consulted, thank you for recommendations?Keppra 500 every 12 hours po Melatonin 3 started #T2DM #Disseminated coccidiomycosis #HTN patient is on cresemba at home. Plan: Cresemba continue Insulin sliding scale Monitor BP Disposition: Med-Surg DVT prophylaxis: SCDs GI prophylaxis: Famotidine 20 daily Diet: Carb consistent Lines: PIV CODE STATUS: Full code This case was discussed with my attending physician, Dr. Maurer, and senior resident, Dr. Veliz. Kody Gautam MD-PhD, PGY1 Attending Provider Attestation/Addendum I, Holly Maurer, DO, attest that I was physically present for the [place] portions of the service and evaluated the patient with the resident and I reviewed and discussed the case with the resident and agree with the resident's findings and plans of care as documented above Patient seen and evaluated this AM. He states that he is feeling well. No further episodses of seizures. Pending SNF authorization. Keppra decreased to 500mg PO BID as per neurology recs.
[2025-09-04] MEDS: GABAPENTIN 300 MG CAPSULE PO ×2 (14:28→21:22)
[2025-09-04] MEDS: ACETAMINOPHEN 325 MG TABLET 650 MG PO (16:20)
[2025-09-04] MEDS: MELATONIN 3 MG TABLET PO (21:21)
[2025-09-04] MEDS: MIRTAZAPINE 15 MG TABLET PO (21:22)
--- NOTE | 2025-09-04 22:14 | ESPR_ITS ---
Documentation for date of: 09/04/25 Subjective Subjective Interval history: Patient was seen in [facility] today at the bedside. No issues overnight or witnessed seizures Exam - Neurology Vital Signs Temp Pulse Resp BP Pulse Ox O2 Del Method O2 Flow Rate 97.6 F 82 17 101/68 98 Room Air 2 09/04/25 20:00 09/04/25 20:00 09/04/25 20:00 09/04/25 20:00 09/04/25 20:00 09/04/25 20:00 09/01/25 16:00 FiO2 98 08/29/25 08:10 Narrative Exam GENERAL APPEARANCE: Well hydrated, well-nourished in no acute distress. HEENT: Normocephalic, atraumatic, extraocular movements intact. Pupils: Equal reacting to light and accommodation NECK: Supple, no JVD or bruits. CARDIOVASULAR: Heart: S1, S2 heard, regular without S3-S4 or murmur no rubs or gallops. LUNGS/CHEST: Clear to auscultation bilaterally. No rails, rhonchi, or wheezing. Normal inspection. ABDOMEN: Soft, nontender, with normal bowel sounds. No pulsatile masses. No rebound, rigidity, or guarding. Normal inspection and palpation. EXTREMITIES: Normal inspection and palpation. No edema, clubbing or cyanosis. SKIN: Warm and dry without rashes. Normal inspection. MUSCULOSKELETAL: No cervical, thoracic, lumbar or midline bony tenderness. Normal inspection. NEURO: Alert, awake and oriented x3. Cranial nerves: II through XII grossly intact. Speech and language: Normal with no dysarthria or dysphasia. Motor system: Tone and bulk: Normal: Strength: 5 out of 5 in all 4 extremities; No pronator drift noted. Deep tendon reflexes: 2+ bilaterally symmetrical. Plantar reflex: Downgoing bilaterally. Sensory system: Intact to all modalities of sensation bilaterally. Coordination: Intact to [id number] and [id number] test bilaterally. No ataxia, no dysmetria, or dysdiadochokinesia noted. No intention tremors noted. Gait: Not tested. No signs of meningeal irritation noted. PSYCHIATRIC: Normal mood and affect. Objective Labs 09/04/25 04:35 09/04/25 04:35 Labs: Laboratory Results - last 24 hr 09/04/25 04:35 WBC 8.5 RBC 3.40 L Hgb 10.2 L Hct 30.2 L MCV 89 MCH 30.0 MCHC 33.8 RDW Std Deviation 43.4 Plt Count 246 D Neut % (Auto) 66 Lymph % (Auto) 18 [place] % (Auto) 10 Eos % (Auto) 4 Baso % (Auto) 1 Neut # (Auto) 5.6 Lymph # (Auto) 1.5 [place] # (Auto) 0.9 H Eos # (Auto) 0.3 Baso # (Auto) 0.1 Immature Gran # (Auto) 0.05 H Absolute Nucleated RBC 0.00 Immature Gran % 1 H Nucleated RBC % 0 Sodium 143 Potassium 3.9 Chloride 103 Carbon Dioxide 29.0 Anion Gap 11 BUN 13 Creatinine 0.8 Estim Creat Clear Calc 81.3 eGFR > 60 BUN/Creatinine Ratio 16 Glucose 178 H Calculated Osmolality 289 Calcium 9.0 Corrected Calcium 9.2 Phosphorus 3.8 Magnesium 1.9 Total Bilirubin 0.4 AST 10 ALT < 7 L Alkaline Phosphatase 70 Total Protein 6.7 Albumin 3.8 D Globulin 2.9 Albumin/Globulin Ratio 1.3 ABG Interpretation ABG results: 09/01/25 08:45 VBG pH 7.36 VBG pCO2 53 VBG pO2 27 VBG Base Excess 4 H Assessment & Plan Assessment and plan (1) Altered mental status: Status: Resolved Assessment and plan: Could have been related to metabolic encephalopathy Resolving, mental status is close to baseline No Focal neurological deficit noted on exam No signs and symptoms of shunt malfunction clinically or radiographically Continue with Cresemba along with Keppra. Follow seizure precautions Patient is neurologically stable. (2) Closed fracture of neck of right femur: Status: Acute Assessment and plan: s/p surgery continue with ASA 81 mg daily for DVT prophylaxis. (3) Hypertension: Status: Chronic Assessment and plan: Continue with the lisinopril (4) Type 2 diabetes mellitus: Status: Chronic Assessment and plan: Continue to check fingerstick glucose and follow sliding scale insulin per protocol (5) New onset seizure: Status: Acute Assessment and plan: Continue to follow seizure precautions, continue with Keppra despite the negative EEG
[2025-09-05] VITALS (7 sets, daily range): BP systolic 115–127; BP diastolic 75–91; PULSE 81–101; RESP 16–18; TEMP 36.1–36.8; O2SAT 96–98; BMI 13.0
[2025-09-05] MEDS: GABAPENTIN 300 MG CAPSULE PO ×2 (06:16→13:19)
[2025-09-05] MEDS: INSULIN LISPRO (AdmeLOG) 1 UNIT/0.01 ML UNIT SC ×2 (07:20→17:17)
[2025-09-05] MEDS: FLUDROCORTISONE ACETATE 0.1 MG TABLET PO (08:54)
[2025-09-05] MEDS: cefTRIAXone/D5w 1gm IV premix 1 GM/50 ML BAG IV (08:54)
[2025-09-05] MEDS: POLYETHYLENE GLYCOL 17 GM PACKET PO (08:54)
[2025-09-05] MEDS: FAMOTIDINE INJ 10 MG/ML VIAL 2 ML 20 MG IVP (08:54)
[2025-09-05] MEDS: ASPIRIN EC 81 MG TABEC PO (08:54)
[2025-09-05] MEDS: SENNA/DOCUSATE SOD 1 TAB TABLET PO (08:55)
--- NOTE | 2025-09-05 14:15 | PD.RESPRO ---
Documentation for date of: 09/05/25 Subjective Subjective Interval history: Patient was seen and examined at bedside's morning. No acute overnight events. Patient still pending still awaiting insurance authorization for SNF placement. Otherwise patient looks a lot better today and has more mobility in his right lower extremity. No further seizure activity. Cultures negative and discontinued Abx Exam Vital Signs Temp Pulse Resp BP Pulse Ox O2 Del Method O2 Flow Rate 97.4 F 90 16 125/87 H 97 Room Air 2 09/05/25 11:55 09/05/25 11:55 09/05/25 11:55 09/05/25 11:55 09/05/25 11:55 09/05/25 11:55 09/01/25 16:00 FiO2 98 08/29/25 08:10 Narrative Exam General: A/O x2, no acute distress, thin Eyes: PERRL, EOMI. Anicteric, vision grossly intact. Ears: No ear pain, no ear discharge, Hearing grossly intact. Nose: No nasal discharge. Mouth/Throat: Moist mucous membranes, no redness, no lesions. Neck: Neck supple, non-tender, no cervical lymphadenopathy. Lungs: Clear RAQUEL to auscultation and percussion, No accessory muscle use. Cardio: Normal S1/S2, regular rhythm, no murmurs, no JVD Abdomen: Soft, non-tender, no palpable masses, peristalsis present, no guarding or rebound. Extremities: Symmetrical, no significant deformities, no peripheral edema , R hip without drainage at incision site and good granulation tissue, peripheral pulses present, RAQUEL UE tremors. Skin: No rashes, no lesions, warm to touch. Neuro: Able to move all extremities. UE tremors, following commands Psych: appropriate mood and effect. Objective Labs 09/04/25 04:35 09/04/25 04:35 ABG Interpretation ABG results: 09/01/25 08:45 VBG pH 7.36 VBG pCO2 53 VBG pO2 27 VBG Base Excess 4 H Quality Measures Quality Measures none Assessment & Plan Assessment Current Active Medications: Generic Name Dose Route Start Last Admin Trade Name Freq PRN Reason Stop Dose Admin Acetaminophen 650 mg 08/29/25 08:07 Acetaminophen 325 Mg Tablet PO 09/28/25 08:06 Q6H PRN Fever >100.4 Acetaminophen 650 mg 08/29/25 08:07 09/04/25 16:20 Acetaminophen 325 Mg Tablet PO 09/28/25 08:06 650 mg Q6H PRN Administration PAIN SCALE 1-3 (mild Aspirin 81 mg 09/04/25 09:00 09/05/25 08:54 Aspirin Ec 81 Mg Tabec PO 10/04/25 08:59 81 mg QDAY DERRICK Administration Cresemba 186 Mg 0 ea 08/29/25 18:30 09/05/25 08:55 Capsule PO 09/28/25 18:29 2 capsule QDAY DERRICK Administration Amitriptylin Tab 10 0 ea 08/31/25 21:00 09/04/25 21:21 Mg PO 09/30/25 20:59 1 tablet HS DERRICK Administration Dextrose 50 ml 08/29/25 09:25 Dextrose 50%-Water Inj 50 Ml Syringe IV 09/28/25 09:24 Q15MIN PRN BG <50 OR BG <70 & pt unresponsive Dextrose 25 ml 08/29/25 09:25 Dextrose 50%-Water Inj 50 Ml Syringe IV 09/28/25 09:24 Q15MIN PRN BG 50-70 responsive npo pt Famotidine 20 mg 09/01/25 09:15 09/05/25 08:54 Famotidine Inj 10 Mg/Ml Vial 2 Ml IVP 10/01/25 09:14 20 mg QDAY DERRICK Administration Fludrocortisone Acetate 0.1 mg 08/29/25 09:25 09/05/25 08:54 Fludrocortisone Acetate 0.1 Mg Tablet PO 09/28/25 09:24 0.1 mg DAILY DERRICK Administration Gabapentin 300 mg 08/29/25 09:30 09/05/25 13:19 Gabapentin 300 Mg Capsule PO 09/28/25 09:29 300 mg Q8HR DERRICK Administration Glucagon 1 mg 08/29/25 09:25 Glucagon Inj 1 Mg Vial IM Q15MIN PRN BG <70, and no IV access Ceftriaxone Sodium/Dextrose 1 gm in 50 mls @ 100 mls/hr 09/01/25 10:15 09/05/25 08:54 Rocephin/D5w 1gm Iv Premix IV 09/08/25 10:14 100 mls/hr QDAY DERRICK Administration Insulin Human Lispro 0 unit 08/31/25 07:30 09/05/25 12:58 Insulin Lispro (Admelog) 1 Unit/0.01 Ml Unit SC 09/30/25 07:29 Not Given ACHS DERRICK Protocol Levetiracetam 500 mg 09/04/25 09:00 09/05/25 08:55 Levetiracetam 250 Mg Tablet PO 10/04/25 08:59 500 mg BID DERRICK Administration Melatonin 3 mg 08/29/25 21:00 09/04/25 21:21 Melatonin 3 Mg Tablet PO 09/28/25 20:59 3 mg HS DERRICK Administration Midodrine 10 mg 08/29/25 09:24 Midodrine 5 Mg Tablet PO 09/28/25 09:29 On Hold: 09/01/25 09:12 TID PRN SBP < 90 Mirtazapine 15 mg 08/29/25 21:00 09/04/25 21:22 Mirtazapine 15 Mg Tablet PO 09/28/25 20:59 15 mg HS DERRICK Administration Ondansetron HCl 4 mg 08/29/25 08:07 Ondansetron Inj 2 Mg/Ml Inj 2 Ml IVP 09/28/25 08:06 Q6H PRN NAUSEA OR VOMITING Protocol Polyethylene Glycol 17 gm 09/04/25 09:00 09/05/25 08:54 Polyethylene Glycol 17 Gm Packet PO 10/04/25 08:59 17 gm QDAY DERRICK Administration Sennosides 1 tab 09/04/25 09:00 09/05/25 08:55 Senna/Docusate Sod 1 Tab Tablet PO 10/04/25 08:59 1 tab QDAY DERRICK Administration Protocol Plan 54-year-old male with past medical history of hemorrhagic CVA, HTN, seizures, T2DM, disseminated coccidiomycosis presenting from [facility] on 08/28/2025 for unwitnessed fall. Patient was admitted for new neurological findings and right hip fracture in the setting of unwitnessed fall on 08/29/25. #Right hip replacement surgery on 08/30/2025 #Unwitnessed fall with new-onset neurological symptoms #R hip fracture #Hx of hemorrhagic CVA Patient had unwitnessed fall at SNF, with history of hemorraghic CVA (07/01). CT head negative, CT hip positive for R hip fracture. Patient endorses RLE loss of sensation and loss of sensation on both sides of face. After patient's SNF was spoken with, we learned that he was working with PT for 1 week; has had improvement per staff. He can walk 70 feet with 2 people assisting, lifting 2 pound weights. Uses alfred lift x2 for transfer. Plan: Aspirin 81mg and SCDs for DVT prophylaxis as fairly recent ICH and high risk of bleeding. Orthopedic surgery performed right hip replacement on 08/30/2025 Will continue to monitor patient postoperatively for complications Orthopedic surgery is on board Awaiting insurance authorization for SNF placement #Seizure disorder #Altered mentation #Insomnia Patient is on keppra at home. Patient had rapid response due to altered mentation on 09/01/2025 in the AM (see event note). CT head during event showed no mass, hemorrhage, or midline shift; glucose was 190 during event. Chest x-ray postevent negative for aspiration pneumonia. EEG taken on 09/02/2025 shows diffuse slowing suggestive of diffuse encephalopathy of metabolic, degenerative, or vascular origin. No epileptiform discharges noted. Blood and urine cultures negative Plan: DC Ceftriaxone 1 g daily Protonix switched to famotidine 20 IV Inhouse neuro consulted, thank you for recommendations?Keppra 500 every 12 hours po Melatonin 3 started #T2DM #Disseminated coccidiomycosis #HTN patient is on cresemba at home. Plan: Cresemba continue Insulin sliding scale Monitor BP Disposition: Med-Surg DVT prophylaxis: SCDs GI prophylaxis: Famotidine 20 daily Diet: Carb consistent Lines: PIV CODE STATUS: Full code Case disclosed with Attending Dr. Erasto Hicks PGY2 Disclaimer: Even though this this note was dictated by speech recognition and even though it was carefully revised there may still be minor errors in rolling up machine operator due to voice recognition software. Attending Provider Attestation/Addendum [place], Holly Maurer DO, attest that I was physically present for the [place] portions of the service and evaluated the patient with the resident and I reviewed and discussed the case with the resident and agree with the resident's findings and plans of care as documented above Patient seen evaluate this a.m. Incision is clean dry and intact, healing well. Pending authorization for longterm facility. Patient has no active complaints at this time. Anticipate discharge within 24 hours. He remains seizure-free and afebrile.
--- NOTE | 2025-09-05 15:21 | PD.RESPRO ---
Documentation for date of: 09/05/25 Exam Vital Signs Temp Pulse Resp BP Pulse Ox O2 Del Method O2 Flow Rate 97.4 F 90 16 125/87 H 97 Room Air 2 09/05/25 11:55 09/05/25 11:55 09/05/25 11:55 09/05/25 11:55 09/05/25 11:55 09/05/25 11:55 09/01/25 16:00 FiO2 98 08/29/25 08:10 Objective Labs 09/04/25 04:35 09/04/25 04:35 ABG Interpretation ABG results: 09/01/25 08:45 VBG pH 7.36 VBG pCO2 53 VBG pO2 27 VBG Base Excess 4 H Quality Measures Quality Measures none Assessment & Plan Assessment Current Active Medications: Generic Name Dose Route Start Last Admin Trade Name Freq PRN Reason Stop Dose Admin Acetaminophen 650 mg 08/29/25 08:07 Acetaminophen 325 Mg Tablet PO 09/28/25 08:06 Q6H PRN Fever >100.4 Acetaminophen 650 mg 08/29/25 08:07 09/04/25 16:20 Acetaminophen 325 Mg Tablet PO 09/28/25 08:06 650 mg Q6H PRN Administration PAIN SCALE 1-3 (mild Aspirin 81 mg 09/04/25 09:00 09/05/25 08:54 Aspirin Ec 81 Mg Tabec PO 10/04/25 08:59 81 mg QDAY DERRICK Administration Cresemba 186 Mg 0 ea 08/29/25 18:30 09/05/25 08:55 Capsule PO 09/28/25 18:29 2 capsule QDAY DERRICK Administration Amitriptylin Tab 10 0 ea 08/31/25 21:00 09/04/25 21:21 Mg PO 09/30/25 20:59 1 tablet HS DERRICK Administration Dextrose 50 ml 08/29/25 09:25 Dextrose 50%-Water Inj 50 Ml Syringe IV 09/28/25 09:24 Q15MIN PRN BG <50 OR BG <70 & pt unresponsive Dextrose 25 ml 08/29/25 09:25 Dextrose 50%-Water Inj 50 Ml Syringe IV 09/28/25 09:24 Q15MIN PRN BG 50-70 responsive npo pt Famotidine 20 mg 09/01/25 09:15 09/05/25 08:54 Famotidine Inj 10 Mg/Ml Vial 2 Ml IVP 10/01/25 09:14 20 mg QDAY DERRICK Administration Fludrocortisone Acetate 0.1 mg 08/29/25 09:25 09/05/25 08:54 Fludrocortisone Acetate 0.1 Mg Tablet PO 09/28/25 09:24 0.1 mg DAILY DERRICK Administration Gabapentin 300 mg 08/29/25 09:30 09/05/25 13:19 Gabapentin 300 Mg Capsule PO 09/28/25 09:29 300 mg Q8HR DERRICK Administration Glucagon 1 mg 08/29/25 09:25 Glucagon Inj 1 Mg Vial IM Q15MIN PRN BG <70, and no IV access Insulin Human Lispro 0 unit 08/31/25 07:30 09/05/25 12:58 Insulin Lispro (Admelog) 1 Unit/0.01 Ml Unit SC 09/30/25 07:29 Not Given ACHS DERRICK Protocol Levetiracetam 500 mg 09/04/25 09:00 09/05/25 08:55 Levetiracetam 250 Mg Tablet PO 10/04/25 08:59 500 mg BID DERRICK Administration Melatonin 3 mg 08/29/25 21:00 09/04/25 21:21 Melatonin 3 Mg Tablet PO 09/28/25 20:59 3 mg HS DERRICK Administration Midodrine 10 mg 08/29/25 09:24 Midodrine 5 Mg Tablet PO 09/28/25 09:29 On Hold: 09/01/25 09:12 TID PRN SBP < 90 Mirtazapine 15 mg 08/29/25 21:00 09/04/25 21:22 Mirtazapine 15 Mg Tablet PO 09/28/25 20:59 15 mg HS DERRICK Administration Ondansetron HCl 4 mg 08/29/25 08:07 Ondansetron Inj 2 Mg/Ml Inj 2 Ml IVP 09/28/25 08:06 Q6H PRN NAUSEA OR VOMITING Protocol Polyethylene Glycol 17 gm 09/04/25 09:00 09/05/25 08:54 Polyethylene Glycol 17 Gm Packet PO 10/04/25 08:59 17 gm QDAY DERRICK Administration Sennosides 1 tab 09/04/25 09:00 09/05/25 08:55 Senna/Docusate Sod 1 Tab Tablet PO 10/04/25 08:59 1 tab QDAY DERRICK Administration Protocol
--- NOTE | 2025-09-05 16:22 | ESDS_ITS ---
<Statement entered by Holly Maurer DO - 09/05/25 16:54> I, Holly Maurer DO, attest that I was physically present for the kerns portions of the service and evaluated the patient with the resident and I reviewed and discussed the case with the resident and agree with the resident's findings and plans of care as documented above Planned Discharge Date 09/05/25 DS: Providers Provider Date of admission: 08/29/25 08:45 Primary care physician: Sandra Morris MD Admitting Provider: Gayle Ceullo MD Attending Provider on Admission: Holly Maurer DO Consults: 08/29/25 08:21 Consult to Orthopedic Routine Comment: Consulting Provider: Kade Walton 08/30/25 19:46 PT [Referral Physical Therapy] Urgent Comment: Physician Instructions: 09/01/25 08:45 Consult to Neurology / Tele-Neurology Routine Comment: Consulting Provider: [facility] 09/02/25 09:00 Consult to Neurology / Tele-Neurology Routine Comment: Consulting Provider: Zeb Altman Attending Provider on DC: Holly Maurer DO Discharging Provider: Holly Maurer DO DS: Diagnosis Problem List Completed Was Problem List Reviewed/Reconciled?: Yes Hospital Course Hospital Course Hospital course: 54-year-old male with past medical history of hypertension, intracerebral hemorrhage s/p COPYWRITER shunt (Jun 2025), seizures, disseminated cocci meningitis (Sep 2024), and T2DM was admitted to the hospital on 08/29/2025 due to to acute right hip fracture s/p ground-level fall. In the ED patient was clinically stable and was on his baseline mental status. Initially there was some concern if patient was a candidate for surgery given his overall physical status, but after speaking with the shelter facility faculty it was stated that the patient had been undergoing physical therapy with good improvement in his mobility and strength. At this time orthopedic surgeon decided that the patient was a candidate for surgery and family opted in for hip repair. Patient underwent right hip hemiarthroplasty on 05/30/2025. On 09/01/2025 patient had a rapid sponsor called due to new onset seizure-like activity. His Keppra was increased and infectious and metabolic etiology workup was done. Patient's cultures remain negative and he after did not have any more seizure activity. Neurology was consulted at that time and after patient was on Keppra 1000 mg t wice daily for around 3 days to decide to go back down to 500 mg twice daily. Also given the recent history of hemorrhagic CVA patient was started on aspirin 81 mg daily after discussing the case with orthopedic surgery and neurology. Otherwise patient's hospital course was delayed due to pending authorization for shelter facility, but patient remained stable throughout the rest of the hospital stay. At the time of discharge patient was stable enough to be discharged to shelter facility. Disposition plan: Please follow-up primary care physician within 2 or 3 days upon discharge Please follow-up with neurologist within 5 to 7 days upon discharge Please follow-up with your orthopedic surgeon within 5 to 7 days upon discharge We have changed your lisinopril to 20 mg daily. We have started ASA 81mg qday for 30 days. Please continue all other home medications as prescribed including fludrocortisone 0.1 mg daily. Work with physical therapy Please come back to the ER if symptoms persist or worsen Problem list: #Right hip replacement surgery on 08/30/2025 #mechanical fall #R hip fracture #Hx of hemorrhagic CVA #Seizure disorder #Acute encephalopathy #Insomnia #T2DM #Disseminated coccidiomycosis #HTN Case disclosed with Attending Dr. 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 Status at Discharge Overall status at discharge: patient is progressing back to baseline Time Spent with Patient Time attestation: Total time spent providing and/or coordinating discharge services:>30 min Time spent: Greater than 30 minutes Exam Vital Signs Temp Pulse Resp BP Pulse Ox O2 Del Method O2 Flow Rate 97.4 F 96 16 125/87 H 97 Room Air 2 09/05/25 11:55 09/05/25 15:56 09/05/25 11:55 09/05/25 11:55 09/05/25 11:55 09/05/25 11:55 09/01/25 16:00 FiO2 98 08/29/25 08:10 Narrative Exam General: A/O x2, no acute distress, thin Eyes: PERRL, EOMI. Anicteric, vision grossly intact. Ears: No ear pain, no ear discharge, Hearing grossly intact. Nose: No nasal discharge. Mouth/Throat: Moist mucous membranes, no redness, no lesions. Neck: Neck supple, non-tender, no cervical lymphadenopathy. Lungs: Clear RAQUEL to auscultation and percussion, No accessory muscle use. Cardio: Normal S1/S2, regular rhythm, no murmurs, no JVD Abdomen: Soft, non-tender, no palpable masses, peristalsis present, no guarding or rebound. Extremities: Symmetrical, no significant deformities, no peripheral edema , R hip without drainage at incision site and good granulation tissue, peripheral pulses present, RAQUEL UE tremors. Skin: No rashes, no lesions, warm to touch. Neuro: Able to move all extremities. UE tremors, following commands Psych: appropriate mood and effect. Discharge Plan Plan Patient Disposition: Xfer Skilled Nsg Fac (SNF) Care Plan Goals: Please follow-up primary care physician within 2 or 3 days upon discharge Please follow-up with neurologist within 5 to 7 days upon discharge Please follow-up with your orthopedic surgeon within 5 to 7 days upon discharge We have changed your lisinopril to 20 mg daily. We have started ASA 81mg qday for 30 days. Please continue y all other home medications as prescribed including fludrocortisone 0.1 mg daily. Work with physical therapy Please come back to the ER if symptoms persist or worsen Prescriptions/Referrals Prescriptions/Med Rec: New fludrocortisone 0.1 mg Tablet 0.1 mg PO DAILY 30 Days Qty: 30 0RF aspirin 81 mg capsule 81 mg PO QDAY Qty: 30 0RF Continued famotidine 20 mg tablet 20 mg PO DAILY amitriptyline 10 mg tablet 10 mg PO HS Patient Comments: TAKE 1 TABLET BY MOUTH EVERYDAY AT BEDTIME gabapentin 300 mg capsule 300 mg PO Q8H albuterol sulfate 2.5 mg/0.5 mL solution for nebulization 2.5 mg inhalation Q6H PRN (Reason: shortness of breath or wheezing) insulin lispro 100 unit/mL solution 1 sliding scale dose subcut USEASDIRECTD Cresemba 186 mg Capsule 372 mg PO QDAY 30 Days Qty: 60 0RF midodrine 10 mg tablet 10 mg PO Q8H PRN (Reason: Systolic Blood pressure <90) 30 Days Qty: 90 0RF Patient Comments: TAKE 1 TABLET BY MOUTH THREE TIMES A DAY melatonin 3 mg Tablet 3 mg PO HS 30 Days Qty: 30 0RF mirtazapine 15 mg Tablet 15 mg PO HS 30 Days Qty: 30 0RF levetiracetam 500 mg tablet 500 mg PO Q12H 30 Days Qty: 60 0RF Patient Comments: TAKE 1 TABLET BY MOUTH TWICE A DAY Changed lisinopril 40 mg tablet 20 mg PO DAILY 30 Days Qty: 15 0RF Patient Comments: TAKE 1 TABLET BY MOUTH EVERY DAY Referrals: Sandra Morris MD [Primary Care Provider] Kade Walton MD [Physician, Orthopedics] Patient/Caregiver Discharge Instructions Other Discharge Activity Instructions:: Please follow-up primary care physician within 2 or 3 days upon discharge Please follow-up with neurologist within 5 to 7 days upon discharge Please follow-up with your orthopedic surgeon within 5 to 7 days upon discharge We have changed lisinopril to 20 mg daily. We have started ASA 81mg qday for 30 days. Please continue y all other home medications as prescribed including fludrocortisone 0.1 mg daily. Work with physical therapy Please come back to the ER if symptoms persist or worsen Education Materials: After a Hip Fracture: Common Questions, Fx Hip Surg Dc Print Language: Croatian Stand Alone Forms: Laksh[employer] Award Info., Patient Portal Info Letter Discharge Order Discharge Orders: Discharge (Routine); Ordered 09/05/25 Ordered By: Kody Gautam Quality Discharge Quality Measures VTE prophylaxis
--- NOTE | 2025-09-05 18:01 | PC.NURSE ---
Received call from dispatch for [employer] needing to push 1800 sweet pickle maker to 1999. Report called to SNF Nurse Naga at [facility]. Notified facility of 2000 sweet pickle maker time per dispatch. Patient and family at bedside updated on new sweet pickle maker time. Discharge packet printed and in folder. Belongings list reviewed and signed by . Home medications released into her care. IV still in place for emergency access, cardiac monitoring still ongoing until pickup.
--- NOTE | 2025-09-05 23:32 | PD.NEUROPROG ---
Documentation for date of: 09/05/25 Subjective Subjective Interval history: Patient was seen in [facility] today at the bedside. No issues overnight or witnessed seizures Exam - Neurology Vital Signs Temp Pulse Resp BP Pulse Ox O2 Del Method O2 Flow Rate 98.2 F 96 16 117/91 H 98 Room Air 2 09/05/25 15:43 09/05/25 15:56 09/05/25 15:43 09/05/25 15:43 09/05/25 15:43 09/05/25 15:43 09/01/25 16:00 FiO2 98 08/29/25 08:10 Narrative Exam GENERAL APPEARANCE: Well hydrated, well-nourished in no acute distress. HEENT: Normocephalic, atraumatic, extraocular movements intact. Pupils: Equal reacting to light and accommodation NECK: Supple, no JVD or bruits. CARDIOVASULAR: Heart: S1, S2 heard, regular without S3-S4 or murmur no rubs or gallops. LUNGS/CHEST: Clear to auscultation bilaterally. No rails, rhonchi, or wheezing. Normal inspection. ABDOMEN: Soft, nontender, with normal bowel sounds. No pulsatile masses. No rebound, rigidity, or guarding. Normal inspection and palpation. EXTREMITIES: Normal inspection and palpation. No edema, clubbing or cyanosis. SKIN: Warm and dry without rashes. Normal inspection. MUSCULOSKELETAL: No cervical, thoracic, lumbar or midline bony tenderness. Normal inspection. NEURO: Alert, awake and oriented x3. Cranial nerves: II through XII grossly intact. Speech and language: Normal with no dysarthria or dysphasia. Motor system: Tone and bulk: Normal: Strength: 5 out of 5 in all 4 extremities; No pronator drift noted. Deep tendon reflexes: 2+ bilaterally symmetrical. Plantar reflex: Downgoing bilaterally. Sensory system: Intact to all modalities of sensation bilaterally. Coordination: Intact to [id number] and vyry-ddtr-wdyr test bilaterally. No ataxia, no dysmetria, or dysdiadochokinesia noted. No intention tremors noted. Gait: Not tested. No signs of meningeal irritation noted. PSYCHIATRIC: Normal mood and affect. Objective Labs 09/04/25 04:35 09/04/25 04:35 ABG Interpretation ABG results: 09/01/25 08:45 VBG pH 7.36 VBG pCO2 53 VBG pO2 27 VBG Base Excess 4 H Assessment & Plan Assessment and plan (1) Altered mental status: Status: Resolved Assessment and plan: Could have been related to metabolic encephalopathy Resolving, mental status is close to baseline No Focal neurological deficit noted on exam No signs and symptoms of shunt malfunction clinically or radiographically Continue with Cresemba along with Keppra. Follow seizure precautions Patient is neurologically stable for discharge. (2) Closed fracture of neck of right femur: Status: Acute Assessment and plan: s/p surgery continue with ASA 81 mg daily for DVT prophylaxis. (3) Hypertension: Status: Chronic Assessment and plan: Continue with the lisinopril (4) Type 2 diabetes mellitus: Status: Chronic Assessment and plan: Continue to check fingerstick glucose and follow sliding scale insulin per protocol (5) New onset seizure: Status: Acute Assessment and plan: Continue to follow seizure precautions, continue with Keppra despite the negative EEG
--- NOTE | 2025-09-06 14:20 | PC.SS ---
follow up note: SS received a call from Paula @ [facility] wanting PASRR for patient. SS informed she will neet to get this from patient's prior facility at [facility].
== END 2025-09-05 20:06 | disposition skilled nursing facility (03) | DRG 323 ==
LOC: SERX 08-29 → SERHOLD 08-29 09:02 → S3SX 08-29 12:08 → SERHOLD 08-30 05:47
PROVIDERS: Orthopaedic Surgery Adult Reconstructive Orthopaedic Surgery; Student in an Organized Health Care Education/Training Program; Admitting Provider Student in an Organized Health Care Education/Training Program; Emergency Provider Emergency Medicine; PCP Hospitalist; Visit Provider Internal Medicine
PROC: 0SRR0JZ Replacement of Right Hip Joint, Femoral Surface with Synthetic Substitute, Open Approach (ICD-10-PCS; CPT 27130; principal; 2025-08-30 15:30)
DX: S72.001A Fracture of unspecified part of neck of right femur, initial encounter for closed fracture (principal); R64 Cachexia; Z68.1 Body mass index [BMI] 19.9 or less, adult; E11.9 Type 2 diabetes mellitus without complications; G40.909 Epilepsy, unspecified, not intractable, without status epilepticus; W01.0XXA Fall on same level from slipping, tripping and stumbling without subsequent striking against object, initial encounter; G47.00 Insomnia, unspecified; G93.41 Metabolic encephalopathy; I69.351 Hemiplegia and hemiparesis following cerebral infarction affecting right dominant side; I10 Essential (primary) hypertension; Z98.2 Presence of cerebrospinal fluid drainage device; Z86.73 Personal history of transient ischemic attack (TIA), and cerebral infarction without residual deficits; Z74.01 Bed confinement status; Z79.4 Long term (current) use of insulin; B38.7 Disseminated coccidioidomycosis; Z79.52 Long term (current) use of systemic steroids; Z79.82 Long term (current) use of aspirin; Z87.891 Personal history of nicotine dependence; Z91.81 History of falling
CPT/HCPCS: 36415; 70450; 71045; 72170; 73502; 73552; 73700; 80053; 82803; 83036; 83605; 83735; 84100; 85025; 85610; 87040; 87081; 87086; 93005; 93225; 95816; 96372; 97162; 99283; A4217; A4649; C1776; J0689; J0690; J0696; J1100; J1644; J1815; J1953; J2250; J2270; J2371; J2405; J2704; J2710; J3010; J3475; J3490; J7120; A9270; J1596; J1805

== ENCOUNTER 2025-09-12 09:28 | Outpatient (AMB) | payer MEDICAID, SELFPAY ==
[2025-09-12 09:54] VITALS: BP 121/86; PULSE 110; RESP 19; TEMP 36.7; O2SAT 96; BMI 20.9
--- NOTE | 2025-09-12 09:54 | PD.ORTHCLVIS ---
Vital signs 09/12/25 09:54 Height 1.68 m Height Method Measured Weight 58.967 kg Weight Measurement Method Standing Scale BMI 20.9 BP 121/86 H Blood Pressure Source Automatic Cuff Blood Pressure Location Left Upper Arm Position Sitting Respiration 19 Pulse 110 H Pulse Source Monitor Temp 98.1 F Temp Source Temporal Artery Scan Pulse Oximetry (%) 96 Oxygen Delivery Method Room Air Med/Allergies Allergies & Medications Allergies No Known Allergies Allergy (Verified 09/12/25 09:59) Medication Reconciliation albuterol sulfate 2.5 mg/0.5 mL solution for nebulization 2.5 mg inhalation Q6H PRN shortness of breath or wheezing 08/05/25 [History Confirmed 09/12/25] amitriptyline 10 mg tablet 10 mg PO HS 08/05/25 [History Confirmed 09/12/25] famotidine 20 mg tablet 20 mg PO DAILY 08/05/25 [History Confirmed 09/12/25] gabapentin 300 mg capsule 300 mg PO Q8H 08/05/25 [History Confirmed 09/12/25] insulin lispro 100 unit/mL subcutaneous solution 1 sliding scale dose subcut USEASDIRECTD 08/05/25 [History Confirmed 09/12/25] midodrine 10 mg tablet 10 mg PO Q8H PRN Systolic Blood pressure <90 1 month #90 tabs 08/08/25 [Rx Confirmed 09/12/25] aspirin 81 mg capsule 81 mg PO QDAY #30 caps 09/03/25 [Rx Confirmed 09/12/25] fludrocortisone 0.1 mg tablet 0.1 mg PO DAILY 30 days #30 tabs 09/03/25 [Rx Confirmed 09/12/25] lisinopril 40 mg tablet 20 mg (1/2 x 40 mg) PO DAILY 30 days #15 tabs 09/03/25 [Rx Confirmed 09/12/25] levetiracetam 500 mg tablet 500 mg PO Q12H 30 days #60 tabs 09/05/25 [Rx Confirmed 09/12/25] Exam Exam Patient is in no acute distress and is cooperative with the examination today. Breathing is nonlabored. In no respiratory distress. Patient has no paraspinal tenderness. Spinal deformity cannot be appreciated. The gait of the patient is nonantalgic Bilateral extremities were evaluated and demonstrates sensation intact to light touch. Palpable pedal pulses are present. No significant edema is present. Bilateral knees were examined and the patient has full strength and range of motion.. The left hip was examined. Patient was able to flex to 90 degrees, adduct to 30 degrees, abduct to 40 degrees, internally rotate to 20 degrees, and externally rotate to 20 degrees. Patient has a negative logroll. Stinchfield is negative. The patient is nontender diffusely to touch. Right hip incisions clean dry intact. Leg lengths are equal Assessment and Plan Problem List (1) History of right hip hemiarthroplasty: Status: Acute Plan: Patient is a pleasant 54-year-old male who is status post right hip hemiarthroplasty. He is doing well. We will see him back in 4 weeks for routine follow-up Office Procedures GNS Level of Care Nursing/Assessment Patient Status: Established Patient Nursing Assessment/Reassesment: Medication Reconciliation, Update PMH in EMR and Vital Signs Coordination of Care: Complex Care and Chronic Disease 1-5, Education Complex Pt/Fam, Consent,records obtained, informed consent, Results/Orders obtained and Staff clarify orders Established Patient Charge Established Patient Point Assignment: 95 Established Patient Point Charge: EP Level 3 (80-115) MA Intake Visit Data Collection New Patient or Established: Established Patient (seen at [facility] within 3 years) Reason for Visit:: 2 WEEK POST OP CIRILO Seen by Clinical Staff ONLY (RN/MA): No 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 PCP or OBGYN visit in last 3 months: Yes Hx Now: No Do You Feel Safe at Home: Yes Authorities Contacted: N/A Questionairres Past Medical History Past Medical History Have you ever been diagnosed with any of the following: Neurological Problems Meningitis: Yes Seizures: Yes Cardiology Problems Congestive Heart Failure: No Hypertension: Yes Respiratory Problems Chronic Obstructive Pulmonary Disease (COPD): No Genital/Urinary Problems Renal Disease: No Endocrine Problems Diabetes Mellitus Type 1: No Diabetes Mellitus Type 2: Yes Other Problems Hospitalization: Yes Blood Transfusions: No Blood Transfusion Reaction: No Anesthesia Reactions: No Subjective Visit Visit for: follow up visit and knee Immunization / Flu Flu Vaccine in the Last 12 Months: Yes Flu Vaccine Exclusion Criteria: Already Received History of Present Illness Chief complaint: 2 WEEK POST OP CIRILO Patient is a pleasant 54-year-old male who is 2 weeks status post right hip hemiarthroplasty for fracture. He has a history of stroke and is still recovering from this. 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
== END 2025-09-12 10:10 | disposition home or self-care (01) ==
LOC: HODSRG 09:28
PROVIDERS: PCP Hospitalist; Referring Provider Hospitalist; Supervising Provider Orthopaedic Surgery Adult Reconstructive Orthopaedic Surgery; Visit Provider Orthopaedic Surgery Adult Reconstructive Orthopaedic Surgery
DX: Z47.1 Aftercare following joint replacement surgery (principal); Z96.641 Presence of right artificial hip joint; Z86.73 Personal history of transient ischemic attack (TIA), and cerebral infarction without residual deficits; Z86.61 Personal history of infections of the central nervous system; I10 Essential (primary) hypertension; E11.9 Type 2 diabetes mellitus without complications; Z79.4 Long term (current) use of insulin
CPT/HCPCS: 99213; G0463

== ENCOUNTER 2025-10-10 08:53 | Outpatient (AMB) | payer MEDICAID, SELFPAY ==
[2025-10-10 09:12] VITALS: BP 130/88; PULSE 86; RESP 18; TEMP 36.6; O2SAT 100; BMI 21.7
--- NOTE | 2025-10-10 09:12 | PD.ORTHCLVIS ---
Vital signs 10/10/25 09:12 Height 1.68 m Height Method Stated Weight 61.49 kg Weight Measurement Method Standing Scale BMI 21.7 BP 130/88 H Blood Pressure Source Automatic Cuff Blood Pressure Location Right Upper Arm Position Sitting Respiration 18 Pulse 86 Pulse Source Monitor Temp 97.8 F Temp Source Temporal Artery Scan Pulse Oximetry (%) 100 Oxygen Delivery Method Room Air Med/Allergies Allergies & Medications Allergies No Known Allergies Allergy (Verified 10/10/25 09:12) Medication Reconciliation albuterol sulfate 2.5 mg/0.5 mL solution for nebulization 2.5 mg inhalation Q6H PRN shortness of breath or wheezing 08/05/25 [History Confirmed 10/10/25] amitriptyline 10 mg tablet 10 mg PO HS 08/05/25 [History Confirmed 10/10/25] famotidine 20 mg tablet 20 mg PO DAILY 08/05/25 [History Confirmed 10/10/25] gabapentin 300 mg capsule 300 mg PO Q8H 08/05/25 [History Confirmed 10/10/25] insulin lispro 100 unit/mL subcutaneous solution 1 sliding scale dose subcut USEASDIRECTD 08/05/25 [History Confirmed 10/10/25] midodrine 10 mg tablet 10 mg PO Q8H PRN Systolic Blood pressure <90 1 month #90 tabs 08/08/25 [Rx Confirmed 10/10/25] aspirin 81 mg capsule 81 mg PO QDAY #30 caps 09/03/25 [Rx Confirmed 10/10/25] lisinopril 40 mg tablet 20 mg (1/2 x 40 mg) PO DAILY 30 days #15 tabs 09/03/25 [Rx Confirmed 10/10/25] levetiracetam 500 mg tablet 500 mg PO Q12H 30 days #60 tabs 09/05/25 [Rx Confirmed 10/10/25] Exam Exam Patient is in no acute distress and is cooperative with the examination today. Breathing is nonlabored. In no respiratory distress. Patient has no paraspinal tenderness. Spinal deformity cannot be appreciated. The gait of the patient is nonantalgic Bilateral extremities were evaluated and demonstrates sensation intact to light touch. Palpable pedal pulses are present. No significant edema is present. Bilateral knees were examined and the patient has full strength and range of motion.. The left hip was examined. Patient was able to flex to 90 degrees, adduct to 30 degrees, abduct to 40 degrees, internally rotate to 20 degrees, and externally rotate to 20 degrees. Patient has a negative logroll. Stinchfield is negative. The patient is nontender diffusely to touch. Right hip incisions clean dry intact. Leg lengths are equal Assessment and Plan Problem List (1) History of right hip hemiarthroplasty: Status: Acute Plan: Patient is a pleasant 54-year-old male who is status post right hip hemiarthroplasty. He is doing well. We will see him back in 4 months for routine follow-up Office Procedures GNS Level of Care Nursing/Assessment Patient Status: Established Patient Nursing Assessment/Reassesment: Medication Reconciliation, Update PMH in EMR and Vital Signs Coordination of Care: Complex Care and Chronic Disease 1-5, Education Complex Pt/Fam, Consent,records obtained, informed consent, Results/Orders obtained and Staff clarify orders Special Needs: Language special needs Established Patient Charge Established Patient Point Assignment: 95 Established Patient Point Charge: EP Level 3 (80-115) MA Intake Visit Data Collection New Patient or Established: Established Patient (seen at [facility] within 3 years) Reason for Visit:: 4 WK POST OP Seen by Clinical Staff ONLY (RN/MA): No Verbal consent obtained for Telemed visit?: No 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 PCP or OBGYN visit in last 3 months: Yes Hx Now: No Do You Feel Safe at Home: Yes Authorities Contacted: N/A Questionairres Past Medical History Past Medical History Have you ever been diagnosed with any of the following: Neurological Problems Meningitis: Yes Seizures: Yes Cardiology Problems Congestive Heart Failure: No Hypertension: Yes Respiratory Problems Chronic Obstructive Pulmonary Disease (COPD): No Genital/Urinary Problems Renal Disease: No Endocrine Problems Diabetes Mellitus Type 1: No Diabetes Mellitus Type 2: Yes Other Problems Hospitalization: Yes Blood Transfusions: No Blood Transfusion Reaction: No Anesthesia Reactions: No Subjective Visit Visit for: follow up visit, post op #2 and knee Immunization / Flu Flu Vaccine in the Last 12 Months: No Flu Vaccine Exclusion Criteria: No Exclusion Criteria and Already Received History of Present Illness Chief complaint: 4 WEEK POST OP Patient is a pleasant 54-year-old male who is 7 weeks status post right hip hemiarthroplasty for fracture. He has a history of stroke and is still recovering from this. 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
== END 2025-10-10 09:17 | disposition home or self-care (01) ==
LOC: HODSRG 08:53
PROVIDERS: PCP Hospitalist; Referring Provider Hospitalist; Supervising Provider Orthopaedic Surgery Adult Reconstructive Orthopaedic Surgery; Visit Provider Orthopaedic Surgery Adult Reconstructive Orthopaedic Surgery
DX: Z47.1 Aftercare following joint replacement surgery (principal); Z96.641 Presence of right artificial hip joint; Z86.73 Personal history of transient ischemic attack (TIA), and cerebral infarction without residual deficits; I10 Essential (primary) hypertension; E11.9 Type 2 diabetes mellitus without complications; Z79.4 Long term (current) use of insulin
CPT/HCPCS: 99213; G0463